=== PATIENT | male | born 1940 | race Caucasian/White ===

== ENCOUNTER → 2018-04-11 12:47 | Outpatient (CLI) | payer MEDICARE, OTHER, SELFPAY ==
--- NOTE | 2018-04-11 12:59 | PCM.CR.HP2 ---
CR - History & Physical - General Arrival date:: 04/11/18 Arrival time:: 12:59 Date of Referral:: 04/11/18 Date of CR Evaluation:: 04/11/18 Referring Physician: Dr. Barraza Primary Diagnosis: Z95.5 - History of Present Cardiac Event Onset Date: Enter Onset Date of cardiac illnesses in Comment field below Current stable Angina Pectoris:: Yes Acute Myocardial Infarction within 12 months:: Yes Coronary Artery Bypass Graft:: No Heart valve replacement or repair:: No PTCA or coronary stenting:: Yes - 02/26/18 x 3 Heart or Heart-Lung Transplant:: No Heart Failure EF <35%:: No - 62% Type of Symptoms:: Heavy feeling in chest. Interventions with present event:: Nuclear stress test, PCI Were there any complications?: Some stomach issues post op. - Medications Home Medications: Ambulatory Orders Medication Instructions Recorded Aspirin [Aspirin EC] 81 mg PO DAILY 04/11/18 Atorvastatin Calcium [Lipitor] 40 mg PO QHS 04/11/18 B Complex with Vitamin C [Vitamin 1 each PO DAILY 04/11/18 B-Complex with Vit C] Benzonatate [Tessalon Perle] 100 mg PO TID PRN PRN 04/11/18 Cholecalciferol (Vitamin D3) 1,000 unit PO DAILY 04/11/18 [Vitamin D3] Clopidogrel Bisulfate [Plavix] 75 mg PO DAILY 04/11/18 Fenofibrate [Tricor] 145 mg PO DAILY 04/11/18 Levothyroxine [Synthroid] 75 mcg PO DAILY 04/11/18 Metoprolol Tartrate [Lopressor 25 mg PO BID 04/11/18 (Beta Horacio)] Nitroglycerin [Nitrostat] 0.4 mg SL PRN PRN MDD 3 total 04/11/18 doses. Pantoprazole Sodium [Protonix] 40 mg PO DAILY 04/11/18 Tamsulosin HCl [Flomax] 0.4 mg PO DAILY 04/11/18 - Allergies Allergies/Adverse Reactions: Allergies lovenox Allergy (Uncoded 04/11/18 14:27) Rash - Sleep Disorder Evaluation Hx of Sleep Apnea: Yes Do you snore loudly (louder than talking or can be heard through closed doors)?: Yes Do you often feel tired/ fatigued/ sleepy during daytime?: Yes Has anyone observed you stop breathing during sleep?: Yes History of Hypertension (for STOP score): No - Is already on bipap at night. STOP Results: Positive Advanced Directives - Advanced Directives Power of Manager Product Design: Yes Living Will: Yes Advance Directives Information Provided: No Advance Directives on File: Yes - Dr. Meli Amaya has copy DNR Order?:: No - MOLST See MOLST form: No Past Medical History - Past Medical Illness Medical History: Past Medical History (Last Updated 04/11/18 @ 13:21 by Oswald Osman RN) Chronic kidney disease (CKD) N18.9 Hyperlipidemia E78.5 Hypothyroidism E03.9 - Past Surgical History Surgical History: appendectomy, cataract, cholecystectomy, herniorrhaphy, total knee arthroplasty Social History - Smoking History Smoking Status: Never smoker Hx Tobacco Use: No Hx Smoking Exposure: No - Alcohol Use Alcohol Usage: No - Substance Abuse Hx Substance Use: No - Occupation Occupation (List type of work in comments):: Retired - Hobbies, Recreation, Social Activities Hobbies: Exercise, Other - fishing, gardening, [employer] Recreational Activities: I am able to engage in all my recreational activities Social Environment - Status Marital Status: - Current Living Arrangements Living Environment:: Spouse - Children How many children do you have?: 2 Do any of your children live nearby?: Yes - Safety Do you feel safe in your surroundings?: Yes - Assistance Do you need any assistance at home?: no Review of Systems - Review of Systems Hints: Right click = Denies (Slash). Left click = Reports ([place]) Review of Present Symptoms: Reports: Dizziness/Lightheadedness - One episode since the stent., Fatigue - some, Appetite - Special Diet - cardiac. Denies: Shortness of Breath at Rest, Shortness of Breath with Exertion, PVD, Operative Discomfort, Angina, Wound Healing, Heart Arrhythmia/Irregularities, Appetite - Normal, Sleep - Normal, Sexual Changes - Pain Is Patient Pain Free?: No Pain Location: upper extremity - right shoulder arthritis, lower extremity - knees with arthritis Pain Level: 8/10 Previous experience dealing with pain?: deals with it, doesn't take pain meds. Risk Factor Assessment - Chief Complaint Chief Complaint: Exercise while being monitored. - Pulse Pulse Rate: 49 Pulse Rhythm: Regular - Hypertension Blood Pressure Sitting - Right Arm: 114/56 Blood Pressure Sitting - Left Arm: 118/56 - Blood Cholesterol/Lipids Total Cholesterol (mg/dL) Goal = less than 200 mg/dL: 208 HDL Cholesterol (mg/dL) Goal = less than 40 mg/dL: 41 LDL Cholesterol (mg/dL) Goal = less than 70 mg/dL: 136 Triglycerides (mg/dL) Goal = less than 150 mg/dL: 157 - Diabetes Nutrition Referral for Diabetes: No - Obesity Height: 1.75 m Weight:: 94.347 kg Weight in Pounds: 208.0 lbs Weight Source: Standing Scale Body Mass Index (BMI): 30.7 Desired Body Weight: 162 Realistic Weight Goal (Loss of 1-2 lbs/week): 174 Nutritional Referral for Obesity: Yes - Physical Inactivity Physical Inactivity: Reg Exercise 30 min/day - works out at [employer] 3x/week and walks alot of days outdoors. - Risk Stratification Risk Guidelines: Lowest Risk: Risk Factor for Smoking, Risk Factor for Diabetes, Risk Factor for Hypertension, Risk Factor for Sedentary Lifestyle, Risk Factor for Depression, Highest Risk: Risk Factor for Dyslipidemia, Risk Factor for Obesity - For Smoking Smoking Risk Guidelines: Smoking Low Risk: None or quit greater than 6 months ago. Smoking Moderate Risk: Smoker or quit 6 months or less ago. Smoking High Risk: Smoker - For Dyslipidemia Dyslipidemia Risk Guidelines: Low Risk: Moderate Risk: High Risk: 15-25% fat 25.1-29% fat >/= 30% fat. <7% sat fat 7-9% sat fat >9% sat fat. <150 mg chol 150-299 mg chol >/= 300 mg chol. LDL <100 LDL 100-129 LDL >/= 130. Chol/HDL ratio <5.0 Chol/HDL ratio 5.0-6.0 Chol/HDL ratio >6.0. Triglycerides <100 Triglycerides 100-149 Triglycerides >/= 150 - For Diabetes Mellitus Diabetes Risk Guidelines: Diabetes Low Risk: HgA1c <6.5% and/or FBG <120. Diabetes Moderate Risk: HgA1c 6.6-7.9% and/or FBG 120-180. Diabetes High Risk: HgA1c >/= 8% and/or FBG >180 - For Obesity/Overweight Obesity/Overweight Risk Guidelines: Obesity Low Risk: BMI <25.0. Obesity Moderate Risk: BMI 25-29.9. Obesity High Risk: BMI >/= 30.0 - For Hypertension Hypertension Risk Guidelines: Hypertension Low Risk: Systolic <120 and Diastolic <80. Hypertension Moderate Risk: Systolic 120-139 and Diastolic 80-89. Hypertension High Risk: Systolic >/= 140 and Diastolic >/= 90 - For Sedentary Lifestyle Sedentary Lifestyle Risk Guidelines: Sedentary Lifestyle Low Risk: >/= 1,500 kcal/week. Sedentary Lifestyle Moderate Risk: 700-1,499 kcal/week. Sedentary Lifestyle High Risk: < 700 kcal/week - For Depression Depression Risk Guidelines: Depression Low Risk: Not clinically depressed. Depression Moderate Risk: Mildly depressed. Depression High Risk: Clinically depressed Motivation - Motivation to Participate On a scale of 1 to 10, how prepared are you to commit to attending program?: 10
--- NOTE | 2018-04-11 13:15 | CR.HP_ITS ---
CR - History & Physical - General Arrival date:: 04/11/18 Arrival time:: 12:59 Date of Referral:: 04/11/18 Date of CR Evaluation:: 04/11/18 Referring Physician: Dr. Barraza Primary Diagnosis: Z95.5 - History of Present Cardiac Event Onset Date: Enter Onset Date of cardiac illnesses in Comment field below Current stable Angina Pectoris:: Yes Acute Myocardial Infarction within 12 months:: Yes Coronary Artery Bypass Graft:: No Heart valve replacement or repair:: No PTCA or coronary stenting:: Yes - 02/26/18 x 3 Heart or Heart-Lung Transplant:: No Heart Failure EF <35%:: No - 62% Type of Symptoms:: Heavy feeling in chest. Interventions with present event:: Nuclear stress test, PCI Were there any complications?: Some stomach issues post op. - Medications Home Medications: Ambulatory Orders Medication Instructions Recorded Aspirin [Aspirin EC] 81 mg PO DAILY 04/11/18 Atorvastatin Calcium [Lipitor] 40 mg PO QHS 04/11/18 B Complex with Vitamin C [Vitamin 1 each PO DAILY 04/11/18 B-Complex with Vit C] Benzonatate [Tessalon Perle] 100 mg PO TID PRN PRN 04/11/18 Cholecalciferol (Vitamin D3) 1,000 unit PO DAILY 04/11/18 [Vitamin D3] Clopidogrel Bisulfate [Plavix] 75 mg PO DAILY 04/11/18 Fenofibrate [Tricor] 145 mg PO DAILY 04/11/18 Levothyroxine [Synthroid] 75 mcg PO DAILY 04/11/18 Metoprolol Tartrate [Lopressor 25 mg PO BID 04/11/18 (Beta Horacio)] Nitroglycerin [Nitrostat] 0.4 mg SL PRN PRN MDD 3 total 04/11/18 doses. Pantoprazole Sodium [Protonix] 40 mg PO DAILY 04/11/18 Tamsulosin HCl [Flomax] 0.4 mg PO DAILY 04/11/18 - Allergies Allergies/Adverse Reactions: Allergies lovenox Allergy (Uncoded 04/11/18 14:27) Rash - Sleep Disorder Evaluation Hx of Sleep Apnea: Yes Do you snore loudly (louder than talking or can be heard through closed doors)? : Yes Do you often feel tired/ fatigued/ sleepy during daytime?: Yes Has anyone observed you stop breathing during sleep?: Yes History of Hypertension (for STOP score): No - Is already on bipap at night. STOP Results: Positive Advanced Directives - Advanced Directives Power of Deck Engine Operator: Yes Living Will: Yes Advance Directives Information Provided: No Advance Directives on File: Yes - Dr. Meli Amaya has copy DNR Order?:: No - MOLST See MOLST form: No Past Medical History - Past Medical Illness Medical History: Past Medical History (Last Updated 04/11/18 @ 13:21 by Oswald Osman RN) Chronic kidney disease (CKD) N18.9 Hyperlipidemia E78.5 Hypothyroidism E03.9 - Past Surgical History Surgical History: appendectomy, cataract, cholecystectomy, herniorrhaphy, total knee arthroplasty Social History - Smoking History Smoking Status: Never smoker Hx Tobacco Use: No Hx Smoking Exposure: No - Alcohol Use Alcohol Usage: No - Substance Abuse Hx Substance Use: No - Occupation Occupation (List type of work in comments):: Retired - Hobbies, Recreation, Social Activities Hobbies: Exercise, Other - fishing, gardening, [employer] Recreational Activities: I am able to engage in all my recreational activities Social Environment - Status Marital Status: - Current Living Arrangements Living Environment:: Spouse - Children How many children do you have?: 2 Do any of your children live nearby?: Yes - Safety Do you feel safe in your surroundings?: Yes - Assistance Do you need any assistance at home?: no Review of Systems - Review of Systems Hints: Right click = Denies (Slash). Left click = Reports ([place]) Review of Present Symptoms: Reports: Dizziness/Lightheadedness - One episode since the stent., Fatigue - some, Appetite - Special Diet - cardiac. Denies: Shortness of Breath at Rest, Shortness of Breath with Exertion, PVD, Operative Discomfort, Angina, Wound Healing, Heart Arrhythmia/Irregularities, Appetite - Normal, Sleep - Normal, Sexual Changes - Pain Is Patient Pain Free?: No Pain Location: upper extremity - right shoulder arthritis, lower extremity - knees with arthritis Pain Level: 8/10 Previous experience dealing with pain?: deals with it, doesn't take pain meds. Risk Factor Assessment - Chief Complaint Chief Complaint: Exercise while being monitored. - Pulse Pulse Rate: 49 Pulse Rhythm: Regular - Hypertension Blood Pressure Sitting - Right Arm: 114/56 Blood Pressure Sitting - Left Arm: 118/56 - Blood Cholesterol/Lipids Total Cholesterol (mg/dL) Goal = less than 200 mg/dL: 208 HDL Cholesterol (mg/dL) Goal = less than 40 mg/dL: 41 LDL Cholesterol (mg/dL) Goal = less than 70 mg/dL: 136 Triglycerides (mg/dL) Goal = less than 150 mg/dL: 157 - Diabetes Nutrition Referral for Diabetes: No - Obesity Height: 1.75 m Weight:: 94.347 kg Weight in Pounds: 208.0 lbs Weight Source: Standing Scale Body Mass Index (BMI): 30.7 Desired Body Weight: 162 Realistic Weight Goal (Loss of 1-2 lbs/week): 174 Nutritional Referral for Obesity: Yes - Physical Inactivity Physical Inactivity: Reg Exercise 30 min/day - works out at [employer] 3x/week and walks alot of days outdoors. - Risk Stratification Risk Guidelines: Lowest Risk: Risk Factor for Smoking, Risk Factor for Diabetes , Risk Factor for Hypertension, Risk Factor for Sedentary Lifestyle, Risk Factor for Depression, Highest Risk: Risk Factor for Dyslipidemia, Risk Factor for Obesity - For Smoking Smoking Risk Guidelines: Smoking Low Risk: None or quit greater than 6 months ago. Smoking Moderate Risk: Smoker or quit 6 months or less ago. Smoking High Risk: Smoker - For Dyslipidemia Dyslipidemia Risk Guidelines: Low Risk: Moderate Risk: High Risk: 15-25% fat 25.1-29% fat >/= 30% fat. <7% sat fat 7-9% sat fat >9% sat fat. <150 mg chol 150-299 mg chol >/= 300 mg chol. LDL <100 LDL 100-129 LDL >/= 130. Chol/HDL ratio <5.0 Chol/HDL ratio 5.0-6.0 Chol/HDL ratio >6.0. Triglycerides <100 Triglycerides 100-149 Triglycerides >/= 150 - For Diabetes Mellitus Diabetes Risk Guidelines: Diabetes Low Risk: HgA1c <6.5% and/or FBG <120. Diabetes Moderate Risk: HgA1c 6.6-7.9% and/or FBG 120-180. Diabetes High Risk: HgA1c >/= 8% and/or FBG >180 - For Obesity/Overweight Obesity/Overweight Risk Guidelines: Obesity Low Risk: BMI <25.0. Obesity Moderate Risk: BMI 25-29.9. Obesity High Risk: BMI >/= 30.0 - For Hypertension Hypertension Risk Guidelines: Hypertension Low Risk: Systolic <120 and Diastolic <80. Hypertension Moderate Risk: Systolic 120-139 and Diastolic 80-89. Hypertension High Risk: Systolic >/= 140 and Diastolic >/= 90 - For Sedentary Lifestyle Sedentary Lifestyle Risk Guidelines: Sedentary Lifestyle Low Risk: >/= 1 ,500 kcal/week. Sedentary Lifestyle Moderate Risk: 700-1,499 kcal/week. Sedentary Lifestyle High Risk: < 700 kcal/week - For Depression Depression Risk Guidelines: Depression Low Risk: Not clinically depressed. Depression Moderate Risk: Mildly depressed. Depression High Risk: Clinically depressed Motivation - Motivation to Participate On a scale of 1 to 10, how prepared are you to commit to attending program?: 10
--- NOTE | 2018-04-11 13:19 | CR.ITP_ITS ---
General Information - General Information Admitting Diagnosis: PCI with stents - Education/Goals Barriers to Learning: Hearing Impairment - Wears bilateral hearing aids. Individual Counseling: Initial Assessment: Abnormal Cholesterol Levels, Overweight/Obesity, B. Waist Circumference >35/Females >40/Males, C. High Triglycerides >150 Cardiac Rehabilitation Goals: 1. Maintain the individual as the primary focus of care. 2. To improve the patient's quality of life. 3. Identification of cardiac risk factors and provide cardiac risk factor management. 4. Enhance the psychosocial status of the patient. 5. Reconditioning enough to allow the patient to resume customary activities. 6. Control symptoms of cardiac disease Scale for measuring improvement of personal goals: Enter appropriate number in Comments. 2 = Unchanged. 3 = Slightly Better. 4 = Moderate Improvement. 5 = Met my Goal Personal Goals: Initial Assessment: Improve management of stress and emotions, Improve energy level, Get back to work, or to resume activities faster, Improve knowledge of cardiac disease, Improve muscle strength and endurance, Improve diet and eating habits (eat healthier), Control risk factors (learn risk factor modification), Other goal: Exercise - Initial Assessment - Visit Date of Eval: 04/11/18 - Stages of Change Stages of Change:: Action - Exercise Prescription Mode:: Treadmill, Biodyne, Rower, Airdyne, NuStep - Hypertension Do any of the following apply?: No - Intervention Home Exercise/Activity Goal:: Moderate Exercise 30 min/day x 5 days/wk - Education Goals:: Warm-up, RPE [id number] Scale, S/S, Safe Exercise, Self-Monitoring - Exercise Program Goals Exercise Program Goals: Aerobic Activity >30 min Nutrition - Initial Assessment - Program Goals Nutrition Program Goals: LDL <70. Total Cholesterol <200. HDL >45. Triglycerides <150. HgbA1C <7%. BMI <25 - Visit Date of Assessment:: 04/11/18 - Stages of Change Stages of Change:: Action - Lipids Total Cholesterol (mg/dL) Goal = less than 200 mg/dL: 208 HDL Cholesterol (mg/dL) Goal = less than 45 mg/dL: 41 LDL Cholesterol (mg/dL) Goal = less than 70 mg/dL: 136 Triglycerides (mg/dL) Goal = less than 150 mg/dL: 157 - Diabetes Diabetes:: No - Weight Management Height: 1.75 m Weight:: 94.347 kg Weight Goal (kg):: 79.379 kg Body Fat %:: 31 Goal % Body Fat:: 24 - Intervention Referral to dietitian:: Yes Referral to Diabetic Clinic:: No Will attend diet classes:: Yes - Education Gave educational materials for:: Relate diabetes to coronary artery disease, Healthy eating Tobacco - Initial Assessment - Program Goals Tobacco Program Goals: Complete smoking cessation. Attend education classes. Improve Knowledge Test score - Stage of Change Stages of Change:: Maintenance - Learning Barriers Learning Barriers: Hearing - bilateral hearing aids, Ready to Learn - Family Support Do you have family support?: Yes - Tobacco Use Tobacco Use: Non-smoker Do you use smokeless tobacco?: No - Intervention Smoking Cessation Referral:: No Individual Education/Counseling:: No Education Schedule Given:: Yes - Education Gave educational material for:: Coronary artery disease, Risk factors, Sexuality , Medical compliance, Cardiac A&P, Angina signs & symptoms Psychosocial - Initial Assess - Target Goals Target Goals: Assess presence or absence of depression. Using a valid screening tool, maximizes coping skills. Positive support system - Stages of Change Stages of Change:: Action - Psychosocial Test Tool Used:: HANDS Depression Questionnaire Self-reported stress:: no Total Mood Screening Score:: 8 Self-Efficacy Score:: 4 - Intervention PS - Interventions: Yes Attend Stress Management Classes, Yes Uses Stress Management Skills, No Referral to Mental Health, No Referral to [facility] Case Management, No Referral to Physician - Education Gave educational materials for:: Coping techniques, Signs & symptoms of depression, Stress management, Relaxation techniques - Patient/Program Goal Preventative Medication(s):: Aspirin, RALPH inhibitor, Clopidogrel, Beta nicholas, Statin/lipid - Assistive Devices Assistive Devices:: None Fall Risk Assessed:: Yes Patient Health Questionnaire Initial Assessment 1. Little interest or pleasure in doing things: More than half the days 2. Feeling down, depressed, or hopeless: Not at all 3. Trouble falling or staying asleep, or sleeping too much: Not at all 4. Feeling tired or having little energy: Several days 5. Poor appetite or overeating: More than half the days 6. Feeling bad about yourself -- or that you are a failure or have let yourself or your family down: Several days 7. Trouble concentrating on things, such as reading the newspaper or watching television: Not at all 8. Moving or speaking so slowly that other people could have noticed. Or the opposite - being so fidgety or restless that you have been moving around a lot more than usual: More than half the days 9. Thoughts that you would be better off , or of hurting yourself in some way: Not at all Total Score: 8 MARITO-Q SV Test - Statements CAD is a disease of the arteries in the heart: True Examples of risk factors for heart disease: True Angina is chest pain or discomfort: True The benefits of resistance training include: True Eating more meat and dairy products: I Don't Know Anti-platelet medications such as aspirin are important: False The only effective way to manage stress: False An exercise warm-up slowly increases heart rate: True Prepared, processed foods usually have high sodium: True Depression is common after a heart attack: True The statin medications lower cholesterol: True To control blood pressure, lower the amount of sodium: True If someone gets chest discomfort during walking: False Transfats are partially hydrogenated vegetable oils: False Sleep apnea that is not treated increases the risk: False To control cholesterol, one should become a vegetarian: I Don't Know Someone knows if he/she is exercising at the right level: False Diabetes cannot be prevented with exercise & health eating: False Stress is a large risk for heart attack: True A diet that can help lower blood pressure is rich in: True - Total Score Total Correct Responses: 14 Self-Efficacy Initial Assessment We would like to know how confident you are in doing certain activities. Please select your confidence level for:: Select your confidence level for the following using the scale 1-10 where 1 is not at all confident and 10 is totally confident. Your score is the average of all 6 responses. Fatigue: How confident are you that you can keep the fatigue caused by your disease from interfering with the things you want to do? Select Number: 3 Physical Discomfort or Pain: How confident are you that you can keep the physical discomfort or pain of your disease from interfering with the things you want to do? Select Number: 4 Emotional Distress: How confident are you that you can keep the emotional distress caused by your disease from interfering with the things you want to do? Select Number: 5 Other Symptoms or Health Problems: How confident are you that you can keep other symptoms or health problems from interfering with the things you want to do? Select Number: 4 Different Tasks and Activities: How confident are you that you can do the different tasks and activities needed to manage your health condition so as to reduce your need to see a doctor? Select Number: 6 Medication: How confident are you that you can do things other than just taking medication to reduce how much your illness affects your everyday life? Select Number: 6 Total Score:: 4 Nutrition Survey - Nutrition Survey Instructions Scoring Instructions: Scoring is as follows: Yes = 1 points. No = 0 point. Patient score that is >/=12 is considered to be at potential nutritional risk and could benefit from a referral to a registered dietitian. - Nutrition Survey Initial Have you lost >10 lbs over the past 2 months without trying?: No Are you following a special diet at home for diabetes, low fat, or low salt?: No Are you interested in meeting with a dietitian for help understanding your diet? : Yes Do you eat less than 3 meals a day?: No Do you eat fatty meats (wilson, sausage, ribs, etc), fried foods, desserts, large amounts of salad dressings, margarine, butter, or cheese most days?: Yes Do you have food allergies? [Enter types in comment field]: No Do you eat in restaurants more than 3 times a week?: No Do you season food with salt, seasoning salt, or garlic salt?: Yes Do you used canned, boxed, frozen meals, or soups, seasoning packets?: No Total Score:: 3
[2018-04-11 14:42] VITALS: BP 114/56; BP 118/56; PULSE 49; BMI 30.7
--- NOTE | 2018-04-21 15:43 | EKG12_ITS ---
Test Reason : PRE CARDIAC REHAB Blood Pressure : / mmHG Vent. Rate : 049 BPM Atrial Rate : 049 BPM P-R Int : 152 ms QRS Dur : 114 ms QT Int : 456 ms P-R-T Axes : 017 001 038 degrees QTc Int : 411 ms Marked sinus bradycardia Minimal voltage criteria for LVH, may be normal variant Abnormal ECG Confirmed by SARAHI BANUELOS, JEFFREY ([id number]), editor producer SILVIA ZULETA ([id number]) on 04/23/2018 5:30:33 PM Referred By: OUT DOCTOR Confirmed By:JEFFREY MCCLAIN MD
== END ==
DX: Z95.5 Presence of coronary angioplasty implant and graft (principal)
CPT/HCPCS: 93005

== ENCOUNTER 2018-05-09 09:15 | Outpatient (RCR) | payer MEDICARE, OTHER, SELFPAY ==
--- NOTE | 2018-05-02 14:42 | PCM.CR.ITP ---
General Information - General Information Admitting Diagnosis: PCI with coronary artery stenting - Education/Goals Barriers to Learning: Hearing Impairment Individual Counselin-Day Assessment: Abnormal Cholesterol Levels, B. Waist Circumference >35/Females >40/Males Cardiac Rehabilitation Goals: 1. Maintain the individual as the primary focus of care. 2. To improve the patient's quality of life. 3. Identification of cardiac risk factors and provide cardiac risk factor management. 4. Enhance the psychosocial status of the patient. 5. Reconditioning enough to allow the patient to resume customary activities. 6. Control symptoms of cardiac disease Scale for measuring improvement of personal goals: Enter appropriate number in Comments. 2 = Unchanged. 3 = Slightly Better. 4 = Moderate Improvement. 5 = Met my Goal Personal Goals: 30-day Re-assessment: Improve management of stress and emotions, Improve energy level, Get back to work, or to resume activities faster, Improve knowledge of cardiac disease, Improve muscle strength and endurance, Improve diet and eating habits (eat healthier), Control risk factors (learn risk factor modification) Exercise - 30-day Assessment - Visit Date of Eval: 05/02/18 Session #:: 4 - 100% compliance - Stages of Change Stages of Change:: Action - Exercise Prescription Mode:: Treadmill, Airdyne, NuStep Frequency (x/week): 3 Duration:: 30 METs - Progression: 0.5-1 MET as tolerated: 2.5 Target Heart Rate:: 106-114 - Hypertension Resting Blood Pressure:: 118/76 Peak Exercise Blood Pressure:: 142/72 Medication Changes:: No - Intervention Home Exercise/Activity Goal:: Sitting Time <3 hrs/day - Education Goals:: Warm-up, RPE RAJEEV Scale, S/S, Safe Exercise, Self-Monitoring - Exercise Program Goals Exercise Program Goals: Aerobic Activity >30 min, B/P <130/80 Nutrition - 30-Day Assessment - Program Goals Nutrition Program Goals: LDL <70. Total Cholesterol <200. HDL >45. Triglycerides <150. HgbA1C <7%. BMI <25 - Visit Date of Eval: 05/02/18 - Stages of Change Stages of Change:: Action - Lipids Has the patient seen the dietitian?: No - Diabetes Diabetes:: No - Intervention Referral to dietitian:: No Referral to Diabetic Clinic:: No Will attend diet classes:: Yes - Education Attended class for:: Signs & symptoms of hypoglycemia, Signs & symptoms of hyperglycemia, Relate diabetes to coronary artery disease, Healthy eating Tobacco - Initial Assessment - Program Goals Tobacco Program Goals: Complete smoking cessation. Attend education classes. Improve Knowledge Test score - Learning Barriers Learning Barriers: Hearing - bilateral hearing aids, Ready to Learn Tobacco - 30-Day Assessment - Program Goals Tobacco Program Goals: Complete smoking cessation. Attend education classes. Improve Knowledge Test score - Stage of Change Stages of Change:: Action - Learning Barriers Learning Barriers: Participates in education - Family Support Do you have family support?: Yes - Tobacco Use Tobacco Use: Non-smoker Do you use smokeless tobacco?: No - Education Attended class for:: Tobacco triggers, Coronary artery disease, Risk factors, Sexuality, Medical compliance, Cardiac A&P, Angina signs & symptoms Psychosocial - Initial Assess - Target Goals Target Goals: Assess presence or absence of depression. Using a valid screening tool, maximizes coping skills. Positive support system - Psychosocial Test Tool Used:: HANDS Depression Questionnaire - Assistive Devices Fall Risk Assessed:: Yes Psychosocial - 30-Day Assess - Target Goals Target Goals: Assess presence or absence of depression. Using a valid screening tool, maximizes coping skills. Positive support system - Stages of Change Stages of Change:: Action - Psychosocial Test Tool Used:: HANDS Depression Questionnaire - Intervention PS - Interventions: Yes Attend Stress Management Classes, Yes Uses Stress Management Skills, No Referral to Mental Health, No Referral to [facility] Case Management, No Referral to Physician - Education Attended classes for:: Coping techniques, Signs & symptoms of depression, Stress management, Relaxation techniques - Assistive Devices Assistive Devices:: None Fall Risk Assessed:: Yes Patient Health Questionnaire 30-Day Re-eval Assessment 1. Little interest or pleasure in doing things: More than half the days 2. Feeling down, depressed, or hopeless: Not at all 3. Trouble falling or staying asleep, or sleeping too much: Not at all 4. Feeling tired or having little energy: Several days 5. Poor appetite or overeating: More than half the days 6. Feeling bad about yourself -- or that you are a failure or have let yourself or your family down: Several days 7. Trouble concentrating on things, such as reading the newspaper or watching television: Not at all 8. Moving or speaking so slowly that other people could have noticed. Or the opposite - being so fidgety or restless that you have been moving around a lot more than usual: Several days 9. Thoughts that you would be better off , or of hurting yourself in some way: Not at all Total Score: 7 Self-Efficacy 60-Day Re-eval Assessment We would like to know how confident you are in doing certain activities. Please select your confidence level for:: Select your confidence level for the following using the scale 1-10 where 1 is not at all confident and 10 is totally confident. Your score is the average of all 6 responses. Fatigue: How confident are you that you can keep the fatigue caused by your disease from interfering with the things you want to do? Select Number: 5 Physical Discomfort or Pain: How confident are you that you can keep the physical discomfort or pain of your disease from interfering with the things you want to do? Select Number: 5 Emotional Distress: How confident are you that you can keep the emotional distress caused by your disease from interfering with the things you want to do? Select Number: 5 Other Symptoms or Health Problems: How confident are you that you can keep other symptoms or health problems from interfering with the things you want to do? Select Number: 6 Different Tasks and Activities: How confident are you that you can do the different tasks and activities needed to manage your health condition so as to reduce your need to see a doctor? Select Number: 6 Medication: How confident are you that you can do things other than just taking medication to reduce how much your illness affects your everyday life? Select Number: 6 Total Score:: 5 We would like to know how confident you are in doing certain activities. Please select your confidence level for:: Select your confidence level for the following using the scale 1-10 where 1 is not at all confident and 10 is totally confident. Your score is the average of all 6 responses. Fatigue: How confident are you that you can keep the fatigue caused by your disease from interfering with the things you want to do? Physical Discomfort or Pain: How confident are you that you can keep the physical discomfort or pain of your disease from interfering with the things you want to do? Emotional Distress: How confident are you that you can keep the emotional distress caused by your disease from interfering with the things you want to do? Other Symptoms or Health Problems: How confident are you that you can keep other symptoms or health problems from interfering with the things you want to do? Different Tasks and Activities: How confident are you that you can do the different tasks and activities needed to manage your health condition so as to reduce your need to see a doctor? Medication: How confident are you that you can do things other than just taking medication to reduce how much your illness affects your everyday life?
[2018-05-02 14:48] VITALS: BP 118/76; BP 142/72
== END 2018-05-10 23:59 ==
LOC: CR 09:15
DX: I25.10 Atherosclerotic heart disease of native coronary artery without angina pectoris (principal)
CPT/HCPCS: 93798

== ENCOUNTER 2018-05-21 13:56 | Outpatient (RCR) | payer MEDICARE, OTHER, SELFPAY | END 2018-05-21 23:59 | LOC: NS 13:56 | DX: E78.5 Hyperlipidemia, unspecified (principal); E03.9 Hypothyroidism, unspecified; N18.9 Chronic kidney disease, unspecified; E66.9 Obesity, unspecified; Z68.30 Body mass index [BMI] 30.0-30.9, adult; Z71.3 Dietary counseling and surveillance | CPT/HCPCS: 93798; 97802 ==

== ENCOUNTER 2018-06-09 09:15 | Outpatient (RCR) | payer MEDICARE, OTHER, SELFPAY ==
[2018-05-11 01:06] VITALS: BP 118/76; BP 142/72
--- NOTE | 2018-06-04 09:12 | CR.ITP_ITS ---
Exercise - 60-Day Assessment - Visit Date of Eval: 06/04/18 Session #:: 16 - Stages of Change Stages of Change:: Action - Exercise Prescription Mode:: Treadmill, Airdyne, NuStep Frequency (x/week): 3 Duration:: 30 METs: 5 Target Heart Rate:: 106-114 Max HR 96 - Hypertension Resting Blood Pressure:: 188/74 Peak Exercise Blood Pressure:: 188/74 Medication Changes:: No - Intervention Home Exercise/Activity Goal:: Moderate Exercise 30 min/day x 5 days/wk - Education Goals:: Warm-up, RPE RAJEEV Scale, S/S, Safe Exercise, Self-Monitoring - Exercise Program Goals Exercise Program Goals: Aerobic Activity >30 min Nutrition - 60-Day Assessment - Program Goals Nutrition Program Goals: LDL <70. Total Cholesterol <200. HDL >45. Triglycerides <150. HgbA1C <7%. BMI <25 - Visit Date of Eval: 06/04/18 - Stages of Change Stages of Change:: Action - Lipids Has the patient seen the dietitian?: No - Diabetes Diabetes:: No - Weight Management Weight:: 206 lb - Intervention Referral to dietitian:: No Referral to Diabetic Clinic:: No Will attend diet classes:: Yes - Education Attended class for:: Healthy eating Tobacco - Initial Assessment - Program Goals Tobacco Program Goals: Complete smoking cessation. Attend education classes. Improve Knowledge Test score - Learning Barriers Learning Barriers: Hearing - bilateral hearing aids, Ready to Learn Tobacco - 60-Day Assessment - Program Goals Tobacco Program Goals: Complete smoking cessation. Attend education classes. Improve Knowledge Test score - Stage of Change Stages of Change:: Action - Learning Barriers Learning Barriers: Participates in education - Family Support Do you have family support?: Yes - Tobacco Use Tobacco Use: Non-smoker Do you use smokeless tobacco?: No - Intervention Education Schedule Given:: Yes - Education Attended class for:: Coronary artery disease, Risk factors, Sexuality, Medical compliance, Cardiac A&P, Angina signs & symptoms Psychosocial - 60-Day Assess - Target Goals Target Goals: Assess presence or absence of depression. Using a valid screening tool, maximizes coping skills. Positive support system - Stages of Change Stages of Change:: Action - Psychosocial Test Tool Used:: HANDS Depression Questionnaire - Intervention PS - Interventions: Yes Attend Stress Management Classes, No Referral to Mental Health, No Referral to [facility] Case Management, No Referral to Physician, No Uses Stress Management Skills - Education Attended classes for:: Coping techniques, Signs & symptoms of depression, Stress management, Relaxation techniques - Patient/Program Goal Preventative Medication(s):: Aspirin, Clopidogrel, Beta nicholas, Statin/lipid - Assistive Devices Assistive Devices:: None Fall Risk Assessed:: Yes Patient Health Questionnaire 60-Day Re-eval Assessment 1. Little interest or pleasure in doing things: Several days 2. Feeling down, depressed, or hopeless: Not at all 3. Trouble falling or staying asleep, or sleeping too much: Not at all 4. Feeling tired or having little energy: Not at all 5. Poor appetite or overeating: Not at all 6. Feeling bad about yourself -- or that you are a failure or have let yourself or your family down: Several days 7. Trouble concentrating on things, such as reading the newspaper or watching television: Not at all 8. Moving or speaking so slowly that other people could have noticed. Or the opposite - being so fidgety or restless that you have been moving around a lot more than usual: Several days 9. Thoughts that you would be better off , or of hurting yourself in some way: Not at all How difficult have these problems made it for you to do your work, take care of things at home, or get along with other people?: Not difficult at all Total Score: 3 Self-Efficacy 60-Day Re-eval Assessment We would like to know how confident you are in doing certain activities. Please select your confidence level for:: Select your confidence level for the following using the scale 1-10 where 1 is not at all confident and 10 is totally confident. Your score is the average of all 6 responses. Fatigue: How confident are you that you can keep the fatigue caused by your disease from interfering with the things you want to do? Select Number: 6 Physical Discomfort or Pain: How confident are you that you can keep the physical discomfort or pain of your disease from interfering with the things you want to do? Select Number: 6 Emotional Distress: How confident are you that you can keep the emotional distress caused by your disease from interfering with the things you want to do? Select Number: 6 Other Symptoms or Health Problems: How confident are you that you can keep other symptoms or health problems from interfering with the things you want to do? Select Number: 7 Different Tasks and Activities: How confident are you that you can do the different tasks and activities needed to manage your health condition so as to reduce your need to see a doctor? Select Number: 8 Medication: How confident are you that you can do things other than just taking medication to reduce how much your illness affects your everyday life? Select Number: 8 Total Score:: 6
[2018-06-04 09:14] VITALS: BP 188/74
== END 2018-06-10 23:59 ==
LOC: CR 09:15
DX: I25.10 Atherosclerotic heart disease of native coronary artery without angina pectoris (principal)
CPT/HCPCS: 93798

== ENCOUNTER 2018-07-11 09:15 | Outpatient (RCR) | payer MEDICARE, OTHER, SELFPAY ==
[2018-06-11 01:02] VITALS: BP 188/74
[2018-07-04 13:58] VITALS: BP 158/76; BP 180/82
--- NOTE | 2018-07-04 13:58 | CR.ITP_ITS ---
General Information - General Information Admitting Diagnosis: PCI w/coronary artery stenting - Education/Goals Cardiac Rehabilitation Goals: 1. Maintain the individual as the primary focus of care. 2. To improve the patient's quality of life. 3. Identification of cardiac risk factors and provide cardiac risk factor management. 4. Enhance the psychosocial status of the patient. 5. Reconditioning enough to allow the patient to resume customary activities. 6. Control symptoms of cardiac disease Scale for measuring improvement of personal goals: Enter appropriate number in Comments. 2 = Unchanged. 3 = Slightly Better. 4 = Moderate Improvement. 5 = Met my Goal Exercise - 90-Day Assessment - Visit Date of Eval: 07/04/18 Session #:: 29 - Stages of Change Stages of Change:: Action - Exercise Prescription Mode:: Treadmill, Airdyne, NuStep Frequency (x/week): 3 Duration:: 30 METs: 5 Target Heart Rate:: 106-114 Max HR 89 - Hypertension Resting Blood Pressure:: 158/76 Peak Exercise Blood Pressure:: 180/82 Medication Changes:: Yes - started metoprolol 12.5 mg BID - Intervention Home Exercise/Activity Goal:: Sitting Time <3 hrs/day - Education Goals:: Warm-up, RPE RAJEEV Scale, S/S, Safe Exercise, Self-Monitoring - Exercise Program Goals Exercise Program Goals: Aerobic Activity >30 min, B/P <130/80 Nutrition - 90-Day Assessment - Program Goals Nutrition Program Goals: LDL <70. Total Cholesterol <200. HDL >45. Triglycerides <150. HgbA1C <7%. BMI <25 - Visit Date of Eval: 07/04/18 - Stages of Change Stages of Change:: Action - Lipids Has the patient seen the dietitian?: No - Diabetes Diabetes:: No - Weight Management Weight:: 92.76 kg - Intervention Referral to dietitian:: No Referral to Diabetic Clinic:: No Will attend diet classes:: Yes - Education Attended class for:: Signs & symptoms of hypoglycemia, Signs & symptoms of hyperglycemia, Relate diabetes to coronary artery disease, Healthy eating Tobacco - Initial Assessment - Program Goals Tobacco Program Goals: Complete smoking cessation. Attend education classes. Improve Knowledge Test score - Learning Barriers Learning Barriers: Hearing - bilateral hearing aids, Ready to Learn Tobacco - 90-Day Assessment - Program Goals Tobacco Program Goals: Complete smoking cessation. Attend education classes. Improve Knowledge Test score - Stage of Change Stages of Change:: Action - Learning Barriers Learning Barriers: Participates in education - Family Support Do you have family support?: Yes - Tobacco Use Tobacco Use: Non-smoker Do you use smokeless tobacco?: No - Intervention Smoking Cessation Referral:: No Individual Education/Counseling:: No Education Schedule Given:: Yes - Education Attended class for:: Tobacco triggers, Coronary artery disease, Risk factors, Sexuality, Medical compliance, Cardiac A&P, Angina signs & symptoms Psychosocial - Initial Assess - Target Goals Target Goals: Assess presence or absence of depression. Using a valid screening tool, maximizes coping skills. Positive support system - Psychosocial Test Tool Used:: HANDS Depression Questionnaire - Assistive Devices Fall Risk Assessed:: Yes Psychosocial - 90-Day Assess - Target Goals Target Goals: Assess presence or absence of depression. Using a valid screening tool, maximizes coping skills. Positive support system - Stages of Change Stages of Change:: Action - Psychosocial Test Tool Used:: HANDS Depression Questionnaire - Intervention PS - Interventions: Yes Attend Stress Management Classes, Yes Uses Stress Management Skills, No Referral to Mental Health, No Referral to [facility] Case Management, No Referral to Physician - Education Attended classes for:: Coping techniques, Signs & symptoms of depression, Stress management, Relaxation techniques - Assistive Devices Assistive Devices:: None Fall Risk Assessed:: Yes Patient Health Questionnaire 90-Day Re-eval Assessment 1. Little interest or pleasure in doing things: Several days 2. Feeling down, depressed, or hopeless: Not at all 3. Trouble falling or staying asleep, or sleeping too much: Not at all 4. Feeling tired or having little energy: Not at all 5. Poor appetite or overeating: Not at all 6. Feeling bad about yourself -- or that you are a failure or have let yourself or your family down: Several days 7. Trouble concentrating on things, such as reading the newspaper or watching television: Not at all 8. Moving or speaking so slowly that other people could have noticed. Or the opposite - being so fidgety or restless that you have been moving around a lot more than usual: Not at all 9. Thoughts that you would be better off , or of hurting yourself in some way: Not at all How difficult have these problems made it for you to do your work, take care of things at home, or get along with other people?: Not difficult at all Total Score: 2 Self-Efficacy 90-Day Re-eval Assessment We would like to know how confident you are in doing certain activities. Please select your confidence level for:: Select your confidence level for the following using the scale 1-10 where 1 is not at all confident and 10 is totally confident. Your score is the average of all 6 responses. Fatigue: How confident are you that you can keep the fatigue caused by your disease from interfering with the things you want to do? Select Number: 7 Physical Discomfort or Pain: How confident are you that you can keep the physical discomfort or pain of your disease from interfering with the things you want to do? Select Number: 7 Emotional Distress: How confident are you that you can keep the emotional distress caused by your disease from interfering with the things you want to do? Select Number: 7 Other Symptoms or Health Problems: How confident are you that you can keep other symptoms or health problems from interfering with the things you want to do? Select Number: 8 Different Tasks and Activities: How confident are you that you can do the different tasks and activities needed to manage your health condition so as to reduce your need to see a doctor? Select Number: 8 Medication: How confident are you that you can do things other than just taking medication to reduce how much your illness affects your everyday life? Select Number: 8 Total Score:: 7
== END 2018-07-11 23:59 ==
LOC: CR 09:15
DX: I25.10 Atherosclerotic heart disease of native coronary artery without angina pectoris (principal)
CPT/HCPCS: 93798

== ENCOUNTER 2018-07-23 09:15 | Outpatient (RCR) | payer MEDICARE, OTHER, SELFPAY ==
[2018-07-12 01:08] VITALS: BP 158/76; BP 180/82
== END 2018-08-10 23:59 ==
LOC: CR 09:15
DX: I25.10 Atherosclerotic heart disease of native coronary artery without angina pectoris (principal); Z95.5 Presence of coronary angioplasty implant and graft
CPT/HCPCS: 93798

== ENCOUNTER 2018-11-12 17:14 | Inpatient (IN) | payer MEDICARE, OTHER, SELFPAY ==
[2018-11-12 17:17] VITALS: PULSE 85; PULSE 89; RESP 17; TEMP 38.4; O2SAT 93; O2SAT 96; BMI 29.4
[2018-11-12 17:28] VITALS: BP 167/67
--- NOTE | 2018-11-12 17:59 | EKG12_ITS ---
Test Reason : FEVER Blood Pressure : / mmHG Vent. Rate : 075 BPM Atrial Rate : 075 BPM P-R Int : 134 ms QRS Dur : 104 ms QT Int : 396 ms P-R-T Axes : 015 -18 071 degrees QTc Int : 442 ms Normal sinus rhythm Voltage criteria for left ventricular hypertrophy Abnormal ECG Confirmed by OC BANUELOS, FLAVAI ([id number]), market editor SILVIA ZULETA ([id number]) on 11/14/2018 2:29:42 PM Referred By: SYD Confirmed By:FLAVIA RENAE MD
--- NOTE | 2018-11-12 17:59 | CT_ITS ---
STUDY: CT BRAIN WITHOUT CONTRAST REASON FOR EXAM: Male, 77 years old. Bilateral leg weakness RADIATION DOSAGE (If Supplied By Facility): CTDIvol = ( 60.81 ) mGy, DLP = ( 1089.89 ) mGycm TECHNIQUE: Transaxial CT imaging of the brain was performed without administration of intravenous contrast material. Individualized dose optimization techniques were used for this CT. COMPARISON: None. FINDINGS: Normal soft tissue structures. Normal calvarium. There is mild cerebral atrophy with widening of the extra-axial spaces and ventricular dilatation. There are areas of decreased attenuation within the white matter tracts of the supratentorial brain, consistent with microvascular disease changes. Normal basal ganglia and thalami. Normal brainstem. Normal cerebellum. There is no intracranial hemorrhage. There are no findings of an acute ischemic infarction. Normal visualized paranasal sinuses. CT/Brain/Head without Contrast IMPRESSION: Chronic involutional changes of the brain. Electronically Signed: Sandeep Lopez MD at 19:34 EST , Service support ,
--- NOTE | 2018-11-12 18:01 | ED.VISSUMM ---
- ER Visit Summary Date of Service: 11/12/18 Chief Complaint: Bilateral leg weakness History of Present Illness: The patient is a 77 M presenting with bilateral leg weakness. EMS was called because patient was unable to get up. was unable to get him to stand or walk. He complained of bilateral lower extremity weakness. Per the he was dragging his left leg behind him. Per EMS, he was able to stand. checked his blood sugar which was 110. She denies any speech changes or facial droop. He has a fever on arrival. He was unaware of his fever. He complains of a cough. He denies chest pain or shortness of breath. Denies abdominal pain. He did go to the [facility] this morning and was able to do his exercises. Denies other complaints. Physical Examination: Vitals are stable. Temperature 101.2 Alert no acute distress. HEENT exam is unremarkable. Neck is supple. Lungs are clear and equal bilaterally. Heart is regular rate and rhythm. Abdomen is soft nontender nondistended. Extremities are unremarkable. Skin is warm and dry. No focal neurologic deficit. NIH 0 Remainder of exam is unremarkable. Emergency Department Course and Treatment: Patient was given Tylenol. EKG is sinus rate of 75 with no acute ischemic changes. Chest x-ray shows mild left basilar infiltrate. CT head shows chronic changes. CBC, chemistries unremarkable. Troponin is negative. Urinalysis shows 10-25 white blood cells, 4+ bacteria. Influenza is negative. Urine and blood cultures were sent. He was given Rocephin and Zithromax IV. Will discuss with the hospitalist for admission. Disposition: Admission Impression: Community acquired pneumonia, UTI, bilateral lower extremity weakness This note was generated with [employer] dictation software. It may contain incorrect words, spelling, and punctuation that were not noted in review of the chart prior to signing ED Disposition - Plan for ED Patient: Chief Complaint: Lower Extremity Injury Referrals: Alena Doctor,Out of [Primary Care Provider] -
--- NOTE | 2018-11-12 18:04 | ED.DCSUM_ITS ---
- ER Visit Summary Date of Service: 11/12/18 Chief Complaint: Bilateral leg weakness History of Present Illness: The patient is a 77 M presenting with bilateral leg weakness. EMS was called because patient was unable to get up. was unable to get him to stand or walk. He complained of bilateral lower extremity weakness. Per the he was dragging his left leg behind him. Per EMS, he was able to stand. checked his blood sugar which was 110. She denies any speech changes or facial droop. He has a fever on arrival. He was unaware of his fever. He complains of a cough. He denies chest pain or shortness of breath. Denies abdominal pain. He did go to the [facility] this morning and was able to do his exercises. Denies other complaints. Physical Examination: Vitals are stable. Temperature 101.2 Alert no acute distress. HEENT exam is unremarkable. Neck is supple. Lungs are clear and equal bilaterally. Heart is regular rate and rhythm. Abdomen is soft nontender nondistended. Extremities are unremarkable. Skin is warm and dry. No focal neurologic deficit. NIH 0 Remainder of exam is unremarkable. Emergency Department Course and Treatment: Patient was given Tylenol. EKG is sinus rate of 75 with no acute ischemic changes. Chest x-ray shows mild left basilar infiltrate. CT head shows chronic changes. CBC, chemistries unremarkable. Troponin is negative. Urinalysis shows 10-25 white blood cells, 4+ bacteria. Influenza is negative. Urine and blood cultures were sent. He was given Rocephin and Zithromax IV. Will discuss with the hospitalist for admission. Disposition: Admission Impression: Community acquired pneumonia, UTI, bilateral lower extremity weakness This note was generated with Breezy dictation software. It may contain incorrect words, spelling, and punctuation that were not noted in review of the chart prior to signing ED Disposition - Plan for ED Patient: Chief Complaint: Lower Extremity Injury Referrals: Alena Doctor,Out of [Primary Care Provider] -
--- NOTE | 2018-11-12 18:06 | RAD_ITS ---
STUDY: X-RAY CHEST REASON FOR EXAM: Male, 77 years old. Cough, weakness TECHNIQUE: Single frontal view COMPARISON: None. FINDINGS: The lungs are not fully expanded. There is an opacity at the left upper lobe medially. Mild left basilar infiltrate cannot be excluded. Normal size heart. Normal mediastinum and lashon. Normal visualized pulmonary arteries. Normal visualized aortic arch and descending thoracic aorta. Normal visualized thoracic spine. Degenerative changes of the shoulders. RAD/Chest 1 View (Portable) IMPRESSION: Mild left basilar infiltrate. Left upper lobe opacity medially. Correlate with CT if needed. Electronically Signed: Rubens Varela DO at 19:03 EST Tel [phone], Service support ,
[2018-11-12] MEDS: Acetaminophen 500 MG Tablet 1000 MG PO (18:20)
[2018-11-12 18:23] VITALS: BP 140/64; PULSE 74; RESP 24; O2SAT 92; O2SAT 95
[2018-11-12 18:34] LABS: Absolute Lymphocyte Count 0.81 X10^3/ul (0.83-4.51); Absolute Neutrophil Count 7.1 X10^3/uL (2.0-7.7); Basophil# 0.03 X10^3/uL; Basophil% 0.3 % (0-1); Eosinophil# 0.01 X10^3/uL; Eosinophils% 0.1 % (0-5); Hematocrit 45.8 % (40-54); Hemoglobin 14.6 g/dl (13.0-16.5); Lymphocyte # 0.81 X10^3/ul (4.0); Lymphocyte % 8.9 % (19-41); Mean Corp Hgb Conc 31.9 g/gl (32-36); Mean Corpuscular Hgb 29.7 pg (27.0-32.0); Mean Corpuscular Volume 93.1 fL (80-94); Mean Platelet Vol. 10.3 fl (6.2-12.0); Monocyte# 1.12 X10^3/uL; Monocyte% 12.3 % (0-10); Neutrophil # 7.08 X10^3/uL (2.7-7.7); Neutrophil % 78.1 % (47-70); Platelet Count 222 K/mm3 (150-450); RBC Distribution Width CV 14.6 % (11.6-14.6); RBC Distribution Width SD 49.9 fl (35.1-43.9); Red Blood Count 4.92 M/mm3 (4.6-6.2); White Blood Count 9.1 K/mm3 (4.4-11.0)
[2018-11-12 18:46] LABS: POSITIVE COUNT NO; POSITIVE DIFFERENTIAL NO; POSITIVE MORPHOLOGY NO
[2018-11-12 18:57] LABS: Anion Gap 9 (5-15); BUN 14 mg/dL (7-18); BUN/Creat Ratio 12.8 RATIO (10-20); Calcium,Total 9.3 mg/dL (8.5-10.1); Chloride 103 mmol/L (98-107); Creatinine, Serum 1.09 mg/dL (0.70-1.30); EST Glomerular Filtration Rate 69 mL/min (>60); Est Glom Filt Rate - Afr Amer 84 mL/min (>60); Estimated Creatinine Clearance 57.67 ml/min; Glucose 104 mg/dL (74-106); Potassium 3.5 mmol/L (3.5-5.1); Sodium Level 139 mmol/L (136-145)
[2018-11-12 19:25] LABS: Mucous, Urine 0 SEEN /hpf (<or=2+); Red Blood Cells-Urine 0 SEEN /hpf (0-5); Squamous Epithelial Cells - UA 0 SEEN /hpf (0-5)
[2018-11-12 19:27] LABS: Color, Urine Amber (Yellow); Glucose, Dipstick Normal (Normal); Ketone-Dipstick Negative (Negative); Leukocyte Esterase-Dipstick 100 /ul (Negative); Nitrite-Dipstick Negative (Negative); Occult Blood-Urine 50 /ul (Negative); Protein-Dipstick Negative (Negative); Urine Bilirubin Dipstick Negative (Negative); Urine Clarity Sl. Cloudy (Clear); Urine Urobilinogen 12 mg/dl (Normal)
[2018-11-12 19:27] LABS: Lactic Acid 1.5 mmol/L (0.4-2.0)
[2018-11-12 19:41] LABS: Bacteria 4+ /hpf (None Seen)
[2018-11-12 19:42] LABS: White Blood Cells 10-25 SEEN /hpf (0-5)
[2018-11-12] MEDS: Ceftriaxone 1 GM/50 ML BAG IV (20:34)
[2018-11-12 20:37] VITALS: BP 144/63; PULSE 76; RESP 16; TEMP 37.6; O2SAT 94
--- NOTE | 2018-11-12 22:04 | HP.PCM_ITS ---
Problem List (1) Acute cystitis Status: Acute (2) Community acquired pneumonia Status: Acute (3) Stroke-like symptoms Status: Acute History of Present Illness Date of Admission: 11/12/18 Chief Complaint: difficult to walk The patient is a 77 year old M with a significant history of CAD status post 3 stents in 2018; CKD; hypothyroidism; hyperlipidemia who presented with 1 day history of difficulty walking. Patient went to the to work out. Later same day after working out at the , patient was not able to move his legs. More importantly he he was dragging his left leg. His gave him a walker which he used previously after on orthopedic procedure. Because patient was not able to to get to the bathroom because of difficulty in ambulation he was incont inent of urine. Denies any urinary symptoms otherwise. He denies any fever or chills. Because of his difficulty walking his was concerned that patient might of had a stroke. His noted that he has been having a clear productive cough whiles at emergency department. Patient stated that his cough has been going on for a while. He has shortness of breath with coughing. He has a poor appetite. At emergency department his urinalysis was abnormal. His chest x-ray showed mid left basilar infiltrate; and left upper lobe opacity medially. CT of his head showed involutional changes of the brain without any acute pathology. Past Medical History Medical History: Medical History (Last Reviewed 11/12/18 @ 22:25 by Arash Frank MD) Chronic kidney disease (CKD) N18.9 Hyperlipidemia E78.5 Hypothyroidism E03.9 Allergies lovenox Allergy (Uncoded 11/12/18 17:15) Rash Home Medications: Ambulatory Orders Medication Instructions Recorded Aspirin [Aspirin EC] 81 mg PO DAILY 04/11/18 B-Complex with Vitamin C [Vitamin 1 each PO DAILY 04/11/18 B-Complex with Vit C] Cholecalciferol (Vitamin D3) 1,000 unit PO DAILY 04/11/18 [Vitamin D3] Clopidogrel Bisulfate [Plavix] 75 mg PO DAILY 04/11/18 Fenofibrate [Tricor] 145 mg PO DAILY 04/11/18 Levothyroxine [Synthroid] 75 mcg PO DAILY 04/11/18 Nitroglycerin [Nitrostat] 0.4 mg SL PRN PRN MDD 3 total 04/11/18 doses. Pantoprazole Sodium [Protonix] 40 mg PO DAILY 04/11/18 Tamsulosin HCl [Flomax] 0.4 mg PO DAILY 04/11/18 Rosuvastatin Calcium 10 mg PO DAILY 11/12/18 Surgical History: appendectomy, cataract, cholecystectomy, herniorrhaphy, total knee arthroplasty Lives: Spouse/ Significant Other Smoking Status: Never smoker Alcohol: Occasional Review of Systems Constitutional: Reports: Weakness. Denies: Chills, Fever, Weight Change HEENT: Denies: Head Aches, Sinus Congestion, Sinus Drainage Cardiovascular: Denies: Chest Pain, Palpitations Respiratory: Reports: Shortness of Breath - With coughing. Denies: Cough, Sputum production Gastrointestinal: Denies: Abdominal Pain, Nausea, Vomiting Genitourinary: Denies: Dysuria Musculoskeletal: Denies: Joint Pain, Joint Tenderness Skin: Denies: Rash, Wounds Neurological: Denies: Numbness, Tingling, Focal weakness - Left leg weakness Psychiatric: Denies: Anxiety, Depression, Homicidal Ideations, Suicidal Ideations Hematologic/ Lymphatic: Denies: Easy Bruising, Easy Bleeding VTE Information - Inpt Only VTE Present on Admission: No VTE Mechan Device Prophylaxis: None VTE Pharm Prophylaxis ordered?: Yes Patient Problems: Active and Suspected Problems (Last Updated 04/11/18 @ 13:21 by Oswald Osman RN) Acute cystitis (Acute) Community acquired pneumonia (Acute) Stroke-like symptoms (Acute) - Physical Exam General: Alert, Oriented x3, Cooperative HEENT: Atraumatic, PERRLA, EOMI, Normocephalic Neck: Supple, No JVD, Negative Carotid Bruits Lungs: Clear to auscultation, Normal air movement Cardiovascular: Regular rate, No murmurs Abdomen: Bowel Sounds Present, Soft, Non Tender Extremities: No edema, Capillary Refill Less than 3 Seconds Skin: No rashes, No breakdown Musculoskeletal: No Tenderness to Palpation of Joints or Extremities Neurological: Neuro grossly intact, Motor Exam 5/5 strength throughout Psych/Mental Status: Normal Affect, Appropriate Vital Signs Temp Pulse Resp BP Pulse Ox 99.6 F H 76 16 144/63 H 94 11/12/18 20:37 11/12/18 20:37 11/12/18 20:37 11/12/18 20:37 11/12/18 20:37 Oxygen Flow Rate (L/min) 2 Oxygen Delivery Method Nasal Cannula Weight: 92.986 kg Body Mass Index (BMI) 29.4 Microbiology Past 72 Hours 11/12/18 18:25 Influenza Types A,B Direct FA (BLAZE) - Final Mucosa - Nose Laboratory Tests Past 24 Hrs 11/12/18 11/12/18 11/12/18 18:15 18:15 18:15 WBC 9.1 RBC 4.92 Hgb 14.6 Hct 45.8 MCV 93.1 MCH 29.7 MCHC 31.9 L RDW 14.6 RDW Differential 49.9 H Plt Count 222 MPV 10.3 Immature Gran % (Auto) 0.300 Neut % (Auto) 78.1 H Lymph % (Auto) 8.9 L [place] % (Auto) 12.3 H Eos % (Auto) 0.1 Baso % (Auto) 0.3 Absolute Neuts (auto) 7.1 Absolute Lymphs (auto) 0.81 L Total Counted Not Reportable Sodium 139 Potassium 3.5 Chloride 103 Carbon Dioxide 27.0 Anion Gap 9 BUN 14 Creatinine 1.09 Estim Creat Clear Calc 57.67 Est GFR (MDRD) Af Amer 84 Est GFR (MDRD) Non-Af 69 BUN/Creatinine Ratio 12.8 Glucose 104 Lactic Acid 1.5 Calcium 9.3 Troponin I < 0.015 Urine Color Urine Clarity Urine pH Ur Specific [place] Urine Protein Urine Glucose (UA) Urine Ketones Urine Occult Blood Urine Nitrite Urine Bilirubin Urine Urobilinogen Ur Leukocyte Esterase Urine RBC Urine WBC Ur Squamous Epith Cells Urine Bacteria Urine Mucus 11/12/18 19:22 WBC RBC Hgb Hct MCV MCH MCHC RDW RDW Differential Plt Count MPV Immature Gran % (Auto) Neut % (Auto) Lymph % (Auto) [place] % (Auto) Eos % (Auto) Baso % (Auto) Absolute Neuts (auto) Absolute Lymphs (auto) Total Counted Sodium Potassium Chloride Carbon Dioxide Anion Gap BUN Creatinine Estim Creat Clear Calc Est GFR (MDRD) Af Amer Est GFR (MDRD) Non-Af BUN/Creatinine Ratio Glucose Lactic Acid Calcium Troponin I Urine Color Sari Urine Clarity Sl. Cloudy Urine pH 7.0 Ur Specific [place] 1.010 Urine Protein Negative Urine Glucose (UA) Normal Urine Ketones Negative Urine Occult Blood 50 H Urine Nitrite Negative Urine Bilirubin Negative Urine Urobilinogen 12 H Ur Leukocyte Esterase 100 H Urine RBC 0 SEEN Urine WBC 10-25 SEEN Ur Squamous Epith Cells 0 SEEN Urine Bacteria 4+ Urine Mucus 0 SEEN Assessment/Plan All Active Problems (Last Updated 04/11/18 @ 13:21 by Oswald Osman RN) Acute cystitis (Acute) Community acquired pneumonia (Acute) Stroke-like symptoms (Acute) The patient is a 77 year old M with a significant history of CAD status post 3 stents in 2018; CKD; hypothyroidism; hyperlipidemia who presented with 1 day history of difficulty walking [facility]; shortness of breath with coughing and found to have abnormal urinalysis and radiographic evidence of infiltrate in his lungs consistent with acute cystitis with probable pneumonia.. Acute cystitis His urinalysis was abnormal at the emergency department. Patient received ceftriaxone at the emergency department. Ceftriaxone continued Trend CBC. Follow urine culture Community-acquired pneumonia Independent review of chest x-ray showed opacities in left upper lung tobin and left middle lung tobin. Blood culture ?2 is pending Respiratory Gram stain and culture pending Antibiotics: Received ceftriaxone and azithromycin emergency department. Ce ftriaxone and azithromycin continued DuoNeb scheduled. Albuterol as needed Legionella antigen screen and Strep antigen ordered Strokelike symptoms Her is very concerned that patient might have had a TIA. At emergency department however patient could move all extremities equally. Will admit patient to PCU; do NIH and wake patient up for stroke. MRI/MRA of head and neck ordered. We will continue patient on his home aspirin, Plavix and Crestor which he is taking for CAD status post stents. Labetalol as needed for systolic blood pressure more than 220 or diastolic blood pressure more than 120. Discontinue if MRI is negative or it is more than 24 hours since his strokelike symptoms started. CAD status post stent Continue aspirin, Plavix and Crestor as above. Fenofibrate continued Hypothyroidism Synthroid continued GERD Protonix continued. DVT prophylaxis Subcutaneous heparin. Code Visit Inpatient E&M: 90287 Init Hosp L3
--- NOTE | 2018-11-12 22:46 | NURSING ---
Pt arrived to floor at 2210. When I went to prepare the paperwork for the admission I noticed pt was to be admitted to PCU with cardiac tele. I immediately contacted the flame cutting supervisor to question it. When she called back, I was advised Dr. Frank did want pt to go to PCU to rule out possible TIA, and that she would call me with a room. I was then notified that pt was to go to PCU 104 and he was taken down to that room accompanied by his .
[2018-11-12 23:00] VITALS: BP 116/61; PULSE 63; PULSE 66; RESP 18; TEMP 36.8; O2SAT 94
[2018-11-12 23:02] VITALS: BMI 29.0
[2018-11-12 23:06] VITALS: BMI 29.1
[2018-11-12 23:44] VITALS: O2SAT 96
[2018-11-13] VITALS (17 sets, daily range): BP systolic 113–141; BP diastolic 36–63; PULSE 58–83; RESP 16–22; TEMP 36.8–38.4; O2SAT 92–97; BMI 29.0
[2018-11-13] MEDS: Ipratropium/Albuterol Sulfate 3 ML AMPUL.NEB INHALATION ×4 (01:44→18:55)
[2018-11-13] MEDS: Levothyroxine 75 MCG Tablet PO (05:50)
[2018-11-13] MEDS: Acetaminophen 325 MG Tablet 650 MG PO ×2 (05:50→21:24)
[2018-11-13 05:51] LABS: Hematocrit 42.4 % (40-54); Hemoglobin 13.6 g/dl (13.0-16.5); Mean Corp Hgb Conc 32.1 g/gl (32-36); Mean Corpuscular Hgb 29.8 pg (27.0-32.0); Mean Platelet Vol. 10.7 fl (6.2-12.0); Platelet Count 202 K/mm3 (150-450); RBC Distribution Width CV 14.8 % (11.6-14.6); RBC Distribution Width SD 49.1 fl (35.1-43.9); Red Blood Count 4.56 M/mm3 (4.6-6.2); White Blood Count 9.2 K/mm3 (4.4-11.0)
[2018-11-13 05:56] LABS: Scan Indicated on CBC? Y/N NO
[2018-11-13 06:09] LABS: Anion Gap 11 (5-15); BUN 17 mg/dL (7-18); BUN/Creat Ratio 16.5 RATIO (10-20); Calcium,Total 8.6 mg/dL (8.5-10.1); Chloride 105 mmol/L (98-107); Cholesterol 157 mg/dL (200); Creatinine, Serum 1.03 mg/dL (0.70-1.30); EST Glomerular Filtration Rate 74 mL/min (>60); Est Glom Filt Rate - Afr Amer 90 mL/min (>60); Estimated Creatinine Clearance 61.03 ml/min; Glucose 117 mg/dL (74-106); High Density Lipoprotein 39 mg/dL; Potassium 3.4 mmol/L (3.5-5.1); Sodium Level 140 mmol/L (136-145); Triglycerides 115 mg/dL; Very Low Density Lipoprotein 23 mg/dL (5-40)
--- NOTE | 2018-11-13 08:02 | NURSING ---
Pt taken down for MRI.
--- NOTE | 2018-11-13 08:03 | MRI_ITS ---
STUDY: MRA OF THE HEAD WITHOUT CONTRAST REASON FOR EXAM: Male, 77 years old. Bilateral leg weakness and TIA. TECHNIQUE: 3-D [id number] (TOF) imaging was performed with MIPs. The study was performed unenhanced. Most of the images are limited by patient motion. COMPARISON: Prior comparison studies are not available for review at this time. FINDINGS: Normal bilateral petrous carotid arteries. There is elongation and tortuosity of the right cavernous carotid artery, without a demonstrated hemodynamically significant stenosis. There is elongation and tortuosity of the left cavernous carotid artery, without a demonstrated hemodynamically significant stenosis. There is hypoplastic development of the right A1 segment of the anterior cerebral arteries with an atretic but intact artery. Normal left A1 segments of the anterior cerebral artery. Normal intact anterior communicating artery (ACOM). Normal bilateral A2 segments of the anterior cerebral arteries. There is irregularity of the right M1 and M2 branches suggesting atherosclerotic plaque formation, without an occlusion. There appears to be hemodynamically significant stenosis of two of the right-sided M2 branches. There is irregularity of the left M1 and M2 branches with minimal luminal narrowing, suggesting atherosclerotic plaque formation, without an occlusion. There is non-visualization of the right posterior communicating artery (PCOM). Normal left posterior communicating artery (PCOM). Normal bilateral vertebral arteries. Normal basilar artery with a normal basilar bifurcation. The visualized bilateral superior cerebellar (SCA) arteries are normal. Normal bilateral P1, P2 and visualized P3 segments of the posterior cerebral arteries. There is no demonstrated aneurysm of the [place]. There is no major vessel occlusion or hemodynamically significant stenosis. There is no demonstrated abnormality of the visualized brain. MRI/MRA Head ONLY without Contrast IMPRESSION: 1. MRA evidence for hemodynamically significant stenosis of right-sided M2 branch origins. 2. No MRA evidence for aneurysm. Electronically Signed: Talia Estrella MD at 10:53 EST , Service support ,
--- NOTE | 2018-11-13 08:03 | MRI_ITS ---
STUDY: MRA NECK WITH AND WITHOUT CONTRAST REASON FOR EXAM: Male, 77 years old. Bilateral leg weakness. TECHNIQUE: 3-D [id number] (TOF) imaging was performed in an 1.5 T MRI scanner. 10 ml of Gadavist was administered for the contrast enhanced images. Multiple images are limited by patient motion. COMPARISON: None. FINDINGS: RIGHT CAROTID ARTERIES: There is atherosclerotic tortuous elongation of the right common carotid artery. There is moderate atherosclerotic plaque formation with moderate narrowing of the carotid bulb. There is extensive atherosclerotic plaque formation of the origin of the right internal carotid artery with an estimated stenosis of greater than 70%. There is atherosclerotic tortuous elongation of the cervical portion of the right internal carotid artery. Normal origin of the right external carotid artery (ECA). LEFT CAROTID ARTERIES: Normal left common carotid artery (CCA). There is mild atherosclerotic plaque formation with minimal narrowing of the left carotid bulb. Normal origin of the left internal carotid (ICA) artery without a hemodynamically significant stenosis. Normal visualized cervical portion of the left internal carotid artery. Normal origin of the left external carotid artery (ECA). VERTEBRAL ARTERIES: Normal antegrade flow within the bilateral vertebral artery without a hemodynamically significant stenosis. MRI/MRA Neck WITH and W/O Contrast IMPRESSION: 1. Hemodynamically significant stenosis of the origin the RIGHT internal carotid artery with estimated amount of stenosis greater than 70%. 2. Technically limited study due to patient motion. NOTE: Determination of stenosis is based on NASCET criteria. Electronically Signed: Talia Estrella MD at 10:18 EST , Service support ,
--- NOTE | 2018-11-13 08:03 | MRI_ITS ---
STUDY: MRI BRAIN WITHOUT CONTRAST REASON FOR EXAM: Male, 77 years old. Bilateral leg weakness. TECHNIQUE: Standardized multiplanar fat and water weighted pulse sequences were obtained. COMPARISON: CT of the head dated November 12, 2018 FINDINGS: There is mild cerebral atrophy with widening of the extra-axial spaces and moderate ventricular dilatation. Normal white matter tracts of the supratentorial brain. There are multiple foci of apparent restricted diffusion within the basal ganglia and external capsules that could represent sequela of tiny lacunar infarcts. The appearance is somewhat atypical and some of this could be artifactual. Normal T2* images of the brain without demonstrated susceptibility artifact. There is no demonstrated hemosiderin stain. Normal bilateral basal ganglia. Normal thalami. There is no extra-axial fluid accumulation. Normal flow voids within the major intracranial circulation suggesting patency by spin echo criteria. Normal sella turcica, pituitary gland, infundibular stalk, optic chiasm and hypothalamus. Normal tectal plate and pineal gland. Normal midbrain, tomy and medulla. Normal cerebellum. Normal basal cisterns. Normal bilateral temporal bones. Normal bilateral internal auditory canals. There are bilateral ocular lens implants with otherwise normal intraorbital contents. There is mucoperiosteal inflammatory disease of the ethmoid paranasal sinuses consistent with mild chronic sinusitis. Normal calvarium and skull base. Normal visualized soft tissue structures. Normal visualized upper cervical spine. MRI/Brain without Contrast IMPRESSION: 1. Involutional changes of the brain, as described above. 2. 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 3. Questionable artifacts on the diffusion-weighted imaging. Electronically Signed: Talia Estrella MD at 11:31 EST , Service support ,
[2018-11-13] MEDS: Tamsulosin HCl 0.4 MG Capsule PO (10:18)
[2018-11-13] MEDS: guaiFENesin 1,200 MG Tablet 1200 MG PO ×2 (10:18→21:23)
[2018-11-13] MEDS: Vitamin B Comp W-C Capsule 1 CAP PO (10:18)
[2018-11-13] MEDS: Aspirin E.C. 81 MG Tablet PO (10:19)
[2018-11-13] MEDS: Pantoprazole Sodium 40 MG Tablet PO (10:19)
[2018-11-13] MEDS: Clopidogrel Bisulfate 75 MG Tablet PO (10:19)
[2018-11-13] MEDS: Ceftriaxone 1 GM/50 ML BAG IV ×2 (10:20→21:23)
[2018-11-13] MEDS: Heparin Injection (Vial) 5,000 UNIT/ML VIAL 5000 UNIT SC ×2 (10:22→21:23)
[2018-11-13] MEDS: Fenofibrate 145 MG Tablet PO (10:22)
--- NOTE | 2018-11-13 11:31 | CASEMGMT ---
RN CM assessment: Face to Face with patient for initial transition planning/care coordination assessment. RN CM introduced self and role at [facility], pt voices understanding and consents to assessment at this time. Pt is sitting up in chair in no distress at this time. Pt is A/Ox4 at this time and answers questions appropriately but is hard of hearing. This RN CM was required to wear mask for droplet precautions and pt struggled to understand this RN CM through mask as he could not see my lips when speaking. Care providers, pharmacy, and demographics verified/updated at this time. PCP: Jose Luis Specialists: Pt states is not aware of any specialists. 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 Pt is aware that these AD are not on file at [facility] at this time. LNOK: Candy Mcmillan, Living Arrangements: Pt states lives with in 1 story home and states no concerns at home at this time. Pt states is normally independent with ADL's at home. Transportation: Pt states drives self and states no transportation concerns at this time. DME/HHC: Pt states has the following DME: canes, walkers, wheelchairs, raised toilet seat, and CPAP. Pt states no need for any further DME at this time. CM to follow for home oxygen. Pt states no hx of HHC or SNF in the past. Pt states no concerns with going home at time of discharge. Pt states is retired. Pt states does not smoke but does drink wine occasionally. Pt states no further concerns/needs at this time. CM to follow PT/OT and for any further discharge planning/needs. Advised pt to ask for CM if any further questions/concerns/needs arise, voices understanding. Plan[place]
--- NOTE | 2018-11-13 13:43 | PN_ITS ---
<Marina Lan - Last Filed: 11/13/18 13:43> Patient Problems: Active and Suspected Problems (Last Reviewed 11/12/18 @ 22:25 by Arash Frank MD) Acute cystitis (Acute) Community acquired pneumonia (Acute) Stroke-like symptoms (Acute) Subjective: Patient seen and examined. Complains of productive cough. Denies fever, chills. Lower extremity weakness improved. - Physical Exam General: Alert, Oriented x3, Cooperative HEENT: Atraumatic, PERRLA, EOMI, Normocephalic Neck: Supple, No JVD, Negative Carotid Bruits Lungs: Clear to auscultation, Diminished Cardiovascular: Regular rate, Regular Rhythm, Normal S1, Normal S2, No murmurs Abdomen: Bowel Sounds Present, Soft, Non Tender, Non-Distended Extremities: No clubbing, No cyanosis, No edema, Capillary Refill Less than 3 Seconds Skin: No rashes, No breakdown Musculoskeletal: No Tenderness to Palpation of Joints or Extremities Neurological: Cranial nerves II-XII grossly intact, Neuro grossly intact Psych/Mental Status: Normal Affect, Appropriate Vital Signs Temp Pulse Resp BP Pulse Ox 98.2 F 64 16 122/41 H 94 11/13/18 10:15 11/13/18 11:11 11/13/18 10:15 11/13/18 10:15 11/13/18 10:56 Oxygen Flow Rate (L/min) 2 Oxygen Delivery Method Nasal Cannula Weight: 202 lb 13.204 oz Body Mass Index (BMI) 29.0 Intake and Output for Last 24 Hours 11/11/18 11/12/18 11/13/18 23:59 23:59 23:59 Intake Total 630 / 630 Balance 630 / 630 Microbiology Past 72 Hours 11/13/18 05:40 Respiratory Panel (PCR) - Final Mucosa - Nose Parainfluenza 2 11/12/18 19:22 Urine Culture - Preliminary Urine, Random Gram negative luis [email or web address] 11/13/18 00:50 Gram Stain - Final Sputum, Expectorated/Coughed 11/12/18 19:22 Streptococcus pneumoniae Antigen (M - Final Interface Orders 11/12/18 19:22 Legionella Antigen - Final Interface Orders 11/12/18 18:25 Influenza Types A,B Direct FA (BLAZE) - Final Mucosa - Nose Laboratory Tests Past 24 Hrs 11/12/18 11/12/1811/12/19 18:15 18:15 18:15 WBC 9.1 RBC 4.92 Hgb 14.6 Hct 45.8 MCV 93.1 MCH 29.7 MCHC 31.9 L RDW 14.6 RDW Differential 49.9 H Plt Count 222 MPV 10.3 Immature Gran % (Auto) 0.300 Neut % (Auto) 78.1 H Lymph % (Auto) 8.9 L [place] % (Auto) 12.3 H Eos % (Auto) 0.1 Baso % (Auto) 0.3 Absolute Neuts (auto) 7.1 Absolute Lymphs (auto) 0.81 L Total Counted Not Reportable Sodium 139 Potassium 3.5 Chloride 103 Carbon Dioxide 27.0 Anion Gap 9 BUN 14 Creatinine 1.09 Estim Creat Clear Calc 57.67 Est GFR (MDRD) Af Amer 84 Est GFR (MDRD) Non-Af 69 BUN/Creatinine Ratio 12.8 Glucose 104 Lactic Acid 1.5 Calcium 9.3 Troponin I < 0.015 Triglycerides Cholesterol LDL Cholesterol VLDL Cholesterol HDL Cholesterol Urine Color Urine Clarity Urine pH Ur Specific [place] Urine Protein Urine Glucose (UA) Urine Ketones Urine Occult Blood Urine Nitrite Urine Bilirubin Urine Urobilinogen Ur Leukocyte Esterase Urine RBC Urine WBC Ur Squamous Epith Cells Urine Bacteria Urine Mucus 11/12/18 11/12/18 11/13/18 19:22 22:56 04:55 WBC 9.2 RBC 4.56 L Hgb 13.6 Hct 42.4 MCV 93.0 MCH 29.8 MCHC 32.1 RDW 14.8 H RDW Differential 49.1 H Plt Count 202 MPV 10.7 Immature Gran % (Auto) Neut % (Auto) Lymph % (Auto) [place] % (Auto) Eos % (Auto) Baso % (Auto) Absolute Neuts (auto) Absolute Lymphs (auto) Total Counted Sodium Potassium Chloride Carbon Dioxide Anion Gap BUN Creatinine Estim Creat Clear Calc Est GFR (MDRD) Af Amer Est GFR (MDRD) Non-Af BUN/Creatinine Ratio Glucose Lactic Acid Calcium Troponin I 0.019 Triglycerides Cholesterol LDL Cholesterol VLDL Cholesterol HDL Cholesterol Urine Color Sari Urine Clarity Sl. Cloudy Urine pH 7.0 Ur Specific [place] 1.010 Urine Protein Negative Urine Glucose (UA) Normal Urine Ketones Negative Urine Occult Blood 50 H Urine Nitrite Negative Urine Bilirubin Negative Urine Urobilinogen 12 H Ur Leukocyte Esterase 100 H Urine RBC 0 SEEN Urine WBC 10-25 SEEN Ur Squamous Epith Cells 0 SEEN Urine Bacteria 4+ Urine Mucus 0 SEEN 11/13/18 04:55 WBC RBC Hgb Hct MCV MCH MCHC RDW RDW Differential Plt Count MPV Immature Gran % (Auto) Neut % (Auto) Lymph % (Auto) [place] % (Auto) Eos % (Auto) Baso % (Auto) Absolute Neuts (auto) Absolute Lymphs (auto) Total Counted Sodium 140 Potassium 3.4 L Chloride 105 Carbon Dioxide 24.0 Anion Gap 11 BUN 17 Creatinine 1.03 Estim Creat Clear Calc 61.03 Est GFR (MDRD) Af Amer 90 Est GFR (MDRD) Non-Af 74 BUN/Creatinine Ratio 16.5 Glucose 117 H Lactic Acid Calcium 8.6 Troponin I Triglycerides 115 Cholesterol 157 LDL Cholesterol 95 VLDL Cholesterol 23 HDL Cholesterol 39 L Urine Color Urine Clarity Urine pH Ur Specific [place] Urine Protein Urine Glucose (UA) Urine Ketones Urine Occult Blood Urine Nitrite Urine Bilirubin Urine Urobilinogen Ur Leukocyte Esterase Urine RBC Urine WBC Ur Squamous Epith Cells Urine Bacteria Urine Mucus Medical Necessity - Tobacco Use Smoking Status: Never smoker Assessment/Plan All Active Problems (Last Reviewed 11/12/18 @ 22:25 by Arash Frank MD) Acute cystitis (Acute) Community acquired pneumonia (Acute) Stroke-like symptoms (Acute) 1. Acute hypoxic respiratory insufficiency secondary to community-acquired pneumonia and parainfluenza 2-suspect post viral pneumonia. Chest x-ray on admission with mid left basilar infiltrate. Left upper lobe opacity medially. T-max 101.1. Blood cultures pending. Urine negative for strep and Legionella. Sputum culture pending. Continue IV azithromycin and IV Rocephin. Albuterol and DuoNeb aerosol. Mucinex 1200 mg p.o. twice daily. Continue supplement oxygen to maintain O2 at or above 90%. Wean as tolerated. Walking pulse ox prior to discharge. 2. Acute gram-negative luis eduardo UTI-final urine culture pending. Continue IV Rocephin. 3. 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 MRA of head with evidence of hemodynamically significant stenosis of right-sided M2 branch origins. Neck MRA showed hemodynamically significant stenosis of the origin of the right internal carotid artery with estimated amount of stenosis greater than 70%. Consult neurology for further recommendations regarding MRI findings. 4. CAD status post PCI-continue aspirin, Plavix, statin, fenofibrate. 5. Hypothyroidism-continue Synthroid. 6. GERD-continue PPI. 7. BPH-continue Flomax regimen. DVT prophylaxis-heparin subcu This patient was seen by HANH Sutton under the supervision of Dr. Lou. <Diana Lou Ely - Last Filed: 11/13/18 13:57> - Physical Exam Vital Signs Temp Pulse Resp BP Pulse Ox 98.2 F 64 16 122/41 H 94 11/13/18 10:15 11/13/18 11:11 11/13/18 10:15 11/13/18 10:15 11/13/18 10:56 Oxygen Flow Rate (L/min) 2 Oxygen Delivery Method Nasal Cannula Weight: 202 lb 13.204 oz Body Mass Index (BMI) 29.0 Intake and Output for Last 24 Hours 11/11/18 11/12/18 11/13/18 23:59 23:59 23:59 Intake Total 630 / 630 Balance 630 / 630 Microbiology Past 72 Hours 11/13/18 05:40 Respiratory Panel (PCR) - Final Mucosa - Nose Parainfluenza 2 11/12/18 19:22 Urine Culture - Preliminary Urine, Random Gram negative luis [email or web address] 11/13/18 00:50 Gram Stain - Final Sputum, Expectorated/Coughed 11/12/18 19:22 Streptococcus pneumoniae Antigen (M - Final Interface Orders 11/12/18 19:22 Legionella Antigen - Final Interface Orders 11/12/18 18:25 Influenza Types A,B Direct FA (BLAZE) - Final Mucosa - Nose Laboratory Tests Past 24 Hrs 11/12/18 11/12/18 11/12/18 18:15 18:15 18:15 WBC 9.1 RBC 4.92 Hgb 14.6 Hct 45.8 MCV 93.1 MCH 29.7 MCHC 31.9 L RDW 14.6 RDW Differential 49.9 H Plt Count 222 MPV 10.3 Immature Gran % (Auto) 0.300 Neut % (Auto) 78.1 H Lymph % (Auto) 8.9 L [place] % (Auto) 12.3 H Eos % (Auto) 0.1 Baso % (Auto) 0.3 Absolute Neuts (auto) 7.1 Absolute Lymphs (auto) 0.81 L Total Counted Not Reportable Sodium 139 Potassium 3.5 Chloride 103 Carbon Dioxide 27.0 Anion Gap 9 BUN 14 Creatinine 1.09 Estim Creat Clear Calc 57.67 Est GFR (MDRD) Af Amer 84 Est GFR (MDRD) Non-Af 69 BUN/Creatinine Ratio 12.8 Glucose 104 Lactic Acid 1.5 Calcium 9.3 Troponin I < 0.015 Triglycerides Cholesterol LDL Cholesterol VLDL Cholesterol HDL Cholesterol Urine Color Urine Clarity Urine pH Ur Specific [place] Urine Protein Urine Glucose (UA) Urine Ketones Urine Occult Blood Urine Nitrite Urine Bilirubin Urine Urobilinogen Ur Leukocyte Esterase Urine RBC Urine WBC Ur Squamous Epith Cells Urine Bacteria Urine Mucus 11/12/18 11/12/18 11/13/18 19:22 22:56 04:55 WBC 9.2 RBC 4.56 L Hgb 13.6 Hct 42.4 MCV 93.0 MCH 29.8 MCHC 32.1 RDW 14.8 H RDW Differential 49.1 H Plt Count 202 MPV 10.7 Immature Gran % (Auto) Neut % (Auto) Lymph % (Auto) [place] % (Auto) Eos % (Auto) Baso % (Auto) Absolute Neuts (auto) Absolute Lymphs (auto) Total Counted Sodium Potassium Chloride Carbon Dioxide Anion Gap BUN Creatinine Estim Creat Clear Calc Est GFR (MDRD) Af Amer Est GFR (MDRD) Non-Af BUN/Creatinine Ratio Glucose Lactic Acid Calcium Troponin I 0.019 Triglycerides Cholesterol LDL Cholesterol VLDL Cholesterol HDL Cholesterol Urine Color Sari Urine Clarity Sl. Cloudy Urine pH 7.0 Ur Specific [place] 1.010 Urine Protein Negative Urine Glucose (UA) Normal Urine Ketones Negative Urine Occult Blood 50 H Urine Nitrite Negative Urine Bilirubin Negative Urine Urobilinogen 12 H Ur Leukocyte Esterase 100 H Urine RBC 0 SEEN Urine WBC 10-25 SEEN Ur Squamous Epith Cells 0 SEEN Urine Bacteria 4+ Urine Mucus 0 SEEN 11/13/18 04:55 WBC RBC Hgb Hct MCV MCH MCHC RDW RDW Differential Plt Count MPV Immature Gran % (Auto) Neut % (Auto) Lymph % (Auto) [place] % (Auto) Eos % (Auto) Baso % (Auto) Absolute Neuts (auto) Absolute Lymphs (auto) Total Counted Sodium 140 Potassium 3.4 L Chloride 105 Carbon Dioxide 24.0 Anion Gap 11 BUN 17 Creatinine 1.03 Estim Creat Clear Calc 61.03 Est GFR (MDRD) Af Amer 90 Est GFR (MDRD) Non-Af 74 BUN/Creatinine Ratio 16.5 Glucose 117 H Lactic Acid Calcium 8.6 Troponin I Triglycerides 115 Cholesterol 157 LDL Cholesterol 95 VLDL Cholesterol 23 HDL Cholesterol 39 L Urine Color Urine Clarity Urine pH Ur Specific [place] Urine Protein Urine Glucose (UA) Urine Ketones Urine Occult Blood Urine Nitrite Urine Bilirubin Urine Urobilinogen Ur Leukocyte Esterase Urine RBC Urine WBC Ur Squamous Epith Cells Urine Bacteria Urine Mucus Assessment/Plan Patient seen by Marina Lan NP-Jose under my supervision Patient admitted with a complaint of difficulty walking and weakness in his lower extremities especially his left lower extremity. He had gone to the [facility] to work out subsequently started having the symptoms. He had no assisted fever chills or urinary symptoms. Due to concern for stroke he was brought to the ED. There he also mentioned that he had been having cough productive of clear sputum with associated shortness of breath. Chest x-ray showed mid left basilar infiltrate and left upper lobe opacity and CT of the head was negative. He was admitted to be managed for community-acquired pneumonia. UA also showed evidence of UTI, so he is being managed for UTI. Patient seen and examined this morning. He had just come back from MRI to rule out stroke on account of left lower extremity weakness. Weakness had fully resolved he had no complaints. He said he felt well. 12 point review of systems otherwise negative. Labs and vitals reviewed. o/e: Vital Signs Height 5 ft 10 in Weight: 202 lb 13.204 oz Weight in Pounds 202.8 lbs Pulse Ox 94 Temperature 98.2 F Pulse Rate 64 Respiratory Rate 16 Blood Pressure 122/41 Blood Pressure Position Sitting General: Alert, Oriented x3, Cooperative HEENT: Atraumatic, PERRLA, EOMI, Normocephalic Neck: Supple, No JVD, Negative Carotid Bruits Lungs: Clear to auscultation, Diminished Cardiovascular: Regular rate, Regular Rhythm, Normal S1, Normal S2, No murmurs Abdomen: Bowel Sounds Present, Soft, Non Tender, Non-Distended Extremities: No clubbing, No cyanosis, No edema, Capillary Refill Less than 3 Seconds Skin: No rashes, No breakdown Musculoskeletal: No Tenderness to Palpation of Joints or Extremities Neurological: Cranial nerves II-XII grossly intact, Neuro grossly intact Psych/Mental Status: Normal Affect, Appropriate Respiratory panel isolated parainfluenza virus and UA cultured gram negative rods. He is continue IV ceftriaxone and azithromycin. He as well as continue azithromycin for UTI. Breathing treatments. Maintain saturation at above 92% with supplemental oxygen. 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 MRA of head showed hemodynamically significant stenosis of the right M2 branch origins and neck MRA showed signi ficant stenosis of the right internal carotid origin at more than 70%. Neurology consulted. Continue current management. Potassium was also low at 3.4 and was replaced. Rest of management, assessment and plan as per Marina Lan DIRECT SELLING COUNSELOR-Jose. Code Visit Inpatient E&M: 69281 Subs Hosp L3
--- NOTE | 2018-11-13 16:13 | PCM.CONS.GEN ---
Problem List (1) Weakness Status: Acute Reason for Consult Date of Consultation: 11/13/18 Reason for Consultation: Leg weakness History of Present Illness: The patient is a 77 year old CM with PMH HLD, CAD s/p stents and hypothyroidism admitted with LE weakness. [facility] and later had difficulty using both LE, had difficulty walking, he was dragging his left leg and right leg was also weak, had to start using walker, had loss of appetite, cough, denies any UE symptoms, on admission was found to have UTI and community acquired PNA with para influenza. At present following treatment with antibiotics, patients LE weakness has improved and he was able to ambulate in the room. Denies any MIN, visual disturbances, speech disturbances, dizziness, focal motor weakness or sensory loss. CT head done on admission reported nothing acute, but MRI brain reported by Dr. Talia Estrella as showing ? NPH, MRA head/neck reported to show Right M2 stenosis and Right ICA > 70% stenosis. He is on ASA/Plavix and Crestor since cardiac stents were placed in April 2018. At baseline he denies any falls, does not use cane or walker to ambulate. [] Past Medical History Medical History: Medical History (Last Reviewed 11/12/18 @ 22:25 by Arash Frank MD) Chronic kidney disease (CKD) N18.9 Hyperlipidemia E78.5 Hypothyroidism E03.9 Allergies lovenox Allergy (Uncoded 11/12/18 17:15) Rash Home Medications: Ambulatory Orders Medication Instructions Recorded Aspirin [Aspirin EC] 81 mg PO DAILY 04/11/18 B-Complex with Vitamin C [Vitamin 1 each PO DAILY 04/11/18 B-Complex with Vit C] Cholecalciferol (Vitamin D3) 1,000 unit PO DAILY 04/11/18 [Vitamin D3] Clopidogrel Bisulfate [Plavix] 75 mg PO DAILY 04/11/18 Fenofibrate [Tricor] 145 mg PO DAILY 04/11/18 Levothyroxine [Synthroid] 75 mcg PO DAILY 04/11/18 Nitroglycerin [Nitrostat] 0.4 mg SL PRN PRN MDD 3 total 04/11/18 doses. Pantoprazole Sodium [Protonix] 40 mg PO DAILY 04/11/18 Tamsulosin HCl [Flomax] 0.4 mg PO DAILY 04/11/18 Rosuvastatin Calcium 10 mg PO DAILY 11/12/18 Surgical History: appendectomy, cataract, cholecystectomy, herniorrhaphy, total knee arthroplasty Lives: Spouse/ Significant Other Smoking Status: Never smoker Alcohol: Occasional Drugs: None Review of Systems Constitutional: Reports: - - Complete ROS negative except as documented in HPI Patient Problems: Active and Suspected Problems (Last Reviewed 11/12/18 @ 22:25 by Arash Frank MD) Acute cystitis (Acute) Community acquired pneumonia (Acute) Stroke-like symptoms (Acute) Weakness (Acute) - Physical Exam General: Alert HEENT: Normocephalic Neck: Supple Lungs: Normal air movement Cardiovascular: Normal S1, Normal S2 Abdomen: Bowel Sounds Present Extremities: No cyanosis Neurological: - - consious, alert, CN 2-12 grossly intact, power 5/5 both UE and LE, plantars B/L flexor, no sensory loss, Reflexes + B/L B/S/T/K/A, gait deferred. Psych/Mental Status: Normal Affect Vital Signs Temp Pulse Resp BP Pulse Ox 99.5 F H 75 20 H 141/63 H 94 11/13/18 14:15 11/13/18 14:41 11/13/18 14:15 11/13/18 14:15 11/13/18 14:15 Oxygen Flow Rate (L/min) 2 Oxygen Delivery Method Nasal Cannula Weight: 92 kg Body Mass Index (BMI) 29.0 Intake and Output for Last 24 Hours 11/11/18 11/12/18 11/13/18 23:59 23:59 23:59 Intake Total 630 / 630 Balance 630 / 630 Microbiology Past 72 Hours 11/13/18 05:40 Respiratory Panel (PCR) - Final Mucosa - Nose Parainfluenza 2 11/12/18 19:22 Urine Culture - Preliminary Urine, Random Gram negative luis [email or web address] 11/13/18 00:50 Gram Stain - Final Sputum, Expectorated/Coughed 11/12/18 19:22 Streptococcus pneumoniae Antigen (M - Final Interface Orders 11/12/18 19:22 Legionella Antigen - Final Interface Orders 11/12/18 18:25 Influenza Types A,B Direct FA (BLAZE) - Final Mucosa - Nose Laboratory Tests Past 24 Hrs 11/12/18 11/12/18 11/12/18 18:15 18:15 18:15 WBC 9.1 RBC 4.92 Hgb 14.6 Hct 45.8 MCV 93.1 MCH 29.7 MCHC 31.9 L RDW 14.6 RDW Differential 49.9 H Plt Count 222 MPV 10.3 Immature Gran % (Auto) 0.300 Neut % (Auto) 78.1 H Lymph % (Auto) 8.9 L [place] % (Auto) 12.3 H Eos % (Auto) 0.1 Baso % (Auto) 0.3 Absolute Neuts (auto) 7.1 Absolute Lymphs (auto) 0.81 L Total Counted Not Reportable Sodium 139 Potassium 3.5 Chloride 103 Carbon Dioxide 27.0 Anion Gap 9 BUN 14 Creatinine 1.09 Estim Creat Clear Calc 57.67 Est GFR (MDRD) Af Amer 84 Est GFR (MDRD) Non-Af 69 BUN/Creatinine Ratio 12.8 Glucose 104 Lactic Acid 1.5 Calcium 9.3 Troponin I < 0.015 Triglycerides Cholesterol LDL Cholesterol VLDL Cholesterol HDL Cholesterol Urine Color Urine Clarity Urine pH Ur Specific [place] Urine Protein Urine Glucose (UA) Urine Ketones Urine Occult Blood Urine Nitrite Urine Bilirubin Urine Urobilinogen Ur Leukocyte Esterase Urine RBC Urine WBC Ur Squamous Epith Cells Urine Bacteria Urine Mucus 11/12/18 11/12/18 11/13/18 19:22 22:56 04:55 WBC 9.2 RBC 4.56 L Hgb 13.6 Hct 42.4 MCV 93.0 MCH 29.8 MCHC 32.1 RDW 14.8 H RDW Differential 49.1 H Plt Count 202 MPV 10.7 Immature Gran % (Auto) Neut % (Auto) Lymph % (Auto) [place] % (Auto) Eos % (Auto) Baso % (Auto) Absolute Neuts (auto) Absolute Lymphs (auto) Total Counted Sodium Potassium Chloride Carbon Dioxide Anion Gap BUN Creatinine Estim Creat Clear Calc Est GFR (MDRD) Af Amer Est GFR (MDRD) Non-Af BUN/Creatinine Ratio Glucose Lactic Acid Calcium Troponin I 0.019 Triglycerides Cholesterol LDL Cholesterol VLDL Cholesterol HDL Cholesterol Urine Color Sari Urine Clarity Sl. Cloudy Urine pH 7.0 Ur Specific [place] 1.010 Urine Protein Negative Urine Glucose (UA) Normal Urine Ketones Negative Urine Occult Blood 50 H Urine Nitrite Negative Urine Bilirubin Negative Urine Urobilinogen 12 H Ur Leukocyte Esterase 100 H Urine RBC 0 SEEN Urine WBC 10-25 SEEN Ur Squamous Epith Cells 0 SEEN Urine Bacteria 4+ Urine Mucus 0 SEEN 11/13/18 04:55 WBC RBC Hgb Hct MCV MCH MCHC RDW RDW Differential Plt Count MPV Immature Gran % (Auto) Neut % (Auto) Lymph % (Auto) [place] % (Auto) Eos % (Auto) Baso % (Auto) Absolute Neuts (auto) Absolute Lymphs (auto) Total Counted Sodium 140 Potassium 3.4 L Chloride 105 Carbon Dioxide 24.0 Anion Gap 11 BUN 17 Creatinine 1.03 Estim Creat Clear Calc 61.03 Est GFR (MDRD) Af Amer 90 Est GFR (MDRD) Non-Af 74 BUN/Creatinine Ratio 16.5 Glucose 117 H Lactic Acid Calcium 8.6 Troponin I Triglycerides 115 Cholesterol 157 LDL Cholesterol 95 VLDL Cholesterol 23 HDL Cholesterol 39 L Urine Color Urine Clarity Urine pH Ur Specific [place] Urine Protein Urine Glucose (UA) Urine Ketones Urine Occult Blood Urine Nitrite Urine Bilirubin Urine Urobilinogen Ur Leukocyte Esterase Urine RBC Urine WBC Ur Squamous Epith Cells Urine Bacteria Urine Mucus Assessment/Plan All Active Problems (Last Reviewed 11/12/18 @ 22:25 by Arash Frank MD) Acute cystitis (Acute) Community acquired pneumonia (Acute) Stroke-like symptoms (Acute) Weakness (Acute) The patient is a 77 year old CM with PMH HLD, CAD s/p stents and hypothyroidism admitted with LE weakness. [facility] and later had difficulty using both LE, had difficulty walking, he was dragging his left leg and right leg was also weak, had to start using walker, had loss of appetite, cough, denies any UE symptoms, on admission was found to have UTI and community acquired PNA with para influenza. At present following treatment with antibiotics, patients LE weakness has improved and he was able to ambulate in the room. Denies any MIN, visual disturbances, speech disturbances, dizziness, focal motor weakness or sensory loss. CT head done on admission reported nothing acute, but MRI brain reported by Dr. Talia Estrella as showing ? NPH, MRA head/neck reported to show Right M2 stenosis and Right ICA > 70% stenosis. He is on ASA/Plavix and Crestor since cardiac stents were placed in April 2018. At baseline he denies any falls, does not use cane or walker to ambulate. Impression LE [id number] due to infectious etiology ? NPH Right ICA stenosis Plan -MRI Brain reviewed -MRA head/neck reviewed -Neurosurgery consult for possible NPH -Vascular surgery consult for Carotid stenosis. Needs monitoring with carotid ultrasound, will defer to vascular surgery. -On ASA/Plavix and Crestor -Fall precautions -PT/OT -GI/DVT prophylaxis -Further medical management per hospitalist team -Please call with questions if any -Follow up with Neurology as outpatient in 6 weeks -Thank you for allowing us to participate in patient's care and management Code Visit Inpatient E&M: [id number] Init Hosp L3
--- NOTE | 2018-11-13 16:23 | NURSING ---
Dr. Stacy here to see pt and his . Pt to F/U with vascular surgeon and neurosurgeon for consults due to results of MRI and MRA.
--- NOTE | 2018-11-13 16:45 | NURSING ---
Pt up to BR and chair. in room. Denies pain or discomfort. Call light within reach.
[2018-11-13] MEDS: Atorvastatin Calcium 20 MG Tablet PO (21:23)
[2018-11-14] VITALS (9 sets, daily range): BP systolic 116–122; BP diastolic 44–55; PULSE 62–87; RESP 16–20; TEMP 36.7–37; O2SAT 91–95
[2018-11-14] MEDS: Ipratropium/Albuterol Sulfate 3 ML AMPUL.NEB INHALATION ×3 (00:14→13:03)
[2018-11-14] MEDS: Levothyroxine 75 MCG Tablet PO (05:28)
[2018-11-14] MEDS: Acetaminophen 325 MG Tablet 650 MG PO (05:29)
[2018-11-14 06:19] LABS: Anion Gap 11 (5-15); BUN 20 mg/dL (7-18); Calcium,Total 8.6 mg/dL (8.5-10.1); Chloride 106 mmol/L (98-107); EST Glomerular Filtration Rate 77 mL/min (>60); Est Glom Filt Rate - Afr Amer 93 mL/min (>60); Estimated Creatinine Clearance 61.85 ml/min; Glucose 127 mg/dL (74-106); Potassium 3.6 mmol/L (3.5-5.1); Sodium Level 142 mmol/L (136-145)
[2018-11-14] MEDS: Fenofibrate 145 MG Tablet PO (09:58)
[2018-11-14] MEDS: Tamsulosin HCl 0.4 MG Capsule PO (09:58)
[2018-11-14] MEDS: Aspirin E.C. 81 MG Tablet PO (09:58)
[2018-11-14] MEDS: Pantoprazole Sodium 40 MG Tablet PO (09:58)
[2018-11-14] MEDS: Clopidogrel Bisulfate 75 MG Tablet PO (09:58)
[2018-11-14] MEDS: Vitamin B Comp W-C Capsule 1 CAP PO (09:58)
[2018-11-14] MEDS: guaiFENesin 1,200 MG Tablet 1200 MG PO (10:00)
[2018-11-14] MEDS: Heparin Injection (Vial) 5,000 UNIT/ML VIAL 5000 UNIT SC (10:00)
[2018-11-14] MEDS: Ceftriaxone 1 GM/50 ML BAG IV (10:04)
--- NOTE | 2018-11-14 11:20 | NURSING ---
Pt up in walker to ambulate with walker and assist, tolerated well. 02 sats 91% on room air while ambulating. Pt back to room sitting in chair and sats 94% on room air. Denies c/o pain or SOB.
--- NOTE | 2018-11-14 11:29 | PCM.DC ---
- Discharge Diagnoses Current Active Problems: Current Active and Chronic Problems (Last Reviewed 11/12/18 @ 22:25 by Arash Frank MD) Acute cystitis (Acute) Community acquired pneumonia (Acute) Stroke-like symptoms (Acute) Weakness (Acute) You will use the following diet at home:: Cardiac Discharge Activity: Return to Normal Activity Call your doctor if you observe: Fever of 101 or Higher, Shortness of breath, Dizziness, Fainting spells, Chest pain Allergies/Adverse Reactions: Allergies lovenox Allergy (Uncoded 11/12/18 17:15) Rash Medications to take at Discharge Aspirin [Aspirin EC] 81 mg PO DAILY 04/11/18 B-Complex with Vitamin C [Vitamin B-Complex with Vit C] 1 each PO DAILY 04/11/18 Cholecalciferol (Vitamin D3) [Vitamin D3] 1,000 unit PO DAILY 04/11/18 Clopidogrel Bisulfate [Plavix] 75 mg PO DAILY 04/11/18 Fenofibrate [Tricor] 145 mg PO DAILY 04/11/18 Levothyroxine [Synthroid] 75 mcg PO DAILY 04/11/18 Nitroglycerin [Nitrostat] 0.4 mg SL PRN PRN MDD 3 total doses. 04/11/18 Pantoprazole Sodium [Protonix] 40 mg PO DAILY 04/11/18 Tamsulosin HCl [Flomax] 0.4 mg PO DAILY 04/11/18 Rosuvastatin Calcium 10 mg PO DAILY 11/12/18 Albuterol Inhaler [Ventolin Hfa] 1 - 2 puff INHALATION Q4H PRN PRN #1 inhaler 11/14/18 Amox/Clavulanate Tablet [Augmentin Tablet] 875 mg PO Q12H #20 tablet 11/14/18 Benzonatate [Tessalon Perle] 100 mg PO TID PRN PRN #15 capsule 11/14/18 The following prescriptions were given: Albuterol Inhaler [Ventolin Hfa] 1 - 2 puff INHALATION Q4H PRN PRN #1 inhaler PRN Reason: Shortness Of Breath Amox/Clavulanate Tablet [Augmentin Tablet] 875 mg PO Q12H #20 tablet Benzonatate [Tessalon Perle] 100 mg PO TID PRN PRN #15 capsule PRN Reason: Cough Primary Care Physician: [facility] Doctor,Out of [Primary Care Provider] - Please follow up with your Primary Care Physician in: 1 Week, Primary Care Physician Test Results: Test results from this visit will be discussed in further detail at your follow-up appointment, if applicable. Please Follow Up With: Dr. Mmaadou Slater - [phone] When: Neurosurgeon, 2 Weeks Please Follow Up With: Neurology When: 6 Weeks Please Follow Up With: Thomas Wolf MD - [phone] When: Vascular Surgeon, 2 Weeks for carotid stenosis evaluation Proposed Discharge Date: 11/14/18
--- NOTE | 2018-11-14 11:33 | DCINST_ITS ---
- Discharge Diagnoses Current Active Problems: Current Active and Chronic Problems (Last Reviewed 11/12/18 @ 22:25 by Aarsh Frank MD) Acute cystitis (Acute) Community acquired pneumonia (Acute) Stroke-like symptoms (Acute) Weakness (Acute) You will use the following diet at home:: Cardiac Discharge Activity: Return to Normal Activity Call your doctor if you observe: Fever of 101 or Higher, Shortness of breath, Dizziness, Fainting spells, Chest pain Allergies/Adverse Reactions: Allergies lovenox Allergy (Uncoded 11/12/18 17:15) Rash Medications to take at Discharge Aspirin [Aspirin EC] 81 mg PO DAILY 04/11/18 B-Complex with Vitamin C [Vitamin B-Complex with Vit C] 1 each PO DAILY 04/11/18 Cholecalciferol (Vitamin D3) [Vitamin D3] 1,000 unit PO DAILY 04/11/18 Clopidogrel Bisulfate [Plavix] 75 mg PO DAILY 04/11/18 Fenofibrate [Tricor] 145 mg PO DAILY 04/11/18 Levothyroxine [Synthroid] 75 mcg PO DAILY 04/11/18 Nitroglycerin [Nitrostat] 0.4 mg SL PRN PRN MDD 3 total doses. 04/11/18 Pantoprazole Sodium [Protonix] 40 mg PO DAILY 04/11/18 Tamsulosin HCl [Flomax] 0.4 mg PO DAILY 04/11/18 Rosuvastatin Calcium 10 mg PO DAILY 11/12/18 Albuterol Inhaler [Ventolin Hfa] 1 - 2 puff INHALATION Q4H PRN PRN #1 inhaler 11/14/18 Amox/Clavulanate Tablet [Augmentin Tablet] 875 mg PO Q12H #20 tablet 11/14/18 Benzonatate [Tessalon Perle] 100 mg PO TID PRN PRN #15 capsule 11/14/18 The following prescriptions were given: Albuterol Inhaler [Ventolin Hfa] 1 - 2 puff INHALATION Q4H PRN PRN #1 inhaler PRN Reason: Shortness Of Breath Amox/Clavulanate Tablet [Augmentin Tablet] 875 mg PO Q12H #20 tablet Benzonatate [Tessalon Perle] 100 mg PO TID PRN PRN #15 capsule PRN Reason: Cough Primary Care Physician: [facility] Doctor,Out of [Primary Care Provider] - Please follow up with your Primary Care Physician in: 1 Week, Primary Care Physician Test Results: Test results from this visit will be discussed in further detail at your follow- up appointment, if applicable. Please Follow Up With: Dr. Mamadou Slater - [phone] When: Neurosurgeon, 2 Weeks Please Follow Up With: Neurology When: 6 Weeks Please Follow Up With: Thomas Wolf MD - [phone] When: Vascular Surgeon, 2 Weeks for carotid stenosis evaluation Proposed Discharge Date: 11/14/18
--- NOTE | 2018-11-14 11:35 | PCM.DC.SUM ---
<Marina Lan - Last Filed: 11/14/18 12:17> Discharge Date and Diagnosis Date of Admission: 11/12/18 Date of Discharge: 11/14/18 - Primary Discharge Diagnosis Active and Suspected Problems (Last Reviewed 11/12/18 @ 22:25 by Arash Frank MD) 1. Acute hypoxic respiratory insufficiency secondary to community-acquired pneumonia and parainfluenza 2 2. Acute Citrobacter amalonaticus UTI 3. Lower extremity weakness, concerning for strokelike symptoms-CVA ruled out 4. 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 CAD status post history of PCI 7. Hypothyroidism 8. GERD 9. BPH Hospital Course and Treatment Imaging Results: Diagnostic Data Brain CT 11/12/18 17:59 IMPRESSION: Chronic involutional changes of the brain. Electronically Signed: Sandeep Lopez MD at 19:34 EST , Service support , Chest X-Ray 11/12/18 18:06 IMPRESSION: Mild left basilar infiltrate. Left upper lobe opacity medially. Correlate with CT if needed. Electronically Signed: Rubens Varela DO at 19:03 EST Tel [phone], Service support , Brain MRI 11/13/18 08:03 IMPRESSION: 1. Involutional changes of the brain, as described above. 2. 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 3. Questionable artifacts on the diffusion-weighted imaging. Electronically Signed: Talia Estrella MD at 11:31 EST , Service support , Head MRA 11/13/18 08:03 IMPRESSION: 1. MRA evidence for hemodynamically significant stenosis of right-sided M2 branch origins. 2. No MRA evidence for aneurysm. Electronically Signed: Talia Estrella MD at 10:53 EST , Service support , Neck MRA 11/13/18 08:03 IMPRESSION: 1. Hemodynamically significant stenosis of the origin the RIGHT internal carotid artery with estimated amount of stenosis greater than 70%. 2. Technically limited study due to patient motion. NOTE: Determination of stenosis is based on NASCET criteria. Electronically Signed: Talia Estrella MD at 10:18 EST , Service support , Dr. Stacy- Neurology Operations: None Procedures: None Summary of Care Provided: The patient is a 78 year old M admitted 11/12/18 due to lower extremity weakness. 1. Acute hypoxic respiratory insufficiency secondary to community-acquired pneumonia and parainfluenza 2-suspect post viral pneumonia. Chest x-ray on admission with mid left basilar infiltrate. Left upper lobe opacity medially. Blood cultures pending. Urine negative for strep and Legionella. Sputum culture shows normal respiratory marci. Patient received IV azithromycin and IV Rocephin. Discharged on Augmentin 875 mg p.o. twice daily for 7 days. Patient weaned off of supplemental oxygen. Walking pulse ox prior to discharge with oxygen stable at 91%. Patient will be discharged on albuterol inhaler for as needed shortness of breath. Tessalon Perles as needed for cough. Follow-up with primary care physician in 1 week. 2. Acute Citrobacter amalonaticus UTI-susceptible to Augmentin. Augmentin 875 mg p.o. twice daily for 7 days as noted above. 3. Lower extremity weakness, concerning for strokelike symptoms-CVA ruled out. MRI of brain shows moderate ventriculomegaly suggest possible sequela of normal pressure hydrocephalus. MRA of head with evidence of hemodynamically significant stenosis of right-sided M2 branch origins. Neck MRA showed hemodynamically significant stenosis of the origin of the right internal carotid artery with estimated amount of stenosis greater than 70%. Neurology consulted during admission. Recommends outpatient referral to neurosurgery for possible NPH and vascular referral for carotid artery stenosis. Follow-up with neurosurgery and vascular surgery in 2 weeks. 4. CAD status post PCI-continue aspirin, Plavix, statin, fenofibrate. 5. Hypothyroidism-continue Synthroid. 6. GERD-continue PPI. 7. BPH-continue Flomax regimen. General: Alert, Oriented x3, Cooperative HEENT: Atraumatic, PERRLA, EOMI, Normocephalic Neck: Supple, No JVD, Negative Carotid Bruits Lungs: Clear to auscultation, Diminished Cardiovascular: Regular rate, Regular Rhythm, Normal S1, Normal S2, No murmurs Abdomen: Bowel Sounds Present, Soft, Non Tender, Non-Distended Extremities: No clubbing, No cyanosis, No edema, Capillary Refill Less than 3 Seconds Skin: No rashes, No breakdown Musculoskeletal: No Tenderness to Palpation of Joints or Extremities Neurological: Cranial nerves II-XII grossly intact, Neuro grossly intact Psych/Mental Status: Normal Affect, Appropriate Patient seen and examined prior to discharge. Physical assessment as noted above. Patient is stable for discharge with follow up recommendations as noted above. This patient was seen by HANH Sutton under the supervision of Dr. Lou. - Physical Exam Vital Signs Temp Pulse Resp BP Pulse Ox 98.6 F 62 20 H 122/55 H 91 11/14/18 08:21 11/14/18 10:48 11/14/18 08:21 11/14/18 08:21 11/14/18 11:19 Oxygen Flow Rate (L/min) 2 Oxygen Delivery Method Nasal Cannula Weight: 202 lb 13.204 oz Body Mass Index (BMI) 29.0 Intake and Output for Last 24 Hours 11/12/18 11/13/18 11/14/18 23:59 23:59 23:59 Intake Total 900 / 900 770 / 770 Output Total 200 / 200 Balance 900 / 900 570 / 570 Microbiology Past 72 Hours 11/13/18 00:50 Gram Stain - Final Sputum, Expectorated/Coughed Respiratory Culture - Preliminary Appears to be normal respiratory marci. Further studies to follow. 11/12/18 19:22 Urine Culture - Final Urine, Random Citrobacter amalonaticus 11/13/18 05:40 Respiratory Panel (PCR) - Final Mucosa - Nose Parainfluenza 2 11/12/18 19:22 Streptococcus pneumoniae Antigen (M - Final Interface Orders 11/12/18 19:22 Legionella Antigen - Final Interface Orders 11/12/18 18:25 Influenza Types A,B Direct FA (BLAZE) - Final Mucosa - Nose Laboratory Tests Past 24 Hrs 11/14/18 05:20 Sodium 142 Potassium 3.6 Chloride 106 Carbon Dioxide 25.0 Anion Gap 11 BUN 20 H Creatinine 1.00 Estim Creat Clear Calc 61.85 Est GFR (MDRD) Af Amer 93 Est GFR (MDRD) Non-Af 77 BUN/Creatinine Ratio 20.0 Glucose 127 H Calcium 8.6 Discharge Diet: Low fat/ Low Cholesterol Discharge Activity: Return to Normal Activity Call your doctor if you observe: Fever of 101 or Higher, Shortness of breath, Dizziness, Fainting spells, Chest pain Home Medications: Medications to take at Discharge Aspirin [Aspirin EC] 81 mg PO DAILY 04/11/18 B-Complex with Vitamin C [Vitamin B-Complex with Vit C] 1 each PO DAILY 04/11/18 Cholecalciferol (Vitamin D3) [Vitamin D3] 1,000 unit PO DAILY 04/11/18 Clopidogrel Bisulfate [Plavix] 75 mg PO DAILY 04/11/18 Fenofibrate [Tricor] 145 mg PO DAILY 04/11/18 Levothyroxine [Synthroid] 75 mcg PO DAILY 04/11/18 Nitroglycerin [Nitrostat] 0.4 mg SL PRN PRN MDD 3 total doses. 04/11/18 Pantoprazole Sodium [Protonix] 40 mg PO DAILY 04/11/18 Tamsulosin HCl [Flomax] 0.4 mg PO DAILY 04/11/18 Rosuvastatin Calcium 10 mg PO DAILY 11/12/18 Albuterol Inhaler [Ventolin Hfa] 1 - 2 puff INHALATION Q4H PRN PRN #1 inhaler 11/14/18 Amox/Clavulanate Tablet [Augmentin Tablet] 875 mg PO Q12H #20 tablet 11/14/18 Benzonatate [Tessalon Perle] 100 mg PO TID PRN PRN #15 capsule 11/14/18 Following Prescrptions Were Given to Patient: Albuterol Inhaler [Ventolin Hfa] 1 - 2 puff INHALATION Q4H PRN PRN #1 inhaler PRN Reason: Shortness Of Breath Amox/Clavulanate Tablet [Augmentin Tablet] 875 mg PO Q12H #20 tablet Benzonatate [Tessalon Perle] 100 mg PO TID PRN PRN #15 capsule PRN Reason: Cough Primary Care Physician: [facility] Doctor,Out of [Primary Care Provider] - Please follow up with your Primary Care Physician in: 1 Week, Primary Care Physician Please Follow Up With: Dr. Mamadou Slater - [phone] When: Neurosurgeon, 2 Weeks Please Follow Up With: Neurology When: 6 Weeks Please Follow Up With: Thomas Wolf MD - [phone] When: Vascular Surgeon, 2 Weeks for carotid stenosis evaluation Disposition: Home Minutes spent on discharge:: 35 Patient Condition:: Stable Medical Necessity - Tobacco Use Smoking Status: Never smoker Meaningful Use Info Meaningful Use Diagnoses (Choose all that apply): None applicable <Diana Lou - Last Filed: 11/14/18 16:04> Hospital Course and Treatment Summary of Care Provided: Patient seen by Marina SCHAFER under my supervision Patient admitted with a complaint of difficulty walking and weakness in his lower extremities especially his left lower extremity. He had gone to the [facility] to work out subsequently started having the symptoms. He had no assisted fever chills or urinary symptoms. Due to concern for stroke he was brought to the ED. There he also mentioned that he had been having cough productive of clear sputum with associated shortness of breath. Chest x-ray showed mid left basilar infiltrate and left upper lobe opacity and CT of the head was negative. He was admitted to be managed for community-acquired pneumonia. UA also showed evidence of UTI, so he was managed for UTI. His respiratory panel isolated parainfluenza virus and UA cultured gram-negative rods. He was started on IV ceftriaxone and azithromycin and breathing treatments. MRI showed moderate ventriculomegaly which was suggestive of possible sequelae of NPH. Neurology was therefore consulted who recommended that he follow-up with a neurosurgeon on outpatient basis. MRA showed hemodynamically significant stenosis of the M2 branch origins on the right and neck MRA showed significant stenosis of the right internal carotid origin at more than 70%. Patient remained stable and his symptoms resolved. He was therefore discharged home on 11/14/2018 to follow-up with primary care doctor, neurologist and neurosurgeon. Patient seen and examined prior to discharge. He had no complaints and felt well. He denied any fever, any chills, any palpitations, shortness of breath, any chest pain, any abdominal pain, any diarrhea vomiting. 12 point review of systems otherwise negative. Labs and vitals reviewed. Home medications reviewed and reconciled. on Examination Vitals: Vital Signs Height 5 ft 10 in Weight: 202 lb 13.204 oz Weight in Pounds 202.8 lbs Pulse Ox 91 Temperature 98.6 F Pulse Rate 75 Respiratory Rate 16 Blood Pressure 122/55 Blood Pressure Position Sitting General: Alert, Oriented x3, Cooperative HEENT: Atraumatic, PERRLA, EOMI, Normocephalic Neck: Supple, No JVD, Negative Carotid Bruits Lungs: Clear to auscultation, Diminished Cardiovascular: Regular rate, Regular Rhythm, Normal S1, Normal S2, No murmurs Abdomen: Bowel Sounds Present, Soft, Non Tender, Non-Distended Extremities: No clubbing, No cyanosis, No edema, Capillary Refill Less than 3 Seconds Skin: No rashes, No breakdown Musculoskeletal: No Tenderness to Palpation of Joints or Extremities Neurological: Cranial nerves II-XII grossly intact, Neuro grossly intact Psych/Mental Status: Normal Affect, Appropriate Patient is walking pulse ox prior to discharge was 91% therefore he did not qualify for oxygen. Was discharged with a prescription for p.o. Augmentin. He is also to follow-up with vascular surgery on account of internal carotid artery stenosis as picked up on MRI and MRA of the head and neck. Agree with Marina SCHAFER's above note and plan which I have reviewed. [] - Physical Exam Vital Signs Temp Pulse Resp BP Pulse Ox 98.6 F 75 16 122/55 H 91 11/14/18 08:21 11/14/18 13:03 11/14/18 13:03 11/14/18 08:21 11/14/18 11:19 Oxygen Flow Rate (L/min) 2 Oxygen Delivery Method Nasal Cannula Weight: 202 lb 13.204 oz Body Mass Index (BMI) 29.0 Intake and Output for Last 24 Hours 11/12/18 11/13/18 11/14/18 23:59 23:59 23:59 Intake Total 900 / 900 1060 / 1060 Output Total 200 / 200 Balance 900 / 900 860 / 860 Microbiology Past 72 Hours 11/13/18 00:50 Gram Stain - Final Sputum, Expectorated/Coughed Respiratory Culture - Preliminary Appears to be normal respiratory marci. Further studies to follow. 11/12/18 19:22 Urine Culture - Final Urine, Random Citrobacter amalonaticus 11/13/18 05:40 Respiratory Panel (PCR) - Final Mucosa - Nose Parainfluenza 2 11/12/18 19:22 Streptococcus pneumoniae Antigen (M - Final Interface Orders 11/12/18 19:22 Legionella Antigen - Final Interface Orders 11/12/18 18:25 Influenza Types A,B Direct FA (BLAZE) - Final Mucosa - Nose Laboratory Tests Past 24 Hrs 11/14/18 05:20 Sodium 142 Potassium 3.6 Chloride 106 Carbon Dioxide 25.0 Anion Gap 11 BUN 20 H Creatinine 1.00 Estim Creat Clear Calc 61.85 Est GFR (MDRD) Af Amer 93 Est GFR (MDRD) Non-Af 77 BUN/Creatinine Ratio 20.0 Glucose 127 H Calcium 8.6 Code Visit Inpatient E&M: 02202 Disch Hosp
--- NOTE | 2018-11-14 13:03 | NURSING ---
pt up to bathroom, tolerated well, pt dressing for discharge. at bedside.
--- NOTE | 2018-11-14 13:24 | NURSING ---
Discharge instructions reviewed with pt and , verbalizes understanding. Copy of instructions given to pt.
--- NOTE | 2018-11-14 13:27 | CASEMGMT ---
Therapy is recommending [facility] for pt at discharge. This SIRI RAZO to room to inform pt/ of same and per pt, he is not homebound and would like to do OP therapy at [facility]. [facility] and original to pt at this time. Pt voices no further questions/concerns/needs at this time. [place] SIRI RAZO
== END 2018-11-14 13:29 | disposition home or self-care (01) | DRG 689 ==
LOC: ED 19:04 → MS3 22:06 → PCU 22:24
PROVIDERS: Nurse Practitioner Family; Admitting Provider Hospitalist; Emergency Provider Emergency Medicine; Visit Provider Student in an Organized Health Care Education/Training Program
DX: N30.00 Acute cystitis without hematuria (principal); J10.00 Influenza due to other identified influenza virus with unspecified type of pneumonia; G91.2 (Idiopathic) normal pressure hydrocephalus; E03.9 Hypothyroidism, unspecified; E78.5 Hyperlipidemia, unspecified; B96.89 Other specified bacterial agents as the cause of diseases classified elsewhere; R53.1 Weakness; I65.21 Occlusion and stenosis of right carotid artery; I25.10 Atherosclerotic heart disease of native coronary artery without angina pectoris; K21.9 Gastro-esophageal reflux disease without esophagitis; N40.0 Benign prostatic hyperplasia without lower urinary tract symptoms; R06.89 Other abnormalities of breathing; R09.02 Hypoxemia; Z79.82 Long term (current) use of aspirin; Z79.02 Long term (current) use of antithrombotics/antiplatelets; Z95.5 Presence of coronary angioplasty implant and graft
CPT/HCPCS: 36415; 70450; 70544; 70549; 70551; 71045; 80048; 80061; 81001; 83605; 84484; 85025; 85027; 87040; 87070; 87077; 87086; 87088; 87186; 87205; 87449; 87633; 87804; 93005; 94640; 94667; 94668; 97162; 97165; 97535; 97802; 99285; A9585; J7040; J7050; P9612; A4216

== ENCOUNTER → 2018-11-25 09:50 | Outpatient (CLI) | payer MEDICARE, OTHER, SELFPAY ==
[2018-11-17 14:45] VITALS: BMI 29.4
--- NOTE | 2018-11-25 09:52 | CDU_ITS ---
Reason For Study: Carotid Stenosis - Right Rt. Velocities/BP Lt. Velocities/BP Prox CCA 145/22.6 cm/sec. Prox CCA 134/23.6 cm/sec. Mid CCA 102/17.7 cm/sec. Mid CCA 119/25.1 cm/sec. Dist CCA 102/18.7 cm/sec. Dist CCA 115/24.4 cm/sec. Prox ICA 111/20.6 cm/sec. Prox ICA 91.1/18.9 cm/sec. Mid ICA 98.2/20.4 cm/sec. Mid ICA 99.8/21.2 cm/sec. Dist ICA 105/24.4 cm/sec. Dist ICA 115/34.8 cm/sec. Rt. ICA/CCA = 1.09. Lt. ICA/CCA = 0.97. Prox ECA 143/14.7 cm/sec. Prox ECA 103/11 cm/sec. Rt. Vert. 69.1/16.5 cm/sec. Lt. Vert. 57.4/12.6 cm/sec. Right Extracranial There is homogeneous, smooth atherosclerotic plaque noted in the right common carotid artery. There is heterogeneous, irregular atherosclerotic plaque noted in the right internal carotid artery. There is intimal thickening but no significant atherosclerotic plaque noted in the right external carotid artery. Antegrade flow is noted in the right vertebral artery. Left Extracranial There is heterogeneous, smooth atherosclerotic plaque noted in the left common carotid artery. There is intimal thickening but no significant atherosclerotic plaque noted in the left internal carotid artery. There is intimal thickening but no significant atherosclerotic plaque noted in the left external carotid artery. Antegrade flow is noted in the left vertebral artery. There is heterogeneous, irregular atherosclerotic plaque noted in the left bulb. Procedure Carotid Duplex [id number]. Exam performed in department. 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 Mild calcific plague at the proximal left internal carotid with <50% stenosis. Mild disease right external carotid Normal flow left external carotid Patent and antegrade vertebrals bilaterally Ordering Physician: Thomas Wolf Performed By: Gaurav Orellana RVT and Student
== END ==
PROVIDERS: Referring Provider Surgery; Visit Provider Surgery
DX: I65.21 Occlusion and stenosis of right carotid artery (principal)
CPT/HCPCS: 93880

== ENCOUNTER 2018-12-05 12:30 | Outpatient (RCR) | payer MEDICARE, OTHER, SELFPAY ==
[2018-11-17 14:45] VITALS: BMI 29.4
--- NOTE | 2018-11-26 14:01 | HP.PTEVAL ---
Patient's Visit Information DHIRAJ MURPHY is a 78 year old M referred to Physical Therapy by HANH Sutton with a diagnosis of Debility. Date of Evaluation: 11/26/18 Physical Therapist: Tommy Awad, PT, ATC - Visit Plan Plan: Discharge - Subjective Findings: Pt reports he woke up one day in the hospital. Pt reports he has no idea what caused it, and he cant remember even going there.. Pt reports his has told him that he yelled her name one night, and as she ran into his room, he was standing still and could not move. Pt's called the EMS and they brought him to the hospital. Pt reports they thought he had a stroke, but they never came back and told him he had one. Pt reports he was in the hospital for 2 days. Pt reports all this happened 3 days ago and he just recently was released. Pt reports he feels strong, but his balance is off as it has been for several years. Pt reports he has B knee pain which is chronic. No tingling or numbness in LE's. No sleep difficutly secondary to pain. - Pain B knee pain Pain Intensity (Out of 10): 6 Pain Intensity Range: 7 - Objective Neuro: B LE sensation is WNL to light touch. B achilles reflex= 2/3. MMT: B LE's are 5/5 throughout. Balance: FGA= 23/30. Gait: Pt is able to ambulate greater than 700' without difficulty - Balance Scores Functional Gait Assessment Score: 23 % Disability: 23.3400 - Rehabilitation Potential Physical Therapy Diagnosis: Pt had weakness and decreased balance secondary to debilitation - Anticipated Interventions Patient/Client Instruction: Educate patient on: Condition For the Purpose of:: To improve self management Thank you for the opportunity to evaluate your patient. For Medicare and Medicare HMO plans, please review the plan of care and approve it. It will need to be FAXED BACK to us at [phone] for Medicare purposes. For Medicare only, by signing this I certify the plan of care. Please let me know if there are questions or concerns regarding this plan of care. Physician Signature: Date:
--- NOTE | 2018-11-26 15:11 | HP.OTEVAL_ITS ---
Patient's Visit Information DHIRAJ MURPHY is a 78 year old M, referred to Occupational Therapy by Marina Lan NP-Jose, with a diagnosis of Possible NPH, debility, CAD. Date of Evaluation: 11/26/18 Occupational Therapist: Mar Bui, NANCYR/L, CHT - Subjective Subjective: Pt states one day she woke up in the hospital but could not remember how he got to the hospital- pt states this happened about 4 days ago- Pt states he is ind. with step in shower, stands for shower and dresses ind. pt states he has been home from the hospital and has noticed that he is leaving items and forget where he puts them. pt states he does help his clean and helps with fixing things arond the house. - [facility] not [facility] a daily basis, about 3 x a week. 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 pt states he is ind with daily tasks. - Strength Shoulder: right 4-/5 left 4-/5 Elbow: right 4-/5 left 4-/5 Curing Finisher: right 40 left 40 Lateral Pinch: right 12 left 12 Tripod Pinch: right 8 left 10 - Sensation Sensation Comments: denies - Quick DASH-Disab of Arm,Shoulder& Hand Quick DASH Score: 38.6350 - Goals Goal:: pt will demo a increase in BUE MMT by 1MM grade to incrase pts ind.with home mtg tasks by d/c Goal:: pt will demo the ability to follow written PRE ind. to return to his PLOF and participation in health and wellness groups by d/c. - Rehabilitation General Assessment: Pt with recent D/C from hospital and demo with a decline in his functional strength. Pt would benefit from skilled OT services 2x week for 4 weeks to return pts strength and return pt to PLOF. Rehabilitation Potential: Good - Anticipated Interventions Anticipated Interventions: Strengthening, ADL Training, Education re assistive Equipment - Visit Plan Frequency: 2x /Week Duration: 4 Weeks General Plan: Pt to return with to assist therapist in what ex. eq. pt is already using. therapist will guide pt with PRE to ensure completion and safety. TEXT: Thank you for the opportunity to evaluate your patient. For Medicare and Medicare HMO plans, please review the plan of care and approve it. It will need to be FAXED BACK to us at [phone] for Medicare purposes. Please let me know if there are questions or concerns regarding this plan of care. Physician Signature: Date:
--- NOTE | 2019-01-05 14:41 | HP.OT.NRP ---
HP - Discharge Summary - Patient Information DHIRAJ MURPHY was seen in my office for initial evaluation on 11/26/18. The following Plan of Care was established for this patient: Initial Frequency: 2x /Week Initial Duration: 4 Weeks Plan: cont with bicep/tricep free wts as this is what he has avalible at the [facility] - Anticipated Interventions Anticipated Interventions: Strengthening, ADL Training, Education re assistive Equipment This patient was last seen in our office 12/05/18. Pertinent comments regarding their Occupational therapy will appear below: pt was seen for 4 OT sessions- therapist ed. pt on HEP and use of gym eq. [facility]. PT demo ex. well and his last visit was asking for d/c. pt d/c with HEP. At this point I will be discontinuing this patient from occupational therapy. I would be happy to see this patient again in the future if found appropriate by the physician. Thank you! Mar Bui, OTR/L, CHT
--- OUTSIDE RECORDS SUMMARY | 2019-01-31 08:55 | XMS RPT_ITS ---
:1940 Author Organization OHIP Support Name Relationship Address Phone MCMILLAN, CANDY Unavailable [address] + [place] [address] R Unavailable Unavailable Unavailable MCMILLAN, CANDY Unavailable [address] + [place] [address] R Unavailable Unavailable Unavailable MCMILLAN, CANDY Unavailable [address] + [place] [address] R Unavailable Unavailable Unavailable MCMILLAN, CANDY Unavailable [address] + [place] [address] R Unavailable Unavailable Unavailable MCMILLAN, CANDY Unavailable [address] + [place] [address] R Unavailable Unavailable Unavailable K[place]IL[place], CANDY Unavailable [address] + [place] [address] R Unavailable Unavailable Unavailable MCMILLAN, CANDY Unavailable [address] + [place] [address] R Unavailable Unavailable Unavailable MCMILLAN, CANDY Unavailable [address] + [place] [address] R Unavailable Unavailable Unavailable Mcmillan, Candy Unavailable Unavailable + Ashley Mckeon Unavailable Unavailable + [place], CANDY Unavailable [address] + [place] [address] R Unavailable Unavailable Unavailable Mcmillan, Candy Unavailable Unavailable + Ashley Mckeon Unavailable Unavailable + [place], CANDY Unavailable [address] + [place] [address] R Unavailable Unavailable Unavailable MCMILLAN, CANDY Unavailable [address] + [place] [address] R Unavailable Unavailable Unavailable MCMILLAN, CANDY Unavailable [address] + [place] [address] R Unavailable Unavailable Unavailable Mcmillan, Candy Unavailable Unavailable + Linda Ashley Unavailable Unavailable + MCMILLAN, CANDY Unavailable [address] + [place] [address] R Unavailable Unavailable Unavailable MCMILLAN, CANDY Unavailable [address] + [place] [address] R Unavailable Unavailable Unavailable MCMILLAN, CANDY Unavailable [address] + [place] [address] R Unavailable Unavailable Unavailable MCMILLAN, CANDY Unavailable [address] + [place] [address] R Unavailable Unavailable Unavailable MCMILLAN, CANDY Unavailable [address] + [place] [address] R Unavailable Unavailable Unavailable Mcmillan, Candy Unavailable Unavailable + Linda, Ashley Unavailable Unavailable + Mcmillan, Candy Unavailable Unavailable + Linda, Ashley Unavailable Unavailable + Mcmillan, Candy Unavailable Unavailable + Linda, Ashley Unavailable Unavailable + Care Team Providers Name Role Phone RAMOS HART Primary Care Unavailable Arash Frank Admitting Unavailable Diana Lou Attending Unavailable Wes Stacy Consulting Unavailable DOCTOR, OUT OF TOWN Attending Unavailable DOCTOR, OUT OF TOWN Referring Unavailable RAMOS HART Primary Care Unavailable RAMOS HART Primary Care Unavailable RAMOS HART Consulting Unavailable RAMOS HART Attending Unavailable RAMOS HART Referring Unavailable Chang, Sulphur Attending Unavailable Chang, John Referring Unavailable RAMOS HART Primary Care Unavailable RAMOS HART Consulting Unavailable RAMOS HART Attending Unavailable RAMOS HART Referring Unavailable DOCTOR, OUT OF TOWN Attending Unavailable RAMOS HART Primary Care Unavailable RAMOS HART Primary Care Unavailable RAMOS HART Consulting Unavailable RAMOS HART Attending Unavailable RAMOS HART Referring Unavailable DOCTOR, OUT OF TOWN Attending Unavailable RAMOS HART Primary Care Unavailable RAMOS HART Attending Unavailable RAMOS HART Referring Unavailable RAMOS HART Primary Care Unavailable RAMOS HART Consulting Unavailable RAMOS HART Attending Unavailable RAMOS HART Referring Unavailable RAMOS HART Primary Care Unavailable RAMOS HART Consulting Unavailable Agyepong, Arash Admitting Unavailable Agyepong, Arash Attending Unavailable RAMOS HART Primary Care Unavailable Agyepong, Arash Consulting Unavailable Agyepong, Arash Admitting Unavailable RAMOS HART Primary Care Unavailable Koram, Diana Ely Consulting Unavailable Koram, Diana Ely Attending Unavailable Agyepong, Arash Admitting Unavailable RAMOS HART Primary Care Unavailable Wes Stayc S. Consulting Unavailable Koram, Diana Ely Attending Unavailable Koram, Diana Ely Consulting Unavailable Lamarbul, Thomas Attending Unavailable DOCTOR, OUT OF TOWN Referring Unavailable Cebul, Thomas Attending Unavailable Cebul, Thomas Referring Unavailable RAMOS HART Primary Care Unavailable Marina Lan CONFIGURATION TECHNICIAN-C Attending Unavailable Marina Lan NP-C Referring Unavailable RAMOS HART Primary Care Unavailable Cebul Thomas Attending Unavailable Cebul, Thomas Referring Unavailable RAMOS HART Primary Care Unavailable Cebul, Thomas Consulting Unavailable Yaritza Chowdary Attending Unavailable PROVIDER, UNKNOWN Referring Unavailable Jose Luis, Carrie Primary Care Unavailable PROVIDER, UNKNOWN Referring Unavailable Jose Luis, Carrie Primary Care Unavailable Corby Wylie Attending Unavailable PROVIDER, UNKNOWN Referring Unavailable Jose Luis, Carrie Primary Care Unavailable Chelsey Alicea Attending Unavailable Osmin Magaña Attending Unavailable PROVIDER, UNKNOWN Referring Unavailable Jose Luis, Carrie Primary Care Unavailable Khurram Barraza Attending Unavailable PROVIDER, UNKNOWN Referring Unavailable Jose Luis, Carrie Primary Care Unavailable Deni Escobedo Attending Unavailable PROVIDER, UNKNOWN Referring Unavailable Jose Luis, Carrie Primary Care Unavailable PROBLEMS PROBLEMS DATE TYPE CONDITION / CODE ATTENDING STATUS SOURCE Unknown I65.21 - Occlusion and Cebul, Thomas Active [facility] 9 stenosis of right Community carotid artery / Hospital I65.21(ICD-10) Repository Admitting Cough / R05(ICD-10) [place], [facility] 8 Diagnosis [facility] Repository Admitting Pain in right shoulder [place], [facility] 8 Diagnosis / M25.511(ICD-10) [facility] Repository Admitting Pain in thoracic spine [place], [facility] 8 Diagnosis / M54.6(ICD-10) [facility] Repository Admitting Unspecified Nickmie, [facility] 8 Diagnosis osteoarthritis, [facility] unspecified site / Repository M19.90(ICD-10) Admitting Hyp hrt & chr kdny dis [place], [facility] 8 Diagnosis w/o hrt fail, w stg [facility] 1-4/unsp chr kdny / Repository I13.10(ICD-10) Admitting Chronic kidney Inessa, [facility] 8 Diagnosis disease, unspecified / [facility] N18.9(ICD-10) Repository Admitting Athscl heart disease [place], [facility] 8 Diagnosis of king salmon coronary [facility] artery w/o ang pctrs / Repository I25.10(ICD-10) Admitting Hyperlipidemia, [place], [facility] 8 Diagnosis unspecified / [facility] E78.5(ICD-10) Repository Admitting Disorder of thyroid, [place], [facility] 8 Diagnosis unspecified / [facility] E07.9(ICD-10) Repository Admitting Presence of coronary Joanndeshavonne, Active [facility] 8 Diagnosis angioplasty implant [facility] and graft / Repository Z95.5(ICD-10) Admitting Acquired absence of Joannmie, [facility] 8 Diagnosis other specified parts [facility] of digestive tract / Repository Z90.49(ICD-10) Admitting assisted (current) Nickmie, Active [facility] 8 Diagnosis use of [facility] antithrombotics/antipl Repository atelets / Z79.02(ICD-10) Admitting long term care pharmacist (current) AdrianKamie, [facility] 8 Diagnosis use of aspirin / [facility] Z79.82(ICD-10) Repository Admitting [facility] [place], [facility] 8 Diagnosis drug/meds/biol subst [facility] status / Z88.8(ICD-10) Repository Admitting Pleurodynia / McKamie, Active [facility] 8 Diagnosis R07.81(ICD-10) [facility] Repository Admitting Bradycardia, [place], Yaritza Active [facility] 8 Diagnosis unspecified / System R00.1(ICD-10) Repository Unknown Z95.5 - Presence of RAMOS HART Active [facility] 8 coronary angioplasty Community implant and graft / Hospital Z95.5(ICD-10) Repository Unknown I25.10 - RAMOS HART Active [facility] 8 Atherosclerotic heart Community disease of [facility] coronary artery Repository without angina pectoris / I25.10(ICD-10) Admitting Weakness / Chelsey Alicea Active [facility] 8 Diagnosis R53.1(ICD-10) System Repository Admitting Presence of other Chelsey Alicea [facility] [employer] 8 Diagnosis orthopedic joint System implants / Repository Z96.698(ICD-10) Unknown E78.5 - DOCTOR, OUT OF Active [facility] Hyperlipidemia, TOWN Community unspecified / Hospital E78.5(ICD-10) Repository Unknown R94.31 - Abnormal Chang, Sulphur Active [facility] 8 electrocardiogram Community [ECG] [EKG] / Hospital R94.31(ICD-10) Repository Admitting Syncope and collapse / Silver, Osmin Active [facility] 8 Diagnosis R55(ICD-10) System Repository Admitting Pure hyperglyceridemia Silver, Osmin Active [facility] 8 Diagnosis / E78.1(ICD-10) System Repository Admitting Hypothyroidism, Silver, Osmin Active [facility] 8 Diagnosis unspecified / System E03.9(ICD-10) Repository Admitting Presence of Silver, Osmin Active [facility] 8 Diagnosis unspecified orthopedic System joint implant / Repository Z96.60(ICD-10) Admitting Abnormal result of Christi, Active [facility] 8 Diagnosis other cardiovascular [facility] function study / Repository R94.39(ICD-10) Admitting Shortness of breath / Deni Escobedo Active [facility] 8 Diagnosis R06.02(ICD-10) System Repository PROCEDURES PROCEDURES No Procedure Records FoundRESULTS RESULTS OT GENERAL EVALUATION Observed: 12/03/2018 Status: F Source: [place] 3:32 PM [facility] REPOSITORY [facility] Occupational Therapy [facility] [address] [place] [address] / REHABILITATION SERVICES INITIAL EVALUATION MR#: [id number] Acct: [id number] Name: JAYCE MCMILLAN Rep #: [id number] : 1940 78 From: Mar MYERS CHT Referring Dr.: HANH Lan Status: REG RCR Insurance: MEDICARE PART A B Eval Date: [facility] Patient's Visit Information JAYCE MCMILLAN is a 78 year old M, referred to Occupational Therapy by HANH Sutton, with a diagnosis of Possible NPH, debility, CAD. Date of Evaluation: 11/26/18 Occupational Therapist: PAMELLA Morris/Tyler, CHT - Subjective Subjective: Pt states one day she woke up in the hospital but could not remember how he got to the hospital- pt states this happened about 4 days ago- Pt states he is ind. with step in shower, stands for shower and dresses ind. pt states he has been home from the hospital and has noticed that he is leaving items and forget where he puts them. pt states he does help his clean and helps with fixing things arond the house. - pt states he does go to the and exercises but not on a daily basis, about 3 x a week. 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 pt states he is ind with daily tasks. - Strength Shoulder: right 4-/5 left 4-/5 Elbow: right 4-/5 left 4-/5 Manager Bench: right 40 left 40 Lateral Pinch: right 12 left 12 Tripod Pinch: right 8 left 10 - Sensation Sensation Comments: denies - Quick DASH-Disab of Arm,Shoulder AND Hand Quick DASH Score: 38.6350 - Goals Goal:: pt will demo a increase in BUE MMT by 1MM grade to incrase pts ind.with home mtg tasks by d/c Goal:: pt will demo the ability to follow written PRE ind. to return to his PLOF and participation in health and wellness groups by d/c. - Rehabilitation General Assessment: Pt with recent D/C from hospital and demo with a decline in his functional strength. Pt would benefit from skilled OT services 2x week for 4 weeks to return pts strength and return pt to PLOF. Rehabilitation Potential: Good - Anticipated Interventions Anticipated Interventions: Strengthening, ADL Training, Education re assistive Equipment - Visit Plan Frequency: 2x /Week Duration: 4 Weeks General Plan: Pt to return with to assist therapist in what ex. eq. pt is already using. therapist will guide pt with PRE to ensure completion and safety. TEXT: Thank you for the opportunity to evaluate your patient. For Medicare and Medicare HMO plans, please review the plan of care and approve it. It will need to be FAXED BACK to us at [phone] for Medicare purposes. Please let me know if there are questions or concerns regarding this plan of care. Physician Signature: Date: <Electronically signed by Mar CAN/HUSAM Scott> 12/03/18 1532 CC: HANH Lan; OUT OF TOWN DOCTOR MK Signed For Medicare only, by signing this I certify the plan of care. Physicians Signature Date INITAL EVALUATION (1) Observed: 11/26/2018 Status: F Source: ANKIT - PT 2:01 PM [facility] REPOSITORY [facility] Physical Therapy [address] [place] [address] / REHABILITATION SERVICES INITIAL EVALUATION MR#: [id number] Acct: [id number] Name: JAYCE MCMILLAN Rep #: [id number] : 1940 78 From: Tommy Awad PT, ATC Referring Dr.: HANH Lan Status: REG RCR Insurance: MEDICARE PART A B AULTCARE Patient's Visit Information JAYCE MCMILLAN is a 78 year old M referred to Physical Therapy by HANH Sutton with a diagnosis of Debility. Date of Evaluation: 11/26/18 Physical Therapist: Tommy Awad, PT, ATC - Visit Plan Plan: Discharge - Subjective Findings: Pt reports he woke up one day in the hospital. Pt reports he has no idea what caused it, and he cant remember even going there.. Pt reports his has told him that he yelled her name one night, and as she ran into his room, he was standing still and could not move. Pt's called the EMS and they brought him to the hospital. Pt reports they thought he had a stroke, but they never came back and told him he had one. Pt reports he was in the hospital for 2 days. Pt reports all this happened 3 days ago and he just recently was released. Pt reports he feels strong, but his balance is off as it has been for several years. Pt reports he has B knee pain which is chronic. No tingling or numbness in LE's. No sleep difficutly secondary to pain. - Pain B knee pain Pain Intensity (Out of 10): 6 Pain Intensity Range: 7 - Objective Neuro: B LE sensation is WNL to light touch. B achilles reflex= 2/3. MMT: B LE's are 5/5 throughout. Balance: FGA= 23/30. Gait: Pt is able to ambulate greater than 700' without difficulty - Balance Scores Functional Gait Assessment Score: 23 % Disability: 23.3400 - Rehabilitation Potential Physical Therapy Diagnosis: Pt had weakness and decreased balance secondary to debilitation - Anticipated Interventions Patient/Client Instruction: Educate patient on: Condition For the Purpose of:: To improve self management Thank you for the opportunity to evaluate your patient. For Medicare and Medicare HMO plans, please review the plan of care and approve it. It will need to be FAXED BACK to us at [phone] for Medicare purposes. For Medicare only, by signing this I certify the plan of care. Please let me know if there are questions or concerns regarding this plan of care. Physician Signature: Date: <Electronically signed by Tommy Awad PT, ATC> 11/26/18 1401 CC: HANH Lan; OUT OF TOWN DOCTOR [facility] Signed CAROTID DUPLEX Observed: 11/25/2018 Status: F Source: GENESEO ULTRASOUND 1:20 PM [facility] REPOSITORY [facility] Cardiovascular Services [address] [place] [address] Carotid Duplex Ultrasound 11/25/18 0954 MR#: [id number] Acct: [id number] Name: JAYCE MCMILLAN Rep #: [id number] : 1940 78 From: Thomas Wolf MD Attending Dr: Thomas Wolf MD Status: REG CLI Ordering Dr: Thomas Wolf MD Date: 11/25/18 Location: [facility] Sex: M C Admitted: Reason For Study: Carotid Stenosis - Right Rt. Velocities/BP Lt. Velocities/BP Prox CCA 145/22.6 cm/sec. Prox CCA 134/23.6 cm/sec. Mid CCA 102/17.7 cm/sec. Mid CCA 119/25.1 cm/sec. Dist CCA 102/18.7 cm/sec. Dist CCA 115/24.4 cm/sec. Prox ICA 111/20.6 cm/sec. Prox ICA 91.1/18.9 cm/sec. Mid ICA 98.2/20.4 cm/sec. Mid ICA 99.8/21.2 cm/sec. Dist ICA 105/24.4 cm/sec. Dist ICA 115/34.8 cm/sec. Rt. ICA/CCA = 1.09. Lt. ICA/CCA = 0.97. Prox ECA 143/14.7 cm/sec. Prox ECA 103/11 cm/sec. Rt. Vert. 69.1/16.5 cm/sec. Lt. Vert. 57.4/12.6 cm/sec. Right Extracranial There is homogeneous, smooth atherosclerotic plaque noted in the right common carotid artery. There is heterogeneous, irregular atherosclerotic plaque noted in the right internal carotid artery. There is intimal thickening but no significant atherosclerotic plaque noted in the right external carotid artery. Antegrade flow is noted in the right vertebral artery. Left Extracranial There is heterogeneous, smooth atherosclerotic plaque noted in the left common carotid artery. There is intimal thickening but no significant atherosclerotic plaque noted in the left internal carotid artery. There is intimal thickening but no significant atherosclerotic plaque noted in the left external carotid artery. Antegrade flow is noted in the left vertebral artery. There is heterogeneous, irregular atherosclerotic plaque noted in the left bulb. Procedure Carotid Duplex 89540. Exam performed in department. 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 Mild calcific plague at the proximal left internal carotid with <50% stenosis. Mild disease right external carotid Normal flow left external carotid Patent and antegrade vertebrals bilaterally Ordering Physician: Thomas Wolf Performed By: Gaurav Orellana RVT and Student 11/25/18 1320 Date Thomas Wolf MD CC: OUT OF TOWN DOCTOR; Thomas Wolf MD Date Dictated: 11/25/18 0954 Date Transcribed: 11/25/18 1320 Assistant Research Scientist: Signed CONSULTATION Observed: 11/17/2018 Status: F Source: [place] 8:57 PM [facility] REPOSITORY [facility] Medical Records Department [address] [place] [address] Consultation 11/13/18 1613 MR#: [id number] Acct: [id number] Name: JAYCE MCMILLAN Rep #: [id number] : 1940 77 From: Wes Stacy MD PCP: OUT OF TOWN DOCTOR Status: DIS IN Y Location: [facility] [id number] Problem List (1) Weakness Status: Acute Reason for Consult Date of Consultation: 11/13/18 Reason for Consultation: Leg weakness History of Present Illness: The patient is a 77 year old CM with PMH HLD, CAD s/p stents and hypothyroidism admitted with LE weakness. Per patient went to yesterday (11/12/18) and later had difficulty using both LE, had difficulty walking, he was dragging his left leg and right leg was also weak, had to start using walker, had loss of appetite, cough, denies any UE symptoms, on admission was found to have UTI and community acquired PNA with para influenza. At present following treatment with antibiotics, patients LE weakness has improved and he was able to ambulate in the room. Denies any MIN, visual disturbances, speech disturbances, dizziness, focal motor weakness or sensory loss. CT head done on admission reported nothing acute, but MRI brain reported by Dr. Talia Zuleta as showing ? NPH, MRA head/neck reported to show Right M2 stenosis and Right ICA > 70% stenosis. He is on ASA/Plavix and Crestor since cardiac stents were placed in April 2018. At baseline he denies any falls, does not use cane or walker to ambulate. [] Past Medical History Medical History: Medical History (Last Reviewed 11/12/18 @ 22:25 by Arash Frank MD) Chronic kidney disease (CKD) N18.9 Hyperlipidemia E78.5 Hypothyroidism E03.9 Allergies lovenox Allergy (Uncoded 11/12/18 17:15) Rash Home Medications: Ambulatory Orders Medication Instructions Recorded Surgical History: appendectomy, cataract, cholecystectomy, herniorrhaphy, total knee arthroplasty Lives: Spouse/ Significant Other Smoking Status: Never smoker Alcohol: Occasional Drugs: None Review of Systems Constitutional: Reports: - - Complete ROS negative except as documented in HPI Patient Problems: Active and Suspected Problems (Last Reviewed 11/12/18 @ 22:25 by Arash Frank MD) Acute cystitis (Acute) Community acquired pneumonia (Acute) Stroke-like symptoms (Acute) Weakness (Acute) - Physical Exam General: Alert HEENT: Normocephalic Neck: Supple Lungs: Normal air movement Cardiovascular: Normal S1, Normal S2 Abdomen: Bowel Sounds Present Extremities: No cyanosis Neurological: - - consious, alert, CN 2-12 grossly intact, power 5/5 both UE and LE, plantars B/L flexor, no sensory loss, Reflexes + B/L B/S/T/K/A, gait deferred. Psych/Mental Status: Normal Affect Vital Signs Temp Pulse Resp BP Pulse Ox 99.5 F H 75 20 H 141/63 H 94 11/13/18 14:15 11/13/18 14:41 11/13/18 14:15 11/13/18 14:15 11/13/18 14:15 Oxygen Flow Rate (L/min) 2 Oxygen Delivery Method Nasal Cannula Weight: 92 kg Body Mass Index (BMI) 29.0 Intake and Output for Last 24 Hours Intake Total 630 / 630 Balance 630 / 630 Microbiology Past 72 Hours 11/13/18 05:40 Respiratory Panel (PCR) - Final Mucosa - Nose Parainfluenza 2 Laboratory Tests Past 24 Hrs WBC 9.1 RBC 4.92 WBC 9.2 RBC 4.56 L Assessment/Plan All Active Problems (Last Reviewed 11/12/18 @ 22:25 by Arash Frank MD) Acute cystitis (Acute) Community acquired pneumonia (Acute) Stroke-like symptoms (Acute) Weakness (Acute) The patient is a 77 year old CM with PMH HLD, CAD s/p stents and hypothyroidism admitted with LE weakness. Per patient went to [facility] (11/12/18) and later had difficulty using both LE, had difficulty walking, he was dragging his left leg and right leg was also weak, had to start using walker, had loss of appetite, cough, denies any UE symptoms, on admission was found to have UTI and community acquired PNA with para influenza. At present following treatment with antibiotics, patients LE weakness has improved and he was able to ambulate in the room. Denies any MIN, visual disturbances, speech disturbances, dizziness, focal motor weakness or sensory loss. CT head done on admission reported nothing acute, but MRI brain reported by Dr. Talia Zuleta as showing ? NPH, MRA head/neck reported to show Right M2 stenosis and Right ICA > 70% stenosis. He is on ASA/Plavix and Crestor since cardiac stents were placed in April 2018. At baseline he denies any falls, does not use cane or walker to ambulate. Impression LE [id number] due to infectious etiology ? NPH Right ICA stenosis Plan -MRI Brain reviewed -MRA head/neck reviewed -Neurosurgery consult for possible NPH -Vascular surgery consult for Carotid stenosis. Needs monitoring with carotid ultrasound, will defer to vascular surgery. -On ASA/Plavix and Crestor -Fall precautions -PT/OT -GI/DVT prophylaxis -Further medical management per hospitalist team -Please call with questions if any -Follow up with Neurology as outpatient in 6 weeks -Thank you for allowing us to participate in patient's care and management Code Visit Inpatient E AND M: [id number] Init Hosp L3 11/17/182056 <Electronically signed by Wes Stacy MD> Date Wes Stacy MD Cosigner Signature (if applicable): Date CC: Fabio Stacy MD; OUT OF TOWN DOCTOR Signed SURGERY VISIT REPORT Observed: 11/17/2018 Status: F Source: [place] 3:49 PM [facility] REPOSITORY [facility] [address] [place], [place] [address] [place], [place] [address] OFFICE VISIT Date of Service: 11/17/18 MR#: [id number] Acct: [id number] Name: JAYCE MCMILLAN Rep #: [id number] : 1940 Provider: Thomas Wolf MD Age/Sex: 78/M Location: [facility] Status: Signed Intake Vital Signs11/17/18 Height 5 ft 10 in 11/17/18 Weight: 205 lb 11/17/18 Body Mass Index (BMI) 29.4 Intake Visit Reasons: Carotid Artery Stenosis Communications Clerk Required: No Is patient in pain?: No Allergies lovenox Allergy (Uncoded 11/12/18 17:15) Rash Medications Aspirin [Aspirin EC] 81 mg PO DAILY 04/11/18 [History Confirmed 11/17/18] B-Complex with Vitamin C [Vitamin B-Complex with Vit C] 1 ea PO DAILY 04/11/18 [History Confirmed 11/17/18] Cholecalciferol (Vitamin D3) [Vitamin D3] 1,000 unit PO DAILY 04/11/18 [History Confirmed 11/17/18] Clopidogrel Bisulfate [Plavix] 75 mg PO DAILY 04/11/18 [History Confirmed 11/17/18] Fenofibrate [Tricor] 145 mg PO DAILY 04/11/18 [History Confirmed 11/17/18] Levothyroxine [Synthroid] 75 mcg PO DAILY 04/11/18 [History Confirmed 11/17/18] Nitroglycerin [Nitrostat] 0.4 mg SL PRN PRN MDD 3 total doses. 04/11/18 [History Confirmed 11/17/18] Pantoprazole Sodium [Protonix] 40 mg PO DAILY 04/11/18 [History Confirmed 11/17/18] Tamsulosin HCl [Flomax] 0.4 mg PO DAILY 04/11/18 [History Confirmed 11/17/18] Rosuvastatin Calcium 10 mg PO DAILY 11/12/18 [History Confirmed 11/17/18] Albuterol Inhaler [Ventolin Hfa] 1 - 2 puff INHALATION Q4H PRN PRN #1 inhaler 11/14/18 [Rx Confirmed 11/17/18] Amox/Clavulanate Tablet [Augmentin Tablet] 875 mg PO Q12H #20 tab 11/14/18 [Rx Confirmed 11/17/18] Benzonatate [Tessalon Perle] 100 mg PO TID PRN PRN #15 cap 11/14/18 [Rx Confirmed 11/17/18] PFSH Medical History Carotid stenosis, right (Acute) Acute cystitis (Acute) Community acquired pneumonia (Acute) Stroke-like symptoms (Acute) Weakness (Acute) Chronic kidney disease (CKD) (Acute) Hyperlipidemia (Acute) Hypothyroidism (Acute) Surgical History History of coronary artery stent placement (Acute) History of hernia repair (Acute) History of laparoscopic cholecystectomy (Acute) Family History Mother High cholesterol CVA (cerebral vascular accident) Social History Smoking Status: Never smoker alcohol intake: current alcohol intake frequency: a few times a month substance use type: does not use HPI HPI HPI: JAYCE MCMILLAN, is a 78 M who presents to the office today for surgical consultation regarding 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 The patient is referred byDr Frank and a written compromise surgical consult recommendations will be returned to him. The patient was admitted to the [facility] on November 12, 2018. He was discharged on 2018. He presented with an acute history of difficulty walking bilateral leg weakness. He was found to have acute cystitis and community-acquired pneumonia and strokelike status. neurology evaluated the patient and concurred that CT demonstrated nothing acute but that MRA of the neck suggested greater than 70% stenosis of the right carotid. On presentation the patient already was on aspirin and Plavix and Crestor because of coronary stents placed April 2018. At that point he had 3 stents placed. It is my understanding that the patient's leg weakness ended up not seemingly felt to be secondary to his carotid disease. The patient notes at least a 2-year history of shortness of breath dyspnea on exertion. It is for that reason that April 2018 that he underwent nuclear stress testing and then cardiac catheterization and stent placement. He apparently has not had improvement in his dyspnea. He does have a cast iron dipper at [facility]. Both the patient is states that he has not seen a machine adjuster leader case trim. I again according to both patient and his there does not appear to have been any significant improvement in his shortness of breath subsequent to his coronary stenting. The patient is scheduled to receive a contact from [facility] to establish outpatient physical therapy. It is of note though that the patient already is walking on his own without a walking assist device [facility] Imaging Services [address] [place] [address] MRA Neck WITH and W/O Contrast MR#: [id number]:[id number] Name: JAYCE MCMILLAN [facility] #:[id number] : [id number] From: Talia Zuleta MD PCP:OUT OF TOWN DOCTOR Status:ADM IN Study:MRA Neck WITH and W/O Contrast Date of Exam:11/13/18 Exam#[id number] Ordering Dr: Arash Frank MD STUDY: MRA NECK WITH AND WITHOUT CONTRAST REASON FOR EXAM: Male, 77 years old. Bilateral leg weakness. TECHNIQUE: 3-D zune-vp-svzais (TOF) imaging was performed in an 1.5 T MRI scanner. 10 ml of Gadavist was administered for the contrast enhanced images. Multiple images are limited by patient motion. COMPARISON: None. FINDINGS: RIGHT CAROTID ARTERIES: There is atherosclerotic tortuous elongation of the right common carotid artery. There is moderate atherosclerotic plaque formation with moderate narrowing of the carotid bulb. There is extensive atherosclerotic plaque formation of the origin of the right internal carotid artery with an estimated stenosis of greater than 70%. There is atherosclerotic tortuous elongation of the cervical portion of the right internal carotid artery. Normal origin of the right external carotid artery (ECA). LEFT CAROTID ARTERIES: Normal left common carotid artery (CCA). There is mild atherosclerotic plaque formation with minimal narrowing of the left carotid bulb. Normal origin of the left internal carotid (ICA) artery without a hemodynamically significant stenosis. Normal visualized cervical portion of the left internal carotid artery. Normal origin of the left external carotid artery (ECA). VERTEBRAL ARTERIES: Normal antegrade flow within the bilateral vertebral artery without a hemodynamically significant stenosis. MRI/MRA Neck WITH and W/O Contrast IMPRESSION: 1. Hemodynamically significant stenosis of the origin the RIGHT internal carotid artery with estimated amount of stenosis greater than 70%. 2. Technically limited study due to patient motion. NOTE: Determination of stenosis is based on NASCET criteria. Electronically Signed: Talia Zuleta MD at 10:18 EST , Service support , CC: Arash Frank MD; OUT OF TOWN DOCTOR Assistant Research Scientist: Signed [facility] Imaging Services [address] [place] [address] MRA Head ONLY without Contrast MR#: [id number] Name: JAYCE MCMILLAN [facility] #:[id number] : 1940M [id number] From: Talia Zuleta MD PCP:OUT OF TOWN DOCTOR Status:ADM IN Study:MRA Head ONLY without Contrast Date of Exam:11/13/18 Exam#[id number] Ordering Dr: Arash Frank MD STUDY: MRA OF THE HEAD WITHOUT CONTRAST REASON FOR EXAM: Male, 77 years old. Bilateral leg weakness and TIA. TECHNIQUE: 3-D ztbm-uv-tbvymd (TOF) imaging was performed with MIPs. The study was performed unenhanced. Most of the images are limited by patient motion. COMPARISON: Prior comparison studies are not available for review at this time. FINDINGS: Normal bilateral petrous carotid arteries. There is elongation and tortuosity of the right cavernous carotid artery, without a demonstrated hemodynamically significant stenosis. There is elongation and tortuosity of the left cavernous carotid artery, without a demonstrated hemodynamically significant stenosis. There is hypoplastic development of the right A1 segment of the anterior cerebral arteries with an atretic but intact artery. Normal left A1 segments of the anterior cerebral artery. Normal intact anterior communicating artery (ACOM). Normal bilateral A2 segments of the anterior cerebral arteries. There is irregularity of the right M1 and M2 branches suggesting atherosclerotic plaque formation, without an occlusion. There appears to be hemodynamically significant stenosis of two of the right- sided M2 branches. There is irregularity of the left M1 and M2 branches with minimal luminal narrowing, suggesting atherosclerotic plaque formation, without an occlusion. There is non-visualization of the right posterior communicating artery (PCOM). Normal left posterior communicating artery (PCOM). Normal bilateral vertebral arteries. Normal basilar artery with a normal basilar bifurcation. The visualized bilateral superior cerebellar (SCA) arteries are normal. Normal bilateral P1, P2 and visualized P3 segments of the posterior cerebral arteries. There is no demonstrated aneurysm of the [place]. There is no major vessel occlusion or hemodynamically significant stenosis. There is no demonstrated abnormality of the visualized brain. MRI/MRA Head ONLY without Contrast IMPRESSION: 1. MRA evidence for hemodynamically significant stenosis of right-sided M2 branch origins. 2. No MRA evidence for aneurysm. Electronically Signed: Talia Zuleta MD at 10:53 EST , Service support , ROS General General: Yes fatigue; no weight change, appetite, colon cancer, breast cancer or weakness HEENT HEENT: Yes difficulty swallowing; no eye injury, eye surgery, swollen glands or hoarseness Endo Endocrine: Yes thyroid disease; no diabetes mellitus, thyroid cancer, Hair loss, heat intolerance or cold intolerance Skin Skin: No rash or changing moles Breast Breast: No left breast lump, right breast lump, nipple discharge, breast pain, abnormal mammogram, abnormal US or breast enlargement Musc Musculoskeletal: Yes arthritis; no back problems, rheumatoid arthritis, gout or joint pain Cardio Cardiovascular: Yes heart stent; no murmur, pacemaker, heart disease, atrial fibrillation, high blood pressure, heart attack, palpitations, shortness of breat with exertion or chest pain Psych Psychiatric: No depression, anxiety or hearing voices Resp Respiratory: Yes shortness of breath, Yes sleep apnea, Yes cough, No COPD, No asthma, No emphysema, No wheezing Gastro Gastrointestinal: No abdominal pain, No nausea or vomiting, No diarrhea, Yes constipation, No blood in stool, Yes acid reflux, No hemorrhoids, No ulcers, Yes gallbladder problem, No black,tarry stools Aries Hematologic: Yes blood thinners, No blood disorders, No bleeding, No anemia, No blood clots Neuro Neurologic: No system reviewed and no additional complaints, except as docu, No as per HPI, No abnormal walking, No abnormal hearing, No abnormal movements, No abnormal speech, No behavioral changes, No burning sensations, No confusion, No seizure-like activity, No unsteadiness, No dizziness, No localized weakness, No frequent falls, No headache(s), No lack of coordination, No loss of vision, No memory loss, No numbness, No other visual disturbances, No radiating pain, No restless legs, No sensory deficit, No fainting, No tingling, No tremor(s), No weakness, No other Exam Const General: cooperative, frail appearing Nutritional Appearance: overweight Orientation: alert, awake [facility] Head: normal to inspection Chest Chest palpation AND inspection: normal inspection of the chest Breast Palpation: No nipple discharge Resp Effort AND Inspection: normal respiratory effort Auscultation: clear to auscultation bilaterally Cardio Rate: regular rate Rhythm: regular rhythm Heart Sounds: no murmurs Other: Carotids are 3+ bilateral. I do not detect a carotid bruit. Brachials and radials and femorals and popliteals are 3+ bilateral GI Palpation: soft, no hepatosplenomegaly Auscultation: normal bowel sounds, no bruits Extrem General: no calf tenderness bilaterally Assessment AND Plan Problems 1. Carotid stenosis, right I65.21 Plan 78-year-old gentleman who may have right carotid stenosis. He presented to the hospital with lower extremity weakness and was detected as having both a UTI and community-acquired pneumonia. He had increased shortness of breath on top of a 2-year history of chronic dyspnea. This certainly would have made achieving a highly accurate MRI study challenging. I recommend to the patient is that we obtain carotid duplex imaging. It is of note that any type of movement on the MR study may alter its accuracy. The patient has known coronary disease. As noted he is on Plavix aspirin and a statin medication. Despite this he complains of chronic shortness of breath. It is not clear to me based upon history whether this is cardiac or pulmonary in etiology. It is of note that the patient has not yet seen a machine adjuster leader case trim according to him. The patient does have scheduled both her primary care outpatient follow-up and physical therapy rehabilitation. I believe that both of these are very pertinent prior to considering any type of surgical intervention We will obtain an outpatient carotid duplex imaging exam and contact the patient. If it correlates with clinically significant disease then I will have the patient return to the office to discuss potential intervention once he has been seen by primary care and rehab. I very much appreciate the kind opportunity of assisting with her surgical care cc:Dr Monika Wolf M.D., F.A.C.S. Orders Orders: Coding Level of Care Code Detailed, Low Diagnoses Carotid stenosis, right I65.21 11/17/18 1549 <Electronically signed by Thomas Wolf MD> Date Thomas Wolf MD Cosigner Signature: Date (if applicable) CC: OUT OF TOWN DOCTOR DISCHARGE SUMMARY Observed: 2018 Status: F Source: [place] 4:05 PM [facility] [place] REPOSITORY [facility] Medical Records Department [address] [place] [address] Discharge Summary 11/14/18 1135 MR#: [id number] Acct: [id number] Name: JAYCE MCMILLAN Rep #: [id number] : 1940 78 From: Marina Lan CONFIGURATION TECHNICIAN-C PCP: OUT OF TOWN DOCTOR Status: DIS IN Y Location: [facility] [id number] <Marina Lan - Last Filed: 11/14/18 12:17> Discharge Date and Diagnosis Date of Admission: 11/12/18 Date of Discharge: 11/14/18 - Primary Discharge Diagnosis Active and Suspected Problems (Last Reviewed 11/12/18 @ 22:25 by Arash Frank MD) 1. Acute hypoxic respiratory insufficiency secondary to community- acquired pneumonia and parainfluenza 2 2. Acute Citrobacter amalonaticus UTI 3. Lower extremity weakness, concerning for strokelike symptoms- CVA ruled out 4. 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 CAD status post history of PCI 7. Hypothyroidism 8. GERD 9. BPH Hospital Course and Treatment Imaging Results: Diagnostic Data Brain CT 11/12/18 17:59 IMPRESSION: Chronic involutional changes of the brain. Electronically Signed: Sandeep Lopez MD at 19:34 EST , Service support , Chest X-Ray 11/12/18 18:06 IMPRESSION: Mild left basilar infiltrate. Left upper lobe opacity medially. Correlate with CT if needed. Electronically Signed: Rubens Varela DO at 19:03 EST Tel [phone], Service support , Brain MRI 11/13/18 08:03 IMPRESSION: 1. Involutional changes of the brain, as described above. 2. 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 3. Questionable artifacts on the diffusion-weighted imaging. Electronically Signed: Talia Zuleta MD at 11:31 EST , Service support , Head MRA 11/13/18 08:03 IMPRESSION: 1. MRA evidence for hemodynamically significant stenosis of right-sided M2 branch origins. 2. No MRA evidence for aneurysm. Electronically Signed: Talia Zuleta MD at 10:53 EST , Service support , Neck MRA 11/13/18 08:03 IMPRESSION: 1. Hemodynamically significant stenosis of the origin the RIGHT internal carotid artery with estimated amount of stenosis greater than 70%. 2. Technically limited study due to patient motion. NOTE: Determination of stenosis is based on NASCET criteria. Electronically Signed: Talia Zuleta MD at 10:18 EST , Service support , Dr. Stacy- Neurology Operations: None Procedures: None Summary of Care Provided: The patient is a 78 year old M admitted 11/12/18 due to lower extremity weakness. 1. Acute hypoxic respiratory insufficiency secondary to community- acquired pneumonia and parainfluenza 2-suspect post viral pneumonia. Chest x-ray on admission with mid left basilar infiltrate. Left upper lobe opacity medially. Blood cultures pending. Urine negative for strep and Legionella. Sputum culture shows normal respiratory marci. Patient received IV azithromycin and IV Rocephin. Discharged on Augmentin 875 mg p.o. twice daily for 7 days. Patient weaned off of supplemental oxygen. Walking pulse ox prior to discharge with oxygen stable at 91%. Patient will be discharged on albuterol inhaler for as needed shortness of breath. Tessalon Perles as needed for cough. Follow-up with primary care physician in 1 week. 2. Acute Citrobacter amalonaticus UTI-susceptible to Augmentin. Augmentin 875 mg p.o. twice daily for 7 days as noted above. 3. Lower extremity weakness, concerning for strokelike symptoms- CVA ruled out. MRI of brain shows moderate ventriculomegaly suggest possible sequela of normal pressure hydrocephalus. MRA of head with evidence of hemodynamically significant stenosis of right-sided M2 branch origins. Neck MRA showed hemodynamically significant stenosis of the origin of the right internal carotid artery with estimated amount of stenosis greater than 70%. Neurology consulted during admission. Recommends outpatient referral to neurosurgery for possible NPH and vascular referral for carotid artery stenosis. Follow-up with neurosurgery and vascular surgery in 2 weeks. 4. CAD status post PCI-continue aspirin, Plavix, statin, fenofibrate. 5. Hypothyroidism-continue Synthroid. 6. GERD-continue PPI. 7. BPH-continue Flomax regimen. General: Alert, Oriented x3, Cooperative HEENT: Atraumatic, PERRLA, EOMI, Normocephalic Neck: Supple, No JVD, Negative Carotid Bruits Lungs: Clear to auscultation, Diminished Cardiovascular: Regular rate, Regular Rhythm, Normal S1, Normal S2, No murmurs Abdomen: Bowel Sounds Present, Soft, Non Tender, Non-Distended Extremities: No clubbing, No cyanosis, No edema, Capillary Refill Less than 3 Seconds Skin: No rashes, No breakdown Musculoskeletal: No Tenderness to Palpation of Joints or Extremities Neurological: Cranial nerves II-XII grossly intact, Neuro grossly intact Psych/Mental Status: Normal Affect, Appropriate Patient seen and examined prior to discharge. Physical assessment as noted above. Patient is stable for discharge with follow up recommendations as noted above. This patient was seen by HANH Sutton under the supervision of Dr. Lou. - Physical Exam Vital Signs Temp Pulse Resp BP Pulse Ox 98.6 F 62 20 H 122/55 H 91 11/14/18 08:21 11/14/18 10:48 11/14/18 08:21 11/14/18 08:21 11/14/18 11:19 Oxygen Flow Rate (L/min) 2 Oxygen Delivery Method Nasal Cannula Weight: 202 lb 13.204 oz Body Mass Index (BMI) 29.0 Intake and Output for Last 24 Hours Intake Total 900 / 900 770 / 770 Output Total 200 / 200 Balance 900 / 900 570 / 570 Microbiology Past 72 Hours 11/13/18 00:50 Gram Stain - Final Sputum, Expectorated/Coughed Respiratory Culture - Preliminary Laboratory Tests Past 24 Hrs Sodium 142 Potassium 3.6 Chloride 106 Carbon Dioxide 25.0 Discharge Diet: Low fat/ Low Cholesterol Discharge Activity: Return to Normal Activity Call your doctor if you observe: Fever of 101 or Higher, Shortness of breath, Dizziness, Fainting spells, Chest pain Home Medications: Medications to take at Discharge Aspirin [Aspirin EC] 81 mg PO DAILY 04/11/18 B-Complex with Vitamin C [Vitamin B-Complex with Vit C] 1 each PO DAILY 04/11/18 Cholecalciferol (Vitamin D3) [Vitamin D3] 1,000 unit PO DAILY 04/11/18 Clopidogrel Bisulfate [Plavix] 75 mg PO DAILY 04/11/18 Fenofibrate [Tricor] 145 mg PO DAILY 04/11/18 Levothyroxine [Synthroid] 75 mcg PO DAILY 04/11/18 Nitroglycerin [Nitrostat] 0.4 mg SL PRN PRN MDD 3 total doses. 04/11/18 Pantoprazole Sodium [Protonix] 40 mg PO DAILY 04/11/18 Tamsulosin HCl [Flomax] 0.4 mg PO DAILY 04/11/18 Rosuvastatin Calcium 10 mg PO DAILY 11/12/18 Albuterol Inhaler [Ventolin Hfa] 1 - 2 puff INHALATION Q4H PRN PRN #1 inhaler 11/14/18 Amox/Clavulanate Tablet [Augmentin Tablet] 875 mg PO Q12H #20 tablet 11/14/18 Benzonatate [Tessalon Perle] 100 mg PO TID PRN PRN #15 capsule 11/14/18 Following Prescrptions Were Given to Patient: Albuterol Inhaler [Ventolin Hfa] 1 - 2 puff INHALATION Q4H PRN PRN #1 inhaler PRN Reason: Shortness Of Breath Amox/Clavulanate Tablet [Augmentin Tablet] 875 mg PO Q12H #20 tablet Benzonatate [Tessalon Perle] 100 mg PO TID PRN PRN #15 capsule PRN Reason: Cough Primary Care Physician: [facility] Doctor,Out of [Primary Care Provider] - Please follow up with your Primary Care Physician in: 1 Week, Primary Care Physician Please Follow Up With: Dr. Mamadou Slater - [phone] When: Neurosurgeon, 2 Weeks Please Follow Up With: Neurology When: 6 Weeks Please Follow Up With: Thomas Wolf MD - [phone] When: Vascular Surgeon, 2 Weeks for carotid stenosis evaluation Disposition: Home Minutes spent on discharge:: 35 Patient Condition:: Stable Medical Necessity - Tobacco Use Smoking Status: Never smoker Meaningful Use Info Meaningful Use Diagnoses (Choose all that apply): None applicable <Diana Lou - Last Filed: 11/14/18 16:04> Hospital Course and Treatment Summary of Care Provided: Patient seen by Marina SCHAFER under my supervision Patient admitted with a complaint of difficulty walking and weakness in his lower extremities especially his left lower extremity. He had gone to the [facility] to work out subsequently started having the symptoms. He had no assisted fever chills or urinary symptoms. Due to concern for stroke he was brought to the ED. There he also mentioned that he had been having cough productive of clear sputum with associated shortness of breath. Chest x-ray showed mid left basilar infiltrate and left upper lobe opacity and CT of the head was negative. He was admitted to be managed for community-acquired pneumonia. UA also showed evidence of UTI, so he was managed for UTI. His respiratory panel isolated parainfluenza virus and UA cultured gram-negative rods. He was started on IV ceftriaxone and azithromycin and breathing treatments. MRI showed moderate ventriculomegaly which was suggestive of possible sequelae of NPH. Neurology was therefore consulted who recommended that he follow-up with a neurosurgeon on outpatient basis. MRA showed hemodynamically significant stenosis of the M2 branch origins on the right and neck MRA showed significant stenosis of the right internal carotid origin at more than 70%. Patient remained stable and his symptoms resolved. He was therefore discharged home on 2018 to follow-up with primary care doctor, neurologist and neurosurgeon. Patient seen and examined prior to discharge. He had no complaints and felt well. He denied any fever, any chills, any palpitations, shortness of breath, any chest pain, any abdominal pain, any diarrhea vomiting. 12 point review of systems otherwise negative. Labs and vitals reviewed. Home medications reviewed and reconciled. on Examination Vitals: Vital Signs Height 5 ft 10 in Weight: 202 lb 13.204 oz Weight in Pounds 202.8 lbs Pulse Ox 91 General: Alert, Oriented x3, Cooperative HEENT: Atraumatic, PERRLA, EOMI, Normocephalic Neck: Supple, No JVD, Negative Carotid Bruits Lungs: Clear to auscultation, Diminished Cardiovascular: Regular rate, Regular Rhythm, Normal S1, Normal S2, No murmurs Abdomen: Bowel Sounds Present, Soft, Non Tender, Non-Distended Extremities: No clubbing, No cyanosis, No edema, Capillary Refill Less than 3 Seconds Skin: No rashes, No breakdown Musculoskeletal: No Tenderness to Palpation of Joints or Extremities Neurological: Cranial nerves II-XII grossly intact, Neuro grossly intact Psych/Mental Status: Normal Affect, Appropriate Patient is walking pulse ox prior to discharge was 91% therefore he did not qualify for oxygen. Was discharged with a prescription for p.o. Augmentin. He is also to follow-up with vascular surgery on account of internal carotid artery stenosis as picked up on MRI and MRA of the head and neck. Agree with Marina SCHAFER's above note and plan which I have reviewed. [] - Physical Exam Vital Signs Temp Pulse Resp BP Pulse Ox 98.6 F 75 16 122/55 H 91 11/14/18 08:21 11/14/18 13:03 11/14/18 13:03 11/14/18 08:21 11/14/18 11:19 Oxygen Flow Rate (L/min) 2 Oxygen Delivery Method Nasal Cannula Weight: 202 lb 13.204 oz Body Mass Index (BMI) 29.0 Intake and Output for Last 24 Hours Intake Total 900 / 900 1060 / 1060 Output Total 200 / 200 Balance 900 / 900 860 / 860 Microbiology Past 72 Hours 11/13/18 00:50 Gram Stain - Final Sputum, Expectorated/Coughed Respiratory Culture - Preliminary Laboratory Tests Past 24 Hrs Sodium 142 Potassium 3.6 Chloride 106 Carbon Dioxide 25.0 Code Visit Inpatient E AND M: [id number] Disch Hosp 11/14/18 1218 <Electronically signed by Marina Riky CONFIGURATION TECHNICIAN-C> Date Marina Lan CONFIGURATION TECHNICIAN-C 11/14/18 1605<Electronically signed by Diana Lou MD> Cosigner Signature (if applicable): Date Diana Lou MD CC: CONFIGURATION TECHNICIAN-C Marina aLn; Diana Lou MD; OUT OF TOWN DOCTOR Signed 12 LEAD ELECTROCARDIOGRAM Observed: 2018 Status: F Source: [place] 2:30 PM [facility] REPOSITORY [facility] Cardiovascular Services [address] [place] [id number] 12 Lead EKG 11/12/18 1825 MR#: [id number] Acct: [id number] Name: JAYCE MCMILLAN Rep #: [id number] : 1940 77 From: Juan Carlos Roblero MD Attending Dr: Diana Lou MD Status: DIS IN Ordering Dr: Virgie Bass MD Date: 11/12/18 Location: [facility] Sex: M C Admitted: 11/12/18 Test Reason : FEVER Blood Pressure : / mmHG Vent. Rate : 075 BPM Atrial Rate : 075 BPM P-R Int : 134 ms QRS Dur : 104 ms QT Int : 396 ms P-R-T Axes : 015 -18 071 degrees QTc Int : 442 ms Normal sinus rhythm Voltage criteria for left ventricular hypertrophy Abnormal ECG Confirmed by OC BANUELOS, JUAN CARLOS ([id number]), movie editor SILVIA ZULETA ([id number]) on 2018 2:29:42 PM Referred By: SYD Confirmed By:JUAN CARLOS ROBLERO MD 11/14/18 1429 Date Juan Carlos Roblero MD CC: Virgie Bass MD; Diana Lou MD; OUT OF TOWN DOCTOR Signed DISCHARGE INSTRUCTION Observed: 2018 Status: F Source: ANKIT 11:35 AM [facility] REPOSITORY [facility] Medical Records Department [address] [place] [address] Instructions for Home/Discharge Instructions 11/14/18 1129 MR#: [id number] Acct: [id number] Name: JAYCE MCMILLAN Rep #: [id number] : 1940 78 From: Marina Lan CONFIGURATION TECHNICIAN-C PCP: OUT OF TOWN DOCTOR Status: ADM IN - Discharge Diagnoses Current Active Problems: Current Active and Chronic Problems (Last Reviewed 11/12/18 @ 22:25 by Arash Frank MD) Acute cystitis (Acute) Community acquired pneumonia (Acute) Stroke-like symptoms (Acute) Weakness (Acute) You will use the following diet at home:: Cardiac Discharge Activity: Return to Normal Activity Call your doctor if you observe: Fever of 101 or Higher, Shortness of breath, Dizziness, Fainting spells, Chest pain Allergies/Adverse Reactions: Allergies lovenox Allergy (Uncoded 11/12/18 17:15) Rash Medications to take at Discharge Aspirin [Aspirin EC] 81 mg PO DAILY 04/11/18 B-Complex with Vitamin C [Vitamin B-Complex with Vit C] 1 each PO DAILY 04/11/18 Cholecalciferol (Vitamin D3) [Vitamin D3] 1,000 unit PO DAILY 04/11/18 Clopidogrel Bisulfate [Plavix] 75 mg PO DAILY 04/11/18 Fenofibrate [Tricor] 145 mg PO DAILY 04/11/18 Levothyroxine [Synthroid] 75 mcg PO DAILY 04/11/18 Nitroglycerin [Nitrostat] 0.4 mg SL PRN PRN MDD 3 total doses. 04/11/18 Pantoprazole Sodium [Protonix] 40 mg PO DAILY 04/11/18 Tamsulosin HCl [Flomax] 0.4 mg PO DAILY 04/11/18 Rosuvastatin Calcium 10 mg PO DAILY 11/12/18 Albuterol Inhaler [Ventolin Hfa] 1 - 2 puff INHALATION Q4H PRN PRN #1 inhaler 11/14/18 Amox/Clavulanate Tablet [Augmentin Tablet] 875 mg PO Q12H #20 tablet 11/14/18 Benzonatate [Tessalon Perle] 100 mg PO TID PRN PRN #15 capsule 11/14/18 The following prescriptions were given: Albuterol Inhaler [Ventolin Hfa] 1 - 2 puff INHALATION Q4H PRN PRN #1 inhaler PRN Reason: Shortness Of Breath Amox/Clavulanate Tablet [Augmentin Tablet] 875 mg PO Q12H #20 tablet Benzonatate [Tessalon Perle] 100 mg PO TID PRN PRN #15 capsule PRN Reason: Cough Primary Care Physician: [facility] Doctor,Out of [Primary Care Provider] - Please follow up with your Primary Care Physician in: 1 Week, Primary Care Physician Test Results: Test results from this visit will be discussed in further detail at your follow-up appointment, if applicable. Please Follow Up With: Dr. Mamadou Slater - [phone] When: Neurosurgeon, 2 Weeks Please Follow Up With: Neurology When: 6 Weeks Please Follow Up With: Thomas Wolf MD - [phone] When: Vascular Surgeon, 2 Weeks for carotid stenosis evaluation Proposed Discharge Date: 11/14/18 11/14/18 1135 <Electronically signed by Marina SCHAFER> Date Marina SCHAFER CC: Fabio Stacy MD; OUT OF [facility] DOCTOR Signed BASIC METABOLIC Collected: 2018 Status: F Source: ANKIT PROFILE (BMP) 5:20 AM [facility] REPOSITORY TYPE CODE TESTS RESULT OUT OF RANGE REFERENCE UNITS LAB L501.0100 74-106 mg/dL High GLU 127 Result Comment: Fasting Glucose result greater than or equal to 126 mg/dL suggests DIABETES MELLITUS per A.D.A. criteria. Please note revised GLUCOSE reference range effective 2017. LAB L501.1000 7-18 mg/dL High BUN 20 LAB L501.1100 0.70-1.30 mg/dL Normal CREAT,SERUM 1.00 Result Comment: The validity of the calculated GFR AND GFRAA in patients over 70 years has not been determined. Clinical correlation is essential. LAB L501.1110 >60 mL/min Normal EST GFR 77 Result Comment: Non- GFR Calc LAB L501.1115 >60 mL/min Normal EST GFR - AA 93 Result Comment: GFR Calc LAB L501.1255 ml/min Normal Estimated CRCL 61.85 LAB L501.1300 10-20 RATIO Normal BUN/CRE 20.0 LAB L501.2200 8.5-10 mg/dL Normal .1 CA 8.6 LAB L501.5300 136-14 mmol/L Normal 5 NA 142 LAB L501.5600 3.5-5. mmol/L Normal 1 K 3.6 LAB L501.5900 98-107 mmol/L Normal CL 106 LAB L501.6100 21.0-3 mmol/L Normal 2.0 CO2 25.0 LAB L501.6200 5-15 Normal GAP 11 Performed By: #### L500.2500 #### [facility] [address] [facility] [place], [place], [address] Observed: 11/13/2018 Status: F Source: GENESEO RESPIRATORY PANEL 5:40 AM [facility] MOLECULAR REPOSITORY Order Date: 11/13/18 Has pt arrived? Y RP PANEL Normal Reference Range = Not Detected RESULTS CALLED TO PIOTR 11/13/18 1244 Linaa Arcos. REPORT READ BACK BY LILI. Copy of report sent to Infection Control Printer MS#[id number] 11/13/18 4424 JOVANA. ADENOVIRUS Not Detected HUMAN METAPHNEUMO Not Detected INFLUENZA A Not Detected INFLUENZA A (SUBTYPE H1) Not Detected INFLUENZA A (SUBTYPE H3) Not Detected INFLUENZA B Not Detected PARAINFLUENZA 1 Not Detected PARAINFLUENZA 2 Positive for PARAINFLUENZA 2 by NAAT technology PARAINFLUENZA 3 Not Detected PARAINFLUENZA 4 Not Detected RHINOVIRUS Not Detected RSV A Not Detected RSV B Not Detected NAAT METHOD Testing was performed using nucleic acid amplification ORGANISM 1: PARAINFLUENZA 2 Performed By: #### M100.638 #### [facility] [address] [facility] [place], [address] CBC-COMPLETE BLOOD CNT Collected: 11/13/2018 Status: F Source: ANKIT NO DIFF 4:55 AM [facility] REPOSITORY TYPE CODE TESTS RESULT OUT OF RANGE REFERENCE UNITS LAB L100.1000 4.4-11.0 K/mm3 Normal WBC 9.2 LAB L100.1200 4.6-6.2 M/mm3 Low RBC 4.56 LAB L100.1300 13.0-16.5 g/dl Normal HGB 13.6 LAB L100.1400 40-54 % Normal HCT 42.4 LAB L100.1500 80-94 fL Normal MCV 93.0 LAB L100.1600 27.0-32.0 pg Normal MCH 29.8 LAB L100.1700 32-36 g/gl Normal MCHC 32.1 LAB L100.1810 11.6-14.6 % High RDW CV 14.8 LAB L100.1820 35.1-43.9 fl High RDW SD 49.1 LAB L100.1900 150-450 K/mm3 Normal PLT 202 LAB L100.2000 6.2-12.0 fl Normal MPV 10.7 Performed By: #### L100.0500 #### [facility] [address] [place], [address] BASIC METABOLIC Collected: 11/13/2018 Status: F Source: ANKIT PROFILE (BMP) 4:55 AM [facility] REPOSITORY TYPE CODE TESTS RESULT OUT OF RANGE REFERENCE UNITS LAB L501.0100 74-106 mg/dL High GLU 117 Result Comment: Fasting Glucose result from 100 to 125 mg/dL suggests IMPAIRED HOMEOSTASIS per A.D.A. criteria. Please note revised GLUCOSE reference range effective 2017. LAB L501.1000 7-18 mg/dL Normal BUN 17 LAB L501.1100 0.70-1.30 mg/dL Normal CREAT,SERUM 1.03 Result Comment: The validity of the calculated GFR AND GFRAA in patients over 70 years has not been determined. Clinical correlation is essential. LAB L501.1110 >60 mL/min Normal EST GFR 74 Result Comment: Non- GFR Calc LAB L501.1115 >60 mL/min Normal EST GFR - AA 90 Result Comment: GFR Calc LAB L501.1255 ml/min Normal Estimated CRCL 61.03 LAB L501.1300 10-20 RATIO Normal BUN/CRE 16.5 LAB L501.2200 8.5-10 mg/dL Normal .1 CA 8.6 LAB L501.5300 136-14 mmol/L Normal 5 NA 140 LAB L501.5600 3.5-5. mmol/L Low 1 K 3.4 LAB L501.5900 98-107 mmol/L Normal CL 105 LAB L501.6100 21.0-3 mmol/L Normal 2.0 CO2 24.0 LAB L501.6200 5-15 Normal GAP 11 Performed By: #### L500.2500, L500.4100 #### [facility] [address] [facility] [facility] [place], [address] LIPID PROFILE Collected: 11/13/2018 Status: F Source: GENESEO 4:55 AM [facility] REPOSITORY TYPE CODE TESTS RESULT OUT OF RANGE REFERENCE UNITS LAB L501.4900 200 mg/dL Normal CHOL 157 Result Comment: <200 mg/dL Desirable 200-240 mg/dL Borderline >240 mg/dL High Risk LAB L501.5000 mg/dL Normal TRIG 115 Result Comment: The drugs N-Acetylcysteine and Metamizole may falsely depress this assay. Serum Triglycerides Reference Interval Normal <150 mg/dL Borderline high 150 - 199 mg/dL High 200 - 499 mg/dL Very High > or = 500 mg/dL LAB L501.6400 mg/dL Low HDL 39 Result Comment: The drugs N-Acetylcysteine and Metamizole may falsely depress this assay. Reference Range HDL <40 mg/dL Low HDL Cholesterol HDL >or= 60 mg/dL High HDL Cholesterol LAB L501.6500 0-130 mg/dL Normal LDL 95 LAB L501.6600 5-40 mg/dL Normal VLDL 23 Performed By: #### L500.2500, L500.4100 #### [facility] [address] [facility] [facility] [place], [place], [address] Observed: 11/13/2018 Status: F Source: ANKIT CULTURE, SPUTUM 12:50 AM [facility] REPOSITORY Gram Stain Acceptable Specimen? Yes (<25 Epithelial cells per/lpf) Gram Stain Rare Epithelial cells Rare White Blood Cells Rare Gram positive cocci Resp. Culture Mixed normal respiratory marci. No Haemophilus, Streptococcus pneumoniae, beta-hemolytic Streptococcus or Staphylococcus aureus isolated. Performed By: #### M100.0800 #### [facility] [address] [place], [address] EMERGENCY DEPARTMENT Observed: 11/13/2018 Status: F Source: GENESEO SUMMARY 12:39 AM [facility] REPOSITORY [facility] Medical Records Department [address] [place] [address] Emergency Department Summary 11/12/18 1801 MR#: [id number] Acct: [id number] Name: JAYCE MCMILLAN Rep #: [id number] : 1940 77 From: Virgie Bass MD PCP: OUT OF TOWN DOCTOR Status: ADM IN - ER Visit Summary Date of Service: 11/12/18 Chief Complaint: Bilateral leg weakness History of Present Illness: The patient is a 77 M presenting with bilateral leg weakness. EMS was called because patient was unable to get up. was unable to get him to stand or walk. He complained of bilateral lower extremity weakness. Per the he was dragging his left leg behind him. Per EMS, he was able to stand. checked his blood sugar which was 110. She denies any speech changes or facial droop. He has a fever on arrival. He was unaware of his fever. He complains of a cough. He denies chest pain or shortness of breath. Denies abdominal pain. He did go to the [facility] this morning and was able to do his exercises. Denies other complaints. Physical Examination: Vitals are stable. Temperature 101.2 Alert no acute distress. HEENT exam is unremarkable. Neck is supple. Lungs are clear and equal bilaterally. Heart is regular rate and rhythm. Abdomen is soft nontender nondistended. Extremities are unremarkable. Skin is warm and dry. No focal neurologic deficit. NIH 0 Remainder of exam is unremarkable. Emergency Department Course and Treatment: Patient was given Tylenol. EKG is sinus rate of 75 with no acute ischemic changes. Chest x-ray shows mild left basilar infiltrate. CT head shows chronic changes. CBC, chemistries unremarkable. Troponin is negative. Urinalysis shows 10-25 white blood cells, 4+ bacteria. Influenza is negative. Urine and blood cultures were sent. He was given Rocephin and Zithromax IV. Will discuss with the hospitalist for admission. Disposition: Admission Impression: Community acquired pneumonia, UTI, bilateral lower extremity weakness This note was generated with [employer] dictation software. It may contain incorrect words, spelling, and punctuation that were not noted in review of the chart prior to signing ED Disposition - Plan for ED Patient: Chief Complaint: Lower Extremity Injury Referrals: [facility] Doctor,Out of [Primary Care Provider] - What to do if you have Problems For any increased pain, shortness of breath, bleeding, nausea or vomiting, chest pain, or any unexpected problems, contact your Primary Care Provider. Call [facility] ([phone]) or report to the closest Emergency Room. Call 911 if necessary. 11/13/18 0039 <Electronically signed by Virgie Bass MD> Date Virgie Bass MD Cosigner Signature (If Indicated): Date CC: OUT OF TOWN DOCTOR TROPONIN-I Collected: 11/12/2018 Status: F Source: ANKIT 10:56 PM [facility] REPOSITORY TYPE CODE TESTS RESULT OUT OF RANGE REFERENCE UNITS LAB L501.4010 <0.045 ng/mL Normal 0.019 TROPONIN-I Result Comment: TROPONIN-I EXPECTED VALUES <0.045 Negative 0.045 - 0.590 Consistent with Cardiac Damage > OR = 0.600 Critical Value Not every elevated troponin is indicative of LA. These values should be used with clinical judgement in examining the patient's clinical picture for diagnosis. To establish a diagnosis of LA versus myocardial injury, there must be a demonstrated rise and/or fall in the troponin values, in addition to ischemic symptoms, EKG changes, new regional wall motion abnormality, and/or angiographical evidence. PLEASE NOTE: REFERENCE RANGES EDITED 18 Performed By: #### L501.4010 #### [facility] [place], [address] MRA NECK WITH AND W/O Observed: 11/12/2018 Status: F Source: ANKIT CONTRAST 10:46 PM [facility] REPOSITORY [facility] Imaging Services [address] [place] [address] MRA Neck WITH and W/O Contrast MR#: [id number] Acct: [id number] Name: JAYCE MCMILLAN Rep #: [id number] : 1940 M 77 From: Talia Zuleta MD PCP: OUT OF TOWN DOCTOR Status: ADM IN Study: MRA Neck WITH and W/O Contrast Date of Exam: 11/13/18 Exam# [id number] Ordering Dr: Arash Frank MD STUDY: MRA NECK WITH AND WITHOUT CONTRAST REASON FOR EXAM: Male, 77 years old. Bilateral leg weakness. TECHNIQUE: 3-D lndd-pw-zyfebp (TOF) imaging was performed in an 1.5 T MRI scanner. 10 ml of Gadavist was administered for the contrast enhanced images. Multiple images are limited by patient motion. COMPARISON: None. FINDINGS: RIGHT CAROTID ARTERIES: There is atherosclerotic tortuous elongation of the right common carotid artery. There is moderate atherosclerotic plaque formation with moderate narrowing of the carotid bulb. There is extensive atherosclerotic plaque formation of the origin of the right internal carotid artery with an estimated stenosis of greater than 70%. There is atherosclerotic tortuous elongation of the cervical portion of the right internal carotid artery. Normal origin of the right external carotid artery (ECA). LEFT CAROTID ARTERIES: Normal left common carotid artery (CCA). There is mild atherosclerotic plaque formation with minimal narrowing of the left carotid bulb. Normal origin of the left internal carotid (ICA) artery without a hemodynamically significant stenosis. Normal visualized cervical portion of the left internal carotid artery. Normal origin of the left external carotid artery (ECA). VERTEBRAL ARTERIES: Normal antegrade flow within the bilateral vertebral artery without a hemodynamically significant stenosis. MRI/MRA Neck WITH and W/O Contrast IMPRESSION: 1. Hemodynamically significant stenosis of the origin the RIGHT internal carotid artery with estimated amount of stenosis greater than 70%. 2. Technically limited study due to patient motion. NOTE: Determination of stenosis is based on NASCET criteria. Electronically Signed: Talia Zuleta MD at 10:18 EST , Service support , CC: Arash Frank MD; OUT OF TOWN DOCTOR Assistant Research Scientist: Signed MRA HEAD ONLY WITHOUT Observed: 11/12/2018 Status: F Source: GENESEO CONTRAST 10:46 PM [facility] REPOSITORY [facility] Imaging Services [address] [place] [address] MRA Head ONLY without Contrast MR#: [id number] Acct: [id number] Name: JAYCE MCMILLAN Rep #: [id number] : 1940 77 From: Talia Zuleta MD PCP: OUT OF TOWN DOCTOR Status: ADM IN Study: MRA Head ONLY without Contrast Date of Exam: 11/13/18 Exam# [id number] Ordering Dr: Arash Frank MD STUDY: MRA OF THE HEAD WITHOUT CONTRAST REASON FOR EXAM: Male, 77 years old. Bilateral leg weakness and TIA. TECHNIQUE: 3-D qbac-mm-edavhx (TOF) imaging was performed with MIPs. The study was performed unenhanced. Most of the images are limited by patient motion. COMPARISON: Prior comparison studies are not available for review at this time. FINDINGS: Normal bilateral petrous carotid arteries. There is elongation and tortuosity of the right cavernous carotid artery, without a demonstrated hemodynamically significant stenosis. There is elongation and tortuosity of the left cavernous carotid artery, without a demonstrated hemodynamically significant stenosis. There is hypoplastic development of the right A1 segment of the anterior cerebral arteries with an atretic but intact artery. Normal left A1 segments of the anterior cerebral artery. Normal intact anterior communicating artery (ACOM). Normal bilateral A2 segments of the anterior cerebral arteries. There is irregularity of the right M1 and M2 branches suggesting atherosclerotic plaque formation, without an occlusion. There appears to be hemodynamically significant stenosis of two of the right- sided M2 branches. There is irregularity of the left M1 and M2 branches with minimal luminal narrowing, suggesting atherosclerotic plaque formation, without an occlusion. There is non-visualization of the right posterior communicating artery (PCOM). Normal left posterior communicating artery (PCOM). Normal bilateral vertebral arteries. Normal basilar artery with a normal basilar bifurcation. The visualized bilateral superior cerebellar (SCA) arteries are normal. Normal bilateral P1, P2 and visualized P3 segments of the posterior cerebral arteries. There is no demonstrated aneurysm of the [place]. There is no major vessel occlusion or hemodynamically significant stenosis. There is no demonstrated abnormality of the visualized brain. MRI/MRA Head ONLY without Contrast IMPRESSION: 1. MRA evidence for hemodynamically significant stenosis of right-sided M2 branch origins. 2. No MRA evidence for aneurysm. Electronically Signed: Talia Zuleta MD at 10:53 EST , Service support , CC: Arash Frank MD; OUT OF TOWN DOCTOR Assistant Research Scientist: Signed BRAIN WITHOUT Observed: 11/12/2018 Status: F Source: GENESEO CONTRAST 10:46 PM [facility] REPOSITORY [facility] Imaging Services [address] [place] [address] Brain without Contrast MR#: [id number] Acct: [id number] Name: JAYCE MCMILLAN Rep #: [id number] : 1940 77 From: Talia Zuleta MD PCP: OUT OF TOWN DOCTOR Status: ADM IN Study: Brain without Contrast Date of Exam: 11/13/18 Exam# [id number] Ordering Dr: Arash Frank MD STUDY: MRI BRAIN WITHOUT CONTRAST REASON FOR EXAM: Male, 77 years old. Bilateral leg weakness. TECHNIQUE: Standardized multiplanar fat and water weighted pulse sequences were obtained. COMPARISON: CT of the head dated November 12, 2018 FINDINGS: There is mild cerebral atrophy with widening of the extra- axial spaces and moderate ventricular dilatation. Normal white matter tracts of the supratentorial brain. There are multiple foci of apparent restricted diffusion within the basal ganglia and external capsules that could represent sequela of tiny lacunar infarcts. The appearance is somewhat atypical and some of this could be artifactual. Normal T2* images of the brain without demonstrated susceptibility artifact. There is no demonstrated hemosiderin stain. Normal bilateral basal ganglia. Normal thalami. There is no extra-axial fluid accumulation. Normal flow voids within the major intracranial circulation suggesting patency by spin echo criteria. Normal sella turcica, pituitary gland, infundibular stalk, optic chiasm and hypothalamus. Normal tectal plate and pineal gland. Normal midbrain, tomy and medulla. Normal cerebellum. Normal basal cisterns. Normal bilateral temporal bones. Normal bilateral internal auditory canals. There are bilateral ocular lens implants with otherwise normal intraorbital contents. There is mucoperiosteal inflammatory disease of the ethmoid paranasal sinuses consistent with mild chronic sinusitis. Normal calvarium and skull base. Normal visualized soft tissue structures. Normal visualized upper cervical spine. MRI/Brain without Contrast IMPRESSION: 1. Involutional changes of the brain, as described above. 2. 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 3. Questionable artifacts on the diffusion-weighted imaging. Electronically Signed: Talia Zuleta MD at 11:31 EST , Service support , CC: Arash Frank MD; OUT OF TOWN DOCTOR Assistant Research Scientist: Signed HISTORY AND PHYSICAL Observed: 11/12/2018 Status: F Source: GENESEO EXAM 10:25 PM [facility] REPOSITORY [facility] Medical Records Department [address] [place] [address] History and Physical 11/12/182203 MR#: [id number] Acct: [id number] Name: JAYCE MCMILLAN Rep #: [id number] : 1940 77 From: Arash Frank MD PCP: OUT OF TOWN DOCTOR Status: ADM IN Y Location: [place] [id number] Problem List (1) Acute cystitis Status: Acute (2) Community acquired pneumonia Status: Acute (3) Stroke-like symptoms Status: Acute History of Present Illness Date of Admission: 11/12/18 Chief Complaint: difficult to walk The patient is a 77 year old M with a significant history of CAD status post 3 stents in 2018; CKD; hypothyroidism; hyperlipidemia who presented with 1 day history of difficulty walking. Patient went to the [employer] to work out. Later same day after working out at the , patient was not able to move his legs. More importantly he he was dragging his left leg. His gave him a walker which he used previously after on orthopedic procedure. Because patient was not able to to get to the bathroom because of difficulty in ambulation he was incontinent of urine. Denies any urinary symptoms otherwise. He denies any fever or chills. Because of his difficulty walking his was concerned that patient might of had a stroke. His noted that he has been having a clear productive cough whiles at emergency department. Patient stated that his cough has been going on for a while. He has shortness of breath with coughing. He has a poor appetite. At emergency department his urinalysis was abnormal. His chest x-ray showed mid left basilar infiltrate; and left upper lobe opacity medially. CT of his head showed involutional changes of the brain without any acute pathology. Past Medical History Medical History: Medical History (Last Reviewed 11/12/18 @ 22:25 by Arash Frank MD) Chronic kidney disease (CKD) N18.9 Hyperlipidemia E78.5 Hypothyroidism E03.9 Allergies lovenox Allergy (Uncoded 11/12/18 17:15) Rash Home Medications: Ambulatory Orders Medication Instructions Recorded Surgical History: appendectomy, cataract, cholecystectomy, herniorrhaphy, total knee arthroplasty Lives: Spouse/ Significant Other Smoking Status: Never smoker Alcohol: Occasional Review of Systems Constitutional: Reports: Weakness. Denies: Chills, Fever, Weight Change HEENT: Denies: Head Aches, Sinus Congestion, Sinus Drainage Cardiovascular: Denies: Chest Pain, Palpitations Respiratory: Reports: Shortness of Breath - With coughing. Denies: Cough, Sputum production Gastrointestinal: Denies: Abdominal Pain, Nausea, Vomiting Genitourinary: Denies: Dysuria Musculoskeletal: Denies: Joint Pain, Joint Tenderness Skin: Denies: Rash, Wounds Neurological: Denies: Numbness, Tingling, Focal weakness - Left leg weakness Psychiatric: Denies: Anxiety, Depression, Homicidal Ideations, Suicidal Ideations Hematologic/ Lymphatic: Denies: Easy Bruising, Easy Bleeding VTE Information - Inpt Only VTE Present on Admission: No VTE Mechan Device Prophylaxis: None VTE Pharm Prophylaxis ordered?: Yes Patient Problems: Active and Suspected Problems (Last Updated 04/11/18 @ 13:21 by Oswald Osman, RN) Acute cystitis (Acute) Community acquired pneumonia (Acute) Stroke-like symptoms (Acute) - Physical Exam General: Alert, Oriented x3, Cooperative HEENT: Atraumatic, PERRLA, EOMI, Normocephalic Neck: Supple, No JVD, Negative Carotid Bruits Lungs: Clear to auscultation, Normal air movement Cardiovascular: Regular rate, No murmurs Abdomen: Bowel Sounds Present, Soft, Non Tender Extremities: No edema, Capillary Refill Less than 3 Seconds Skin: No rashes, No breakdown Musculoskeletal: No Tenderness to Palpation of Joints or Extremities Neurological: Neuro grossly intact, Motor Exam 5/5 strength throughout Psych/Mental Status: Normal Affect, Appropriate Vital Signs Temp Pulse Resp BP Pulse Ox 99.6 F H 76 16 144/63 H 94 11/12/18 20:37 11/12/18 20:37 11/12/18 20:37 11/12/18 20:37 11/12/18 20:37 Oxygen Flow Rate (L/min) 2 Oxygen Delivery Method Nasal Cannula Weight: 92.986 kg Body Mass Index (BMI) 29.4 Microbiology Past 72 Hours 11/12/18 18:25 Influenza Types A,B Direct FA (BLAZE) - Final Mucosa - Nose Laboratory Tests Past 24 Hrs WBC 9.1 RBC 4.92 Hgb 14.6 Hct 45.8 MCV 93.1 MCH 29.7 MCHC 31.9 L RDW 14.6 WBC RBC Hgb Hct MCV MCH MCHC RDW RDW Differential Plt Count MPV Immature Gran % (Auto) Neut % (Auto) Lymph % (Auto) Assessment/Plan All Active Problems (Last Updated 04/11/18 @ 13:21 by Oswald Osman RN) Acute cystitis (Acute) Community acquired pneumonia (Acute) Stroke-like symptoms (Acute) The patient is a 77 year old M with a significant history of CAD status post 3 stents in 2018; CKD; hypothyroidism; hyperlipidemia who presented with 1 day history of difficulty walking after working out at the [employer]; shortness of breath with coughing and found to have abnormal urinalysis and radiographic evidence of infiltrate in his lungs consistent with acute cystitis with probable pneumonia.. Acute cystitis His urinalysis was abnormal at the emergency department. Patient received ceftriaxone at the emergency department. Ceftriaxone continued Trend CBC. Follow urine culture Community-acquired pneumonia Independent review of chest x-ray showed opacities in left upper lung mcmillan and left middle lung mcmillan. Blood culture 2 is pending Respiratory Gram stain and culture pending Antibiotics: Received ceftriaxone and azithromycin emergency department. Ceftriaxone and azithromycin continued DuoNeb scheduled. Albuterol as needed Legionella antigen screen and Strep antigen ordered Strokelike symptoms Her is very concerned that patient might have had a TIA. At emergency department however patient could move all extremities equally. Will admit patient to PCU; do NIH and wake patient up for stroke. MRI/MRA of head and neck ordered. We will continue patient on his home aspirin, Plavix and Crestor which he is taking for CAD status post stents. Labetalol as needed for systolic blood pressure more than 220 or diastolic blood pressure more than 120. Discontinue if MRI is negative or it is more than 24 hours since his strokelike symptoms started. CAD status post stent Continue aspirin, Plavix and Crestor as above. Fenofibrate continued Hypothyroidism Synthroid continued GERD Protonix continued. DVT prophylaxis Subcutaneous heparin. Code Visit Inpatient E AND M: 72049 Init Hosp L3 11/12/185 <Electronically signed by Arash Frank MD> Date Arash Frank MD Cosigner Signature: Date (if applicable) CC: Arash Frank MD; OUT OF TOWN DOCTOR Signed URINALYSIS, COMPLETE Collected: 11/12/2018 Status: F Source: ANKIT 7:22 PM [facility] REPOSITORY Order Comment: Order Date: 11/12/18 COLOR OF URINE MAY AFFECT DIPSTICK RESULTS. How was Urine Obtained? CLEAN CATCH TYPE CODE TESTS RESULT OUT OF RANGE REFERENCE UNITS LAB L400.3000 Yellow COLOR Normal Sari LAB L400.3050 Clear Normal CLARITY Sl. Cloudy LAB L400.3200 Normal mg/dl Normal GLUCOSE, UR Normal LAB L400.3300 Negative mg/dL Normal BILIRUBIN URINE Negative LAB L400.3400 Negative mg/dl Normal KETONE UR Negative LAB L400.3465 1.002-1.030 Normal SP.GR. DIPSTX 1.010 LAB L400.3550 5.0 - 8.0 pH UR Normal 7.0 LAB L400.3600 Negative mg/dl PROT Normal DIPSTX Negative LAB L400.3700 Normal mg/dl High 12 UROBILI LAB L400.3750 Negative Normal NITRITE UR Negative LAB L400.3780 Negative /ul High 50 OCCULT BLOOD-UR LAB L400.3800 Negative /ul High LEUK ESTERASE 100 LAB L400.4050 0-5 /hpf WBC Normal 10-25 SEEN LAB L400.4100 0-5 /hpf 0 Normal RBC-UA SEEN LAB L400.4150 0-5 /hpf SQUAM 0 Normal EPI SEEN LAB L400.4300 None Seen /hpf 4+ Normal BACTERIA LAB L400.4350 <or=2+ /hpf 0 Normal MUCUS, URINE SEEN Performed By: #### L400.0001 #### [facility] [address] [facility]. [place], [place], [id number] Observed: 11/12/2018 Status: F Source: GENESEO LEGIONELLA ANTIGEN 7:22 PM [facility] URINE REPOSITORY Legionella, UR Legionella Antigen result interpretation: Negative Presumptive negative for Legionella pneumophila serogroup 1 antigen in urine, suggesting no recent or current infection. Legionella Ag, Urine Negative (See interpretation below) Performed By: #### M300.4500 #### [facility] [address] [place] [address], [address] STREP Observed: 11/12/2018 Status: F Source: ANKIT PNEUMONIAE ANTIG(UR,CSF) 7:22 PM [facility] REPOSITORY S pneumo Ag URINE INTERPRETATION Negative Urine Presumptive negative for pneumococcal pneumonia, suggesting no current or recent pneumococcal infection. Infection due to S pneumoniae cannot be ruled out since the antigen present in the sample may be below the detection limit of the test. Strep pneumo Test Negative URINE (See interpretation below) Performed By: #### M300.4600 #### [facility] [address] [place] [address]. [place], [place], [address] Observed: 11/12/2018 Status: F Source: GENESEO CULTURE, URINE 7:22 PM [facility] REPOSITORY Order Date: 11/12/18 Urine Culture ORGANISM 1: Citrobacter amalonaticus [place] Count >100,000 Citrobacter amalonaticus: REACTION Amoxacillin/Clavulanic Acid $ 4 S Cefazolin $ >=64 R Cefepime $ <=1 S Ceftriaxone $ <=1 S Ciprofloxacin $ <=0.25 S Ertapenim $$$ <=0.5 S Gentamicin $ <=1 S Imipenem *NF <=0.25 S Levofloxacin $ <=0.12 S Nitrofurantoin $ 64 I Tobramycin $ <=1 S Trimethoprim/Sulfametho $ <=20 S (NF) indicates non-formulary drug at [facility]. Approval by Infectious Disease Specialist required before non-formulary drugs may be ordered and/or dispensed. Performed By: #### M100.0650 #### [facility] [address] [place] [address]. [place], [place], [id number] Observed: 11/12/2018 Status: F Source: GENESEO CULTURE, BLOOD (WB) 6:30 PM [facility] REPOSITORY BC No growth in 5 days. Performed By: #### M200.1000 #### [facility] [address] [place] [address]. [place], [place], [address] Observed: 11/12/2018 Status: F Source: GENESEO INFLUENZA A+B (RAPID 6:25 PM [facility] DOLORES) REPOSITORY FLU A/B Rapid Negative test results should be confirmed with FLU PANEL MOLECULAR if indicated. Influenza Ag, Direct Presumptive NEGATIVE for Influenza A/B Antigen (See Note) Performed By: #### M101.0101 #### [facility] [address] [place] [address]. [place], [place], [address] CBC W/DIFF, AUTOMATED Collected: 11/12/2018 Status: F Source: ANKIT 6:15 PM [facility] REPOSITORY TYPE CODE TESTS RESULT OUT OF RANGE REFERENCE UNITS LAB L100.1000 4.4-11.0 K/mm3 Normal WBC 9.1 LAB L100.1200 4.6-6.2 M/mm3 Normal RBC 4.92 LAB L100.1300 13.0-16.5 g/dl Normal HGB 14.6 LAB L100.1400 40-54 % Normal HCT 45.8 LAB L100.1500 80-94 fL Normal MCV 93.1 LAB L100.1600 27.0-32.0 pg Normal MCH 29.7 LAB L100.1700 32-36 g/gl Low MCHC 31.9 LAB L100.1810 11.6-14.6 % Normal RDW CV 14.6 LAB L100.1820 35.1-43.9 fl High RDW SD 49.9 LAB L100.1900 150-450 K/mm3 Normal PLT 222 LAB L100.2000 6.2-12.0 fl Normal MPV 10.3 LAB L100.2100 47-70 % High NEUT% 78.1 LAB L100.2200 19-41 % Low LY% 8.9 LAB L100.2300 0-10 % High MONO% 12.3 LAB L100.2400 0-5 % Normal EO% 0.1 LAB L100.2500 0-1 % Normal BASO% 0.3 LAB L100.2550 0.0-0.9 % Normal IM GRAN % 0.300 Result Comment: IG% - Immature Granulocytes (promyelocytes, myelocytes and metamyelocytes) > 1% indicates that a LEFT SHIFT is Present. LAB L100.2620 2.0-7.7 X10 3/uL Normal Absolute Neut 7.1 LAB L100.2720 0.83-4.51 X10 3/ul Low Absolute Lymph 0.81 Performed By: #### L100.0100 #### [facility] [address] [place], [place], [id number] BASIC METABOLIC Collected: 11/12/2018 Status: F Source: ANKIT PROFILE (BMP) 6:15 PM [facility] REPOSITORY TYPE CODE TESTS RESULT OUT OF RANGE REFERENCE UNITS LAB L501.0100 74-106 mg/dL Normal GLU 104 Result Comment: Fasting Glucose result from 100 to 125 mg/dL suggests IMPAIRED HOMEOSTASIS per A.D.A. criteria. Please note revised GLUCOSE reference range effective 2017. LAB L501.1000 7-18 mg/dL Normal BUN 14 LAB L501.1100 0.70-1.30 mg/dL Normal CREAT,SERUM 1.09 Result Comment: The validity of the calculated GFR AND GFRAA in patients over 70 years has not been determined. Clinical correlation is essential. LAB L501.1110 >60 mL/min Normal EST GFR 69 Result Comment: Non- GFR Calc LAB L501.1115 >60 mL/min Normal EST GFR - AA 84 Result Comment: GFR Calc LAB L501.1255 ml/min Normal Estimated CRCL 57.67 LAB L501.1300 10-20 RATIO Normal BUN/CRE 12.8 LAB L501.2200 8.5-10 mg/dL Normal .1 CA 9.3 LAB L501.5300 136-14 mmol/L Normal 5 NA 139 LAB L501.5600 3.5-5. mmol/L Normal 1 K 3.5 LAB L501.5900 98-107 mmol/L Normal CL 103 LAB L501.6100 21.0-3 mmol/L Normal 2.0 CO2 27.0 LAB L501.6200 5-15 Normal GAP 9 Performed By: #### L500.2500, L501.4010 #### [facility] [address] [place], [address] TROPONIN-I Collected: 11/12/2018 Status: F Source: GENESEO 6:15 PM [facility] REPOSITORY TYPE CODE TESTS RESULT OUT OF RANGE REFERENCE UNITS LAB L501.4010 <0.045 ng/mL Normal < 0.015 TROPONIN-I Result Comment: TROPONIN-I EXPECTED VALUES <0.045 Negative 0.045 - 0.590 Consistent with Cardiac Damage > OR = 0.600 Critical Value Not every elevated troponin is indicative of LA. These values should be used with clinical judgement in examining the patient's clinical picture for diagnosis. To establish a diagnosis of LA versus myocardial injury, there must be a demonstrated rise and/or fall in the troponin values, in addition to ischemic symptoms, EKG changes, new regional wall motion abnormality, and/or angiographical evidence. PLEASE NOTE: REFERENCE RANGES EDITED 18 Performed By: #### L500.2500, L501.4010 #### [facility] [address] [place], [address] LACTIC ACID Collected: 11/12/2018 Status: F Source: ANKIT 6:15 PM [facility] REPOSITORY Order Comment: Yes/No query for Sepsis Lactate Rule Y TYPE CODE TESTS RESULT OUT OF RANGE REFERENCE UNITS LAB L503.6005 0.4-2.0 mmol/L Normal LACTIC ACID 1.5 Performed By: #### L503.6005 #### [facility] [address] [place], [address] Observed: 11/12/2018 Status: F Source: ANKIT CULTURE, BLOOD (WB) 6:15 PM [facility] REPOSITORY BC No growth in 5 days. Performed By: #### M200.1000 #### [facility] [address] [place], [address] CHEST 1 VIEW Observed: 11/12/2018 Status: F Source: ANKIT (PORTABLE) 6:01 PM [facility] REPOSITORY [facility] Imaging Services [address] [address] Chest 1 View (Portable) MR#: [id number] Acct: [id number] Name: JAYCE MCMILLAN Rep #: [id number] : 1940 77 From: Rubens Varela DO PCP: OUT OF TOWN DOCTOR Status: PRE ER Study: Chest 1 View (Portable) Date of Exam: 11/12/18 Exam# [id number] Ordering Dr: Virgie Bass MD STUDY: X-RAY CHEST REASON FOR EXAM: Male, 77 years old. Cough, weakness TECHNIQUE: Single frontal view COMPARISON: None. FINDINGS: The lungs are not fully expanded. There is an opacity at the left upper lobe medially. Mild left basilar infiltrate cannot be excluded. Normal size heart. Normal mediastinum and lashon. Normal visualized pulmonary arteries. Normal visualized aortic arch and descending thoracic aorta. Normal visualized thoracic spine. Degenerative changes of the shoulders. RAD/Chest 1 View (Portable) IMPRESSION: Mild left basilar infiltrate. Left upper lobe opacity medially. Correlate with CT if needed. Electronically Signed: Rubens Varela DO at 19:03 EST Tel [phone], Service support , CC: Virgie Bass MD; OUT OF TOWN DOCTOR Assistant Research Scientist: Signed BRAIN/HEAD WITHOUT Observed: 11/12/2018 Status: F Source: GENESEO CONTRAST 6:01 PM [facility] REPOSITORY [facility] Imaging Services [address] [place] [address] [place] [address] Brain/Head without Contrast MR#: [id number] Acct: [id number] Name: JAYCE MCMILLAN Rep #: [id number] : 1940 M From: Sandeep Lopez MD PCP: OUT OF TOWN DOCTOR Status: REG ER Study: Brain/Head without Contrast Date of Exam: 11/12/18 Exam# [id number] Ordering Dr: Virgie Bass MD STUDY: CT BRAIN WITHOUT CONTRAST REASON FOR EXAM: Male, 77 years old. Bilateral leg weakness RADIATION DOSAGE (If Supplied By Facility): CTDIvol = ( 60.81 ) mGy, DLP = ( 1089.89 ) mGycm TECHNIQUE: Transaxial CT imaging of the brain was performed without administration of intravenous contrast material. Individualized dose optimization techniques were used for this CT. COMPARISON: None. FINDINGS: Normal soft tissue structures. Normal calvarium. There is mild cerebral atrophy with widening of the extra- axial spaces and ventricular dilatation. There are areas of decreased attenuation within the white matter tracts of the supratentorial brain, consistent with microvascular disease changes. Normal basal ganglia and thalami. Normal brainstem. Normal cerebellum. There is no intracranial hemorrhage. There are no findings of an acute ischemic infarction. Normal visualized paranasal sinuses. CT/Brain/Head without Contrast IMPRESSION: Chronic involutional changes of the brain. Electronically Signed: Sandeep Lopez MD at 19:34 EST , Service support , CC: Virgie Bass MD; OUT OF TOWN DOCTOR Assistant Research Scientist: Signed CT ABDOMEN/PELVIS W/ Observed: 09/06/2018 Status: F Source: MENA PRESTIGE CONTRAST 1:49 PM SYSTEM REPOSITORY Patient Name: JAYCE MCMILLAN CT Exam Date/Time 09/06/2018 13:19:[address] Abdomen/Pelvis w/ IV Contrast (IV Onl Ordering Physician HANH QUICK, YUSUF Jones Accession Number [id number] CPT4 Codes 40882 (CT Abdomen/Pelvis w/ IV Contrast (IV Onl), Q9967 (CT ISOVUE 370MG/[id number]) Reason For Exam scapular pain, r/o AAA Report CT ABDOMEN AND PELVIS WITH CONTRAST CLINICAL INDICATION: Scapular and back pain Axial CT images of the abdomen and pelvis were acquired after the administration of intravenous contrast. 75 ml of Isovue 370 contrast was given intravenously. Oral contrast was not given for this examination. COMPARISON: CT dated 10/03/2015 FINDINGS: The gallbladder has been removed. Small nonobstructive bilateral renal calculi are noted, measuring up to approximately 3 mm in diameter. Hypodensities within the right kidney likely represent cysts. Largest lesion arises from the medial cortex measuring 4.3 cm in greatest diameter. The liver, spleen, pancreas, and adrenal glands appear within normal limits. The abdominal aorta is normal in caliber. There is no retroperitoneal, pelvic, or inguinal lymphadenopathy. The urinary bladder appears grossly normal. The prostate does not appear enlarged. Diverticulosis of the distal colon is noted. The large and small bowel otherwise appears within normal limits without evidence of wall thickening or dilatation. The appendix appears normal. There is no free fluid within the abdomen or pelvis. There is no free air under the diaphragm. A broad based ventral abdominal hernia near the umbilicus is unchanged when compared to the prior examination from 2015. Atelectasis or scarring is noted within the lung bases, similar to the prior examination from 2015. No lytic or blastic lesions are seen on the bone windows. IMPRESSION: Nonobstructive bilateral renal calculi. No ureteral stones are seen. Broad-based ventral abdominal hernia defect is similar to the prior examination in 2015. Bilateral basilar atelectasis or scarring. Right renal hypodensities likely represent cysts. Report Dictated on Final Dictating Physician: MD HARO JONATHAN R Signed Date and Time: 09/06/2018 1:54 pm Signed by: MD HARO JONATHAN R Transcribed Date and Time: 09/06/2018 1:55 CTA CHEST W/ + W/O Observed: 09/06/2018 Status: F Source: MENA PRESTIGE CONTRAST 1:46 PM SYSTEM REPOSITORY Patient Name: JAYCE MCMILLAN CT Exam Date/Time 09/06/2018 13:22:46 EDT Exam CTA Chest w/ + w/o Contrast Ordering Physician HANH QUICK, YUSUF Jones Accession Number [id number] CPT4 Codes 14577 () Reason For Exam right scapular pain Report CTA CHEST WITH CONTRAST CLINICAL INDICATION: Right scapular and back pain Serial axial CT images were obtained from the lung apices through the upper abdomen after a bolus tracked intravenous contrast injection over the pulmonary arteries. 75 cc of Isovue 370 contrast was given intravenously. Three-dimensional and surface-shaded reconstructions were performed by myself on a separate workstation at the time of dictation. COMPARISON: None. FINDINGS: No filling defects are seen within the pulmonary vasculature to suggest the presence of pulmonary embolism. No focal consolidation is seen within the lungs. Atelectasis is noted within the lung bases. There is no pleural effusion or pneumothorax. No pulmonary nodules are identified. There is no axillary, mediastinal, or hilar lymphadenopathy. The heart size is within normal limits. There is no pericardial effusion. The thoracic aorta is normal in caliber. Coronary artery calcification is present. The visualized portion of the upper abdomen is unremarkable. No lytic or blastic lesions are seen on the bone windows. IMPRESSION: No evidence of pulmonary embolism. Bilateral basilar atelectasis. Report Dictated on Final Dictating Physician: MD HARO JONATHAN R Signed Date and Time: 09/06/2018 1:49 pm Signed by: MD HARO JONATHAN R Transcribed Date and Time: 09/06/2018 1:50 CR CHEST PORTABLE Observed: 09/06/2018 Status: F Source: MENA PRESTIGE 10:46 AM SYSTEM REPOSITORY Patient Name: JAYCE MCMILLAN Diagnostic Radiology Exam Date/Time 09/06/2018 10:38:28 EDT Exam CR Chest Portable Ordering Physician HANH QUICK WILLIAM C. Accession Number [id number] CPT4 Codes 02175 () Reason For Exam cough and tight rib paain Report CHEST: CLINICAL INDICATION: Cough, rib pain TECHNIQUE: AP portable chest COMPARISON: 08/18/2008 FINDINGS: The heart demonstrates normal size. Calcification of the thoracic aorta is noted. The lungs are clear. There is no sizable pleural effusion. Degenerative change of the thoracic spine and glenohumeral joints noted. IMPRESSION: No acute process. Report Dictated on Final Dictating Physician: MD MCLEOD NICHOLAS Signed Date and Time: 09/06/2018 10:47 am Signed by: MD MCLEOD NICHOLAS Transcribed Date and Time: 09/06/2018 10:48 HEMOGRAM Collected: 09/06/2018 Status: F Source: MENA PRESTIGE 10:30 AM SYSTEM REPOSITORY TYPE CODE TESTS RESULT OUT OF RANGE REFERENCE UNITS LAB IWBC 3.6-10.7 10*3/uL WBC Normal 5.9 LAB RBC 4.40-5.90 10*6/uL RBC Normal 4.81 LAB HGB 13.0-18.0 g/dL Normal Hemoglobin 14.1 LAB HCT 40.0-52.0 % Normal Hematocrit 42.3 LAB MCV 80.0-98.0 fL MCV Normal 88.0 LAB MCH 26.0-34.0 pg MCH Normal 29.4 LAB MCHC 32.0-36.0 % MCHC Normal 33.4 LAB RDW 11.5-14.5 % High RDW 14.7 LAB PLT 140-440 10*3/uL Platelet Normal 241 LAB MPV 7.4-10.4 fL MPV Normal 9.4 Performed By: #### SHANTELLE CMP3, TROPN #### [facility] [address] [place] [address] COMP METABOLIC PANEL Collected: 09/06/2018 Status: F Source: MENA PRESTIGE 10:30 AM SYSTEM REPOSITORY TYPE CODE TESTS RESULT OUT OF RANGE REFERENCE UNITS LAB NA3 137-145 mmol/L Sodium Normal 142 LAB K3 3.5-5.1 mmol/L Normal Potassium 3.9 LAB CL3 98-107 mmol/L Chloride Normal 103 LAB CO23 22-30 mmol/L High Carbon Dioxide 31 LAB ANIN3 NA Anion Gap 8 LAB GLUC3 70-100 mg/dL Glucose Normal 88 LAB BUN3 7-20 mg/dL Urea Normal Nitrogen 15 LAB CRET3 0.52-1.25 mg/dL Normal Creatinine 0.81 LAB GF3BR >60 mL/min eGFR > 60.0 LAB GF3WR >60 mL/min eGFR OTHER > 60.0 Result Comment: Source- MDRD equation with creatinine calibration to IDMS(NKDEP) eGFR not recommended for drug dose adjustment LAB CA3 8.4-10.4 mg/dL Calcium Normal 9.9 LAB ALB3 3.5-5.0 g/dL Albumin, Serum Normal 4.5 LAB TP3 6.3-8.2 g/dL Total Protein Normal 7.4 LAB BILT3 0.2-1.3 mg/dL High Bilirubin,Total 1.5 LAB ALKP3 38-126 U/L Alkaline Normal Phosphatase 123 LAB ALT3 13-69 U/L High ALT (SGPT) 73 LAB AST3 15-46 U/L High AST (SGOT) 51 Performed By: #### HEMALEXANDRE, CMP3, TROPN #### [facility] [address] [place] [address] TROPONIN I Collected: 09/06/2018 Status: F Source: MENA PRESTIGE 10:30 AM SYSTEM REPOSITORY TYPE CODE TESTS RESULT OUT OF RANGE REFERENCE UNITS LAB TROP4 0.000-0.034 ng/mL Normal Troponin I < 0.012 Result Comment: 0.046 - 0.400 = Indeterminate > 0.400 = Consider Myocardial Injury Performed By: #### HEMALEXANDRE, CMP3, TROPN #### [facility] [address] [place] [address] ED PROVIDER NOTE Observed: 09/06/2018 Status: F Source: MENA PRESTIGE 9:34 AM SYSTEM REPOSITORY Emergency Department Encounter [facility] ED Patient: Jayce Mcmillan : 1940 Date of Evaluation: 09/06/2018 ED Supervising Physician: Corby Wylie MD I independently examined and evaluated Jayce Mcmillan. In brief, Jayce Mcmillan is a 77 y.o. male that presents complaining of right sided shoulder pain. The patient reports over the past few days he has had a strange pain behind his right shoulder blades. Pain is worse with deep inhalation. No significant shortness of breath. No abdominal pain nausea or vomiting. Focused exam: Clear lung sounds bilaterally. No tenderness palpation of the thoracic midline or paraspinal back. Soft and nontender abdomen. 2+ radial pulses bilaterally Brief ED course/MDM: 77-year-old male with right posterior thoracic back pain. Differential includes intra-abdominal process causing referred pain, pulmonary embolus, pulmonary nodular mass, aortic pathology including dissection. Patient will be worked up with a computed tomography scan of the chest abdomen and pelvis. All diagnostic, treatment, and disposition decisions were made by myself in conjunction with the JOSE/Resident. For all further details of the patient's emergency department visit, please see their documentation. (Please note that portions of this note may have been completed with a voice recognition program. Efforts were made to edit the dictations but occasionally words are mis-transcribed.) Corby Wylie MD [employer] Corby Wylie MD 09/06/18 1206 ED PROVIDER NOTE Observed: 09/06/2018 Status: F Source: MENA PRESTIGE 9:34 AM SYSTEM REPOSITORY [facility] ED eMERGENCY dEPARTMENT eNCOUnter Pt Name: Jayce Mcmillan Birthdate 1940 Date of evaluation: 09/06/2018 Provider: Yusuf Quick APRN - NAEL CHIEF COMPLAINT Chief Complaint Patient presents with ? Rib Pain She was seen and evaluated independently by my attending physician Dr. Desai HISTORY OF PRESENT ILLNESS (Location/Symptom, Timing/Onset,Context/Setting, Quality, Duration, Modifying Factors, Severity) Note limiting factors. MALKA Mcmillan is a 77 y.o. male who presents to the emergency department For complaints of cough and right-sided shoulder pain. Patient states he has had right-sided short pain with his cough for last 3 days, he saw his primary care physician and sent him in for evaluation. Vital signs stable. He states the cough is nonproductive he denies any specific chest pain abdominal pain, nausea or vomiting. No treatment prior to arrival. Patient's gallbladder has been removed Nursing Notes were reviewed. REVIEW OF SYSTEMS (2+ forlevel 4; 10+ for level 5) Review of Systems Constitutional: Negative for chills, diaphoresis, fatigue and fever. HENT: Negative for sore throat and trouble swallowing. Respiratory: Negative for cough, shortness of breath and wheezing. Cardiovascular: Negative for chest pain and palpitations. Gastrointestinal: Negative for abdominal pain, diarrhea, nausea and vomiting. Genitourinary: Negative for dysuria and hematuria. Musculoskeletal: Positive for back pain (right shoulder pain with cough). Negative for neck pain. Skin: Negative for color change and rash. Neurological: Negative for dizziness and headaches. PAST MEDICAL HISTORY Past Medical History: Diagnosis Date ? Arthritis ? Chronic kidney disease ? Coronary artery disease involving king salmon coronary artery of king salmon heart without angina pectoris 02/26/2018 ? History of echocardiogram 01/19/2017 EF 62%, no RWMA's, mild concentric LVH, stage I diastolic dysfunction, trivial AR ? History of nuclear stress test 02/17/2018 Positive for ischemia in mid to distal anterior wall & distal lateral wall ? History of percutaneous coronary intervention 02/26/2018 JAZLYN - distal RCA, JAZLYN - prox LAD ? Hyperlipidemia ? Hypertension ? Presence of stent in coronary artery ? Thyroid disease SURGICALHISTORY Past Surgical History: Procedure Laterality Date ? APPENDECTOMY ? CARDIAC CATHETERIZATION Left 02/26/2018 pci of distal right coronary, pci of proximal LAD ? CHOLECYSTECTOMY ? COLONOSCOPY ? ENDOSCOPY, COLON, DIAGNOSTIC ? EYE SURGERY ? HERNIA REPAIR ? JOINT REPLACEMENT CURRENT MEDICATIONS Discharge Medication List as of 09/06/2018 2:26 PM CONTINUE these medications which have NOT CHANGED Details rosuvastatin (CRESTOR) 5 MG tablet Take 1 tablet by mouth every other day, Disp-45 tablet, R-3Note to pharmacist: Please place prescription on file.Normal amoxicillin (AMOXIL) 500 MG capsule TAKE 4 CAPSULES BY MOUTH 1 HR BEFORE PROCEDURE, R-3Historical Med clopidogrel (PLAVIX) 75 MG tablet Take 1 tablet by mouth daily, Disp-90 tablet, R-3Normal nitroGLYCERIN (NITROSTAT) 0.4 MG SL tablet up to max of 3 total doses. If no relief after 1 dose, call 911., Disp-25 tablet, R-3Normal vitamin D (CHOLECALCIFEROL) 1000 UNIT TABS tablet Take 1,000 Units by mouth dailyHistorical Med aspirin 81 MG tablet Take 81 mg by mouth dailyHistorical Med b complex vitamins capsule Take 1 capsule by mouth dailyHistorical Med pantoprazole (PROTONIX) 40 MG tablet Take 40 mg by mouth dailyHistorical Med levothyroxine (SYNTHROID) 75 MCG tablet Take 75 mcg by mouth DailyHistorical Med tamsulosin (FLOMAX) 0.4 MG capsule Take 0.4 mg by mouth every other day Historical Med ALLERGIES Enoxaparin sodium FAMILY HISTORY Family History Problem Relation Age of Onset ? Dementia Mother SOCIAL HISTORY Social History Social History ? Marital status: Spouse name: N/A ? Number of children: N/A ? Years of education: N/A Occupational History ? retired Social History Main Topics ? Smoking status: Never Smoker ? Smokeless tobacco: Never Used ? Alcohol use No ? Drug use: No Comment: caffeine, none ? Sexual activity: Not Asked Other Topics Concern ? None Social History Narrative ? None SCREENINGS @FLOW([id number])@ PHYSICAL EXAM (5+ for level 4, 8+ for level 5) ED Triage Vitals BP Temp Temp Source Pulse Resp SpO2 Height Weight 09/06/18 0946 09/06/18 0946 09/06/18 0946 09/06/18 0946 09/06/18 0946 09/06/18 0946 -- 09/06/18 0942 (!) 154/72 97.8 ?F (36.6 ?C) Tympanic 60 18 97 % 202 lb (91.6 kg) Physical Exam Constitutional: He is oriented to person, place, and time. Vital signs are normal. He appears well-developed and well-nourished. He is cooperative. Non-toxic appearance. He does not appear ill. No distress. HENT: Head: Normocephalic and atraumatic. Right Ear: Hearing and external ear normal. Left Ear: Hearing and external ear normal. Nose: Nose normal. Mouth/Throat: Oropharynx is clear and moist and mucous membranes are normal. Eyes: Conjunctivae and EOM are normal. Neck: Normal range of motion. Cardiovascular: Normal rate, regular rhythm, S1 normal, S2 normal and intact distal pulses. Exam reveals no gallop and no friction rub. No murmur heard. Pulses: Radial pulses are 2+ on the right side, and 2+ on the left side. Dorsalis pedis pulses are 2+ on the right side, and 2+ on the left side. Pulmonary/Chest: Effort normal and breath sounds normal. No respiratory distress. He has no decreased breath sounds. Abdominal: Soft. Normal appearance and bowel sounds are normal. There is no tenderness. There is no CVA tenderness. Musculoskeletal: Arms: Patient has pains noted area in diagram when he coughs and takes a deep breath skin assessment is benign is no rashes lesions or signs of trauma. Neurological: He is alert and oriented to person, place, and time. GCS eye subscore is 4. GCS verbal subscore is 5. GCS motor subscore is 6. Skin: Skin is warm, dry and intact. He is not diaphoretic. Psychiatric: He has a normal mood and affect. His speech is normal and behavior is normal. Thought content normal. Cognition and memory are normal. Nursing note and vitals reviewed. DIAGNOSTIC RESULTS EKG (Per Emergency Physician): RADIOLOGY (Per EmergencyPhysician): Interpretation per the Radiologist below, if available at the time of this note: Cta Chest W Wo (pe Study) Result Date: 09/06/2018 Patient Name: JAYCE MCMILLAN ---CT--- Exam Date/Time 09/06/2018 13:22:46 EDT Exam CTA Chest w/ + w/o Contrast Ordering Physician HANH QUICK, YUSUF Jones Accession Number [id number] CPT4 Codes 05967 () Reason For Exam right scapular pain Report CTA CHEST WITH CONTRAST CLINICAL INDICATION: Right scapular and back pain Serial axial CT images were obtained from the lung apices through the upper abdomen after a bolus tracked intravenous contrast injection over the pulmonary arteries. 75 cc of Isovue 370 contrast was given intravenously. Three-dimensional and surface-shaded reconstructions were performed by myself on a separate workstation at the time of dictation. COMPARISON: None. FINDINGS: No filling defects are seen within the pulmonary vasculature to suggest the presence of pulmonary embolism. No focal consolidation is seen within the lungs. Atelectasis is noted within the lung bases. There is no pleural effusion or pneumothorax. No pulmonary nodules are identified. There is no axillary, mediastinal, or hilar lymphadenopathy. The heart size is within normal limits. There is no pericardial effusion. The thoracic aorta is normal in caliber. Coronary artery calcification is present. The visualized portion of the upper abdomen is unremarkable. No lytic or blastic lesions are seen on the bone windows. IMPRESSION: No evidence of pulmonary embolism. Bilateral basilar atelectasis. Report Dictated on --- Final --- Dictating Physician: MD HARO JONATHAN R Signed Date and Time: 09/06/2018 1:49 pm Signed by: MD HARO JONATHAN R Transcribed Date and Time: 09/06/2018 1:50 Xr Chest Portable Result Date: 09/06/2018 Patient Name: JAYCE MCMILLAN ---Diagnostic Radiology--- Exam Date/Time 09/06/2018 10:38:28 EDT Exam CR Chest Portable Ordering Physician JESS QUICK, YUSUF Jones Accession Number [id number] CPT4 Codes 70281 () Reason For Exam cough and tight rib paain Report CHEST: CLINICAL INDICATION: Cough, rib pain TECHNIQUE: AP portable chest COMPARISON: 08/18/2008 FINDINGS: The heart demonstrates normal size. Calcification of the thoracic aorta is noted. The lungs are clear. There is no sizable pleural effusion. Degenerative change of the thoracic spine and glenohumeral joints noted. IMPRESSION: No acute process. Report Dictated on --- Final --- Dictating Physician: MD MCLEOD NICHOLAS Signed Date and Time: 09/06/2018 10:47 am Signed by: MD MCLEOD NICHOLAS Transcribed Date and Time: 09/06/2018 10:48 Ct Abdomen Pelvis W Contrast Result Date: 09/06/2018 Patient Name: JAYCE MCMILLAN ---CT--- Exam Date/Time 09/06/2018 13:19:[address] Abdomen/Pelvis w/ IV Contrast (IV Onl Ordering Physician HANH QUICK, YUSUF Jones Accession Number [id number] CPT4 Codes 61283 (CT Abdomen/Pelvis w/ IV Contrast (IV Onl), Q9967 (CT ISOVUE 370MG/ML&[id number]&ML&1) Reason For Exam scapular pain, r/o AAA Report CT ABDOMEN AND PELVIS WITH CONTRAST CLINICAL INDICATION: Scapular and back pain Axial CT images of the abdomen and pelvis were acquired after the administration of intravenous contrast. 75 ml of Isovue 370 contrast was given intravenously. Oral contrast was not given for this examination. COMPARISON: CT dated 10/03/2015 FINDINGS: The gallbladder has been removed. Small nonobstructive bilateral renal calculi are noted, measuring up to approximately 3 mm in diameter. Hypodensities within the right kidney likely represent cysts. Largest lesion arises from the medial cortex measuring 4.3 cm in greatest diameter. The liver, spleen, pancreas, and adrenal glands appear within normal limits. The abdominal aorta is normal in caliber. There is no retroperitoneal, pelvic, or inguinal lymphadenopathy. The urinary bladder appears grossly normal. The prostate does not appear enlarged. Diverticulosis of the distal colon is noted. The large and small bowel otherwise appears within normal limits without evidence of wall thickening or dilatation. The appendix appears normal. There is no free fluid within the abdomen or pelvis. There is no free air under the diaphragm. A broad based ventral abdominal hernia near the umbilicus is unchanged when compared to the prior examination from 2014. Atelectasis or scarring is noted within the lung bases, similar to the prior examination from 2014. No lytic or blastic lesions are seen on the bone windows. IMPRESSION: Nonobstructive bilateral renal calculi. No ureteral stones are seen. Broad-based ventral abdominal hernia defect is similar to the prior examination in 2014. Bilateral basilar atelectasis or scarring. Right renal hypodensities likely represent cysts. Report Dictated on --- Final --- Dictating Physician: MD HARO JONATHAN R Signed Date and Time: 09/06/2018 1:54 pm Signed by: MD HARO JONATHAN R Transcribed Date and Time: 09/06/2018 1:55 LABS: Labs Reviewed COMPREHENSIVE METABOLIC PANEL - Abnormal; Notable for the following: Result Value CO2 31 (*) Total Bilirubin 1.5 (*) ALT 73 (*) AST 51 (*) All other components within normal limits Narrative: Test Performed by [facility], [address] [place], [place] [address] CBC - Abnormal; Notable for the following: RDW 14.7 (*) All other components within normal limits Narrative: Test Performed by [facility], [address] [place], [place] [address] TROPONIN Narrative: Test Performed by [facility], [address] [place], [place] [address] All other labs were within normal range or not returned as of this dictation. EMERGENCY DEPARTMENT COURSE and DIFFERENTIALDIAGNOSIS/MDM: Vitals: Vitals: 09/06/18 0942 09/06/18 0946 09/06/18 1103 09/06/18 1455 BP: (!) 154/72 (!) 158/78 (!) 143/67 Pulse: 60 58 56 Resp: Temp: 97.8 ?F (36.6 ?C) 98 ?F (36.7 ?C) TempSrc: Tympanic SpO2: 97% 95% Weight: 91.6 kg (202 lb) Medications sodium chloride flush 0.9 % injection 3 mL (3 mLs Intravenous Given 09/06/18 1031) 0.9 % sodium chloride bolus (0 mLs Intravenous Stopped 09/06/18 1457) iopamidol (ISOVUE-370) 76 % injection 75 mL (75 mLs Intravenous Given 09/06/18 1301) MDM. Patient presents with stable vital signs for complaints of RIGHT shoulder pain worse when he coughs over last 3 days. Lungs are clear auscultation patient's in no acute distress, did order baseline laboratory studies cardiac evaluation and chest x-ray. Patient's laboratory studies have resulted back his LEFT lites are within normal limits CBC is unremarkable chest x-ray shows no acute pulmonary process. The patient's vital signs are stable, troponin is less than 0.010. At this time I would like to move forward to rule out concerns for aortic aneurysm or pulmonary emboli. We will do CT scans of the patient's chest as well as abdomen and pelvis I did cleanse the patient he has no questions and agrees with the plan of care. Patient's laboratory studies are unremarkable, EKGs without change, CT scan of the abdomen and pelvis does not show any concern for abdominal aortic aneurysm CT scan to rule out a pulmonary emboli shows no filling deficits. At this time agreed that we have ruled out the life-threatening conditions the patient is resting assured that his RIGHT shoulder pain is not related to any acute coronary syndrome, pulmonary emboli, collapsed lung, pneumonia, or abdominal aortic aneurysm. Patient's gallbladder is no longer present. At this time we advised anti-inflammatories for pain the patient will be discharged and follow with her primary care physician. The patient agrees with this plan and his is at the bedside side she also agrees and patient was discharged. CONSULTS: None PROCEDURES: Unless otherwise noted below, none Procedures FINAL IMPRESSION 1. Cough 2. Acute pain of right shoulder 3. Pain of right scapula DISPOSITION/PLAN DISPOSITION Decision To Discharge 09/06/2018 02:23:34 PM PATIENT REFERRED TO: Carrie Amaya MD [facility] [address] [facility] [address] [facility] [id number] In 3 days DISCHARGE MEDICATIONS: Discharge Medication List as of 09/06/2018 2:26 PM START taking these medications Details naproxen (NAPROSYN) 375 MG tablet Take 1 tablet by mouth 2 times daily for 14 days, Disp-28 tablet, R-0Print (Please note: Portions of this note were completed with a voice recognition program. Efforts were made to edit thedictations but occasionally words and phrases are mis-transcribed.) Form [id number] KEILA Wu CNP (electronically signed) Emergency Medicine Provider KEILA Wu CNP 09/06/18 1521 PROGRESS Observed: 08/23/2018 Status: COMPLETED Source: [facility] 12:10 PM [facility] REPOSITORY HNO ID: [id number] Author: Nickie Glass) Older Service: (none) Author Type: Nurse Practitioner Type: Progress Notes Filed: 08/23/2018 12:31 PM Note Text: CC: Patient presents with: Cough: congestion, sore throat x 1 week HPI: Jayce Mcmillan is a 77 year old male who presents to the office with complaint of respiratory symptoms for two weeks. Initially had runny nose, stuffy nose, sore throat and cough. All symptoms have resolved except for dry cough and intermittent runny nose. Denies fever, wheezing, dyspnea, fatigue, decreased appetite, vomiting and diarrhea. Treatments tried include cough drops with temporary relief of symptoms. Sick contacts: yes. History of asthma, frequent episodes of bronchitis, chronic bronchitis, bronchinectasis or COPD: No Smoker: No Seasonal/environmental allergies: No The ROS is otherwise negative. The patient's pmh, medications, allergies, and past visits are reviewed. PHYSICAL EXAM: BP 136/80 Pulse (!) 56 Temp 36.6 ?C (97.8 ?F) (Tympanic) Resp 16 Wt 90.3 kg (199 lb) SpO2 97% BMI 28.55 kg/m? General appearance: healthy, alert, cooperative, pleasant, in no acute distress Head: Normocephalic Eyes: conjunctiva pink and moist, no icterus, sclera white, non-injected Ears: Right ear: External ear/canal- Normal, TM - clear with good landmarks. Left ear: External ear/canal- Normal, TM - clear with good landmarks Nose: clear, no sinus tenderness. Oropharynx:No erythema, exudates or tonsillar hypertrophy. Neck:supple and no adenopathy Heart: Negative. RRR without obvious murmur, gallop, or rubs. No ectopy. Lungs: clear to auscultation, without rales or wheeze, good air exchange ASSESSMENT/PLAN: 1. Cough - ICD9: 786.2, ICD10: R05 Secondary to recent viral URI - Discussed viral etiology and rationale for treatment. - Symptomatic treatment with prn analgesia, OTC cough medicine such as Coricidin - Push fluids - Follow up in one week if symptoms persist or sooner if worsening of symptoms Prescription instructions reviewed with patient as applicable. Potential red flag symptoms discussed with the patient. Reviewed appropriate action plan to take if red flag symptoms occur. Patient agreeable to treatment plan. Nickie Flores APRN.NAEL JORGENSENOV Observed: 08/23/2018 Status: COMPLETED Source: [facility] 12:00 [facility] REPOSITORY Office Visit ([facility]) JAYCE MCMILLAN ([id number]) 1940 M Date Time Provider Department 08/23/18 12:00 PM OLDER, NICKIE (NAEL) [facility] During your visit today, we recorded the following information about you: Temperature Pulse Respiration Blood pressure 97.8 degrees 56/minute 16/minute 136/80 Weight 90.3 kg Nickie Flores APRN.CNP 08/23/2018 12:31 PM Signed CC: Patient presents with: Cough: congestion, sore throat x 1 week HPI: Jayce Mcmillan is a 77 year old male who presents to the office with complaint of respiratory symptoms for two weeks. Initially had runny nose, stuffy nose, sore throat and cough. All symptoms have resolved except for dry cough and intermittent runny nose. Denies fever, wheezing, dyspnea, fatigue, decreased appetite, vomiting and diarrhea. Treatments tried include cough drops with temporary relief of symptoms. Sick contacts: yes. History of asthma, frequent episodes of bronchitis, chronic bronchitis, bronchinectasis or COPD: No Smoker: No Seasonal/environmental allergies: No The ROS is otherwise negative. The patient's pmh, medications, allergies, and past visits are reviewed. PHYSICAL EXAM: BP 136/80 Pulse (!) 56 Temp 36.6 ?C (97.8 ?F) (Tympanic) Resp 16 Wt 90.3 kg (199 lb) SpO2 97% BMI 28.55 kg/m? General appearance: healthy, alert, cooperative, pleasant, in no acute distress Head: Normocephalic Eyes: conjunctiva pink and moist, no icterus, sclera white, non-injected Ears: Right ear: External ear/canal- Normal, TM - clear with good landmarks. Left ear: External ear/canal- Normal, TM - clear with good landmarks Nose: clear, no sinus tenderness. Oropharynx:No erythema, exudates or tonsillar hypertrophy. Neck:supple and no adenopathy Heart: Negative. RRR without obvious murmur, gallop, or rubs. No ectopy. Lungs: clear to auscultation, without rales or wheeze, good air exchange ASSESSMENT/PLAN: 1. Cough - ICD9: 786.2, ICD10: R05 Secondary to recent viral URI - Discussed viral etiology and rationale for treatment. - Symptomatic treatment with prn analgesia, OTC cough medicine such as Coricidin - Push fluids - Follow up in one week if symptoms persist or sooner if worsening of symptoms Prescription instructions reviewed with patient as applicable. Potential red flag symptoms discussed with the patient. Reviewed appropriate action plan to take if red flag symptoms occur. Patient agreeable to treatment plan. GRACE Mcanlly APRN.CNP 08/23/2018 12:17 PM Signed Here is some cold and flu information to help ease your symptoms: 1.) Get more rest than you usually do - this will speed your recovery. If you push hard with your usual busy schedule, you will be sicker longer. 2.) Drink a lot of water - enough to make you urinate every 2-3 hours (your urine should be a light yellow color). This helps thin the phlegm and sooth the airways. Gatorade (G2) is less in sugar and replaces your electrolytes if not eating well. 3.) Run a cool mist humidifier in your bedroom on high with the door closed. This is a natural way to decongest, and it helps lessen scratchy throats, nasal stuffiness and coughs. 4.) Coricidin HBP over the counter for cough/drainage Referring Provider: SELF [200] Allergies As of Date: 08/23/2018 Noted Allergy Reaction LOVENOX (ENOXAPARIN SODIUM) 02/07/2012 14 - Other: See Comments Comments: Rash and swelling Date Reviewed: 08/23/2018 Reviewed by: Kim Call Ma - Fully Assessed Reason for Visit: Cough [28] Cmt: congestion, sore throat x 1 week Primary Visit Diagnosis:Cough [R05] Prescriptions as of 08/23/2018 Sig: ROSUVASTATIN 10 MG TABLET Take 10 mg by mouth. PANTOPRAZOLE ORAL Take by mouth once daily. TAMSULOSIN ORAL Take by mouth once daily. * IRON (DRIED) ORAL Take by mouth once daily. * SYNTHROID 75 MCG TABLET Take one(1) tablet daily. * B COMPLEX-VITAMIN B12 TABLET * NIASPAN 1,000 MG TABLET,EXTEN* * TRICOR 48 MG TABLET Take one(1) tablet daily. 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 If you push hard with your usual busy schedule, you will be sicker longer. 2.) Drink a lot of water - enough to make you urinate every 2-3 hours (your urine should be a light yellow color). This helps thin the phlegm and sooth the airways. Gatorade (G2) is less in sugar and replaces your electrolytes if not eating well. 3.) Run a cool mist humidifier in your bedroom on high with the door closed. This is a natural way to decongest, and it helps lessen scratchy throats, nasal stuffiness and coughs. 4.) Coricidin HBP over the counter for cough/drainage Encounter Status:Closed by NICKIE FLORES CNP on 08/23/18 GLUCOSE,BEDSIDE Collected: 06/20/2018 Status: F Source: [facility] 5:38 PM SYSTEM REPOSITORY TYPE CODE TESTS RESULT OUT OF RANGE REFERENCE UNITS LAB BGLU 70-100 mg/dL High 109 Glucose,Beds ashley Result Comment: Test performed by glucose meter. Results may be 10%-15% lower than serum/plasma values. (CLIA ID [id number]) Performed By: #### BGLU #### [facility] [address] [place] [address] HEMOGRAM W/ AUTODIFF Collected: 06/20/2018 Status: F Source: [facility] 5:30 PM SYSTEM REPOSITORY TYPE CODE TESTS RESULT OUT OF REFERENCE UNITS RANGE LAB IWBC 3.6-10.7 10*3/uL WBC Normal 5.2 LAB RBC 4.40-5.90 10*6/uL Low RBC 4.11 LAB HGB 13.0-18.0 g/dL Low Hemoglobin 12.6 LAB HCT 40.0-52.0 % Low Hematocrit 37.5 LAB MCV 80.0-98.0 fL MCV Normal 91.2 LAB MCH 26.0-34.0 pg MCH Normal 30.7 LAB MCHC 32.0-36.0 % MCHC Normal 33.7 LAB RDW 11.5-14.5 % RDW Normal 13.8 LAB PLT 140-440 10*3/uL Platelet Normal 217 LAB MPV 7.4-10.4 fL MPV Normal 9.6 LAB GRAN% 40.0-80.0 % Granulocytes Normal 66.2 LAB LYMP% 20.0-40.0 % Lymphocytes Normal 21.9 LAB MONO% 2.0-10.0 % Monocytes Normal 9.6 LAB EOS% 1.0-6.0 % Eosinophils Normal 1.2 LAB BAS% 0.0-2.0 % Basophils Normal 1.1 LAB ANC 1.8-7.0 10*3/uL Abs Normal Neutrophile Cnt 3.4 LAB ALC 1.0-4.3 10*3/uL Abs Lymph Cnt Normal 1.1 LAB AMC 0.0-0.8 10*3/uL Abs Monocyte Normal Cnt 0.5 LAB AEC 0.0-0.5 10*3/uL Abs Eosin Cnt Normal 0.1 LAB ABC 0.0-0.2 10*3/uL Abs Baso Cnt Normal 0.1 Performed By: #### HEMDF, BMP3, TROPN #### [facility] [address] [place] [address] BASIC METABOLIC PANEL Collected: 06/20/2018 Status: F Source: [facility] 5:30 PM SYSTEM REPOSITORY TYPE CODE TESTS RESULT OUT OF RANGE REFERENCE UNITS LAB NA3 137-145 mmol/L Sodium Normal 140 LAB K3 3.5-5.1 mmol/L Low Potassium 3.4 LAB CL3 98-107 mmol/L Chloride Normal 103 LAB CO23 22-30 mmol/L Carbon Normal Dioxide 28 LAB ANIN3 NA Anion Gap 8 LAB GLUC3 70-100 mg/dL Glucose Normal 96 LAB BUN3 7-20 mg/dL Urea Normal Nitrogen 15 LAB CRET3 0.52-1.25 mg/dL Normal Creatinine 0.80 LAB GF3BR >60 mL/min eGFR > 60.0 LAB GF3WR >60 mL/min eGFR OTHER > 60.0 Result Comment: Source- MDRD equation with creatinine calibration to IDMS(NKDEP) eGFR not recommended for drug dose adjustment LAB CA3 8.4-10.4 mg/dL Normal Calcium 9.9 Performed By: #### HEMDF, BMP3, TROPN #### [facility] [address] [place] [address] TROPONIN I Collected: 06/20/2018 Status: F Source: [facility] 5:30 PM SYSTEM REPOSITORY TYPE CODE TESTS RESULT OUT OF RANGE REFERENCE UNITS LAB TROP4 0.000-0.034 ng/mL Normal Troponin I < 0.012 Result Comment: 0.046 - 0.400 = Indeterminate > 0.400 = Consider Myocardial Injury Performed By: #### HEMDF, BMP3, TROPN #### [facility] [address] [place] [address] 12 LEAD ELECTROCARDIOGRAM Observed: 04/28/2018 Status: F Source: [facility] 8:43 AM [facility] [place] REPOSITORY [facility] Cardiovascular Services [address] [place] [address] 12 Lead EKG 04/21/18 1522 MR#: [id number] Acct: [id number] Name: JAYCE MCMILLAN Rep #: [id number] : 1940 77 From: John Downing MD Attending Dr: KAROLYN [facility] Status: REG CLI Ordering Dr: [facility] , Out o. Date: 04/21/18 Location: CR Sex: M C Admitted: Test Reason : PRE CARDIAC REHAB Blood Pressure : / mmHG Vent. Rate : 049 BPM Atrial Rate : 049 BPM P-R Int : 152 ms QRS Dur : 114 ms QT Int : 456 ms P-R-T Axes : 017 001 038 degrees QTc Int : 411 ms Marked sinus bradycardia Minimal voltage criteria for LVH, may be normal variant Abnormal ECG Confirmed by JOHN DOWNING MD ([id number]), movie editor SILVIA ZULETA ([id number]) on 04/23/2018 5:30:33 PM Referred By: OUT DOCTOR Confirmed By:JOHN DOWNING MD 04/23/18 2870 Date John Downing MD CC: OUT [facility] Signed CR - HISTORY AND Observed: 04/23/2018 Status: F Source: [facility]O PHYSICAL 8:22 AM [facility] REPOSITORY [facility] Cardiac Rehab [address] [place] [address] CR - History AND Physical MR#: [id number] Acct: [id number] Name: JAYCE MCMILLAN Rep #: [id number] : 1940 77 From: Oswald Osman RN PCP: OUT OF TOWN DOCTOR DOS: 04/11/18 CR - History AND Physical - General Arrival date:: 04/11/18 Arrival time:: 12:59 Date of Referral:: 04/11/18 Date of CR Evaluation:: 04/11/18 Referring Physician: Dr. Barraza Primary Diagnosis: Z95.5 - History of Present Cardiac Event Onset Date: Enter Onset Date of cardiac illnesses in Comment field below Current stable Angina Pectoris:: Yes Acute Myocardial Infarction within 12 months:: Yes Coronary Artery Bypass Graft:: No Heart valve replacement or repair:: No PTCA or coronary stenting:: Yes - 02/26/18 x 3 Heart or Heart-Lung Transplant:: No Heart Failure EF <35%:: No - 62% Type of Symptoms:: Heavy feeling in chest. Interventions with present event:: Nuclear stress test, PCI Were there any complications?: Some stomach issues post op. - Medications Home Medications: Ambulatory Orders Medication Instructions Recorded Aspirin [Aspirin EC] 81 mg PO DAILY 04/11/18 Atorvastatin Calcium [Lipitor] 40 mg PO QHS 04/11/18 B Complex with Vitamin C [Vitamin 1 each PO DAILY 04/11/18 - Allergies Allergies/Adverse Reactions: Allergies lovenox Allergy (Uncoded 04/11/18 14:27) Rash - Sleep Disorder Evaluation Hx of Sleep Apnea: Yes Do you snore loudly (louder than talking or can be heard through closed doors)?: Yes Do you often feel tired/ fatigued/ sleepy during daytime?: Yes Has anyone observed you stop breathing during sleep?: Yes History of Hypertension (for STOP score): No - Is already on bipap at night. STOP Results: Positive Advanced Directives - Advanced Directives Power of Director Of Broadcast: Yes Living Will: Yes Advance Directives Information Provided: No Advance Directives on File: Yes - Dr. Meli Amaya has copy DNR Order?:: No - MOLST See MOLST form: No Past Medical History - Past Medical Illness Medical History: Past Medical History (Last Updated 04/11/18 @ 13:21 by Oswald Osman RN) Chronic kidney disease (CKD) N18.9 Hyperlipidemia E78.5 Hypothyroidism E03.9 - Past Surgical History Surgical History: appendectomy, cataract, cholecystectomy, herniorrhaphy, total knee arthroplasty Social History - Smoking History Smoking Status: Never smoker Hx Tobacco Use: No Hx Smoking Exposure: No - Alcohol Use Alcohol Usage: No - Substance Abuse Hx Substance Use: No - Occupation Occupation (List type of work in comments):: Retired - Hobbies, Recreation, Social Activities Hobbies: Exercise, Other - fishing, gardening, [employer] Recreational Activities: I am able to engage in all my recreational activities Social Environment - Status Marital Status: - Current Living Arrangements Living Environment:: Spouse - Children How many children do you have?: 2 Do any of your children live nearby?: Yes - Safety Do you feel safe in your surroundings?: Yes - Assistance Do you need any assistance at home?: no Review of Systems - Review of Systems Hints: Right click = Denies (Slash). Left click = Reports ([place]) Review of Present Symptoms: Reports: Dizziness/Lightheadedness - One episode since the stent., Fatigue - some, Appetite - Special Diet - cardiac. Denies: Shortness of Breath at Rest, Shortness of Breath with Exertion, PVD, Operative Discomfort, Angina, Wound Healing, Heart Arrhythmia/Irregularities, Appetite - Normal, Sleep - Normal, Sexual Changes - Pain Is Patient Pain Free?: No Pain Location: upper extremity - right shoulder arthritis, lower extremity - knees with arthritis Pain Level: 8/10 Previous experience dealing with pain?: deals with it, doesn't take pain meds. Risk Factor Assessment - Chief Complaint Chief Complaint: Exercise while being monitored. - Pulse Pulse Rate: 49 Pulse Rhythm: Regular - Hypertension Blood Pressure Sitting - Right Arm: 114/56 Blood Pressure Sitting - Left Arm: 118/56 - Blood Cholesterol/Lipids Total Cholesterol (mg/dL) Goal = less than 200 mg/dL: 208 HDL Cholesterol (mg/dL) Goal = less than 40 mg/dL: 41 LDL Cholesterol (mg/dL) Goal = less than 70 mg/dL: 136 Triglycerides (mg/dL) Goal = less than 150 mg/dL: 157 - Diabetes Nutrition Referral for Diabetes: No - Obesity Height: 1.75 m Weight:: 94.347 kg Weight in Pounds: 208.0 lbs Weight Source: Standing Scale Body Mass Index (BMI): 30.7 Desired Body Weight: 162 Realistic Weight Goal (Loss of 1-2 lbs/week): 174 Nutritional Referral for Obesity: Yes - Physical Inactivity Physical Inactivity: Reg Exercise 30 min/day - works out at [employer] 3x/week and walks alot of days outdoors. - Risk Stratification Risk Guidelines: Lowest Risk: Risk Factor for Smoking, Risk Factor for Diabetes, Risk Factor for Hypertension, Risk Factor for Sedentary Lifestyle, Risk Factor for Depression, Highest Risk: Risk Factor for Dyslipidemia, Risk Factor for Obesity - For Smoking Smoking Risk Guidelines: Smoking Low Risk: None or quit greater than 6 months ago. Smoking Moderate Risk: Smoker or quit 6 months or less ago. Smoking High Risk: Smoker - For Dyslipidemia Dyslipidemia Risk Guidelines: Low Risk: Moderate Risk: High Risk: 15-25% fat 25.1-29% fat >/= 30% fat. <7% sat fat 7-9% sat fat >9% sat fat. <150 mg chol 150-299 mg chol >/= 300 mg chol. LDL <100 LDL 100-129 LDL >/= 130. Chol/HDL ratio <5.0 Chol/HDL ratio 5.0-6.0 Chol/HDL ratio >6.0. Triglycerides <100 Triglycerides 100-149 Triglycerides >/= 150 - For Diabetes Mellitus Diabetes Risk Guidelines: Diabetes Low Risk: HgA1c <6.5% and/or FBG <120. Diabetes Moderate Risk: HgA1c 6.6-7.9% and/or FBG 120- 180. Diabetes High Risk: HgA1c >/= 8% and/or FBG >180 - For Obesity/Overweight Obesity/Overweight Risk Guidelines: Obesity Low Risk: BMI <25.0. Obesity Moderate Risk: BMI 25-29.9. Obesity High Risk: BMI >/= 30.0 - For Hypertension Hypertension Risk Guidelines: Hypertension Low Risk: Systolic <120 and Diastolic <80. Hypertension Moderate Risk: Systolic 120-139 and Diastolic 80-89. Hypertension High Risk: Systolic >/= 140 and Diastolic >/= 90 - For Sedentary Lifestyle Sedentary Lifestyle Risk Guidelines: Sedentary Lifestyle Low Risk: >/= 1,500 kcal/week. Sedentary Lifestyle Moderate Risk: 700-1,499 kcal/week. Sedentary Lifestyle High Risk: < 700 kcal/week - For Depression Depression Risk Guidelines: Depression Low Risk: Not clinically depressed. Depression Moderate Risk: Mildly depressed. Depression High Risk: Clinically depressed Motivation - Motivation to Participate On a scale of 1 to 10, how prepared are you to commit to attending program?: 10 04/11/18 1443 <Electronically signed by Oswald Osman RN> Date Oswald Osman RN Outcome assessment reviewed. Exercise plan approved as documented. Treatment plan and goals support patient needs/abilities. Continue with current plan. I certify the patient demonstrates improvement and remains willing and capable of participation. the patient continues to benefit from cardiac rehab services/training. The patient may continue at current intensity, endurance and modality and progress per protocol. 04/23/18 08 <Electronically signed by John Downing MD> Cosigner Signature: Date John Downing MD CC: Signed DIAGNOSTIC CATHERIZATION Observed: 02/26/2018 Status: F Source: [facility] 10:30 AM SYSTEM REPOSITORY Patient Name: JAYCE MCMILLAN [facility] Protozoologist Exam Date/Time 02/26/2018 09:41:43 EDT Exam Diagnostic Catherization Ordering Physician NAEL BUTCHER SHANNON B Accession Number [id number] Report [facility] --- CARDIAC CATHETERIZATION Patient: Jayce Mcmillan Procedure Date: 02/26/2018 : 1940 Age: 77 Gender: M Patient Type: Outpatient Procedure physician: Osmin Magaña MD Fellow: Pierre Em Referring Physician: Carrie Amaya Shannon --- INDICATIONS: Angina refractory to medical management. Positive nuclear medicine stress test. --- Procedures performed: - Right coronary angiography. - Left coronary angiography. - Left heart catheterization. - Percutaneous intervention on the 85% de cassia stenosis in the distal right coronary. Balloon angioplasty. Stent placement. - Percutaneous intervention on the 90% de cassia stenosis in the proximal LAD. Stent placement. Stent placement. --- SUMMARY: 1. LVEDP 18 mmHg. 2. No LV gram performed to minimize contrast given. LVEF by nuclear test 54%. 3. Right dominant coronary circulation. 4. LAD: Proximal vessel lesion: There is a 90%de cassia stenosis. The lesion was stented (see 2nd lesion intervention). Following intervention, the lesion has a residual stenosis of 0%, an excellent angiographic appearance, and JACKY grade 3 flow (brisk flow). 5. 1st diagonal: Proximal vessel lesion: There is an 85%de cassia stenosis. Small caliber vessel. 6. Right coronary: Distal vessel lesion: There is an 85%de cassia stenosis. The lesion was stented (see 1st lesion intervention). Following intervention, the lesion has a residual stenosis of 0%, an excellent angiographic appearance, and JACKY grade 3 flow (brisk flow). IMPRESSIONS: 1. 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 2. Successful drug eluting stent of the distal right coronary artery. 3. Additional Successful stenting of the proximal left anterior descending artery RECOMMENDATIONS: 1. Patient management should include aggressive risk factor modification. 2. Patient management should include a cardiac rehabilitation program. 3. Add optimal medical therapy of the patient's disease. 4. Add beta blockers. 5. Add statin therapy. 6. Add aspirin, 81mgPOdaily. 7. Add ticagrelor (Brilinta), 90mgPObid, for 12 mon. 8. Medical management of small caliber D1. --- HISTORY: Risk factors: Dyslipidemia. Allergies: OTHER allergy. --- PROCEDURE IN DETAIL: Study status: Cardiac cath: elective. Consent: The risks, benefits, and alternatives to the procedure and sedation were explained to the patient and informed consent was obtained. Fluoroscopy time: Fluorosco py time: 17.1 min. Fluoroscopy dose: Fluoroscopy dose: 193.6 cGy. Locatio n: Catheterization laboratory. PROCEDURE: 1. Initial setup. The patient was brought to the laboratory. A baseline ECG was recorded. Intravenous access was obtained. Surface ECG leads, blood pressure measurements, and pulse oximetric signals were monitored. 2. Skin preparation. The planned puncture sites were prepped and draped in the usual sterile manner. 3. Local anesthesia. 1% Lidocaine was administered. 4. Right radial artery access. A 6Fr/10cm Glidesheath Slender sheath was advanced into the vessel. 5. Selective right coronary angiography. A 6Fr x 100cm JR4 catheter was advanced into the right coronary vessel ostium under fluoroscopic guidance. Contrast was injected. Images were obtained in multiple projections. 6. Selective left coronary angiography. A 6Fr x 100cm DxTerity JL 3.5 catheter was advanced into the left coronary vessel ostium under fluoroscopic guidance. Contrast was injected. Images were obtained in multiple projections. 7. Left heart catheterization. A catheter was advanced across the aortic valve to the left ventricle under fluoroscopic guidance. 8. Activated clotting time measurement. ACT was 306 sec. 9. Right radial artery hemostasis. The sheath was removed. Mechanical compression was applied. 1st lesion intervention: Percutaneous intervention on the 85% de cassia stenosis in the distal right coronary. 1. Guider placement. A 6Fr x 100cm Launcher HSII guiding catheter was placed. 2. Wire placement. A .014/190cm Hi-Torque Floppy II wire was placed. 3. Wire placement. A .014/190cm Hi-Torque Floppy II wire was placed. 4. Balloon angioplasty. A 2.5 mm (D) x 12 mm (L), Trek RX balloon was employed. The balloon was placed across the lesion and given two inflations with a maximum inflation pressure of 16 sherri. 5. Stent placement. A 3.25 mm (D) x 15 mm (L), Xience Alpine RX (drug eluting) stent was advanced across the lesion and deployed with two inflations and a maximum pressure of 16 sherri. 2nd lesion intervention: Percutaneous intervention on the 90% de cassia stenosis in the proximal LAD. 1. Guider placement. A 6Fr x 100cm Launcher EBU3.75 guiding catheter was placed. 2. Wire placement. A .014/190cm Hi-Torque Floppy II wire was placed. 3. Stent placement. A 3.25 mm (D) x 15 mm (L), Xience Alpine RX (drug eluting) stent was advanced across the lesion and deployed with a single inflation and a maximum pressure of 16 sherri. 4. Stent placement. A 3.25 mm (D) x 12 mm (L), Xience Alpine RX (drug eluting) stent was advanced across the lesion and deployed with a single inflation and a maximum pressure of 16 sherri. STUDY COMPLETION: All catheters inserted during the procedure were removed. The patient tolerated the procedure well and was discharged from the lab. There were no complications. Administered medications: Fentanyl, 25mcg, FENTANYL. Verapamil (Isoptin, Calan, Covera), 2.5mg, VERAPAMIL. NITROGLYCERIN (IA), 20 0mcg, NITROGLYCERIN (IA). BRILINTA (180 load), 180mg, BRILINTA (180 load). He alec, for a total dose [place] 77804lxygw, HEPARIN. Contrast: 1. ISOVUE 300MG/CC 221 ml (total dose). --- CORONARY ARTERIES: The coronary circulation is right dominant. The left main bifurcates normally into the LAD and circumflex. The left anterior descending g pete rise to 2 diagonals. The left circumflex gives rise to 2 obtuse marginals. LAD: Proximal vessel lesion: There is a 90%de cassia stenosis. This lesion is calcified and consistent with atherosclerotic disease. There is JACKY grade 3 fl ow (brisk flow) across the lesion. The lesion was stented (see 2nd lesion inter vention). Following intervention, the lesion has a residual stenosis of 0%, an excellent angiographic appearance, and JACKY grade 3 flow (brisk flow). 1st diagonal: Very small. Proximal vessel lesion: There is an 85%de cassia stenosis. This lesion is calcified and consistent with atherosclerotic disease. 2nd diagonal: Normal. Left circumflex: Minor luminal irregularities. 1st obtuse marginal: Normal. 2nd obtuse marginal: Normal. Right coronary: Patent. Distal vessel lesion: There is an 85%de cassia stenosis. This lesion is consistent with atherosclerotic disease. There is JACKY grade 3 flow (brisk flow) across the lesion. The lesion was stented (see 1st l esion intervention). Following intervention, the lesion has a residual stenosis of 0%, an excellent angiographic appearance, and JACKY grade 3 flow (brisk flow ). LEFT VENTRICLE: A recent ejection fraction by radionuclide study is available. AORTIC VALVE: There is no stenosis. HEMODYNAMICS: + + + !Stage description !Condition1:Room Air -! + + + !LV pressure s/ed !140/18 ! + + + !Arterial pressure s/d (m)!140/58 (88) ! + + + Prepared and electronically signed by Osmin Magaña MD 02/26/2018 13:28 Final Dictated: 02/26/2018 1:28 pm Dictating Physician: MD MAGAÑA KEVIN H Signed Date and Time: 02/26/2018 1:28 pm Signed by: MD MAGAÑA KEVIN H HEMOGRAM Collected: 02/24/2018 Status: F Source: [facility] 3:34 PM SYSTEM REPOSITORY TYPE CODE TESTS RESULT OUT OF REFERENCE UNITS RANGE LAB IWBC 3.6-10.7 10*3/uL WBC 5.4 LAB RBC 4.40-5.90 10*6/uL RBC 4.59 LAB HGB 13.0-18.0 g/dL Hemoglobin 14.0 LAB HCT 40.0-52.0 % Hematocrit 41.8 LAB MCV 80.0-98.0 fL MCV 91.0 LAB MCH 26.0-34.0 pg MCH 30.5 LAB MCHC 32.0-36.0 % MCHC 33.5 LAB RDW 11.5-14.5 % RDW 14.5 LAB PLT 140-440 10*3/uL Platelet 224 LAB MPV 7.4-10.4 fL MPV 9.0 Performed By: #### HEMURSULA SCHROEDER3 #### The performing lab is in the report. BASIC METABOLIC PANEL Collected: 02/24/2018 Status: F Source: [facility] 3:34 PM SYSTEM REPOSITORY TYPE CODE TESTS RESULT OUT OF REFERENCE UNITS RANGE LAB NA3 137-145 mmol/L Sodium 143 LAB K3 3.5-5.1 mmol/L Potassium 3.8 LAB CL3 98-107 mmol/L Chloride 103 LAB CO23 22-30 mmol/L Carbon Dioxide 30 LAB ANIN3 Anion Gap 10 LAB GLUC3 70-100 mg/dL Glucose 79 LAB BUN3 7-20 mg/dL Urea Nitrogen 15 LAB CRET3 0.52-1.25 mg/dL Creatinine 0.97 LAB GF3BR >60 mL/min eGFR >60.0 LAB GF3WR >60 mL/min eGFR OTHER >60.0 Result Comment: Source- MDRD equation with creatinine calibration to IDMS(NKDEP) eGFR not recommended for drug dose adjustment LAB CA3 8.4-10.2 mg/dL Calcium 10.0 Performed By: #### URSULA PEPPER3 #### The performing lab is in the report. PF FULL PFT STUDY Observed: 02/18/2018 Status: F Source: [facility] W/ PRE AND POST 8:34 AM SYSTEM REPOSITORY Patient Name: JAYCE MCMILLAN Pulmonary Function Exam Date/Time 02/17/2018 15:44:26 EDT Exam PF Full PFT Study w/ Pre and Post Ordering Physician MD GREGG, [facility] Accession Number [id number] Report Forced expiratory spirograms are of limited qulity. Spirograms are good quality and plateau normally. The respiratory flow volume loop is normal. FEV1 is 3.09L, FVC 3.84L. FEV1/FVC is 81% Objective evidence of bronchodilator response is not noted. Impression: Normal spirometry with negative bronchodilator response However patient had some difficulty with testing. If suspicion for obstructive lung disease, repeat testing recommended Report Dictated on Final Dictating Physician: MD PALOMO SHANTI Signed Date and Time: 02/18/2018 8:36 am Signed by: MD PALOMO SHANTI Transcribed Date and Time: 02/18/2018 8:38 NM RAD SIGNATURE Observed: 02/17/2018 Status: F Source: [facility] 9:57 AM SYSTEM REPOSITORY Patient Name: JAYCE MCMILLAN Nuc Med Exam Date/Time 02/17/2018 09:57:29 EDT Exam NM Rad Signature Ordering Physician SIGNATURE, RAD NM Accession Number [id number] Reason For Exam Rad signature Report --- Indications: Shortness breath (R06.02). --- Summary: 1. There is a mild reversible perfusion defect of the rqd-nt-ixvjex anterior wall and distal lateral wall, suspicious for induced ischemia following pharmacologic stress. 2. Left ventricular ejection fraction and wall motion appears normal on gated SPECT images. Radiologist Confirmation: The SPECT perfusion imaging portion of the study was interpreted and reported by Jayashree Haro MD on 02/17/2018 12:16 PM. --- History: Short of breath Medications: Fenofibrate (Tricor). Niacin (Niaspan). Allergies: Enoxaparin allergy. Dyslipidemia. Patient is NPO per policy. No caffeine per policy. --- Study data: Bra or chest circumference is 46 in. The patient's lungs are clear to auscultation. Pre pain assessment is 0 out of 10. Post pain assessment is 0 out of 10. Patient status: Outpatient. Gated SPECT; rest/stress. One-day Sestamibi. Consent: The procedure was reviewed with the patient and the patient voices understanding. Study completion: The patient tolerated the procedure well and was discharged from the lab. There were no complications. Administered medications: Regadenoson. Discharge: Discharge instruction given. --- Procedure data: Initial setup. The patient was brought to the laboratory. A baseline ECG was recorded. Surface ECG leads and blood pressure measurements were monitored. IV access obtained # 24 ac LAC. 1 attempts for IV access. IV access per nain HORNER. IV patent, site benign. IV discontinued, site benign. Regadenoson stress test. Stress testing was performed, with regadenoson by intravenous bolus at one minute into the protocol, for a total dose of 0.4mgover 10.00 sec, followed by a 5 ml saline flush. Exercise for 4 minutes completed by treadmill at 1mph 0% grade. The infusion was terminated due to end of protocol. --- Baseline ECG: Normal sinus rhythm. Stress protocol: + +---+ +--------+ + !Stage !HR !BP (mmHg) !Symptoms!Comments ! + +---+ +--------+ + !Rest !59 !142/80 (101)!None !PO 98% RA.! + +---+ +--------+ + !Peak stress !107!158/78 (105)!None ! ! + +---+ +--------+ + !Recovery !85 !156/82 (107)!None ! ! + +---+ +--------+ + !Late recovery!76 !148/80 (103)!None ! ! + +---+ +--------+ + Stress results: Peak heart rate during stress was 107 bpm. (75% of maximal predicted heart rate). The maximal predicted heart rate was 142 bpm.The heart rate response to stress is normal. There is a normal resting blood pressure with an appropriate response to stress. The rate-pressure product for the peak heart rate and blood pressure was 16836 mm Hg/min. The patient experienced no chest pain during stress. Stress ECG: No stress induced ECG changes suggestive of ischemia. Isotope administration: + + + + !Stage !Rest !Stress ! + + + + !Agent !Tc[99m]-sestamibi!Tc[99m]-sestamibi! + + + + !Dose !8.6 mCi !32.6 mCi ! + + + + !Injection time!08:10 AM !10:30 AM ! + + + + !Route !IV !IV ! + + + + !Injected by !Dez ELDRIDGE !Dez ELDRIDGE ! + + + + Image properties: Imaging information: The study was gated. The image quality was good. Myocardial perfusion imaging: The TID ratio is 1.08. There is a small to moderate, mild, reversible defect involving the mid and apical anterior and apical lateral wall(s), consistent with ischemia. Gated SPECT: The left ventricular end-diastolic volume is 153 ml. The left ventricular end-systolic volume is 71 ml. The calculated left ventricular ejection fraction during stress is54 %. Left ventricular function appears visually normal. Final Signed Date and Time: 06/23/2018 7:44 am Signed by: JAYASHREE HARO Transcribed Date and Time: 06/13/2018 11:23 Transcribed By:DAKOTA NM MYOCARDIAL PERF Observed: 02/17/2018 Status: F Source: [facility] IMAGING MULTI SPECT 8:35 AM SYSTEM REPOSITORY Patient Name: JAYCE MCMILLAN Nuc Med Exam Date/Time 02/17/2018 11:19:04 EDT Exam NM Myocardial Perf Imaging Multi Spect Ordering Physician MD ESCOBEDO HITESH Accession Number [id number] CPT4 Codes 79186 () Reason For Exam sob Report Nuclear Stress Myocardial Perfusion Study Regadenoson Protocol Gated SPECT Patient: Jayce Mcmillan Height: (70 in) Weight: (216 lb) : 1940 Age: 77 Gender: M Study Date: 02/17/2018 Accession#: Patient Room #: *ORDERING PHYSICIAN: * Deni Escobedo *SUPERVISING PHYSICIAN: * Yvette, NehemiasRN: * Joie Dawn MD *RADIOLOGIST: * Jayashree Haro MD *NUCLEAR TECH: * Mary Weiss *READING PHYSICIAN: * rAash Jasso MD --- Indications: Shortness breath (R06.02). --- Summary: 1. There is a mild reversible perfusion defect of the ywq-em-xupnak anterior wall and distal lateral wall, suspicious for induced ischemia following pharmacologic stress. 2. Left ventricular ejection fraction and wall motion appears normal on gated SPECT images. Radiologist Confirmation: The SPECT perfusion imaging portion of the study was interpreted and reported by Jayashree Haro MD on 02/17/2018 12:16 PM. --- History: Short of breath Medications: Fenofibrate (Tricor). Niacin (Niaspan). Allergies: Enoxaparin allergy. Dyslipidemia. Patient is NPO per policy. No caffeine per policy. --- Study data: Bra or chest circumference is 46 in. The patient's lungs are clear to auscultation. Pre pain assessment is 0 out of 10. Post pain assessment is 0 out of 10. Patient status: Outpatient. Gated SPECT; rest/stress. One-day Sestamibi. Consent: The procedure was reviewed with the patient and the patient voices understanding. Study completion: The patient tolerated the procedure well and was discharged from the lab. There were no complications. Administered medications: Regadenoson. Discharge: Discharge instruction given. --- Procedure data: Initial setup. The patient was brought to the laboratory. A baseline ECG was recorded. Surface ECG leads and blood pressure measurements were monitored. IV access obtained # 24 ac LAC. 1 attempts for IV access. IV access per nain HORNER. IV patent, site benign. IV discontinued, site benign. Regadenoson stress test. Stress testing was performed, with regadenoson by intravenous bolus at one minute into the protocol, for a total dose of 0.4mgover 10.00 sec, followed by a 5 ml saline flush. Exercise for 4 minutes completed by treadmill at 1mph 0% grade. The infusion was terminated due to end of protocol. --- Baseline ECG: Normal sinus rhythm. Stress protocol: + +---+ +--------+ + !Stage !HR !BP (mmHg) !Symptoms!Comments ! + +---+ +--------+ + !Rest !59 !142/80 (101)!None !PO 98% RA.! + +---+ +--------+ + !Peak stress !107!158/78 (105)!None ! ! + +---+ +--------+ + !Recovery !85 !156/82 (107)!None ! ! + +---+ +--------+ + !Late recovery!76 !148/80 (103)!None ! ! + +---+ +--------+ + Stress results: Peak heart rate during stress was 107 bpm. (75% of maximal predicted heart rate). The maximal predicted heart rate was 142 bpm.The heart rate response to stress is normal. There is a normal resting blood pressure with an appropriate response to stress. The rate-pressure product for the peak heart rate and blood pressure was 25886 mm Hg/min. The patient experienced no chest pain during stress. Stress ECG: No stress induced ECG changes suggestive of ischemia. Isotope administration: + + + + !Stage !Rest !Stress ! + + + + !Agent !Tc[99m]-sestamibi!Tc[99m]-sestamibi! + + + + !Dose !8.6 mCi !32.6 mCi ! + + + + !Injection time!08:10 AM !10:30 AM ! + + + + !Route !IV !IV ! + + + + !Injected by !Dez WEISS BROKERAGE CLERK !Dez WEISS BROKERAGE CLERK ! + + + + Image properties: Imaging information: The study was gated. The image quality was good. Myocardial perfusion imaging: The TID ratio is 1.08. There is a small to moderate, mild, reversible defect involving the mid and apical anterior and apical lateral wall(s), consistent with ischemia. Gated SPECT: The left ventricular end-diastolic volume is 153 ml. The left ventricular end-systolic volume is 71 ml. The calculated left ventricular ejection fraction during stress is54 %. Left ventricular function appears visually normal. Electronically signed by Arash Jasso MD 02/17/2018 14:01 Final Dictated: 02/17/2018 2:02 pm Dictating Physician: ARASH JASSO Signed Date and Time: 02/17/2018 2:01 pm Signed by: ARASH JASSO PROGRESS Observed: 01/27/2018 Status: COMPLETED Source: [place] 11:47 AM [facility] REPOSITORY O ID: [id number] Author: Osmin Colorado Service: (none) Author Type: Physician Type: Progress Notes Filed: 01/27/2018 12:21 PM Note Text: Patient presents with: Facial Swelling: left side of face behind ear x yesterday HPI: Swelling: Duration: Since yesterday, not as bad today. Has occurred at least 1 or 2 other times in the past. Location: In front and below the left ear Character: Tender to touch, feels pressure at rest Treatment: none Pain relievers: None. Associated: Pertinent negatives: Denies fever, chills, sore throat, tooth pain, current illness He had mumps as a child. 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 TAMSULOSIN HCL (TAMSULOSIN ORAL) Take by mouth once daily. FERROUS SULFATE, DRIED (IRON, DRIED, ORAL) Take by mouth once daily. fenofibrate nanocrystallized(TRICOR 48 MG TAB) Take one(1) tablet daily. levothyroxine sodium(SYNTHROID 75 MCG TAB) Take one(1) tablet daily. vitamin b complex(B COMPLEX-VITAMIN B12 TAB) niacin(NIASPAN 1,000 MG TAB) ALLERGIES: ALLERGIES Allergen Reactions - Lovenox [Enoxaparin* Other: See Comments Rash and swelling VITALS: BP 118/64 Pulse 74 Temp 37.2 ?C (98.9 ?F) (Tympanic) Resp 16 Wt 97.5 kg (215 lb) BMI 30.85 kg/m2 PHYSICAL EXAM: GEN: pleasant, no acute distress, alert, accompanied by his . HEENT: PERRL, EOMI, MMM, TMs and canals clear. Tender swelling at and below the angle of the left mandible. NECK: supple, no lymphadenopathy, no thyromegaly HEART: regular rate, regular rhythm, no murmurs LUNGS: clear to auscultation, no wheezes or crackles, no increased WOB ASSESSMENT/PLAN: 1. Parotitis, acute - ICD9: 527.2, ICD10: K11.21 Infection vs duct stone. Expectant management since he has improving swelling. - CEPHALEXIN 500 MG CAPSULE printed to fill if symptoms persist. F/u with ENT if persists (Russell patient). Osmin Colorado MD CNOV Observed: 01/27/2018 Status: COMPLETED Source: [place] 11:30 AM [facility] REPOSITORY Office Visit (WSTR) JAYCE MCMILLAN ([id number]) 1940 M Date Time Provider Department 01/27/18 11:30 AM OSMIN COLORADO [facility] During your visit today, we recorded the following information about you: Temperature Pulse Respiration Blood pressure 98.9 degrees 74/minute 16/minute 118/64 Weight 97.5 kg Osmin Colorado MD 01/27/2018 12:21 PM Signed Patient presents with: Facial Swelling: left side of face behind ear x yesterday HPI: Swelling: Duration: Since yesterday, not as bad today. Has occurred at least 1 or 2 other times in the past. Location: In front and below the left ear Character: Tender to touch, feels pressure at rest Treatment: none Pain relievers: None. Associated: Pertinent negatives: Denies fever, chills, sore throat, tooth pain, current illness He had mumps as a child. 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 TAMSULOSIN HCL (TAMSULOSIN ORAL) Take by mouth once daily. FERROUS SULFATE, DRIED (IRON, DRIED, ORAL) Take by mouth once daily. fenofibrate nanocrystallized(TRICOR 48 MG TAB) Take one(1) tablet daily. levothyroxine sodium(SYNTHROID 75 MCG TAB) Take one(1) tablet daily. vitamin b complex(B COMPLEX-VITAMIN B12 TAB) niacin(NIASPAN 1,000 MG TAB) ALLERGIES: ALLERGIES Allergen Reactions - Lovenox [Enoxaparin* Other: See Comments Rash and swelling VITALS: BP 118/64 Pulse 74 Temp 37.2 ?C (98.9 ?F) (Tympanic) Resp 16 Wt 97.5 kg (215 lb) BMI 30.85 kg/m2 PHYSICAL EXAM: GEN: pleasant, no acute distress, alert, accompanied by his . HEENT: PERRL, EOMI, MMM, TMs and canals clear. Tender swelling at and below the angle of the left mandible. NECK: supple, no lymphadenopathy, no thyromegaly HEART: regular rate, regular rhythm, no murmurs LUNGS: clear to auscultation, no wheezes or crackles, no increased WOB ASSESSMENT/PLAN: 1. Parotitis, acute - ICD9: 527.2, ICD10: K11.21 Infection vs duct stone. Expectant management since he has improving swelling. - CEPHALEXIN 500 MG CAPSULE printed to fill if symptoms persist. F/u with ENT if persists ([facility] patient). Osmin Colorado MD Referring Provider: SELF [200] Allergies As of Date: 01/27/2018 Noted Allergy Reaction LOVENOX (ENOXAPARIN SODIUM) 02/07/2012 14 - Other: See Comments Comments: Rash and swelling Date Reviewed: 01/27/2018 Reviewed by: Kim Call Ma - Fully Assessed Reason for Visit: Facial Swelling [1292] Cmt: left side of face behind ear x yesterday Primary Visit Diagnosis:Parotitis, acute [K11.21] Order(s):cephALEXin (KEFLEX) 500 mg capsuleTake 1 capsule by mouth three times daily for 7 days.Disp: 21 capsuleRfl: 0 Prescriptions as of 01/27/2018 Sig: PANTOPRAZOLE ORAL Take by mouth once daily. TAMSULOSIN ORAL Take by mouth once daily. * IRON (DRIED) ORAL Take by mouth once daily. * TRICOR 48 MG TABLET Take one(1) tablet daily. * SYNTHROID 75 MCG TABLET Take one(1) tablet daily. * B COMPLEX-VITAMIN B12 TABLET * NIASPAN 1,000 MG TABLET,EXTEN* CEPHALEXIN 500 MG CAPSULE Take 1 capsule by mouth three* Problem List As Of Date 01/27/2018 Noted Resolved Primary Localized Osteoarthrosis, Lower Leg [M1*INVALID FOR* Knee pain [M25.569] INVALID FOR* S/P total knee replacement using cement [Z96.65*INVALID FOR* Enlarged prostate [N40.0] INVALID FOR* BPH (benign prostatic hyperplasia) [N40.0] INVALID FOR* Lower urinary tract symptoms (LUTS) [R39.9] INVALID FOR* Prescriptions ordered this encounter Disp Refills Start End CEPHALEXIN 500 MG CAPSULE 21 c* 0 01/27/2018 02/03/2018 Class: Print RX Route: ORAL Sig: Take 1 capsule by mouth three times daily for 7 days. Medications Discontinued During This Encounter amoxicillin 500 mg ORAL capsule 4 ca* 3 02/21/2012 01/27/2018 Route: ORAL Sig: Take 4 capsules by mouth. One hour prior to dental appointment. Disc: Reason for discontinue is not on file. Encounter Status:Closed by OSMIN COLORADO MD on 01/27/18 ALLERGIES ALLERGIES DATE TYPE / CODE NAME / CODE REACTION SEVERITY SOURCE 11/12/2018 Miscellaneous lovenox Rash Unknown [place] Allergy/[id number]([facility]) Hospital Repository 02/07/2012 DRUG ENOXAPARIN OTHER: SEE C [place] INGREDI/[id number]([facility]) [place] Repository ENCOUNTERS ENCOUNTERS ADMIT/DISCHARGE ACCOUNT NUMBER ADMITTING ENCOUNTER LOCATION SOURCE CLASS 12/05/2018 [id number] Ambulatory [facility] ding:OT Repository 11/25/2018 [id number] Ambulatory BMSBuilding: Ankit BMS.CF.[facility] Repository 11/25/2018 [id number] Ambulatory [facility] ding:CVS Repository 11/17/2018/11/17/19 [id number] Ambulatory BMSBuilding: Ankit 19 BMS.[facility] Repository 11/12/2018/11/14/19 [id number] Agy[place], Inpatient [place] Ankit Rubio Arash [facility] ding:PCURoom Repository : CLY377Xrj: 1 11/12/2018 [id number] Agyepong, Ambulatory BMSBuilding: [place] Arash BMS.[facility] Repository 11/12/2018 [id number] Agyepong, Ambulatory BMSBuilding: [place] Arash BMS.[facility] Repository 11/12/2018 [id number] Agyepong, Ambulatory BMSBuilding: Ankit Antoine BMS.[facility] Repository 09/06/2018 [id number] [facility] E[facility]oom[facility] 2A System 444Bed: Repository [id number] 08/23/2018/08/25/20 [id number] Ambulatory [address] Repository 08/21/2018 [id number] Ambulatory [facility] ding:CR Repository 08/04/2018 [id number] Ambulatory [facility] Repository 07/23/2018/08/10/20 [id number] Ambulatory [address] ding:CR Repository 07/11/2018/07/11/20 [id number] Ambulatory [address] ding:CR Repository 06/21/2018 [id number] Ambulatory [facility] ding:NS Repository 06/20/2018 [id number] [facility] EDRoom: 2A System 444Bed: Repository [id number] 06/09/2018/06/10/20 [id number] Ambulatory [address] ding:CR Repository 05/21/2018/06/10/20 [id number] Ambulatory [address] ding:NS Repository 05/09/2018/05/10/20 [id number] Ambulatory [address] ding:CR Repository 04/21/2018 [id number] [facility] 04/11/2018 [id number] Ambulatory [facility] ding:CR Repository 02/26/2018 [id number] [facility] CATHRoom: System [id number]: Repository [id number] 02/24/2018 [id number] Ambulatory [facility] Repository 02/17/2018 [id number] Ambulatory [facility] Repository 01/27/2018/01/29/20 [id number] Ambulatory [address] Repository PAYERS PAYERS ENCOUNTER GUARANTOR PAYER SUBSCRIBER SOURCE 12/05/2018 JAYCE R Primary JAYCE R [place] [id number] Insurance:MEDICARE FIELDSDOB: Community [place] PART A [facility] [id number] Number: Repository [address]Wkv: 330 [id number] [phone] () Date:2004-11-11 12/05/2018 Secondary JAYCE R [place] Insurance:AULTCAREPol FIELDSDOB: [facility] icy Number: [id number] Hospital [id number] Repository Date:4421-05-68[address], [place] [address]OT: 12/05/2018 Tertiary CANDY A [place] Insurance:CIGNAPolicy FIELDSDOB: [facility] Number: [id number] Hospital [id number] Repository Date:5842-40-10TS [address]ROT[place], [place] [address]SL: 12/05/2018 Tertiary NOT GIVENUNK An[place] Insurance:SELF PAY [facility] Number: Effective Repository Date:2018-11-19 11/25/2018 JAYCE R Primary JAYCE R [place] [id number] Insurance:MEDICARE FIELDSDOB: [facility] PART A [facility] [id number] Number: Repository [address]Eky: 330 [id number] [phone] () Date:2018-11-17 11/25/2018 Secondary JAYCE R [place] Insurance:AULTCAREPol FIELDSDOB: Community icy Number: [id number] Hospital [id number] Repository Date:8182-56-74WV [address] [place] [phone]: 11/25/2018 Tertiary CANDY A [place] Insurance:CIGNAPolicy FIELDSDOB: [facility] Number: [id number] Hospital [id number] Repository Date:1931-37-30[address]FNCBILNZJ, [place] [address]VG: 11/25/2018 Tertiary NOT GIVENUNK [place] Insurance:SELF PAY [facility] Number: Effective Repository Date:2018-11-25 11/25/2018 JAYCE R Primary JAYCE R [place] [id number] Insurance:MEDICARE FIELDSDOB: Community [place] PART A [facility] [id number] Number: Repository [address]Rah: 330 [id number] [phone] () Date:2018-11-17 11/25/2018 Secondary JAYCE R [place] Insurance:AULTCAREPol FIELDSDOB: Community icy Number: [id number] Hospital [id number] Repository Date:0035-08-94NR [address] [place] [address]SE: 11/25/2018 Tertiary CANDY A [place] Insurance:CIGNAPolicy FIELDSDOB: Community Number: [id number] Hospital [id number] Repository Date:7068-34-41QG [address]IKSJAQMNMQU, [place] [address]OT: 11/25/2018 Tertiary NOT GIVENUNK [place] Insurance:SELF PAY [facility] Number: Effective Repository Date:2018-11-17 11/17/2018 JAYCE R Primary JAYCE R [place] [id number] Insurance:MEDICARE FIELDSDOB: Community [place] PART A [facility] [id number] Number: Repository [address]Uak: 330 [id number] [phone] () e Date:2018 11/17/2018 Secondary JAYCE R [place] Insurance:AULTCAREPol FIELDSDOB: Community icy Number: [id number] Hospital [id number] Repository Date:2352-88-25QP [address] [place] [phone]: 11/17/2018 Tertiary CANDY A [place] Insurance:CIGNAPolicy FIELDSDOB: Community Number: [id number] Hospital [id number] Repository Date:4059-28-28MO [address]BCEUFXGDTMB, [place] [address]OV: 11/17/2018 Tertiary NOT GIVENUNK [place] Insurance:SELF PAY [facility] Number: Effective Repository Date:2018-11-17 11/12/2018 JAYCE R Primary JAYCE R Ankit [id number] Insurance:MEDICARE FIELDSDOB: Community [place] PART A olic [id number] Number: Repository [address]Tph: 330 [id number] [phone] () Date:2018-11-12 11/12/2018 Secondary JAYCE R [place] Insurance:AULTCAREPol FIELDSDOB: Community icy Number: [id number] Hospital [id number] Repository Date:9861-70-49VG [address] [place] [address]OI: 11/12/2018 Tertiary CANDY A [place] Insurance:CIGNAPolicy FIELDSDOB: Community Number: [id number] Hospital [id number] Repository Date:1652-88-21KC [address]MUNYWLHPGLV, [place] [address]KE: 11/12/2018 Tertiary NOT GIVENUNK [place] Insurance:SELF PAY [facility] Number: Effective Repository Date:2018-11-12 11/12/2018 JAYCE R Primary JAYCE R Ankit [id number] Insurance:MEDICARE FIELDSDOB: Community [place] PART A [facility] [id number] Number: Repository [address]Usp: 330 [id number] [phone] () Date:2018-11-12 11/12/2018 Secondary JAYCE R [place] Insurance:AULTCAREPol FIELDSDOB: Community icy Number: [id number] Hospital [id number] Repository Date:3595-75-47MN [address] [place] [phone]: 11/12/2018 Tertiary CANDY A [place] Insurance:CIGNAPolicy FIELDSDOB: Community Number: [id number] Hospital [id number] Repository Date:0490-22-84CT [address]TMRJYGOAZZH, [place] [address]HK: 11/12/2018 Tertiary NOT GIVENUNK [place] Insurance:SELF PAY [facility] Number: Effective Repository Date:2018-11-12 11/12/2018 JAYCE R Primary JAYCE R [place] [id number] Insurance:MEDICARE FIELDSDOB: Community [place] PART A olic [id number] Number: Repository [address]Bqo: 330 [id number] [phone] () Date:2018-11-12 11/12/2018 Secondary JAYCE R [place] Insurance:AULTCAREPol FIELDSDOB: Community icy Number: [id number] Hospital [id number] Repository Date:1493-38-91ZM [address] [place] [phone]: 11/12/2018 Tertiary CANDY A [place] Insurance:CIGNAPolicy FIELDSDOB: Community Number: [id number] Hospital [id number] Repository Date:2993-87-27HC [address]CCQZENOCNPD, [place] [address]VR: 11/12/2018 Tertiary NOT GIVENUNK [place] Insurance:SELF PAY [facility] Number: Effective Repository Date:2018-11-12 11/12/2018 JAYCE R Primary JAYCE R [place] [id number] Insurance:MEDICARE FIELDSDOB: Community [place] PART A [facility] [id number], [place] Number: Repository [address]Fvf: 330 [id number] [phone] () Date:2018-11-12 11/12/2018 Secondary JAYCE R [place] Insurance:AULTCAREPol FIELDSDOB: Community icy Number: [id number] Hospital [id number] Repository Date:1828-52-13ST [address] [place] [address]UN: 11/12/2018 Tertiary CANDY A [place] Insurance:CIGNAPolicy FIELDSDOB: Community Number: [id number] Hospital [id number] Repository Date:1387-27-53DG [address]WFMLHOXOQJH, [place] [address]FP: 11/12/2018 Tertiary NOT GIVENUNK [place] Insurance:SELF PAY [facility] Number: Effective Repository Date:2018-11-12 09/06/2018 Jayce R Primary Jayce R [facility] FieldsDOB: Insurance:MedicarePol FieldsDOB: System [id number] icy Number: Effective [id number] [facility] Date: [place], [place] [address]Cln: () 09/06/2018 Secondary Jayce R [facility] Insurance:MedicarePol FieldsDOB: System icy Number: Effective [id number] Repository Date: 09/06/2018 Tertiary Jayce R [facility] Insurance:AultCarePol FieldsDOB: System icy Number: Effective [id number] Repository Date: 09/06/2018 Tertiary Candy A [facility] Insurance:CignaPolicy FieldsDOB: System Number: Effective [id number] Repository Date: 08/21/2018 Jayce R Primary Jayce R [place] [id number] Insurance:MEDICARE FieldsDOB: Community [place] PART A [facility] [id number] Number: Repository [address]Gwu: [phone] [id number] [phone] () Date:2018-04-11 08/21/2018 Secondary Jayce R [place] Insurance:AULTCAREPol FieldsDOB: Community icy Number: [id number] Hospital [id number] Repository Date:4883-97-54RN [address], [place] [address]WI: 08/21/2018 Tertiary CANDY A [place] Insurance:CIGNAPolicy FIELDSDOB: Community Number: [id number] Hospital [id number] Repository Date:7731-74-08UN [address]QZFCKLWFNQLHACKENSACK, [place] [address]IK: 08/21/2018 Tertiary NOT GIVENUNK [place] Insurance:SELF PAY [facility] Number: Effective Repository Date:2018-08-11 08/04/2018 Jayce R Primary Jayce R [facility] FieldsDOB: Insurance:MedicarePol FieldsDOB: System [id number] icy Number: Effective [id number] Date: [place], [place] [address]Tto: () 08/04/2018 Secondary Jayce R [facility] Insurance:MedicarePol FieldsDOB: System icy Number: Effective [id number] Repository Date: 08/04/2018 Tertiary Jayce R [facility] Insurance:AultCarePol FieldsDOB: System icy Number: Effective [id number] Repository Date: 08/04/2018 Tertiary Candy A [facility] Insurance:CignaPolicy FieldsDOB: System Number: Effective [id number] Repository Date: 07/23/2018 Jayce R Primary Jayce R Ankit [id number] Insurance:MEDICARE FieldsDOB: [facility] [place] PART A [facility] [id number] Number: Repository [address]Ehs: [phone] [id number] [phone] (HP) Date:2018-04-11 07/23/2018 Secondary Jayce R [place] Insurance:AULTCAREPol FieldsDOB: Community icy Number: [id number] Hospital [id number] Repository Date:1310-37-72ZK [address] [place] [phone]: 07/23/2018 Tertiary CANDY A [place] Insurance:CIGNAPolicy FIELDSDOB: Community Number: [id number] Hospital [id number] Repository Date:9292-88-24UH [address]BMMZBTWCWYN, [place] [address]NQ: 07/23/2018 Tertiary NOT GIVENUNK [place] Insurance:SELF PAY [facility] Number: Effective Repository Date:2018-07-12 07/11/2018 Jayce R Primary Jayce R Ankit [id number] Insurance:MEDICARE FieldsDOB: Community [place] PART A [facility] [id number] Number[place] Repository [address]Wng: [phone] [id number] [phone] (HP) Date:2018-04-11 07/11/2018 Secondary Jayce R [place] Insurance:AULTCAREPol FieldsDOB: Community icy Number: [id number] Hospital [id number] Repository Date:5193-45-46EQ [address] [place] [address]QM: 07/11/2018 Tertiary CANDY A [place] Insurance:CIGNAPolicy FIELDSDOB: Community Number: [id number] Hospital [id number] Repository Date:1706-89-69VO [address]ZXOBEQPJXLF, [place] [address]LC: 07/11/2018 Tertiary NOT GIVENUNK [place] Insurance:SELF PAY [facility] Number: Effective Repository Date:2018-06-11 06/21/2018 Jayce R Primary Jayce R [place] [id number] Insurance:MEDICARE FieldsDOB: [facility] PART A [facility] [id number] Number: Repository [address]Tds: [phone] [id number] [phone] () Date:2018-05-21 06/21/2018 Secondary Jayce R [place] Insurance:AULTCAREPol FieldsDOB: Community icy Number: [id number] Hospital [id number] Repository Date:3217-92-17WM [address] [place] [address]VJ: 06/21/2018 Tertiary CANDY A [place] Insurance:CIGNAPolicy FIELDSDOB: Community Number: [id number] Hospital [id number] Repository Date:1868-32-75VN [address]NTNHLMEFLHJ, [place] [address]PQ: 06/21/2018 Tertiary NOT GIVENUNK [place] Insurance:SELF PAY [facility] Number: Effective Repository Date:2018-06-11 06/20/2018 Jayce R Primary Jayce R [facility] FieldsDOB: Insurance:MedicarePol FieldsDOB: System [id number] icy Number: Effective [id number] [facility] [place], [place] [address]Sqj: (HP) 06/20/2018 Secondary Jayce R [facility] Insurance:MedicarePol FieldsDOB: System icy Number: Effective [id number] Repository Date: 06/20/2018 Tertiary Jayce R [facility] Insurance:AultCarePol FieldsDOB: System icy Number: Effective [id number] Repository Date: 06/20/2018 Tertiary Candy A [facility] Insurance:CignaPolicy FieldsDOB: System Number: Effective [id number] Repository Date: 06/09/2018 Jayce R Primary Jayce R Ankit [id number] Insurance:MEDICARE FieldsDOB: Community [place] PART A [place] [id number] Number: Repository [address]Qfh: 330 [id number] [phone] (HP) Date:2018-04-11 06/09/2018 Secondary Jayce R [place] Insurance:AULTCAREPol FieldsDOB: Community icy Number: [id number] Hospital [id number] Repository Date:3026-67-94KD [facility] [address] [place] [phone]: 06/09/2018 Tertiary CANDY A [place] Insurance:CIGNAPolicy FIELDSDOB: Community Number: [id number] Hospital [id number] Repository Date:5624-53-16WT [address], [place] [address]WU: 06/09/2018 Tertiary NOT GIVENUNK [place] Insurance:SELF PAY [facility] Number: Effective Repository Date:2018-05-11 05/21/2018 Jayce R Primary Jayce R Ankit [id number] Insurance:MEDICARE FieldsDOB: Community [place] PART [id number] Number: Repository [id number]: [phone] [id number] [phone] (HP) Date:2018-05-21 05/21/2018 Secondary Jayce R Ankit Insurance:AULTCAREPol FieldsDOB: Community icy Number: [id number] [facility] [id number] Repository Date:8911-35-93JG [address] [place] [phone]: 05/21/2018 Tertiary CANDY A [place] Insurance:CIGNAPolicy FIELDSDOB: Community Number: [id number] Hospital [id number] Repository Date:6603-95-55XT [address], [place] [address]TZ: 05/21/2018 Tertiary NOT GIVENUNK [place]kit Insurance:SELF PAY [facility] Number: Effective Repository Date:2018-05-21 05/09/2018 Jayce R Primary Jayce R [place] [id number] Insurance:MEDICARE FieldsDOB: Community [place] PART A [id number] Number: Repository [id number]: 330 [id number] [phone] () Date:2018-04-11 05/09/2018 Secondary Jayce R [place] Insurance:AULTCAREPol FieldsDOB: Community icy Number: [id number] Hospital [id number] Repository Date:3057-24-30GC [address] [phone]: 05/09/2018 Tertiary CANDY A [place] Insurance:CIGNAPolicy FIELDSDOB: Community Number: [id number] Hospital [id number] Repository Date:5639-06-77FS [address], [place] [address]VD: 05/09/2018 Tertiary NOT GIVENUNK [place] Insurance:SELF PAY [facility] Number: Effective Repository Date:2018-04-11 04/21/2018 Jayce R Primary Jayce R Ankit [id number] Insurance:MEDICARE FieldsDOB: Community [place] PART A [place]lic [id number] Number: Repository [id number]: 330 [id number] [phone] () Date:2018-04-11 04/21/2018 Secondary Jayce R Ankit Insurance:AULTCAREPol FieldsDOB: Community icy Number: [id number] [facility] [id number] Repository Date:1020-21-26LZ [address] [place] [phone]: 04/21/2018 Tertiary CANDY A [place] Insurance:CIGNAPolicy FIELDSDOB: Community Number: [id number] [facility] [id number] Repository Date:5447-42-50AH [address]QG[place]QQ[place], [place] [address]YW: 04/21/2018 Tertiary NOT GIVENUNK [place] Insurance:SELF PAY [facility] Number: Effective Repository Date:2018-04-21 04/11/2018 Jayce R Primary Jayce R [place] [id number] Insurance:MEDICARE FieldsDOB: Community [place] PART A [facility] [id number] Number: Repository [id number]: [phone] [id number] [phone] () Date:2018-03-21 04/11/2018 Secondary Jayce R [place] Insurance:AULTCAREPol FieldsDOB: Community icy Number: [id number] Hospital [id number] Repository Date:8514-98-77JR [address] [place] [phone]: 04/11/2018 Tertiary CANDY A [place] Insurance:CIGNAPolicy FIELDSDOB: Community Number: [id number] Hospital [id number] Repository Date:4343-55-32KC [address]CBZ[place], [place] [address]XC: 04/11/2018 Tertiary NOT GIVENUNK [place] Insurance:SELF PAY [facility] Number: Effective Repository Date:2018-03-21 02/26/2018 Jayce R Primary Jayce R [facility] FieldsDOB: Insurance:MedicarePol FieldsDOB: System [id number] icy Number: Effective [id number] Repository [facility] Date: [place], [place] [address]Vir: () 02/26/2018 Secondary Jayce R [facility] Insurance:MedicarePol FieldsDOB: System icy Number: Effective [id number] Repository Date: 02/26/2018 Tertiary Jayce R [facility] Insurance:AultCarePol FieldsDOB: System icy Number: Effective [id number] Repository Date: 02/26/2018 Tertiary Candy A [facility] Insurance:CignaPolicy FieldsDOB: System Number: Effective [id number] Repository Date: 02/24/2018 Jayce R Primary Jayce R [facility] FieldsDOB: Insurance:MedicarePol FieldsDOB: System [id number] icy Number: Effective [id number] Repository [place] Date: [place], [place] [address]Cpe: (HP) 02/24/2018 Secondary Jayce R [facility] Insurance:MedicarePol FieldsDOB: System icy Number: Effective [id number] Repository Date: 02/24/2018 Tertiary Jayce R [facility] Insurance:AultCarePol FieldsDOB: System icy Number: Effective [id number] Repository Date: 02/24/2018 Tertiary Candy A [facility] Insurance:CignaPolicy FieldsDOB: System Number: Effective [id number] Repository Date: 02/17/2018 Jayce Primary Jayce [facility] FieldsDOB: Insurance:MedicarePol FieldsDOB: System [id number] icy Number: Effective [id number] Repository [place] Date: [place], [place] [address]Oxl: (BS) 02/17/2018 Secondary Jayce [facility] Insurance:MedicarePol FieldsDOB: System icy Number: Effective [id number] Repository Date: 02/17/2018 Tertiary Jayce [facility] Insurance:AultCarePol FieldsDOB: System icy Number: Effective [id number] Repository Date: 02/17/2018 Tertiary Candy A [facility] Insurance:CignaPolicy FieldsDOB: System Number: Effective [id number] Repository Date:
== END 2018-12-05 19:00 | disposition home or self-care (01) ==
LOC: OT 12:30
PROVIDERS: Referring Provider Nurse Practitioner Family; Visit Provider Nurse Practitioner Family
DX: I25.10 Atherosclerotic heart disease of native coronary artery without angina pectoris (principal); R53.81 Other malaise
CPT/HCPCS: 97110; 97161; 97166; 97530

== ENCOUNTER 2020-04-23 19:10 | Emergency (ER) | payer MEDICARE, OTHER, SELFPAY ==
[2018-11-17 14:45] VITALS: BMI 29.4
[2020-04-23 19:11] VITALS: BP 162/70; PULSE 57; RESP 18; TEMP 36.3; O2SAT 100
--- NOTE | 2020-04-23 19:32 | ED.VIS.GEN ---
History of Present Illness Chief Complaint: Laceration Informant: Patient, Family Onset: Today Current Severity: Mild Maximum Severity: Mild Narrative: Patient presents with a left dorsal hand laceration that occurred as he was reaching for something and he caught his skin against the edge of a nail, the nail did not puncture him, caused a skin tear he is on Plavix and aspirin daily for cardiac issues All of his health conditions are completely stable the states he she simply could not control the bleeding despite using liquid skin type [id number] therapy his tetanus is not up-to-date he denies any hand pain or loss of function Past Medical History - Allergies and Home Meds Allergies/Adverse Reactions: Allergies lovenox Allergy (Uncoded 04/23/20 19:13) Rash Primary Care Physician: Alena Hinojosa,Out of [Primary Care Provider] - Past Medical History: - - As all of the above CAD Surgical History: appendectomy, cataract, cholecystectomy, herniorrhaphy, total knee arthroplasty Smoking Status: Never smoker Review of Systems ROS: - As all of the above CAD on Plavix and aspirin General: Denies: Chills, Fever, Sweats Eyes: Denies: Visual changes - bilaterally, Diplopia ENT: Denies: Rhinorrhea, Sore throat Cardiovascular: Denies: Chest pain, Palpitations Respiratory: Denies: Dyspnea, Cough, Dyspnea on exertion Gastrointestinal: Denies: Abdominal pain, Nausea, Vomiting, Diarrhea, Melena, Hematochezia Genitourinary: Denies: Dysuria, Hematuria, Frequency Musculoskeletal: Denies: Back pain, Extremity Pain Skin: Reports: Wounds. Denies: Rash Neurological: Denies: Headache, Weakness, Numbness Physical Exam Vital Signs/Narrative: Vital Signs Temp Pulse Resp BP Pulse Ox 04/23/20 19:11 97.4 F L 57 L 18 162/70 H 100 General: Well nourished, Well developed, No Acute Distress Head: Normocephalic, Atraumatic Eyes: Perrl, EOMI ENT: Moist mucous membranes, No rhinorrhea Neck: Supple, Nontender Cardiovascular: Regular rate, Regular rhythm, No murmurs Respiratory: No distress, CTA bilaterally, Chest nontender Abdomen: Soft, Nontender, Nondistended, Normal bowel sounds Back: Nontender, Normal Inspection Extremities: Nontender, No edema Skin: Normal color, No rash, - - Is a very superficial 2 cm linear type laceration to the dorsal surface left hand it appears to have crusted skin veins he has onion peel type skin hand function is completely normal he has no pain wrist function is normal, the area was cleansed sterilely prepped and then closed with Steri-Strips with good results dressing applied had no further bleeding tetanus updated Neurological: Alert, Oriented x3, Cranial nerves II-XII grossly intact, Normal Strength, Normal Sensation Psychological: Normal affect, Normal Mood Diagnostic/Tx/Re-eval - Medical Decision Making Dressings applied tetanus updated observation no further bleeding he will be discharged home to follow wound care instructions return for change in symptoms patient does not wish to have an x-ray Home stable Final impression 2 cm left dorsal hand laceration repaired with Steri-Strips ED Disposition - Plan for ED Patient: Instructions: ED Laceration All Closures, ED Laceration Hand, ED Laceration Ext Sutr Stap Tape Referrals: [facility] Doctor,Out of [Primary Care Provider] -
[2020-04-23] MEDS: Diphth,Pertuss(Acell),Tet Vac 0.5 ML Vial IM (19:42)
== END 2020-04-23 19:59 | disposition home or self-care (01) ==
LOC: ED 19:55
PROVIDERS: Emergency Provider Emergency Medicine
DX: S61.412A Laceration without foreign body of left hand, initial encounter (principal); Z79.82 Long term (current) use of aspirin; Z79.02 Long term (current) use of antithrombotics/antiplatelets; I25.10 Atherosclerotic heart disease of native coronary artery without angina pectoris; Z23 Encounter for immunization; W45.0XXA Nail entering through skin, initial encounter; Y93.89 Activity, other specified; Y92.009 Unspecified place in unspecified non-institutional (private) residence as the place of occurrence of the external cause; Y99.8 Other external cause status
CPT/HCPCS: 90715; 99282

== ENCOUNTER 2021-09-06 10:30 | Outpatient (RCR) | payer MEDICARE, OTHER, SELFPAY ==
--- NOTE | 2021-08-14 16:55 | HP.PTEVAL ---
Patient's Visit Information DHIRAJ MURPHY is a 80 year old M referred to Physical Therapy by Dr. Bill Brown MD with a diagnosis of AGE RELATED PHYSICAL DEBILITY AND FALL IN THE HOME.. Date of Evaluation: 08/14/21 Physical Therapist: Yeni Rogers PT, Cert MDT - Visit Plan Frequency: 2-3x /Week Duration: 4-6 Weeks Plan: BALANCE TRAINING. WRITTEN HEP. CORE STRENGTHENING. SHELIA LE FUNCTIONAL ROM, STRETCHING AND STRENGTHENING AVOIDING BACK OR LE PAIN - ESPECIALLY KNEE PAIN. - Subjective THIS PATIENT PRESENTS TO PT TODAY WITH HIS AND HIS PROVIDED MOST OF THE SUBJECTIVE INFORMATION FOR HIM BECAUSE HE IS VERY HARD OF HEARING. PATIENTS ALSO REPORTS PATIENT IS HAVING AGE RELATED MEMORY PROBLEMS AND DIFFICULTY UNDERSTANDING DIRECTIONS AT TIMES BUT IT MIGHT ALSO BE DUE TO HEARING PROBLEMS. Work/Leisure: YES. Present symptoms: BALANCE PROBLEMS. Present since: STARTED HAVING PROBLEMS ABOUT 5 OR MORE YEARS AGO AFTER A KNEE REPLACEMENT THAT DIDN'T GO WELL AND THE OTHER KNEE IS BAD TOO. L TKR. Pain Scale: PAIN ALL OVER BODY. NEUROPATHY IN FEET. KNEE PAIN IS THE BIG PROBLEM. RATES PAIN 7/10 IN GENERAL TODAY. Commenced as a result of: ARTHRITIS. Previous history/Previous treatment: NO PHYSICAL THERAPY SINCE HIS L TKR. NO TREATMENT OF WEAKNESS OR BALANCE. Gait: WALKING 1-2 MILES WITH A WALKING STICK WITH ABOUT 3 DAYS A WEEK DEPENDING ON HOW MUCH PAIN HE IS HAVING. PATIENT AND HIS DENY ANY ACTUAL FALLS BUT STATES THAT WHEN HE WAS DOWN ON HIS KN[place] IN THE [place]ARD[place] HE WENT OVER AND ANOTHER TIME IN THE [place] HE SAT DOWN QUICKLY AND HIS WAS WITH HIM BOTH TIMES AND NO INJURIES ABOUT A WEEK AGO. Unexplained weight loss: NO. Imaging: NONE RECENT. PMH/Recent major surgery: HEART STENTS ABOUT 3 YEARS AGO FOLLOWED BY [facility]ARDI[facility] REHAB. L TKR. KIDNEY STONES. NEUROPATHY. VERY HARD OF HEARING. RECENTLY SAW [employer] AND DOESN'T HAVE TO GO BACK FOR A YEAR. 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 HAS NOT BEEN BACK. OTHER THAN WALKING HASN'T BEEN DOING MUCH EXERCISE. - Objective THIS PATIENT AMBULATES INDEP'LY INTO PT TODAY WITHOUT ANY ASSISTIVE DEVICES WITH HIS . SHE REPORTS HE IS VERY VERY HARD OF HEARING. SHE IS VERY HELPFUL THROUGHOUT THE SESSION WITH COMMUNICATING WITH PATIENT. HE FOLLOWS COMMANDS WELL SHE SHE TELLS HIM WHAT THIS THERAPIST SAYS. THEY ARE BOTH VERY PLEASANT AND COOPERATIVE TO WORK WITH. PATIENT WALKS WITH DECREASED CADANCE AND DECREASED SHELIA STRIDE LENGTH BUT NO LOSS OF BALANCE WALKING IN OR OUT. HE IS ABLE TO SLS ON EACH LE X ABOUT 3 SEC'S EACH WITHOUT UE ASSIST. TUG TIME IS 16.07 SECONDS. HE ESPECIALLY HAS C/O RIGHT KNEE PAIN. RIGHT KNEE ROM IN SUPINE = FULL EXTENSION TO 121 DEG FLEXION. HE HAS HAD HIS L KNEE REPLACED AND REPORTS THAT IT DOESN'T HURT BAD THE RIGHT ONE BUT UPON MEASURING HE IS ONLY ABLE TO FLEX IT TO 103 DEG FROM FULL EXTENSION. HIS SITTING POSTURE IS POOR. HIS CORE STENGTH IS POOR. HIS LE STRENGTH IS GOOD GRADED 5/5 WITH MMT'ING. HE HAS TIGHT SHELIA HIP FLEXORS, HS'S AND GASTROC SOLEUS COMPLEX'S. Sensory deficit: SHELIA LE LIGHT TOUCH SENSATION IS GROSSLY INTACT AND SYMMETRICAL. Dural Signs: NEGATIVE SHELIA LE'S. TREATMENT - PATIENTS REPORTS IT IS HELPFUL FOR PATIENT TO USE A WALKING STICK WHEN THEY GO FOR WALKS. THIS PT TRAINED PATIENT IN USE OF STRAIGHT CANE AND HIS CADANCE AND STRIDE LENGTH IMPROVED WITH USE OF THE CANE. HE WAS ABLE TO USE GOOD SEQUENCING AND REPORTED LIKING USING IT. PATIENTS REPORTS THEY HAVE SEVERAL CANES AT HOME. INSTRUCTED THEM IN HOW TO ADJUST CANE FOR PROPER FIT. - Balance/Special Test Scores Lower Extremity Functional Score: 37 - Goals Goal 1:: PATIENT WILL BE INDEP AND SAFE WITH GAIT ON LEVEL SURFACES AND UP AND DOWN STEPS WITH LEAST ASSISTIVE DEVICE Goal Time Frame: 4-6 Weeks Goal 2:: IMPROVE LEFS SCORE BY 3 POINTS. Goal Time Frame: 4-6 Weeks Goal 3:: INCREASE CORE STRENGTH TO EASE ADL'S Goal Time Frame: 4-6 Weeks Goal 4:: IMPROVE SHELIA LE FLEXABILITY TO EASE ADL'S Goal Time Frame: 4-6 Weeks Goal 5:: PATIENT WILL BE INDEP WITH A HEP AND/OR GYM EX PROGRAM FOR CONTINUED IMRPOVEMENT ONCE FORMAL PHYSICAL THERAPY CONCLUDES. Goal Time Frame: 4-6 Weeks - Anticipated Interventions Patient/Client Instruction: Educate patient on: Condition, Plan of Care, Risk Factors For the Purpose of:: To improve self management Therapeutic Exercise to Include: Strength training, Balance training, Flexibilty training, Gait and locomotor training, Neuromotor development, Dynamic Lumbar Stabilization For the Purpose of:: To decrease pain, To increase ROM, To improve muscle performance and motor function, To increase tolerance to activity/condition/position, To improve ability of physical actions for home/community/work/leisure, To improve gait and locomotor functions Functional Training to Include: Gait training For the Purpose of:: To improve balance, To improve safety with gait Thank you for the opportunity to evaluate your patient. For Medicare and Medicare HMO plans, please review the plan of care and approve it. It will need to be FAXED BACK to us at [phone] for Medicare purposes. For Medicare only, by signing this I certify the plan of care. Please let me know if there are questions or concerns regarding this plan of care. Physician Signature: Date:
--- NOTE | 2021-12-05 12:24 | HP.PTDCNRP_ITS ---
DHIRAJ MURPHY was seen in my office for initial evaluation on 08/14/21. The following Plan of Care was established for this patient: Initial Frequency: 2-3x /Week Initial Duration: 4-6 Weeks Patient/Client Instruction: Educate patient on: Condition, Plan of Care, Risk Factors For the Purpose of:: To improve self management Therapeutic Exercise to Include: Strength training, Balance training, Flexibilty training, Gait and locomotor training, Neuromotor development, Dynamic Lumbar Stabilization For the Purpose of:: To decrease pain, To increase ROM, To improve muscle performance and motor function, To increase tolerance to ac tivity/condition/position, To improve ability of physical actions for home/community/work/leisure, To improve gait and locomotor functions Functional Training to Include: Gait training For the Purpose of:: To improve balance, To improve safety with gait This patient was last seen in our office 09/06/21. Pertinent comments regarding their Physical therapy will appear below: This patient has not returned to Physical Therapy and is appropriate to return to MD for further follow-up as needed. At this point I will be discontinuing this patient from physical therapy. I would be happy to see this patient again in the future if found appropriate by the physician. Thank you! Yeni Rogers, PT, Cert MDT Balance/Gait/Functional tests - Balance/Special Test Scores Lower Extremity Functional Score: 37
== END 2021-09-06 19:00 | disposition home or self-care (01) ==
LOC: PT 10:30
PROVIDERS: Referring Provider Family Medicine; Visit Provider Family Medicine
DX: R54 Age-related physical debility (principal)
CPT/HCPCS: 97110; 97116; 97162

== ENCOUNTER 2023-05-24 11:53 | Emergency (ER) | payer MEDICARE, OTHER, SELFPAY ==
[2023-05-24 11:54] VITALS: BP 135/77; PULSE 78; RESP 16; TEMP 36.6; O2SAT 100
--- NOTE | 2023-05-24 12:10 | RAD_ITS ---
STUDY: X-RAY - LEFT SHOULDER REASON FOR EXAM: Male, 82 years old. Left shoulder pain following a fall. TECHNIQUE: 2 view(s) of the shoulder. COMPARISON: None. FINDINGS: There is severe degenerative arthrosis of the glenohumeral articulation. There is hypertrophic osteoarthrosis of the acromioclavicular joint with inferior osseous spur formation. Normal acromion. Cephalic migration of the humeral head suggestive of rotator cuff pathology. Normal humeral head and visualized proximal humerus. The soft tissue structures are unremarkable. Normal visualized pulmonary apex. 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 Electronically Signed: Kulwant Bennett MD at 13:23 EDT ,
--- NOTE | 2023-05-24 12:10 | RAD_ITS ---
STUDY: X-RAY - LEFT WRIST REASON FOR EXAM: Male, 82 years old. Left wrist pain following a fall. TECHNIQUE: view(s) of the wrist were obtained. COMPARISON: None. FINDINGS: Normal visualized distal radius and ulna. There is degenerative arthrosis of the radiocarpal articulation. Normal distal radioulnar articulation. Normal carpal bones. Normal carpal articulations. There is degenerative arthrosis of the carpometacarpal articulation of the thumb. Normal second through fifth carpometacarpal articulations. Normal visualized metacarpal bones. Soft tissue swelling. Vascular calcification. RAD/Wrist min 3 Views IMPRESSION: Degenerative changes. Soft tissue swelling. Electronically Signed: Kulwant Bennett MD at 13:22 EDT ,
--- NOTE | 2023-05-24 12:10 | CT_ITS ---
STUDY: CT BRAIN WITHOUT CONTRAST REASON FOR EXAM: Male, 82 years old. Head injury RADIATION DOSAGE (If Supplied By Facility): CTDIvol = ( 47.06 ) mGy, DLP = ( 907.97 ) mGycm TECHNIQUE: Transaxial CT imaging of the brain was performed without administration of intravenous contrast material. Individualized dose optimization techniques were used for this CT. COMPARISON: Comparison is made with prior study dated May 12, 2019. FINDINGS: Normal soft tissue structures. Normal calvarium. There is disproportionate enlargement of the lateral and third ventricles, as compared to the extra-axial spaces. The findings suggest normal pressure hydrocephalus (NPH). There are areas of decreased attenuation within the white matter tracts of the supratentorial brain, consistent with microvascular disease changes. Normal basal ganglia and thalami. Normal brainstem. Normal cerebellum. There is no intracranial hemorrhage. There are no findings of an acute ischemic infarction. Atherosclerotic plaque formation of the cavernous portions of the internal carotid arteries bilaterally. Normal visualized paranasal sinuses. 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 Electronically Signed: Kulwant Bennett MD at 13:39 EDT ,
--- NOTE | 2023-05-24 12:10 | CT_ITS ---
STUDY: CT CERVICAL SPINE WITHOUT CONTRAST REASON FOR EXAM: Male, 82 years old. Neck pain following injury. RADIATION DOSAGE (If Supplied By Facility): CTDIvol = ( 19.03 ) mGy, DLP = ( 392.80 ) mGycm TECHNIQUE: High resolution transaxial imaging was performed without contrast material. Sagittal and coronal images were reconstructed. Individualized dose optimization techniques were used for this CT. COMPARISON: None FINDINGS: Normal craniovertebral junction. There are degenerative changes of the anterior atlantoaxial articulation. Normal odontoid process. There is straightening of the normal cervical lordosis. Normal vertebral bodies and posterior osseous elements. C2-3: Normal endplates. Normal disc height and morphology. Normal central canal and intervertebral neuroforamina. C3-4: Moderate degree of disc space narrowing. Facet joint osteoarthritis and hypertrophy worse on the left side. Uncovertebral arthrosis. Mild bilateral neural foraminal stenosis. C4-5: Moderate degree of disc space narrowing. Facet joint osteoarthritis and hypertrophy. Uncovertebral arthrosis. No significant narrowing is seen. C5-6: Marked degree of disc space narrowing with spondylosis and the subchondral sclerosis. Facet joint osteoarthritis. Uncovertebral arthrosis. Bilateral neural foraminal stenosis worse on the right side. C6-7: Moderate degree of disc space narrowing. Spondylosis. Subchondral sclerosis. Bilateral hypertrophy of the facet joints and bilateral neural foraminal stenosis. C7-T1: Normal endplates. Normal disc height and morphology. Normal central canal and intervertebral neuroforamina. Atherosclerotic plaque formation of the cavernous portions of the internal carotid arteries bilaterally. CT/Spine Cervical without Contras IMPRESSION: Multilevel degenerative changes, as described above. Electronically Signed: Kulwant Bennett MD at 13:38 EDT ,
--- NOTE | 2023-05-24 12:10 | RAD_ITS ---
STUDY: X-RAY - LEFT HAND, ATTENTION FIFTH FINGER REASON FOR EXAM: Male, 82 years old. Left pinky laceration TECHNIQUE: 3 view(s) of the finger were obtained. COMPARISON: None. FINDINGS: Normal metacarpal head. Normal metacarpophalangeal joint. Normal proximal phalanx. Normal middle phalanx. Normal distal phalanx. There is mild degenerative arthrosis of the proximal interphalangeal joint. There is mild degenerative arthrosis of the distal interphalangeal joint. Soft tissue swelling overlying the proximal interphalangeal joint of the fifth digit. No fracture or dislocation is seen. RAD/Finger(s) Min 2 Views IMPRESSION: Soft tissue swelling overlying the proximal fifth interphalangeal joint. Degenerative changes. Electronically Signed: Kulwant Bennett MD at 13:18 EDT ,
--- NOTE | 2023-05-24 12:13 | EX.ED.GENINJ ---
HPI <NINA Weeks - Last Filed: 05/24/23 15:09> History of Present Illness Chief Complaint: Fall Narrative Narrative: Patient had a mechanical fall with closed head injury. No LOC or blood thinners. He arrives awake and alert with GCS 15. Vital signs stable. He has frontal scalp abrasions and soft tissue swelling and ecchymosis over the left elbow, left wrist, and a left pinky finger laceration. He is neurovascularly intact. The rest of his exam is negative for acute injuries. CT scans of the head/neck show no acute findings but did note normal pressure hydrocephalus. He will be referred to neurosurgery for outpatient evaluation of this. X-rays of the chest, left shoulder/elbow/wrist and hand are all negative. I placed sutures in his left pinky finger (see procedure note). Wound care discussed and he was given head injury return precautions and discharged in stable condition. Differential: Extremity contusions versus fracture, closed head injury, skull fracture, intracranial bleed [facility] <NINA Weeks - Last Filed: 05/24/23 15:09> [facility] Medical History (Updated 05/24/23 @ 14:39 by NINA Weeks) Acute cystitis Carotid stenosis, right Chronic kidney disease (CKD) Community acquired pneumonia Hyperlipidemia Hypothyroidism Stroke-like symptoms Weakness Home Medications B-complex with vitamin C 1 ea PO DAILY Supplement 04/11/18 [History Last Taken 11/11/18 09:00] aspirin 81 mg tablet,delayed release 81 mg PO DAILY Heart 04/11/18 [History Last Taken 11/11/18 09:00] cholecalciferol (vitamin D3) 25 mcg (1,000 unit) capsule 1,000 unit PO DAILY Supplement 04/11/18 [History Last Taken 11/11/18 09:00] clopidogrel 75 mg tablet 75 mg PO DAILY Blood Thinner 04/11/18 [History Last Taken 11/11/18 09:00] fenofibrate nanocrystallized 145 mg tablet 145 mg PO DAILY Cholesterol 04/11/18 [History Last Taken Unknown] levothyroxine 75 mcg tablet 75 mcg PO DAILY Thyroid 04/11/18 [History Last Taken 11/11/18 07:00] nitroglycerin 0.4 mg sublingual tablet 0.4 mg SL PRN PRN Cardiac/Chest Pain 04/11/18 [History Last Taken Unknown] pantoprazole 40 mg tablet,delayed release 40 mg PO DAILY GERD 04/11/18 [History Last Taken 11/11/18 09:00] tamsulosin 0.4 mg capsule 0.4 mg PO DAILY Prostate 04/11/18 [History Last Taken 11/11/18 22:00] rosuvastatin 10 mg tablet 10 mg PO DAILY Cholesterol 11/12/18 [History Last Taken 11/11/18 22:00] albuterol sulfate 90 mcg/actuation aerosol inhaler 1 - 2 puff inhalation Q4H PRN PRN Shortness Of Breath ##1 11/14/18 [Rx Last Taken Unknown] amoxicillin 875 mg-potassium clavulanate 125 mg tablet 875 mg (0.875 x 875-125 mg) PO Q12H #20 tabs 11/14/18 [Rx Last Taken Unknown] benzonatate 100 mg capsule 100 mg PO TID PRN PRN Cough #15 caps 11/14/18 [Rx Last Taken Unknown] Allergy/AdvReac Type Severity Reaction Status Date / Time enoxaparin Allergy Rash Verified 05/24/23 11:54 Family History (Updated 11/17/18 @ 14:44 by Liana Olmeod) Mother High cholesterol CVA (cerebral vascular accident) Surgical History (Updated 04/23/20 @ 19:[address] Jose Farris MD) History of coronary artery stent placement History of hernia repair History of laparoscopic cholecystectomy Social History (Updated 11/17/18 @ 15:[address] Thomas Wolf MD) Smoking Status: Never smoker alcohol intake: current alcohol intake frequency: a few times a month substance use type: does not use ROS <NINA Weeks - Last Filed: 05/24/23 15:09> ROS ED ROS Narrative Constitutional: Negative for fever, chills, malaise. Eyes: Negative for visual change. CVS: Negative for chest pain. Respiratory: Negative for shortness of breath. GI: Negative for abdominal pain, nausea, vomiting. Neuro: Negative for headache, motor/sensory dysfunction. Skin: Positive for wound. Musc: Positive for left upper extremity pain. EXAM <NINA Weeks - Last Filed: 05/24/23 15:09> Physical Exam Narrative Exam Narrative: CONST: Patient sitting in no acute distress. EYES: Normal inspection. PERRLA, EOMI ENT: Abrasions over the frontal scalp, no raccoon eyes or dawson sign, no hemotympanum, no nasal septal hematoma, no CSF otorrhea or rhinorrhea. NECK: Normal inspection. No midline spinal tenderness, no step off or crepitus. RESP: No respiratory distress, CTAB. Clavicles and chest wall nontender. CVS: Regular rate and rhythm, no murmur, no gallop. ABD: Soft and nontender, no guarding or rebound, nondistended. Back: Normal inspection, no midline spinal tenderness, no step off or crepitus. SKIN: 5 cm jagged laceration left pinky finger along the radial dorsal aspect. No ligamentous or tendon injury. Full range of motion of the hand and fingers. Brisk cap refill. EXTREMITIES: No significant tenderness over the left upper extremity however during exam he stated his left shoulder hurt and he has soft tissue swelling over the elbow and wrist as well as a laceration of the dorsal left pinky finger. Full ROM, 2+ radial pulses. Full ROM lower extremities, no tenderness, 2+ DP pulses NEURO: Oriented x4. PSYCH: Normal affect. Const Vital Signs: 05/24/23 11:54 Temperature 97.8 F Temperature Source Temporal Pulse Rate 78 Respiratory Rate 16 Blood Pressure 135/77 H Blood Pressure Mean 96 Pulse Ox 100 Oxygen Delivery Method Room Air <Dr. Issac Reagan DO - Last Filed: 05/24/23 16:16> Physical Exam Const Vital Signs: 05/24/23 11:54 Temperature 97.8 F Temperature Source Temporal Pulse Rate 78 Respiratory Rate 16 Blood Pressure 135/77 H Blood Pressure Mean 96 Pulse Ox 100 Oxygen Delivery Method Room Air PROC <NINA Weeks - Last Filed: 05/24/23 15:09> Procedures Lacerations Left pinky finger: Length: 1.97 in Depth: Sub Q Shape: Stellate Prep: Sterile Conditions and Shure-Clens Laceration repair: Debrideded, Irrigated, Local, Skin sutures and Wound explored Irrigated (ml): 200 Number of Sutures/[place]: 10 Comment: Jagged 5 cm laceration extending down the radial side of the left pinky finger. The proximal portion seem to have a small skin avulsion so is not able to be fully approximated. [facility] <NINA Weeks - Last Filed: 05/24/23 15:09> [facility] Radiography Diagnostic Testing: Clinical Impression(s) from Imaging Studies Brain CT 05/24/23 12:10 IMPRESSION: Findings suggestive of a normal pressure hydrocephalus. Electronically Signed: Kulwant Bennett MD at 13:39 EDT , Cervical Spine CT 05/24/23 12:10 IMPRESSION: Multilevel degenerative changes, as described above. Electronically Signed: Kulwant Bennett MD at 13:38 EDT , Finger X-Ray 05/24/23 12:10 IMPRESSION: Soft tissue swelling overlying the proximal fifth interphalangeal joint. Degenerative changes. Electronically Signed: Kulwant Bennett MD at 13:18 EDT , Shoulder X-Ray 05/24/23 12:10 IMPRESSION: Degenerative changes with evidence of rotator cuff pathology. Electronically Signed: Kulwant Bennett MD at 13:23 EDT , Wrist X-Ray 05/24/23 12:10 IMPRESSION: Degenerative changes. Soft tissue swelling. Electronically Signed: Kulwant Bennett MD at 13:22 EDT , Chest X-Ray 05/24/23 12:47 IMPRESSION: Cardiomegaly. The lungs are clear. Electronically Signed: Kulwant Bennett MD at 13:24 EDT , Elbow X-Ray 05/24/23 12:55 IMPRESSION: Soft tissue swelling. Electronically Signed: Kulwant Bennett MD at 13:19 EDT , ED attending interpretation of chest x-ray shows no evidence of displaced rib fracture or pneumothorax. ED attending interpretation of the left shoulder, elbow, wrist, left fifth digit show no acute fracture dislocation. <Dr. Issac Reagan, DO - Last Filed: 05/24/23 16:16> MDM Radiography Diagnostic Testing: Clinical Impression(s) from Imaging Studies Brain CT 05/24/23 12:10 IMPRESSION: Findings suggestive of a normal pressure hydrocephalus. Electronically Signed: Kulwant Bennett MD at 13:39 EDT , Cervical Spine CT 05/24/23 12:10 IMPRESSION: Multilevel degenerative changes, as described above. Electronically Signed: Kulwant Bennett MD at 13:38 EDT , Finger X-Ray 05/24/23 12:10 IMPRESSION: Soft tissue swelling overlying the proximal fifth interphalangeal joint. Degenerative changes. Electronically Signed: Kulwant Bennett MD at 13:18 EDT , Shoulder X-Ray 05/24/23 12:10 IMPRESSION: Degenerative changes with evidence of rotator cuff pathology. Electronically Signed: Kulwant Bennett MD at 13:23 EDT , Wrist X-Ray 05/24/23 12:10 IMPRESSION: Degenerative changes. Soft tissue swelling. Electronically Signed: Kulwant Bennett MD at 13:22 EDT , Chest X-Ray 05/24/23 12:47 IMPRESSION: Cardiomegaly. The lungs are clear. Electronically Signed: Kulwant Bennett MD at 13:24 EDT , Elbow X-Ray 05/24/23 12:55 IMPRESSION: Soft tissue swelling. Electronically Signed: Kulwant Bennett MD at 13:19 EDT , Treatment and Re-Evaluation Narrative: ED attending note: I evaluated the patient in conjunction with the JOSE. I agree with his/her statements and above findings. I have personally performed a face to face assessment of the patient and have reviewed the JOSE Note. I performed a substantive portion of the visit including all aspects of the following. I personally saw the patient performed chart review, physical exam, reviewed labs, imaging (if obtained), and formulated a treatment and management plan. Exam: Nursing triage notes reviewed, Vital signs reviewed Primary Survey Airway: Intact Breathing: Bilateral breath sounds Circulation: Palpable bilateral femorals, Palpable bilateral radial, Palpable bilateral DP and Palpable bilateral PT Disability / Spine precautions GCS Score: Eye Openin Verbal Response: 5 Motor Response: 6 Secondary Survey Constitutional: Please see MDM Head: Atraumatic, Midface stable, NO jaw malocclusion, No Cephalohematoma, and No Lacerations noted Eye: Pupils equal round and reactive to light, Extraocular muscles intact and No periorbital ecchymosis or stepoff, no evidence of entrapment ENT: Oropharynx clear, no lacerations, no hemotympanum, no raccoon eyes or dawson sign Cervical spine / Neck: No cervical spine bony tenderness, crepitance, or stepoff deformity Trachea midline Lungs: Clear to auscultation, No asymmetric rise and No crepitus, no flail chest Cardiac: Regular rate and rhythm and No murmurs Abdomen: Soft, Nontender and No rebound Pelvis: Pelvis stable to compression : No evidence of genital injury Back: No midline bony tenderness to thoracic/lumbar/sacral spines Neuro: At baseline, intact strength and sensation in bilateral upper and lower extremities. 2+ patellar reflexes bilaterally. Extremities: NO gross Deformities Psych: Normal affect Skin: Laceration noted to the left fifth digit, Nursing triage notes reviewed, Vital signs reviewed MDM/plan: Chief Complaint: Mechanical fall I considered the following differential diagnosis: Primary secondary survey is remarkable for intracranial abnormalities, cervical spine abnormalities, extremity abnormalities, chest abnormality associate with fall We will dispo based on results of imaging studies. Tertiary exam. Factors affecting care: Dementia History obtained from others: The patient's Shared decision making: I will have a discussion with the patient and or visitors regarding risk/benefits of further testing or admission. They will be made aware of of the risk/benefits inherent in this decision they will be given the opportunity to voice understanding. Consults: Discharge Plan Triage Chief Complaint: Fall ED Midlevel Provider: Valentina Owen ED Provider: Issac Reagan Dx/Rx/DC Orders Clinical Impression: Abrasion of scalp, Closed head injury, Chest wall contusion, Laceration of left little finger, Contusion of elbow, left, Contusion of left wrist Instructions: Bone Contusion, ED Laceration Extremity Prescriptions: No Action clopidogrel 75 MG tablet 75 mg PO DAILY aspirin 81 MG tablet,delayed release (DR/EC) 81 mg PO DAILY levothyroxine 75 MCG tablet 75 mcg PO DAILY tamsulosin 0.4 MG capsule 0.4 mg PO DAILY pantoprazole 40 MG tablet 40 mg PO DAILY nitroglycerin 0.4 MG tablet, sublingual 0.4 mg SL PRN MDD 3 total doses. PRN (Reason: Cardiac/Chest Pain) cholecalciferol (vitamin D3) 1,000 UNIT capsule 1,000 unit PO DAILY B-complex with vitamin C 1 EACH tablet 1 ea PO DAILY fenofibrate nanocrystallized 145 MG tablet 145 mg PO DAILY rosuvastatin 10 MG tablet 10 mg PO DAILY Patient Comments: TAKE 1 TABLET BY MOUTH EVERY DAY amoxicillin-pot clavulanate 875 MG tablet 875 mg PO Q12H Qty: 20 0RF albuterol sulfate 1 INHALER inhaler 1 - 2 puff Inhalation Q4H PRN PRN (Reason: Shortness Of Breath) Qty: 1 0RF benzonatate 100 MG capsule 100 mg PO TID PRN PRN (Reason: Cough) Qty: 15 0RF Primary Care Provider: Bill Brown Referrals: [facility]SC[facility] [Other] Hiram Flaherty MD [Non-Staff] - Activity Restrictions/Additional Instructions: Wear the splint and change the dressing once a day on the left finger laceration. Stitches should be removed in 7 days. If signs of infection like redness swelling or pus develop come back to the ER. Follow-up with the neurosurgeon for evaluation of normal pressure hydrocephalus. Jeferson Beltran MD Neurosurgeon [address] [place] [address] ? [phone] Disposition Disposition: Home, Self Care Discharge Date/Time: 05/24/23 15:22
--- NOTE | 2023-05-24 12:47 | RAD_ITS ---
STUDY: X-RAY CHEST REASON FOR EXAM: Male, 82 years old. Chest pain TECHNIQUE: AP and lateral views of the chest. COMPARISON: Comparison is made with prior study dated November 12, 2018. FINDINGS: The lungs are clear and expanded. There is no demonstrated pleural abnormality. There is moderate cardiac enlargement. Normal mediastinum and lashon. Normal visualized pulmonary arteries. There is atherosclerotic tortuosity of the aortic arch and descending thoracic aorta. There is demineralization of the osseous structures. Normal visualized ribs, clavicles, and shoulders. There is no demonstrated abnormality of the visualized soft tissue structures of the upper abdomen. RAD/Chest PA and Lateral IMPRESSION: Cardiomegaly. The lungs are clear. Electronically Signed: Kulwant Bennett MD at 13:24 EDT ,
--- NOTE | 2023-05-24 12:55 | RAD_ITS ---
STUDY: X-RAY - LEFT ELBOW REASON FOR EXAM: Male, 82 years old. Left elbow pain following a fall. TECHNIQUE: 3 view(s) of the elbow. COMPARISON: None. FINDINGS: Normal visualized humerus, radius and ulna. Normal radiocapitellar and ulnotrochlear articulations. Soft tissue swelling. RAD/Elbow min 3 Views IMPRESSION: Soft tissue swelling. Electronically Signed: Kulwant Bennett MD at 13:19 EDT ,
[2023-05-24] MEDS: Diphth,Pertuss(Acell),Tet Vac 0.5 ML Vial IM (13:49)
[2023-05-24] MEDS: Lidocaine 1% (20 ml mdv) 20 ML Vial INFILT (13:50)
[2023-05-24] MEDS: Acetaminophen 325 MG Tablet 650 MG PO (13:50)
== END 2023-05-24 15:22 | disposition home or self-care (01) ==
PROVIDERS: Emergency Provider Emergency Medicine; PCP Family Medicine; Visit Provider Emergency Medicine
DX: S61.217A Laceration without foreign body of left little finger without damage to nail, initial encounter (principal); F03.90 Unspecified dementia, unspecified severity, without behavioral disturbance, psychotic disturbance, mood disturbance, and anxiety; S50.02XA Contusion of left elbow, initial encounter; S20.20XA Contusion of thorax, unspecified, initial encounter; S00.01XA Abrasion of scalp, initial encounter; S60.212A Contusion of left wrist, initial encounter; W19.XXXA Unspecified fall, initial encounter; N18.9 Chronic kidney disease, unspecified; E78.5 Hyperlipidemia, unspecified; Z23 Encounter for immunization
CPT/HCPCS: 12002; 70450; 71046; 72125; 73030; 73080; 73110; 73140; 90471; 90715; 99284

== ENCOUNTER 2024-02-03 11:40 | Inpatient (IN) | payer MEDICARE, OTHER, SELFPAY ==
[2024-02-03] VITALS (8 sets, daily range): BP systolic 131–168; BP diastolic 59–96; PULSE 57–88; RESP 16–18; TEMP 36.6–38.2; O2SAT 94–100; BMI 28.6; BMI 26.4
--- NOTE | 2024-02-03 12:43 | ED.VIS.LOWEX ---
HPI History of Present Illness Chief Complaint: Lower Extremity Injury Narrative Narrative: 83-year-old male presents with his because of increased knee pain and swelling. They relate history that he had problems with chronic knee pain and about 3 weeks ago their pain management doctor, Dr. Barnhart, had done nerve blocks in his right knee. Over the last 24 to 48 hours, he has had increased knee pain and swelling to the point where he could barely walk. He denies any chest pain or shortness of breath, no fevers or chills, no other symptoms. It is difficult for him to bear weight. He usually walks with a walker. He does not take blood thinners except for baby aspirin. [facility] Medical History Acute cystitis Carotid stenosis, right Chronic kidney disease (CKD) Community acquired pneumonia Hyperlipidemia Hypothyroidism Stroke-like symptoms Weakness Home Medications B-complex with vitamin C 1 ea PO DAILY Supplement 04/11/18 [History Last Taken 11/11/18 09:00] aspirin 81 mg tablet,delayed release 81 mg PO DAILY Heart 04/11/18 [History Last Taken 11/11/18 09:00] cholecalciferol (vitamin D3) 25 mcg (1,000 unit) capsule 1,000 unit PO DAILY Supplement 04/11/18 [History Last Taken 11/11/18 09:00] clopidogrel 75 mg tablet 75 mg PO DAILY Blood Thinner 04/11/18 [History Last Taken 11/11/18 09:00] fenofibrate nanocrystallized 145 mg tablet 145 mg PO DAILY Cholesterol 04/11/18 [History Last Taken Unknown] levothyroxine 75 mcg tablet 75 mcg PO DAILY Thyroid 04/11/18 [History Last Taken 11/11/18 07:00] nitroglycerin 0.4 mg sublingual tablet 0.4 mg SL PRN PRN Cardiac/Chest Pain 04/11/18 [History Last Taken Unknown] pantoprazole 40 mg tablet,delayed release 40 mg PO DAILY GERD 04/11/18 [History Last Taken 11/11/18 09:00] tamsulosin 0.4 mg capsule 0.4 mg PO DAILY Prostate 04/11/18 [History Last Taken 11/11/18 22:00] rosuvastatin 10 mg tablet 10 mg PO DAILY Cholesterol 11/12/18 [History Last Taken 11/11/18 22:00] albuterol sulfate 90 mcg/actuation aerosol inhaler 1 - 2 puff inhalation Q4H PRN PRN Shortness Of Breath ##1 11/14/18 [Rx Last Taken Unknown] amoxicillin 875 mg-potassium clavulanate 125 mg tablet 875 mg (0.875 x 875-125 mg) PO Q12H #20 tabs 11/14/18 [Rx Last Taken Unknown] benzonatate 100 mg capsule 100 mg PO TID PRN PRN Cough #15 caps 11/14/18 [Rx Last Taken Unknown] Allergy/AdvReac Type Severity Reaction Status Date / Time enoxaparin Allergy Rash Verified 02/03/24 11:44 Family History Mother High cholesterol CVA (cerebral vascular accident) Surgical History History of coronary artery stent placement History of hernia repair History of laparoscopic cholecystectomy Social History Smoking Status: Never smoker alcohol intake: current alcohol intake frequency: a few times a month substance use type: does not use ROS ROS ED ROS Narrative Constitutional: No fever, no chills. HEENT: No sore throat. No neck pain. No loss of vision. No rhinorrhea. Cardiovascular: No chest pain. No palpitations. No pedal edema. Respiratory: No cough, no shortness of breath. Abdominal: No abdominal pain. No nausea. No vomiting. Genitourinary: No dysuria. No hematuria. Musculoskeletal: No myalgias. Positive right knee pain and swelling. Neurologic: No headaches. No dizziness. No lightheadedness. Skin: No rash. No change in color. Psychiatric: No depression. No anxiety. EXAM Physical Exam Narrative Exam Narrative: Afebrile. Vital signs noted. HEENT: Normocephalic. Atraumatic. PERRL, EOMI. Neck soft and supple. No point tenderness or step off. Cardiovascular: Regular rate and rhythm. No murmurs, rubs, or gallops appreciated. Respiratory: No tachypnea. Lungs clear to auscultation bilaterally. Gastrointestinal: Abdomen soft, nontender, with normoactive bowel sounds. No rebound or guarding. Neurological: Awake. Alert. Nonfocal, nonlateralizing. Skin: No rash. Normal color. No pallor. Musculoskeletal: No pedal edema. Positive moderate swelling right knee diffusely. Range of motion limited secondary to swelling and pain. No noted erythema. Neurovascular intact distally. EHL intact right foot. Palpable dorsalis pedis pulse. Const Vital Signs: 02/03/24 11:44 02/03/24 12:22 02/03/24 13:00 Temperature 97.9 F 98.7 F 98.3 F Temperature Source Oral Oral Oral Pulse Rate 57 L 88 87 Respiratory Rate 18 18 16 Blood Pressure 168/59 H 131/96 H 161/77 H Blood Pressure Mean 95 107 105 Pulse Ox 99 100 99 Oxygen Delivery Method Room Air Room Air Room Air 02/03/24 13:30 Temperature Temperature Source Pulse Rate 63 Respiratory Rate 16 Blood Pressure 159/76 H Blood Pressure Mean 103 Pulse Ox 99 Oxygen Delivery Method Room Air MDM MDM MDM Narrative Medical decision making narrative: The localized swelling, concern would be for hematoma versus knee effusion. I have low concern for septic knee as the patient is afebrile, and there is no erythema. He could also have a hematoma. I reviewed his laboratory work, he has normal white count 9.1, hemoglobin 13.9, hematocrit 43.6, platelet count 214. Electrolyte panel shows chloride of 109 with a BUN of 14 and creatinine 0.8, glucose appropriately elevated at 93. I reviewed his x-rays and see a moderate amount of degenerative changes, and he may have an effusion. In order to better characterize the swelling that is localized of his right knee, CT with IV contrast was obtained. I reviewed the radiology report and there is a moderately sized effusion but no evidence of an acute fracture. There are findings however of an acute small intra-articular loose body which could be more of an avulsion fracture. I did add a ESR and CRP after discussion with Dr. Mike Estrella. states that he is a patient of Dr. George. He last had a steroid injection on 12/09/2023, less than 3 months ago so I do not feel that he would benefit from another steroid injection. He was consented for arthrocentesis. Arthrocentesis centesis was performed and there was bloody fluid extracted from the synovial capsule which was sent for analysis. In discussion with his , they have no help at home and she is unable to assist him. He was unable to get up and urinate secondary to his right knee pain. She is unable to care for him at home. At this point in time, I will discuss patient with the hospitalist and have Dr. Chavez check the fluid analysis along with CRP and ESR. I discussed patient with Dr. Matt Guardado. Disposition is assigned observation in stable condition. History & Record Review Discussion w/independent historian: Patient and Family Lab Data Attestation: I reviewed the patient's lab results. Labs: Laboratory Results - last 24 hr 02/03/24 12:55 WBC 9.1 RBC 4.58 L Hgb 13.9 Hct 43.6 MCV 95.2 H MCH 30.3 MCHC 31.9 L RDW Std Deviation 47.3 H RDW Coeff of Beata 13.7 Plt Count 214 MPV 10.4 Immature Gran % (Auto) 0.600 Neut % (Auto) 75.3 H Lymph % (Auto) 15.5 L Perry % (Auto) 7.5 Eos % (Auto) 0.4 Baso % (Auto) 0.7 Absolute Neuts (auto) 6.8 Absolute Lymphs (auto) 1.41 Nucleated RBC % 0 Sodium 141 Potassium 3.6 Chloride 109 H Carbon Dioxide 26.0 Anion Gap 6 BUN 14 Creatinine 0.80 Estim Creat Clear Calc 75.43 Est GFR (MDRD) Af Amer 118 Est GFR (MDRD) Non-Af 98 BUN/Creatinine Ratio 17.5 Glucose 93 Calcium 10.1 C-React Prot Ext Range < 2.90 Radiography Diagnostic Testing: Clinical Impression(s) from Imaging Studies Lower Extremity CT 02/03/24 13:45 IMPRESSION: Moderate-sized joint effusion. 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 Findings suggestive of a small intra-articular loose body. Electronically Signed: Kulwant Bennett MD at 14:03 EDT , Knee X-Ray 02/03/24 13:50 IMPRESSION: Degenerative arthrosis. Joint effusion. Electronically Signed: Kulwant Bennett MD at 14:10 EDT , Discharge Plan Dx/Rx/DC Orders Clinical Impression: Effusion of right knee joint, Inability to ambulate due to right knee, Dementia, Hemarthrosis Disposition Disposition: Acute Care Hospital [facility]
--- NOTE | 2024-02-03 12:50 | ED.RN ---
dr ordered morphine. told pt and morphine was ordered for pain. states that he didnt do well on morphine before. it makes him loopy. discussed his pain control, she states he takes tramadol at home. she also reports that this is not working. after discussing pros and cons of pain control verses how he tolerates morphine and dose. said ok to trying the morphine.
[2024-02-03] MEDS: Morphine 4 MG/ML Syringe IV (12:54)
[2024-02-03 13:08] LABS: Absolute Lymphocyte Count 1.41 X10^3/uL (0.83-4.51); Absolute Neutrophil Count 6.8 X10^3/uL (2.0-7.7); Basophil# 0.06 X10^3/uL; Basophil% 0.7 % (0-1); Eosinophil# 0.04 X10^3/uL; Eosinophils% 0.4 % (0-5); Hematocrit 43.6 % (40-54); Hemoglobin 13.9 g/dL (13.0-16.5); Lymphocyte # 1.41 X10^3/ul (0.83-4.51); Lymphocyte % 15.5 % (19-41); Mean Corp Hgb Conc 31.9 g/dL (32-36); Mean Corpuscular Hgb 30.3 pg (27.0-32.0); Mean Corpuscular Volume 95.2 fL (80-94); Mean Platelet Vol. 10.4 fl (6.2-12.0); Monocyte# 0.68 X10^3/uL; Monocyte% 7.5 % (0-10); NRBC Flagged by Analyzer 0 % (0-5); Neutrophil # 6.84 X10^3/uL (2.7-7.7); Neutrophil % 75.3 % (47-70); Platelet Count 214 K/mm3 (150-450); RBC Distribution Width CV 13.7 % (11.6-14.6); RBC Distribution Width SD 47.3 fl (35.1-43.9); Red Blood Count 4.58 M/mm3 (4.6-6.2); White Blood Count 9.1 K/mm3 (4.4-11.0)
[2024-02-03 13:26] LABS: Anion Gap 6 (5-15); BUN 14 mg/dL (7-18); BUN/Creat Ratio 17.5 RATIO (10-20); Calcium,Total 10.1 mg/dL (8.5-10.1); Chloride 109 mmol/L (98-107); EST Glomerular Filtration Rate 98 mL/min (>60); Est Glom Filt Rate - Afr Amer 118 mL/min (>60); Estimated Creatinine Clearance 75.43 ml/min; Glucose 93 mg/dL (74-106); Potassium 3.6 mmol/L (3.5-5.1); Sodium Level 141 mmol/L (136-145)
--- NOTE | 2024-02-03 13:45 | CT_ITS ---
CT RIGHT LOWER EXTREMITY WITH 3-D IMAGING CLINICAL INDICATION: Swelling and warmth to touch following a recent knee nerve block. TECHNIQUE: Axial CT images of the RIGHT lower extremity was performed IV contrast material. Coronal and sagittal reformats were provided. RADIATION DOSAGE (If Supplied By Facility): CTDIvol = ( 15.35 ) mGy, DLP = ( 599.38 ) mGycm COMPARISON: Prior study dated: Knee radiograph done earlier in the day. FINDINGS: Bones: Degenerative changes. Subchondral cystic changes are seen. There is a 7.9 mm well-defined bony density in the knee joint suggestive of possible loose intra-articular density. Degenerative changes. Soft Tissues: There is evidence of chondrocalcinosis. Moderate-sized joint effusion. CT/Extremity Lower WITH Contrast IMPRESSION: Moderate-sized joint effusion. 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 Findings suggestive of a small intra-articular loose body. Electronically Signed: Kulwant Bennett MD at 14:03 EDT ,
--- NOTE | 2024-02-03 13:50 | RAD_ITS ---
STUDY: X-RAY - RIGHT KNEE REASON FOR EXAM: Male, 83 years old. Pain, swelling TECHNIQUE: 2 view(s) of the knee. COMPARISON: None. FINDINGS: Normal visualized distal femur. Normal visualized proximal tibia and fibula. Normal proximal tibiofibular articulation. Normal medial femorotibial compartment. Normal lateral femorotibial compartment. There is moderate degenerative arthrosis of the patellofemoral articulation. Chondrocalcinosis of the medial and lateral menisci. Moderate joint effusion. RAD/Knee 1 or 2 Views IMPRESSION: Degenerative arthrosis. Joint effusion. Electronically Signed: Kulwant Bennett MD at 14:10 EDT ,
[2024-02-03 15:35] LABS: CRP < 2.90 mg/L (0.0-3.0)
--- NOTE | 2024-02-03 15:56 | HP.PCM.HOS_ITS ---
HPI - General General Date of Service: 02/03/24 Chief Complaint: Right knee pain HPI Narrative DHIRAJ MURPHY, is a 83 M who presents with worsening right knee pain. Symptoms began yesterday with patient was unable to put any weight on it. He presented to the emergency room and underwent an arthrocentesis. Arthrocentesis was reportedly bloody. Patient is confused which the states is not his baseline likely due to the morphine that he had received. So that he is unable to provide any adequate history. History is obtained through emergency room physician as well as the patient's at bedside. She denies patient having any recent falls of any kind. Patient still is having pain in his right knee. [facility] Medical History Acute cystitis Carotid stenosis, right Chronic kidney disease (CKD) Community acquired pneumonia Hyperlipidemia Hypothyroidism Stroke-like symptoms Weakness Home Medications B-complex with vitamin C 1 ea PO DAILY Supplement 04/11/18 [History Last Taken 11/11/18 09:00] aspirin 81 mg tablet,delayed release 81 mg PO DAILY Heart 04/11/18 [History Last Taken 11/11/18 09:00] cholecalciferol (vitamin D3) 25 mcg (1,000 unit) capsule 1,000 unit PO DAILY Supplement 04/11/18 [History Last Taken 11/11/18 09:00] clopidogrel 75 mg tablet 75 mg PO DAILY Blood Thinner 04/11/18 [History Last Taken 11/11/18 09:00] fenofibrate nanocrystallized 145 mg tablet 145 mg PO DAILY Cholesterol 04/11/18 [History Last Taken Unknown] levothyroxine 75 mcg tablet 75 mcg PO DAILY Thyroid 04/11/18 [History Last Taken 11/11/18 07:00] nitroglycerin 0.4 mg sublingual tablet 0.4 mg SL PRN PRN Cardiac/Chest Pain 04/11/18 [History Last Taken Unknown] pantoprazole 40 mg tablet,delayed release 40 mg PO DAILY GERD 04/11/18 [History Last Taken 11/11/18 09:00] tamsulosin 0.4 mg capsule 0.4 mg PO DAILY Prostate 04/11/18 [History Last Taken 11/11/18 22:00] rosuvastatin 10 mg tablet 10 mg PO DAILY Cholesterol 11/12/18 [History Last Taken 11/11/18 22:00] albuterol sulfate 90 mcg/actuation aerosol inhaler 1 - 2 puff inhalation Q4H PRN PRN Shortness Of Breath ##1 11/14/18 [Rx Last Taken Unknown] amoxicillin 875 mg-potassium clavulanate 125 mg tablet 875 mg (0.875 x 875-125 mg) PO Q12H #20 tabs 11/14/18 [Rx Last Taken Unknown] benzonatate 100 mg capsule 100 mg PO TID PRN PRN Cough #15 caps 11/14/18 [Rx Last Taken Unknown] Allergy/AdvReac Type Severity Reaction Status Date / Time enoxaparin Allergy Rash Verified 02/03/24 11:44 morphine AdvReac Intermediate Other Verified 02/03/24 15:50 Family History Mother High cholesterol CVA (cerebral vascular accident) Surgical History History of coronary artery stent placement History of hernia repair History of laparoscopic cholecystectomy Social History Smoking Status: Never smoker alcohol intake: current alcohol intake frequency: a few times a month substance use type: does not use ROS ROS Narrative Limited due to confusion but primarily his symptoms are focused on right knee pain. All review of systems were negative except as mentioned above in the history of present illness and the other review of systems. Vital Signs Vital Signs Vital Signs: 02/03/24 11:44 02/03/24 12:22 02/03/24 13:00 Temperature 36.6 C 37.1 C 36.8 C Temperature Source Oral Oral Oral Pulse Rate 57 L 88 87 Respiratory Rate 18 18 16 Blood Pressure 168/59 H 131/96 H 161/77 H Blood Pressure Mean 95 107 105 Pulse Ox 99 100 99 Oxygen Delivery Method Room Air Room Air Room Air 02/03/24 13:30 Temperature Temperature Source Pulse Rate 63 Respiratory Rate 16 Blood Pressure 159/76 H Blood Pressure Mean 103 Pulse Ox 99 Oxygen Delivery Method Room Air Weight Weight: 87.9 kg Body Mass Index (BMI) 28.6 Physical Exam Const alert Constitutional Narrative: Uncomfortable. Confused but interactive. Follows commands HEENT normocephalic and head/scalp atraumatic Resp normal respiratory effort, no retractions, no use of accessory muscles and clear to auscultation bilaterally Cardio regular rate, regular rhythm, S1 normal heart sound, S2 normal heart sound and no murmurs GI normal to inspection, nondistended, normoactive bowel sounds, soft to palpation, non-tender and non-distended Extremity Extremity Narrative: Right knee without any obvious effusion. Patient winces when I palpated his knee initially, but after I palpated to realize he is not having any significant pain does not seem to be extremis. Neuro Sensorium / Orientation: awake and alert Results Lab / Micro Data 02/03/24 12:55 02/03/24 12:55 Labs: Laboratory Results - last 24 hr 02/03/24 12:55: WBC 9.1, RBC 4.58 L, Hgb 13.9, Hct 43.6, MCV 95.2 H, MCH 30.3, MCHC 31.9 L, RDW Std Deviation 47.3 H, RDW Coeff of Beata 13.7, Plt Count 214, MPV 10.4, Immature Gran % (Auto) 0.600, Neut % (Auto) 75.3 H, Lymph % (Auto) 15.5 L, Rains % (Auto) 7.5, Eos % (Auto) 0.4, Baso % (Auto) 0.7, Absolute Neuts (auto) 6.8, Absolute Lymphs (auto) 1.41, Nucleated RBC % 0, Sodium 141, Potassium 3.6, Chloride 109 H, Carbon Dioxide 26.0, Anion Gap 6, BUN 14, Creatinine 0.80, Estim Creat Clear Calc 75.43, Est GFR (MDRD) Af Amer 118, Est GFR (MDRD) Non-Af 98, BUN/Creatinine Ratio 17.5, Glucose 93, Calcium 10.1, C-React Prot Ext Range < 2.90 Micro: Microbiology 02/03/24 15:15 Fluid - Synovial (joint) Gram Stain - Final Imaging Radiology Impression Lower Extremity CT 02/03/24 13:45 IMPRESSION: Moderate-sized joint effusion. 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 Findings suggestive of a small intra-articular loose body. Electronically Signed: Kulwant Bennett MD at 14:03 EDT , Knee X-Ray 02/03/24 13:50 IMPRESSION: Degenerative arthrosis. Joint effusion. Electronically Signed: Kulwant Bennett MD at 14:10 EDT , Assessment & Plan Assessment/Plan (1) Hemarthrosis: (2) Inability to ambulate due to right knee: PLAN: Plan Debility * 2/2 joint effusion. * PT OT evaluate and treat. * Moderate right upper the point of patient going to a half-way facility with his , she did not seem interested and was present the patient was not going home today. With his confusion and his inability to walk adequately, I did talk to her about him staying overnight to make sure that he is doing well before going home. She was agreeable to that. Right knee effusion * Secondary to hemarthrosis. According to there was no obvious trauma though that cannot be completely validated trigger for the patient did not tell him his . * The meantime, we will could hold off with the patient's aspirin and clopidogrel. Patient takes those medications for heart disease. 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 Will request records from Dr. Marin. * Seems less likely that this is a septic joint. Cultures pending. Crystals are pending. Though with the unremarkable ESR and CRP this seems less likely to be an acute gout flare particularly hemarthrosis. * Patient had a nerve block done by Dr. Barnhart about 3 weeks ago. I do not feel that is any direct correlation to this current hemarthrosis as he did not have any hemarthrosis at that time. Patient was to have a knee replacement in November but was not cleared by cardiology for the procedure. CAT scan notes small intra-articular loose body. * Given the patient's comorbidities and the fact has not been surgically cleared to proceed with surgery, I do not see the need for orthopedic involvement at this time. Patient be weightbearing as tolerated. Patient may follow-up with outpatient * Pain control. Scheduled acetaminophen. Lidoderm patch. Patient will have oxycodone available as needed for pain. No additional morphine. Encephalopathy, toxic * Patient did receive morphine which the states that he gets confused when he takes morphine in the past. Will hold off any additional morphine at this time. It is since been added to his allergy list. Chronic conditions * CAD: He is n.p.o. patient sees cardiology. Unclear what he has. Hold aspirin and clopidogrel given the hemarthrosis. Request records from [facility]. * Hypothyroidism: Continue with levothyroxine * BPH: Continue tamsulosin. Hitchcock catheter placed in the emergency room. Consider discontinuing in the morning with a postvoid residual. VTE prophylaxis with SCDs. CODE STATUS: Addressed with the patient's . Patient is a full code. Charges/Coding Visit Charges Inpatient E&M: 19893 Init Hosp L3
[2024-02-03 15:57] LABS: Erythrocyte Sedimentation Rate 22 mm/hr (0-20)
[2024-02-03 16:04] LABS: AUTO B FLUID DILUENT BKGD CT WBC <0.1 RBC <0.01 (W<.1,R<.01); Appearance /Synovial Fluid Turbid (CLEAR); Color / Synovial Fluid Red (Pale Yellow)
[2024-02-03 16:05] LABS: RBC /Synovial Fluid 2.488 10^6/uL (0)
[2024-02-03 16:06] LABS: Synovial Fld Mononuclear WBC # 1.695 10^3/ul; Synovial Fld Mononuclear WBC % 6.9 %; Synovial Fld Polynuclear WBC # 22.877 10^3/uL; Synovial Fld Polynuclear WBC % 93.1 %
[2024-02-03 16:52] LABS: Lymph 2 %; Monocyte /Synovial Fluid 3 %; Neutrophil 95 % (0-25)
[2024-02-03 16:53] LABS: CRYSTALS, BODY FLUID NO CRYSTALS SEEN; Pathologist Review Will follow; Source / Synovial Fluid RIGHT KNEE; Source- Body Fluid SYNOVIAL
[2024-02-03] MEDS: Acetaminophen 500 MG Tablet 1000 MG PO (20:04)
[2024-02-03] MEDS: oxyCODONE 5 MG Tablet PO (20:04)
[2024-02-03] MEDS: Lidocaine 5% Patch 1 PATCH TOPICAL (21:15)
[2024-02-03] MEDS: Donepezil HCl 10 MG Tablet PO (22:52)
[2024-02-04] MEDS: oxyCODONE 5 MG Tablet PO ×4 (05:52→19:45)
[2024-02-04] MEDS: Levothyroxine 100 MCG Tablet PO (05:52)
[2024-02-04] MEDS: Acetaminophen 500 MG Tablet 1000 MG PO (05:52)
[2024-02-04 06:02] VITALS: BP 135/62; PULSE 55; RESP 16; TEMP 37.3; O2SAT 97
[2024-02-04 08:33] LABS: Hematocrit 40.2 % (40-54); Hemoglobin 13.2 g/dL (13.0-16.5); Mean Corp Hgb Conc 32.8 g/dL (32-36); Mean Corpuscular Hgb 31.1 pg (27.0-32.0); Mean Corpuscular Volume 94.6 fL (80-94); Mean Platelet Vol. 10.2 fl (6.2-12.0); Platelet Count 204 K/mm3 (150-450); RBC Distribution Width CV 14.1 % (11.6-14.6); RBC Distribution Width SD 48.5 fl (35.1-43.9); Red Blood Count 4.25 M/mm3 (4.6-6.2)
[2024-02-04 08:44] LABS: Anion Gap 10 (5-15); BUN 15 mg/dL (7-18); BUN/Creat Ratio 17.3 RATIO (10-20); Calcium,Total 9.1 mg/dL (8.5-10.1); Chloride 106 mmol/L (98-107); Creatinine, Serum 0.87 mg/dL (0.70-1.30); EST Glomerular Filtration Rate 89 mL/min (>60); Est Glom Filt Rate - Afr Amer 108 mL/min (>60); Estimated Creatinine Clearance 65.26 ml/min; Glucose 130 mg/dL (74-106); Potassium 3.5 mmol/L (3.5-5.1); Sodium Level 141 mmol/L (136-145)
[2024-02-04] MEDS: Pantoprazole Sodium 40 MG Tablet PO (09:10)
[2024-02-04 10:38] VITALS: BP 127/63; PULSE 55; RESP 16; TEMP 37.4; O2SAT 93
[2024-02-04] MEDS: Colchicine 0.6 MG TABLET 1.2 MG PO (10:54)
--- NOTE | 2024-02-04 11:43 | PCM.PN.HOSP ---
Reason for Visit Reason for Visit: Diagnoses Hemarthrosis, unspecified joint (02/03/24) Difficulty in walking, not elsewhere classified (02/03/24) Subjective Subjective Patient admitted yesterday afternoon for severe right knee pain. Patient with known history of right knee osteoarthritis being treated conservatively, had steroid injection done about 2 months prior to this admission. Lives at home with his , daughter also involved heavily in his care. They noticed that his right knee was becoming more swollen over the past 1 to 2 weeks. He initially had some relief of pain with his home tramadol but then over the past week this did not seem to be helpful. Pain became so severe yesterday that he was not able to put weight on his leg, so family brought him in for further evaluation. In the ED, was noted on x-ray and CT of the right knee to have a moderate-sized joint effusion. Had arthrocentesis done in the ED, 35 mL of bloody fluid was aspirated. Patient was then admitted for further workup of his right knee joint fusion with pain and for debility. Patient seen at bedside this morning, and daughter present. Patient was laying back fairly comfortably in bed, in no acute distress. Patient has no history of dementia, was making appropriate eye contact with me but not answering all questions appropriately. and daughter noted that he continued to have fairly significant right knee pain this morning with any touching of the knee and putting any weight on the knee. On my exam, patient had fairly significant right knee swelling compared to his left knee and had moderate to severe tenderness to palpation particularly in the anterior knee. He denied any subjective fevers or chills. Denied any other pain or discomfort. No other acute concerns this time. Objective Data Objective Data Vital Signs: Vital Signs Temp Pulse Resp BP Pulse Ox O2 Del Method 99.4 F H 55 L 16 127/63 H 93 Room Air 02/04/24 10:38 02/04/24 10:38 02/04/24 10:38 02/04/24 10:38 02/04/24 10:38 02/04/24 10:38 Oxygen Delivery Method Room Air Weight: 83.552 kg Body Mass Index (BMI) 26.4 Intake & Output: Intake and Output for Last 24 Hours 02/02/24 02/03/24 02/04/24 23:59 23:59 23:59 Output Total 900 / 900 500 / 500 Balance -900 / -900 -500 / -500 Lab / Micro Data 02/04/24 08:20 02/04/24 08:20 Labs: Laboratory Results - last 24 hr 02/03/24 12:55: WBC 9.1, RBC 4.58 L, Hgb 13.9, Hct 43.6, MCV 95.2 H, MCH 30.3, MCHC 31.9 L, RDW Std Deviation 47.3 H, RDW Coeff of Beata 13.7, Plt Count 214, MPV 10.4, Immature Gran % (Auto) 0.600, Neut % (Auto) 75.3 H, Lymph % (Auto) 15.5 L, Page % (Auto) 7.5, Eos % (Auto) 0.4, Baso % (Auto) 0.7, Absolute Neuts (auto) 6.8, Absolute Lymphs (auto) 1.41, Nucleated RBC % 0, ESR 22 H, Sodium 141, Potassium 3.6, Chloride 109 H, Carbon Dioxide 26.0, Anion Gap 6, BUN 14, Creatinine 0.80, Estim Creat Clear Calc 75.43, Est GFR (MDRD) Af Amer 118, Est GFR (MDRD) Non-Af 98, BUN/Creatinine Ratio 17.5, Glucose 93, Calcium 10.1, C-React Prot Ext Range < 2.90 02/03/24 15:15: Fluid Crystals NO CRYSTALS SEEN, Fluid Crystal Source SYNOVIAL, Fl Crystal Path Review Will follow, Synovial Source Cancelled 02/03/24 15:15: Synovial Source RIGHT KNEE, Synovial Color Cancelled 02/03/24 15:15: Synovial Color Red, Synovial Appearance Cancelled 02/03/24 15:15: Synovial Appearance Turbid, Synovial Volume Cancelled, Synovial Viscosity Cancelled, Synovial WBC Cancelled 02/03/24 15:15: Synovial WBC 25.6000 H, Synovial RBC Cancelled 02/03/24 15:15: Synovial RBC 2.488 H, Synovial Tot Cell Ct Cancelled 02/03/24 15:15: Synovial Tot Cell Ct 25.6050 H, Synov Polynuclear WBCs Cancelled 02/03/24 15:15: Synov Polynuclear WBCs 22.877, Synov Mononuclear WBCs Cancelled 02/03/24 15:15: Synov Mononuclear WBCs 1.695, Synovial Neutrophils Cancelled 02/03/24 15:15: Synovial Neutrophils 95 H, Synovial Lymphocytes Cancelled 02/03/24 15:15: Synovial Lymphocytes 2, Synovial Monocytes Cancelled 02/03/24 15:15: Synovial Monocytes 3, Synovial Plasma Cells Cancelled, Synovial Other Cells Cancelled, Synovial Polynuclear % Cancelled 02/03/24 15:15: Synovial Polynuclear % 93.1, Synovial Mononuclear % Cancelled 02/03/24 15:15: Synovial Mononuclear % 6.9, Synovial Path Comment Cancelled 02/03/24 15:15: Synovial Path Comment May follow 02/04/24 08:20: WBC 8.0, RBC 4.25 L, Hgb 13.2, Hct 40.2, MCV 94.6 H, MCH 31.1, MCHC 32.8, RDW Std Deviation 48.5 H, RDW Coeff of Beata 14.1, Plt Count 204, MPV 10.2, Sodium 141, Potassium 3.5, Chloride 106, Carbon Dioxide 25.0, Anion Gap 10, BUN 15, Creatinine 0.87, Estim Creat Clear Calc 65.26, Est GFR (MDRD) Af Amer 108, Est GFR (MDRD) Non-Af 89, BUN/Creatinine Ratio 17.3, Glucose 130 H, Calcium 9.1 Micro: Microbiology 02/03/24 15:15 Fluid - Synovial (joint) Gram Stain - Final Radiography Diagnostic Testing: Radiology Impression Lower Extremity CT 02/03/24 13:45 IMPRESSION: Moderate-sized joint effusion. 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 Findings suggestive of a small intra-articular loose body. Electronically Signed: Kulwant Bennett MD at 14:03 EDT , Knee X-Ray 02/03/24 13:50 IMPRESSION: Degenerative arthrosis. Joint effusion. Electronically Signed: Kulwant Bennett MD at 14:10 EDT , Physical Exam Const alert, no apparent distress and average body habitus Constitutional Narrative: Elderly male, sitting up comfortably in bed, making appropriate eye contact but not answering all questions appropriately due to dementia, otherwise in no acute distress. General Appearance: cooperative and comfortable HEENT normocephalic, head/scalp atraumatic, hearing grossly normal bilaterally, nasal mucous membranes and turbinates normal and moist oral mucous membranes Eyes PERRL, EOMs intact bilaterally and conjunctivae normal Neck full ROM Chest inspection of chest normal Resp normal respiratory effort, normal air movement, no use of accessory muscles and clear to auscultation bilaterally Cardio regular rate, regular rhythm, no murmurs and peripheral pulses 2+ throughout GI normal to inspection, nondistended, normoactive bowel sounds, soft to palpation, non-tender and non-distended Back/Spine normal ROM Extremity Extremity Narrative: Right knee noticeably swollen compared to left knee, no erythema noted. Moderate to severe tenderness to palpation throughout right knee, worst in anterior knee. Did not attempt any movement at the knee. Skin no rashes or lesions noted Neuro moves all extremities and no focal motor deficits Speech: speech normal Psych mental status grossly normal Assessment & Plan Assessment/Plan (1) Hemarthrosis: (2) Inability to ambulate due to right knee: (3) Effusion of right knee joint: (4) Dementia: PLAN: Plan Patient is an 83-year-old male who presented to [facility] ED on 02/03/2024 with worsening right knee pain. 1. Suspected right knee acute CPPD episode with concern for possible septic joint, history of severe right knee OA Presented with severe right knee pain in setting of known history of OA. Imaging on admission showed moderate sized joint effusion; also notably showed evidence of chondrocalcinosis. Arthrocentesis done in the ED, 35 mL bloody fluid removed. Fluid studies showed 25,000 WBCs with 95% neutrophils, high number of red blood cells, no crystals seen on preliminary read, full read to follow. Gram stain of fluid showed 2+ WBCs but no organisms noted. Patient with low-grade fever, otherwise hemodynamically stable and no other systemic signs of infection. WBC count normal. ? Highest concern is for his first acute CPPD episode given fluid study results, chondrocalcinosis noted on imaging and clinical presentation. Lower concern for septic joint given negative Gram stain and only low-grade fevers with no other systemic signs of infection but cannot rule out but this time. Infectious disease consulted. Will start p.o. colchicine for treatment for now. If ID notes no concern for septic joint, will plan to treat with NSAIDs and/or steroids. Continue Tylenol as needed and oxycodone as needed for pain control. 2. Debility ? PT/OT/case management following. Patient lives at home with , daughter also involved in patient's care. Generally has fairly decent functional status which is now significantly limited by his right knee pain. Monitor. Likely home with home health care versus SNF on discharge. 3. Toxic encephalopathy, improved; history of dementia ? Patient noted to be confused on admission, suspected secondary to morphine that was given in the ED for his pain. Improved back to his baseline mental status per family on 02/03. Continue home donepezil. Will need to monitor closely for signs of hospital delirium. 4. BPH with obstructive symptoms, previous episodes of acute urinary retention ? Hitchcock catheter placed in the ED due to concern for acute urinary retention with encephalopathy as noted above. Will plan for voiding trial prior to discharge. Continue home tamsulosin. Chronic medical conditions: ? CAD with remote stent placement: Previously follows [facility]ology [facility]. Requesting records, had stent placed several years ago, was on Plavix for 1 year and has now been on aspirin monotherapy. Okay to restart aspirin on 02/03. ? Hypothyroidism: Continue home Synthroid. DVT prophylaxis: SCDs CODE STATUS: Full code, verified Expect disposition: Home with home health versus SNF, 2 to 3 days ? Patient notably was admitted under observation status. Due to ongoing right knee pain and concern for either acute CPPD episode versus septic joint, patient was changed to inpatient status on 02/03. Total clinical time spent by myself addressing the patient's medical issues, reviewing all the data, and collaborating with patient's care team: 35 minutes. Charges/Coding Visit Charges Inpatient E&M: 45640 Subs Hosp L2
[2024-02-04 13:45] VITALS: BP 150/68; PULSE 71; RESP 16; TEMP 38; O2SAT 97
[2024-02-04] MEDS: Ensure Plus High Protein 120 ML LIQUID PO ×2 (13:54→20:06)
[2024-02-04 13:57] LABS: Pathologist Comment Reviewed
[2024-02-04 13:58] LABS: Body Fluid QC Type(s) BF3Q,BF4Q
[2024-02-04] MEDS: Acetaminophen 325 MG Tablet 650 MG PO ×2 (14:23→19:46)
--- NOTE | 2024-02-04 15:21 | PCM.CONS.GEN ---
Assessment & Plan Assessment/Plan (1) Septic arthritis of knee, right: PLAN: Fevers here, fluid with 25k wbc, 95% poly. Crystal studies pending. Will check bcx. Recommend ortho eval. Will start vanc/ceftriaxone. Had recent uti. Will follow, thank you, d/w primary team HPI Consult Data Date of Consult: 02/04/24 HPI Narrative Reason for Consultation: septic arthritis HPI Narrative: DHIRAJ MURPHY, is a 83 M with h/o dementia, recent uti, admitted 02/02 after waking up with R knee pain, swelling, warmth. No known inciting event. Some fever. Some increased confusion. Taken to ED, aspiration done, not showing improvement per family. No h/o gout. Pt unable to provide ROS due to mental status. [facility] Medical History Acute cystitis Anxiety Carotid stenosis, right Chronic kidney disease (CKD) Community acquired pneumonia Hyperlipidemia Hypothyroidism Kidney stones Non-smoker Stroke-like symptoms Weakness Home Medications B-complex with vitamin C 1 ea PO DAILY Supplement 04/11/18 [History Last Taken 11/11/18 09:00] aspirin 81 mg tablet,delayed release 81 mg PO DAILY Heart 04/11/18 [History Last Taken 11/11/18 09:00] cholecalciferol (vitamin D3) 25 mcg (1,000 unit) capsule 1,000 unit PO DAILY Supplement 04/11/18 [History Last Taken 11/11/18 09:00] fenofibrate nanocrystallized 145 mg tablet 145 mg PO DAILY Cholesterol 04/11/18 [History Last Taken Unknown] levothyroxine 75 mcg tablet 100 mcg PO DAILY Thyroid 04/11/18 [History Last Taken 11/11/18 07:00] nitroglycerin 0.4 mg sublingual tablet 0.4 mg SL PRN PRN Cardiac/Chest Pain 04/11/18 [History Last Taken Unknown] pantoprazole 40 mg tablet,delayed release 40 mg PO DAILY GERD 04/11/18 [History Last Taken 11/11/18 09:00] tamsulosin 0.4 mg capsule 0.4 mg PO DAILY Prostate 04/11/18 [History Last Taken 11/11/18 22:00] albuterol sulfate 90 mcg/actuation aerosol inhaler 1 - 2 puff inhalation Q4H PRN PRN Shortness Of Breath ##1 01/04/19 [Rx Last Taken Unknown] amlodipine 5 mg tablet 5 mg PO DAILY 02/03/24 [History Last Taken Unknown] donepezil 10 mg tablet 10 mg PO QHS 02/03/24 [History Last Taken Unknown] pravastatin 20 mg tablet 20 mg PO DAILY 02/03/24 [History Last Taken Unknown] tramadol 50 mg tablet 25 mg PO BID PRN PRN pain 02/03/24 [History Last Taken 02/03/24 09:00] Allergy/AdvReac Type Severity Reaction Status Date / Time enoxaparin [From Lovenox] Allergy Rash Verified 02/03/24 17:04 morphine AdvReac Intermediate Other Verified 02/03/24 15:50 atorvastatin [From Lipitor] AdvReac muscle pain Verified 02/03/24 21:07 Family History Mother High cholesterol CVA (cerebral vascular accident) Surgical History (Updated 02/03/24 @ 16:42 by Adelaida Stoll) History of cholecystectomy History of coronary artery stent placement History of hernia repair History of laparoscopic cholecystectomy Social History Smoking Status: Never smoker alcohol intake: current alcohol intake frequency: a few times a month substance use type: does not use Physical Exam Const no apparent distress Constitutional Narrative: awake, able to answer some questions General Appearance: lethargic HEENT normocephalic and head/scalp atraumatic Eyes PERRL and EOMs intact bilaterally Neck supple and No nodes Resp normal air movement and clear to auscultation bilaterally Cardio regular rate and regular rhythm GI soft to palpation, non-tender and non-distended Extremity General Extremity: Negative for edema Skin Skin Narrative: R knee swelling, warmth, tenderness Neuro CN's II-XII intact bilaterally Medical Records Data Medical Nutrition Assessment Dietitian: Malnutrition Criteria Met Start: 02/04/24 12:53 Freq: Status: Active Protocol: Document 02/04/24 13:20 RMA (Rec: 02/04/24 13:20 RMA [id number]) Nutrition Malnutrition Evidence of Malnutrition Exists Yes Malnutrition (moderate): Chronic Evidenced By Suboptimal Energy Intake ( Moderate),Weight Loss ( Moderate) Clinical Problem Chronic Disease or Condition Related Malnutrition Etiology 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 Will add 120mL ensure plus high protein 4 times per day w / medpass. Adjust ONS as needed to prevent further weight loss. Lab / Micro Data Attestation: I reviewed the patient's lab results. 02/04/24 08:20 02/04/24 08:20 Labs: Laboratory Results - last 24 hr 02/03/24 12:55: ESR 22 H, C-React Prot Ext Range < 2.90 02/03/24 15:15: Fluid Crystals NO CRYSTALS SEEN, Fluid Crystal Source SYNOVIAL, Fl Crystal Path Review Will follow, Synovial Source Cancelled 02/03/24 15:15: Synovial Source RIGHT KNEE, Synovial Color Cancelled 02/03/24 15:15: Synovial Color Red, Synovial Appearance Cancelled 02/03/24 15:15: Synovial Appearance Turbid, Synovial Volume Cancelled, Synovial Viscosity Cancelled, Synovial WBC Cancelled 02/03/24 15:15: Synovial WBC 25.6000 H, Synovial RBC Cancelled 02/03/24 15:15: Synovial RBC 2.488 H, Synovial Tot Cell Ct Cancelled 02/03/24 15:15: Synovial Tot Cell Ct 25.6050 H, Synov Polynuclear WBCs Cancelled 02/03/24 15:15: Synov Polynuclear WBCs 22.877, Synov Mononuclear WBCs Cancelled 02/03/24 15:15: Synov Mononuclear WBCs 1.695, Synovial Neutrophils Cancelled 02/03/24 15:15: Synovial Neutrophils 95 H, Synovial Lymphocytes Cancelled 02/03/24 15:15: Synovial Lymphocytes 2, Synovial Monocytes Cancelled 02/03/24 15:15: Synovial Monocytes 3, Synovial Plasma Cells Cancelled, Synovial Other Cells Cancelled, Synovial Polynuclear % Cancelled 02/03/24 15:15: Synovial Polynuclear % 93.1, Synovial Mononuclear % Cancelled 02/03/24 15:15: Synovial Mononuclear % 6.9, Synovial Path Comment Cancelled 02/03/24 15:15: Synovial Path Comment Reviewed 02/04/24 08:20: WBC 8.0, RBC 4.25 L, Hgb 13.2, Hct 40.2, MCV 94.6 H, MCH 31.1, MCHC 32.8, RDW Std Deviation 48.5 H, RDW Coeff of Beata 14.1, Plt Count 204, MPV 10.2, Sodium 141, Potassium 3.5, Chloride 106, Carbon Dioxide 25.0, Anion Gap 10, BUN 15, Creatinine 0.87, Estim Creat Clear Calc 65.26, Est GFR (MDRD) Af Amer 108, Est GFR (MDRD) Non-Af 89, BUN/Creatinine Ratio 17.3, Glucose 130 H, Calcium 9.1 Micro: Microbiology 02/03/24 15:15 Fluid - Synovial (joint) Gram Stain - Final
[2024-02-04] MEDS: Vancomycin HCl 2,000 MG in 0.9% Normal Saline (500mL Bag) 500 ML 250 MG IV (15:45)
--- NOTE | 2024-02-04 16:07 | CHAPLAIN ---
Type of Pastoral Visit ___ Initial Visit ___ Follow-up Visit ___ On-call Visit ___ General Patient Visit ___ Spiritual Assessment ___ Family Conference ___ Bereavement ___ Rapid Response ___ Code Blue ___ Other (describe below) Pastoral Care Referral From ___ Patient ___ Family ___ Nurse ___ Physician ___ [employer] ___ Procurement Services Manager ___ Other (describe below) Sacrament/Intervention ___ Active listening ___ Anointing ___ Anabaptist ___ Bereavement ___ Communion ___ Paz exploration ___ ___ Life review ___ Prayer ___ Reconciliation ___ Sacrament of Sick ___ Supportive presence ___ Wedding ___ Other (describe below) Pastoral Comments two attempts made to visit this patient but both times he is unavailable
--- NOTE | 2024-02-04 16:25 | PCM.RX.CS ---
Consult Antibiotic Management Pharmacy has been consulted to manage selected antibiotic: Vancomycin Type of Intervention Type of Consult: New start Suspected Infection Suspected Infection: Other (SEPTIC ARTHRITIS) Prior Doses of Antibiotics Prior Doses of Antibiotics Received/Current Regimen: Vancomycin 2000 mg IV given 02/03 @ 7779, patient is also on ceftriaxone 2 grams daily Labs Labs: Sodium 141 mmol/L (136-145) 02/04/24 08:20 Potassium 3.5 mmol/L (3.5-5.1) 02/04/24 08:20 Chloride 106 mmol/L (98-107) 02/04/24 08:20 Carbon Dioxide 25.0 mmol/L (21.0-32.0) 02/04/24 08:20 Anion Gap 10 (5-15) 02/04/24 08:20 BUN 15 mg/dL (7-18) 02/04/24 08:20 Creatinine 0.87 mg/dL (0.70-1.30) 02/04/24 08:20 Est GFR (MDRD) Af Amer 108 mL/min (>60) 02/04/24 08:20 Est GFR (MDRD) Non-Af 89 mL/min (>60) 02/04/24 08:20 BUN/Creatinine Ratio 17.3 RATIO (10-20) 02/04/24 08:20 Glucose 130 mg/dL (74-106) H 02/04/24 08:20 Microbiology Microbiology: Microbiology 02/03/24 15:15 Fluid - Synovial (joint) Gram Stain - Final Dosing Weight Weight used for dosin.5 kg Estimated Creatinine Clearance Estimated Creatinine Clearance: ~65 Goal Trough Goal Trough: 15-20 mcg/mL Pharmacy Plan for Drug Dosing Pharmacy Plan for Drug Dosing: Vancomycin 2000 mg IV x 1 followed by 1000 mg Q12H Pharmacy Service will continue to monitor and adjust dosing as required. Follow-Up Labs Follow-Up Labs: Trough: Vancomycin Date/Time Labs Ordered Labs to be done on [date and time ordered]: 02/06/24 @ 0685
[2024-02-04] MEDS: Tamsulosin HCl 0.4 MG Capsule PO (18:06)
[2024-02-04] MEDS: Ceftriaxone 2 GM in 0.9% Normal Saline (50mL MB+) 50 ML IV (18:10)
[2024-02-04] MEDS: 0.9% Saline Lock 10 ML Syringe IV (19:55)
[2024-02-04] MEDS: Atorvastatin Calcium 20 MG Tablet PO (19:57)
[2024-02-04] MEDS: Colchicine 0.6 MG TABLET PO (19:57)
[2024-02-04] MEDS: Donepezil HCl 10 MG Tablet PO (19:57)
[2024-02-04 20:00] VITALS: BP 149/68; PULSE 67; RESP 18; TEMP 38.3; O2SAT 95
[2024-02-04] MEDS: RisperiDONE 0.5 MG Tablet PO (20:03)
[2024-02-05 01:39] VITALS: BP 147/74; PULSE 57; RESP 18; TEMP 36.9; O2SAT 92
[2024-02-05] MEDS: Vancomycin IV 1,000 MG/200 ML BAG 200 MG IV ×2 (04:33→16:14)
[2024-02-05] MEDS: Levothyroxine 100 MCG Tablet PO (04:42)
[2024-02-05 04:50] VITALS: BP 145/61; PULSE 54; RESP 18; TEMP 37.2; O2SAT 94
[2024-02-05 08:00] VITALS: PULSE 60
--- NOTE | 2024-02-05 08:38 | NURSING ---
Dr Michael estrella called RE:knee fluid culture (no growth in 12 hours)-msg left on Dr Estrella voice mail
[2024-02-05] MEDS: Ceftriaxone 2 GM in 0.9% Normal Saline (50mL MB+) 50 ML IV (09:57)
[2024-02-05] MEDS: oxyCODONE 5 MG Tablet PO (09:57)
[2024-02-05] MEDS: Lidocaine 5% Patch 1 PATCH TOPICAL (09:57)
[2024-02-05] MEDS: Pantoprazole Sodium 40 MG Tablet PO (09:59)
[2024-02-05] MEDS: Ensure Plus High Protein 120 ML LIQUID PO ×2 (09:59→13:53)
[2024-02-05] MEDS: Colchicine 0.6 MG TABLET PO ×2 (09:59→23:22)
--- NOTE | 2024-02-05 10:35 | CASEMGMT ---
SIRI RAZO Assessment: Face to Face with pt for initial transition planning/care coordination assessment. SIRI RAZO introduced self and role at [facility], pt voices understanding and consents to assessment. Pt agreeable to answering assessment questions. Care providers, pharmacy, and demographics verified/updated. Admitting Dx: R knee effusion PCP:Stephanie Specialists:Christi, cardio; Mark, uro; Little, neuro Preferred Pharmacy: [facility] Insurance: MCR, [employer], [employer] Prescription Benefit: yes LNOK: Candy Deyanira, Living Arrangements: Pt lives with in a single story home with 3 steps to enter with a rail. Pt reports that prior to this hospitalization pt was able to bathe and dress self. Pt prepared meals, did laundry and got groceries. Transportation: Pt transports pt to medical appts. DME:shower chair, cane, FWW, rollator HHC/SNF: Denies hx of Pt prefers pt go home with assistance at home. She states if he is able to ambulate with assist of 1, she would like to go home with HHC. She states if he needs assist of 2, then we can consider other options. Pt prefers pt to go home as she cannot always be present in a facility. She states she also does not want to burden her working family members. Discussed HHC and this option. Pt states no further concerns/needs. CM to follow. Advised pt to ask CM if any further question/concerns/needs arise, voices understanding. Pt Goal: Home with HHC Plan: Home with HHC vs SNF pending progress with therapy Evelyn HORNER CM
--- NOTE | 2024-02-05 10:48 | CASEMGMT ---
SIRI RAZO NOTE: A list of [facility] providers including quality and resource use data and consistent with the patient?s preferred geographic region, medical needs, and insurance network from the [facility] Guide given to SIRI Samuels CM. Ivan CHANDLER RN CM
--- NOTE | 2024-02-05 11:25 | PCM.PN.HOSP ---
Reason for Visit Reason for Visit: Diagnoses Unspecified dementia, unspecified severity, without behavioral disturbance, psychotic disturbance, mood disturbance, and anxiety (02/04/24) Pyogenic arthritis, unspecified (02/04/24) Hemarthrosis, unspecified joint (02/04/24) Effusion, right knee (02/04/24) Difficulty in walking, not elsewhere classified (02/04/24) Subjective Subjective No acute events overnight. Patient seen at bedside this morning, present. Patient was sitting up in bedside chair eating yogurt for breakfast when I arrived to the room. He was making appropriate eye contact but not answering questions appropriately for me. Did not appear delirious, suspect this is close to his baseline with his dementia. states that he looks significant better this morning and he did yesterday. Therapy worked with him and was able to move him from the bed to the bedside chair and his right knee pain was mild to moderately improved from yesterday. He has been bearing weight on the right leg without significant issue. Otherwise no acute concerns morning. Objective Data Objective Data Vital Signs: Vital Signs Temp Pulse Resp BP Pulse Ox O2 Del Method 98.9 F 60 18 145/61 H 94 Room Air 02/05/24 04:50 02/05/24 08:00 02/05/24 04:50 02/05/24 04:50 02/05/24 04:50 02/05/24 08:00 Oxygen Delivery Method Room Air Weight: 83.552 kg Body Mass Index (BMI) 26.4 Intake & Output: Intake and Output for Last 24 Hours 02/03/24 02/04/24 02/05/24 23:59 23:59 23:59 Intake Total 590 / 710 320 / 320 Output Total 900 / 900 900 / 1100 500 / 500 Balance -900 / -900 -310 / -390 -180 / -180 Medical Nutrition Assessment Dietitian: Malnutrition Criteria Met Start: 02/04/24 12:53 Freq: Status: Active Protocol: Document 02/04/24 13:20 RMA (Rec: 02/04/24 13:20 RMA [id number]) Nutrition Malnutrition Evidence of Malnutrition Exists Yes Malnutrition (moderate): Chronic Evidenced By Suboptimal Energy Intake ( Moderate),Weight Loss ( Moderate) Clinical Problem Chronic Disease or Condition Related Malnutrition Etiology 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 Will add 120mL ensure plus high protein 4 times per day w / medpass. Adjust ONS as needed to prevent further weight loss. Lab / Micro Data 02/04/24 08:20 02/04/24 08:20 Labs: Laboratory Results - last 24 hr 02/03/24 15:15: Synovial Path Comment Reviewed Micro: Microbiology 02/03/24 15:15 Fluid - Synovial (joint) Gram Stain - Final 02/03/24 15:15 Fluid - Synovial (joint) Gram Stain - Final Physical Exam Const alert, no apparent distress and average body habitus Constitutional Narrative: Elderly male, sitting up comfortably in bedside chair, making appropriate eye contact but not answering all questions appropriately due to dementia, otherwise in no acute distress. General Appearance: cooperative and comfortable HEENT normocephalic, head/scalp atraumatic, hearing grossly normal bilaterally, nasal mucous membranes and turbinates normal and moist oral mucous membranes Eyes PERRL, EOMs intact bilaterally and conjunctivae normal Neck full ROM Chest inspection of chest normal Resp normal respiratory effort, normal air movement, no use of accessory muscles and clear to auscultation bilaterally Cardio regular rate, regular rhythm, no murmurs and peripheral pulses 2+ throughout GI normal to inspection, nondistended, normoactive bowel sounds, soft to palpation, non-tender and non-distended Back/Spine normal ROM Extremity Extremity Narrative: Right knee swollen compared to left knee, no erythema noted. Mild to moderate tenderness to palpation, improved from admission. Skin no rashes or lesions noted Neuro moves all extremities and no focal motor deficits Speech: speech normal Psych mental status grossly normal Assessment & Plan Assessment/Plan (1) Hemarthrosis: (2) Inability to ambulate due to right knee: (3) Effusion of right knee joint: (4) Dementia: PLAN: Plan Patient is an 83-year-old male who presented to [facility] ED on 02/03/2024 with worsening right knee pain. 1. Suspected right knee acute CPPD episode with concern for possible septic joint, history of severe right knee OA Presented with severe right knee pain in setting of known history of OA. Imaging on admission showed moderate sized joint effusion; also notably showed evidence of chondrocalcinosis. Arthrocentesis done in the ED, 35 mL bloody fluid removed. Fluid studies showed 25,000 WBCs with 95% neutrophils, high number of red blood cells, no crystals seen on preliminary read, full read to follow. Gram stain of fluid showed 2+ WBCs but no organisms noted. Patient with low-grade fever, otherwise hemodynamically stable and no other systemic signs of infection. WBC count normal. ? Infectious disease following. Patient initiated on IV vancomycin and ceftriaxone on 02/03 with concern for septic joint. Orthopedics evaluated on 02/04, do not feel patient has a septic knee at this time. They recommended continued medical treatment, ice, therapy and pain medications as needed. Noted that if the fluid culture had growth or if blood cultures came back positive with no other source identified, they could consider arthroscopic irrigation/debridement of the right knee. Continue IV antibiotics as above, appreciate further ID recs. Will continue p.o. colchicine scheduled, with Tylenol and oxycodone as needed for pain control. 2. Debility ? PT/OT/case management following. Patient lives at home with , daughter also involved in patient's care. Patient noted by therapy to have fairly significant debility at this time. Will continue to monitor over the next 2 days but will either require SNF placement on discharge or home with home health care. 3. Toxic encephalopathy, improved; history of dementia ? Patient noted to be confused on admission, suspected secondary to morphine that was given in the ED for his pain. Improved back to his baseline mental status per family on 02/03. Continue home donepezil. Will need to monitor closely for signs of hospital delirium. 4. BPH with obstructive symptoms, previous episodes of acute urinary retention ? Hitchcock catheter placed in the ED due to concern for acute urinary retention with encephalopathy as noted above. Has had good urine output this point. Will plan for Hitchcock removal tomorrow for void trial. Continue home Flomax. Chronic medical conditions: ? CAD with remote stent placement: Previously follows with cardiology at [facility]. Requesting records, had stent placed several years ago, was on Plavix for 1 year and has now been on aspirin monotherapy. Aspirin restarted on 3/26. ? Hypothyroidism: Continue home Synthroid. DVT prophylaxis: SCDs CODE STATUS: Full code, verified Expect disposition: Home with home health versus SNF, 2 to 3 days Total clinical time spent by myself addressing the patient's medical issues, reviewing all the data, and collaborating with patient's care team: 35 minutes. Charges/Coding Visit Charges Inpatient E&M: 07030 Subs Hosp L2
[2024-02-05 11:29] VITALS: BP 144/64; PULSE 60; RESP 18; TEMP 37.3; O2SAT 93
--- NOTE | 2024-02-05 12:45 | CONS.ORTHO ---
HPI Consult Data Date of Consult: 02/05/24 HPI Narrative HPI Narrative: DHIRAJ MURPHY, is a 83 M who presents to [facility] on February 03, 2024. He has had right knee pain for years. Had been seen and treated by Dr. George, as well as being seen by [facility]. Patient reportedly had a cortisone shot in November. Reportedly that did not give much relief. He was referred to Dr. Barnhart after patient did not get medical clearance for knee replacement surgery. Reportedly Dr. Barnhart did nerve blocks about the knee 3 weeks ago. He also was started on tramadol. Seemingly he has had progressive problems. On Saturday he was not able to put weight on the knee. He was brought to the hospital. He did have knee pain as well as some pain and possible swelling about the ankle. It does seem to be getting better now with treatment. They deny any known source of infection otherwise. Patient takes aspirin. [facility] Medical History Acute cystitis Anxiety Carotid stenosis, right Chronic kidney disease (CKD) Community acquired pneumonia Hyperlipidemia Hypothyroidism Kidney stones Non-smoker Stroke-like symptoms Weakness Home Medications B-complex with vitamin C 1 ea PO DAILY Supplement 04/11/18 [History Last Taken 11/11/18 09:00] aspirin 81 mg tablet,delayed release 81 mg PO DAILY Heart 04/11/18 [History Last Taken 11/11/18 09:00] cholecalciferol (vitamin D3) 25 mcg (1,000 unit) capsule 1,000 unit PO DAILY Supplement 04/11/18 [History Last Taken 11/11/18 09:00] fenofibrate nanocrystallized 145 mg tablet 145 mg PO DAILY Cholesterol 04/11/18 [History Last Taken Unknown] levothyroxine 75 mcg tablet 100 mcg PO DAILY Thyroid 04/11/18 [History Last Taken 11/11/18 07:00] nitroglycerin 0.4 mg sublingual tablet 0.4 mg SL PRN PRN Cardiac/Chest Pain 04/11/18 [History Last Taken Unknown] pantoprazole 40 mg tablet,delayed release 40 mg PO DAILY GERD 04/11/18 [History Last Taken 11/11/18 09:00] tamsulosin 0.4 mg capsule 0.4 mg PO DAILY Prostate 04/11/18 [History Last Taken 11/11/18 22:00] albuterol sulfate 90 mcg/actuation aerosol inhaler 1 - 2 puff inhalation Q4H PRN PRN Shortness Of Breath ##1 11/14/18 [Rx Last Taken Unknown] amlodipine 5 mg tablet 5 mg PO DAILY 02/03/24 [History Last Taken Unknown] donepezil 10 mg tablet 10 mg PO QHS 02/03/24 [History Last Taken Unknown] pravastatin 20 mg tablet 20 mg PO DAILY 02/03/24 [History Last Taken Unknown] tramadol 50 mg tablet 25 mg PO BID PRN PRN pain 02/03/24 [History Last Taken 02/03/24 09:00] Allergy/AdvReac Type Severity Reaction Status Date / Time enoxaparin [From Lovenox] Allergy Rash Verified 02/03/24 17:04 morphine AdvReac Intermediate Other Verified 02/03/24 15:50 atorvastatin [From Lipitor] AdvReac muscle pain Verified 02/03/24 21:07 Family History Mother High cholesterol CVA (cerebral vascular accident) Surgical History History of cholecystectomy History of coronary artery stent placement History of hernia repair History of laparoscopic cholecystectomy Social History Smoking Status: Never smoker alcohol intake: current alcohol intake frequency: a few times a month substance use type: does not use ROS ROS Narrative Patient has dementia. According the patient's he has no recent changes with his eyes ears nose or throat heart or lungs bowel or bladder. Here for right knee pain as above. Vital Signs Vital Signs Vital Signs: 02/04/24 13:45 02/04/24 20:14 02/04/24 20:00 Temperature 100.4 F H 100.9 F H Temperature Source Temporal Temporal Pulse Rate 71 67 Pulse Strength Normal (2+) Respiratory Rate 16 18 Respiratory Effort Respiratory Depth Respiratory Pattern Blood Pressure 150/68 H 149/68 H Blood Pressure Mean 95 95 Blood Pressure Source Monitor Monitor Blood Pressure Position Semi-Fowlers Semi-Fowlers Blood Pressure Location Left Arm Right Arm Pulse Ox 97 95 Oxygen Delivery Method Room Air Room Air 02/04/24 20:04 02/04/24 20:18 02/05/24 01:39 Temperature 98.4 F Temperature Source Temporal Pulse Rate 57 L Pulse Strength Respiratory Rate 18 Respiratory Effort Normal Non-Labored Normal Non-Labored Respiratory Depth Normal Normal Respiratory Pattern Normal Normal Blood Pressure 147/74 H Blood Pressure Mean 98 Blood Pressure Source Monitor Blood Pressure Position Semi-Fowlers Blood Pressure Location Right Arm Pulse Ox 92 Oxygen Delivery Method Room Air Room Air Room Air 02/05/24 04:50 02/05/24 08:00 02/05/24 08:45 Temperature 98.9 F Temperature Source Temporal Pulse Rate 54 L 60 Pulse Strength Normal (2+) Respiratory Rate 18 Respiratory Effort Respiratory Depth Respiratory Pattern Blood Pressure 145/61 H Blood Pressure Mean 89 Blood Pressure Source Monitor Blood Pressure Position Semi-Fowlers Blood Pressure Location Right Arm Pulse Ox 94 Oxygen Delivery Method Room Air Room Air 02/05/24 11:29 Temperature 99.1 F Temperature Source Temporal Pulse Rate 60 Pulse Strength Respiratory Rate 18 Respiratory Effort Respiratory Depth Respiratory Pattern Blood Pressure 144/64 H Blood Pressure Mean 90 Blood Pressure Source Monitor Blood Pressure Position Semi-Fowlers Blood Pressure Location Right Arm Pulse Ox 93 Oxygen Delivery Method Room Air Weight Weight: 83.552 kg Body Mass Index (BMI) 26.4 Physical Exam Narrative Patient is sitting in a chair comfortably. His is present at the bedside. He does have a pain patch over the front of his right knee. Right knee has grade 2+ effusion. Right knee has no warmth or redness noted. He has no calf pain. Negative Homans' sign. He is able to actively plantarflex and dorsiflex toes and ankle nicely on the right. Right knee motion is 0-90 degrees with mild pain at extreme. Knee was not overly stressed. Patient does have dementia. He was not following all of my commands. No hip pain with gentle motion. Negative straight leg raise. Previous x-rays of the right knee reviewed showing arthritis. MRI scan of the right knee reviewed showing knee effusion, arthritis. 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 Will add 120mL ensure plus high protein 4 times per day w / medpass. Adjust ONS as needed to prevent further weight loss. Lab / Micro Data 02/04/24 08:20 02/04/24 08:20 Labs: Laboratory Results - last 24 hr 02/03/24 15:15: Synovial Path Comment Reviewed Micro: Microbiology 02/03/24 15:15 Fluid - Synovial (joint) Gram Stain - Final Assessment & Plan Assessment/Plan (1) Effusion of right knee joint: (2) Hemarthrosis: (3) Arthritis of knee, right: PLAN: Plan Right knee hemarthrosis, painful. Based on current laboratory work, Gram stain, culture results as well as his history and physical I do not feel he has a septic right knee. Case has been discussed and reviewed by Dr. George. He also agreed there is no definitive signs of knee joint infection at this point. Recommend continuing on medical treatment, ice, therapy, pain medications as needed. If knee fluid culture has growth we would consider arthroscopic irrigation and debridement of the knee. If blood cultures come back positive and no other source could be identified, could consider arthroscopic irrigation debridement of right knee. Otherwise feel his pain and swelling is related to his severe arthritis with hemarthrosis. He can follow-up as an outpatient with Dr. George. Case has been discussed with Dr. George, Dr. [facility] will sign off. We will keep an eye on his culture results and nurses as well as Dr. Chiu know to contact me if cultures become positive or his clinical situation worsens
[2024-02-05 14:00] VITALS: BP 152/79; PULSE 73; RESP 18; TEMP 37.3; O2SAT 95
--- NOTE | 2024-02-05 14:23 | CHAPLAIN ---
Type of Pastoral Visit _x__ Initial Visit ___ Follow-up Visit ___ On-call Visit ___ General Patient Visit ___ Spiritual Assessment ___ Family Conference ___ Bereavement ___ Rapid Response ___ Code Blue ___ Other (describe below) Pastoral Care Referral From ___ Patient _x__ Family ___ Nurse ___ Physician ___ Organisation And Methods Analyst ___ Life Skills Consultant ___ Other (describe below) Sacrament/Intervention _x__ Active listening ___ Anointing ___ Congregation ___ Bereavement ___ Communion ___ Paz exploration ___ ___ Life review _x__ Prayer ___ Reconciliation ___ Sacrament of Sick _x__ Supportive presence ___ Wedding ___ Other (describe below) Pastoral Comments patient is sitting up in chair but resting; pt does awaken to his name but has difficulty hearing and focusing on the conversation; pt was recently given meds and so is drowsy; spouse is sitting with him and explains his situation and what is more normal for pt; spouse welcomes the support and prayers; pt and spouse are active in a local latter day and welcome spiritual care; cause of illness is unclear and part of goal of care is to discover cause and how best to treat; offer of ongoing support given;
[2024-02-05] MEDS: Tamsulosin HCl 0.4 MG Capsule PO (16:15)
--- NOTE | 2024-02-05 16:22 | PCM.PN.ID ---
Physical Exam Narrative Feeling better, knee sore, no fever today Const alert and no apparent distress Resp normal air movement and clear to auscultation bilaterally Cardio regular rate and regular rhythm GI soft to palpation, non-tender and non-distended Skin Skin Narrative: knee sore, no redness ID ID: Route of nutrition/ use of supplements: [] Nutritional Intake: [] IV Site: [] Hitchcock Catheter: [] Assessment & Plan Assessment/Plan (1) Septic arthritis of knee, right: PLAN: Suspected infection. Fevers here, fluid with 25k wbc, 95% poly. Crystal studies pending. Pending bcx. Seen by ortho. Cont vanc/ceftriaxone. Had recent uti. Hemarthrosis could cause some low grade temps. Will follow
[2024-02-05 23:00] VITALS: BP 144/61; PULSE 63; RESP 20; TEMP 36.8; O2SAT 95
[2024-02-05] MEDS: RisperiDONE 0.5 MG Tablet PO (23:19)
[2024-02-05] MEDS: Atorvastatin Calcium 20 MG Tablet PO (23:19)
[2024-02-05] MEDS: Donepezil HCl 10 MG Tablet PO (23:19)
[2024-02-05] MEDS: Acetaminophen 325 MG Tablet 650 MG PO (23:21)
[2024-02-06] VITALS (10 sets, daily range): BP systolic 121–150; BP diastolic 57–72; PULSE 55–68; RESP 18; TEMP 37.1–37.2; O2SAT 78–98
[2024-02-06 03:50] LABS: Hemoglobin 12.2 g/dL (13.0-16.5); Mean Corpuscular Hgb 31.2 pg (27.0-32.0); Mean Corpuscular Volume 94.6 fL (80-94); Mean Platelet Vol. 10.5 fl (6.2-12.0); Platelet Count 210 K/mm3 (150-450); RBC Distribution Width CV 14.1 % (11.6-14.6); RBC Distribution Width SD 49.2 fl (35.1-43.9); Red Blood Count 3.91 M/mm3 (4.6-6.2); White Blood Count 6.8 K/mm3 (4.4-11.0)
[2024-02-06 04:07] LABS: Anion Gap 6 (5-15); BUN 14 mg/dL (7-18); BUN/Creat Ratio 17.9 RATIO (10-20); Calcium,Total 8.8 mg/dL (8.5-10.1); Chloride 108 mmol/L (98-107); Creatinine, Serum 0.78 mg/dL (0.70-1.30); EST Glomerular Filtration Rate 101 mL/min (>60); Est Glom Filt Rate - Afr Amer 122 mL/min (>60); Estimated Creatinine Clearance 70.97 ml/min; Glucose 118 mg/dL (74-106); Potassium 3.3 mmol/L (3.5-5.1); Sodium Level 140 mmol/L (136-145)
--- NOTE | 2024-02-06 04:36 | PCM.RX.CS ---
Consult Antibiotic Management Pharmacy has been consulted to manage selected antibiotic: Vancomycin Type of Intervention Type of Consult: Follow-up Labs Labs: Sodium 140 mmol/L (136-145) 02/06/24 03:30 Potassium 3.3 mmol/L (3.5-5.1) L 02/06/24 03:30 Chloride 108 mmol/L (98-107) H 02/06/24 03:30 Carbon Dioxide 26.0 mmol/L (21.0-32.0) 02/06/24 03:30 Anion Gap 6 (5-15) 02/06/24 03:30 BUN 14 mg/dL (7-18) 02/06/24 03:30 Creatinine 0.78 mg/dL (0.70-1.30) 02/06/24 03:30 Est GFR (MDRD) Af Amer 122 mL/min (>60) 02/06/24 03:30 Est GFR (MDRD) Non-Af 101 mL/min (>60) 02/06/24 03:30 BUN/Creatinine Ratio 17.9 RATIO (10-20) 02/06/24 03:30 Glucose 118 mg/dL (74-106) H 02/06/24 03:30 Vancomycin Trough 10.0 ug/mL (5.0-15.0) 02/06/24 03:30 Microbiology Microbiology: Microbiology 02/03/24 15:15 Fluid - Synovial (joint) Gram Stain - Final 02/03/24 15:15 Fluid - Synovial (joint) Gram Stain - Final Dosing Weight Weight used for dosin.6 kg Estimated Creatinine Clearance Estimated Creatinine Clearance: 71 Goal Trough Goal Trough: 15-20 mcg/mL Pharmacy Plan for Drug Dosing Pharmacy Plan for Drug Dosing: Vancomycin trough level of 10.0, drawn 11.25hrs post-dose, was below the target range of 15-20. Will increase dose to 1750mg q12h, and will draw another trough prior to fourth dose of the new regimen. Pharmacy Service will continue to monitor and adjust dosing as required. Follow-Up Labs Follow-Up Labs: Trough: Vancomycin Date/Time Labs Ordered Labs to be done on [date and time ordered]: 02/07/24 @1600
[2024-02-06] MEDS: Vancomycin HCl 1,750 MG in 0.9% Normal Saline (500mL Bag) 500 ML 250 MG IV ×2 (04:51→15:56)
[2024-02-06] MEDS: Levothyroxine 100 MCG Tablet PO (04:52)
--- NOTE | 2024-02-06 08:52 | CASEMGMT ---
Discharge Planning A list of?SNF providers including quality and resource use data and consistent with the patient's preferred geographic region, medical needs, and insurance network was created in [employer].? This list was provided to the SW. Daksha Beck Discharge Planning Asst.
[2024-02-06] MEDS: Ceftriaxone 2 GM in 0.9% Normal Saline (50mL MB+) 50 ML IV (09:56)
[2024-02-06] MEDS: Pantoprazole Sodium 40 MG Tablet PO (09:57)
[2024-02-06] MEDS: Lidocaine 5% Patch 1 PATCH TOPICAL (09:58)
[2024-02-06] MEDS: Colchicine 0.6 MG TABLET PO ×2 (09:58→20:00)
[2024-02-06] MEDS: Ensure Plus High Protein 120 ML LIQUID PO ×2 (09:58→20:01)
[2024-02-06] MEDS: Potassium Chloride Oral Soln 20 MEQ/15 ML UDC 40 MEQ PO (10:03)
--- NOTE | 2024-02-06 10:28 | CT_ITS ---
INDICATION: altered mental status EXAMINATION: CT BRAIN - CT Head or Brain W/O Contrast Injection TECHNIQUE: Multiple axial images were obtained of the head without intravenous contrast. A radiation dose optimization technique was used for this scan. IV Contrast dosage and agent: None. RADIATION DOSAGE (If Supplied By Facility): CTDIvol = ( 44.99 ) mGy, DLP = ( 812.98 ) mGycm COMPARISON: No relevant prior comparison study available FINDINGS: BRAIN PARENCHYMA: No intra- or extra-axial hemorrhage. There are patchy foci of low attenuation within the white matter of the cerebral hemispheres, a nonspecific finding most commonly reflecting small vessel ischemia. No evidence of acute infarct. No intracranial mass or mass effect. There is preservation of the bar[place]ona/white matter interface. Posterior fossa structures are unremarkable. CSF SPACES: Appropriate for age. No hydrocephalus. Basal cisterns are patent. CALVARIUM, SKULL BASE, PARANASAL SINUSES AND MASTOID AIR CELLS: Clear. No discrete lytic or blastic abnormalities. ORBITS: Both globes, extraocular muscles, optic nerves and retrobulbar fat appear unremarkable. ASPECTS Score for Acute Strokes: 10 CT/Brain/Head without Contrast IMPRESSION: Small vessel ischemia. Electronically Signed: Char Copeland MD at 11:08 EDT ,
[2024-02-06 10:42] LABS: Allen Test Positive; Base Excess 2 mmol/L (-2 to +2); Bicarbonate 25.8 mmol/L (22-26); Blood Gas Specimen Type ART; Mode Not entered; O2 Delivery Device Room Air; PO2 72 mmHG (75-100); SITE L Radial; SO2 95 % (95-99); Total Carbon Dioxide 27 mmol/L; pCO2 36.7 mmHg (35-45); pH 7.46 (7.35-7.45)
--- NOTE | 2024-02-06 11:08 | NURSING ---
had just left pt room-pt had been lethargic-vss, informed family to not feed pt until he is more awake-pt would open eyes when stimulated but immediately return to sleep when not stimulated-called back to pt room -physician said pt will not open eyes to sternal rub-resp are 18, pox is 98 on room air, pulse 58, b/p is 123/62-pt taken to CT scan after placed on site monitor-returned to room via bed-see vss-upon entering room, pt recognized and called daughter by name, was able to tell us his name, no facial droop noted-pt is flushed, no fever
--- NOTE | 2024-02-06 11:11 | PCM.PN.ID ---
Physical Exam Narrative No fever overnight. Unresponsive this AM. Family reports he was communicating around 6am, sleeping since then. Const Constitutional Narrative: unresponsive to sternal rub Resp normal air movement and clear to auscultation bilaterally Cardio regular rate and regular rhythm GI soft to palpation, non-tender and non-distended Skin no rashes or lesions noted ID ID: Route of nutrition/ use of supplements: [] Nutritional Intake: [] IV Site: [] Hitchcock Catheter: [] Assessment & Plan Assessment/Plan (1) Septic arthritis of knee, right: PLAN: Suspected infection. Fevers here, fluid with 25k wbc, 95% poly. Crystal studies neg. Bcx ngtd. Seen by ortho. Cont vanc/ceftriaxone. Had recent uti. Hemarthrosis could cause some low grade temps. Afebrile overnight but unresponsive to sternal rub. D/w nursing and primary team. Will follow
--- NOTE | 2024-02-06 13:21 | PCM.PN.HOSP ---
Reason for Visit Reason for Visit: Diagnoses Unspecified dementia, unspecified severity, without behavioral disturbance, psychotic disturbance, mood disturbance, and anxiety (02/04/24) Pyogenic arthritis, unspecified (02/04/24) Unilateral primary osteoarthritis, right knee (02/04/24) Hemarthrosis, unspecified joint (02/04/24) Effusion, right knee (02/04/24) Difficulty in walking, not elsewhere classified (02/04/24) Subjective Subjective No acute events overnight. Patient seen at bedside this morning, daughter present. Patient was more somnolent appearing this morning than previous days. However, for me he was awakening both voice and light touch. He was mainly having difficulty staying awake. He reported mild knee pain this morning, improved from previous days. No other acute concerns. Objective Data Objective Data Vital Signs: Vital Signs Temp Pulse Resp BP Pulse Ox O2 Del Method 98.9 F 64 18 150/72 H 96 Room Air 02/06/24 11:10 02/06/24 11:10 02/06/24 11:10 02/06/24 11:10 02/06/24 11:10 02/06/24 11:10 Oxygen Delivery Method Room Air Weight: 83.552 kg Body Mass Index (BMI) 26.4 Intake & Output: Intake and Output for Last 24 Hours 02/04/24 02/05/24 02/06/24 23:59 23:59 23:59 Intake Total 590 / 710 1620 / 1620 535 / 535 Output Total 900 / 1100 1275 / 1550 500 / 500 Balance -310 / -390 345 / 70 35 / 35 Medical Nutrition Assessment Dietitian: Malnutrition Criteria Met Start: 02/04/24 12:53 Freq: Status: Active Protocol: Document 02/04/24 13:20 RMA (Rec: 02/04/24 13:20 RMA [id number]) Nutrition Malnutrition Evidence of Malnutrition Exists Yes Malnutrition (moderate): Chronic Evidenced By Suboptimal Energy Intake ( Moderate),Weight Loss ( Moderate) Clinical Problem Chronic Disease or Condition Related Malnutrition Etiology 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 Will add 120mL ensure plus high protein 4 times per day w / medpass. Adjust ONS as needed to prevent further weight loss. Lab / Micro Data 02/06/24 03:30 02/06/24 03:30 Labs: Laboratory Results - last 24 hr 02/06/24 03:30: WBC 6.8, RBC 3.91 L, Hgb 12.2 L, Hct 37.0 L, MCV 94.6 H, MCH 31.2, MCHC 33.0, RDW Std Deviation 49.2 H, RDW Coeff of Beata 14.1, Plt Count 210, MPV 10.5, Sodium 140, Potassium 3.3 L, Chloride 108 H, Carbon Dioxide 26.0, Anion Gap 6, BUN 14, Creatinine 0.78, Estim Creat Clear Calc 70.97, Est GFR (MDRD) Af Amer 122, Est GFR (MDRD) Non-Af 101, BUN/Creatinine Ratio 17.9, Glucose 118 H, Calcium 8.8, Vancomycin Trough 10.0 Micro: Microbiology 02/04/24 15:15 Blood Culture (Wb) - Anticubital Right Blood Culture - Preliminary No growth in 48 hours. 02/04/24 15:08 Blood Culture (Wb) - Arm Left Blood Culture - Preliminary No growth in 48 hours. 02/03/24 15:15 Fluid - Synovial (joint) Gram Stain - Final 02/03/24 15:15 Fluid - Synovial (joint) Gram Stain - Final ABG Data ABG results: ABG 02/06/24 10:37 Specimen Type ART Sample Site L Radial pH 7.46 H Bicarbonate Actual 25.8 Total CO2 27 Base Excess 2 O2 Saturation 95 O2 % 21.0 ABG pCO2 36.7 ABG pO2 72 L Karel Test Positive O2 Delivery Device Room Air Vent Mode Not entered Radiography Diagnostic Testing: Radiology Impression Brain CT 02/06/24 10:28 IMPRESSION: Small vessel ischemia. Electronically Signed: Char Copeland MD at 11:08 EDT , Physical Exam Const alert, no apparent distress and average body habitus Constitutional Narrative: Elderly male, laying comfortably in bed, more somnolent today than previous days but awakening to voice and light touch, answer questions with short responses, no acute distress. General Appearance: cooperative and comfortable HEENT normocephalic, head/scalp atraumatic, hearing grossly normal bilaterally, nasal mucous membranes and turbinates normal and moist oral mucous membranes Eyes PERRL, EOMs intact bilaterally and conjunctivae normal Neck full ROM Chest inspection of chest normal Resp normal respiratory effort, normal air movement, no use of accessory muscles and clear to auscultation bilaterally Cardio regular rate, regular rhythm, no murmurs and peripheral pulses 2+ throughout GI normal to inspection, nondistended, normoactive bowel sounds, soft to palpation, non-tender and non-distended Back/Spine normal ROM Extremity Extremity Narrative: Right knee swelling improved from admission. Continues to have mild tenderness to palpation also improved from admission. No erythema noted. Skin no rashes or lesions noted Neuro moves all extremities and no focal motor deficits Speech: speech normal Psych mental status grossly normal Assessment & Plan Assessment/Plan (1) Hemarthrosis: (2) Inability to ambulate due to right knee: (3) Effusion of right knee joint: (4) Dementia: PLAN: Plan Patient is an 83-year-old male who presented to [facility] ED on 02/03/2024 with worsening right knee pain. 1. Suspected right knee acute CPPD episode with concern for possible septic joint, history of severe right knee OA ? Presented with severe right knee pain in setting of known history of OA. Imaging on admission showed moderate sized joint effusion; also notably showed evidence of chondrocalcinosis. Arthrocentesis done in the ED, 35 mL bloody fluid removed. Fluid studies showed 25,000 WBCs with 95% neutrophils, high number of red blood cells, no crystals seen on preliminary read, full read to follow. Gram stain of fluid showed 2+ WBCs but no organisms noted. Patient with low-grade fever, otherwise hemodynamically stable and no other systemic signs of infection. WBC count normal. ? Infectious disease following. Patient initiated on IV vancomycin and ceftriaxone on 02/03 with concern for septic joint. ? Orthopedics evaluated on 02/04, did not feel patient has a septic knee at this time. They recommended continued medical treatment, ice, therapy and pain medications as needed. Noted that if the fluid culture had growth or if blood cultures came back positive with no other source identified, they could consider arthroscopic irrigation/debridement of the right knee. ? Will continue IV antibiotics for now, appreciate further ID recs. Continue p.o. colchicine scheduled, with Tylenol and oxycodone as needed for pain control. Follow-up final fluid studies and cultures. 2. Debility ? PT/OT/case management following. Patient lives at home with , daughter also involved in patient's care. Patient noted by therapy to have significant debility at this time. SNF placement for patient on discharge would likely be best but family is preferring home with home health care at this time. Continue to monitor. 3. Toxic encephalopathy on admission, improved; intermittent episodes of altered mentation; history of dementia ? Patient noted to be confused on admission, suspected secondary to morphine that was given in the ED for his pain. Improved back to his baseline mental status per family on morning of 02/03. ? Patient noted by family to be very confused on afternoon of 02/03 and was also agitated at that time. Per nursing staff, he was not very redirectable. He was given pain medication for his knee and this allowed him to calm down and sleep. ? Initiated patient on p.o. risperidone 0.5 mg at night on 02/03, slept well on nights of 02/03 and 02/04. Also ordered IV Haldol 1 mg every 6 hours as needed for suspected hospital delirium on 02/03 but patient has not required any doses to this point. ? Patient noted to be more somnolent on morning of 02/05 compared to previous days. ABG was normal. CT head without contrast nonacute. Patient noted to be back to his baseline on early afternoon of 02/05. ? Continue home donepezil. Continue risperidone at night scheduled. Continue to monitor closely for signs of hospital delirium. 4. BPH with obstructive symptoms, previous episodes of acute urinary retention ? Hitchcock catheter placed in the ED due to concern for acute urinary retention with encephalopathy as noted above. ? Hitchcock catheter removed on 02/05 for void trial, monitor closely. Continue home Flomax. Chronic medical conditions: ? CAD with remote stent placement: Previously follows with cardiology at [facility]. Requesting records, had stent placed several years ago, was on Plavix for 1 year and has now been on aspirin monotherapy. Aspirin restarted on 02/03. ? Hypothyroidism: Continue home Synthroid. DVT prophylaxis: Heparin subcu (allergy to Lovenox) CODE STATUS: Full code, verified Expect disposition: Home with home health versus SNF, 2 to 3 days Total clinical time spent by myself addressing the patient's medical issues, reviewing all the data, and collaborating with patient's care team: 35 minutes. Charges/Coding Visit Charges Inpatient E&M: 99180 Subs Hosp L2
--- NOTE | 2024-02-06 13:48 | CASEMGMT ---
Social Work SW met with pt's and dgt Ashley to discuss discharge plan. SW spoke with family regarding pt's functional ability with therapy and need for Max A x2 for ambulation and transfers. Discharge options discussed including home health, private duty aids and SNF. A list of SNF providers including quality and resource use data and consistent with the patient?s preferred geographic region, medical needs, and insurance network were provided from the [facility]. initially refusing to discuss discharge plans until pt has been cleared by physician and all wifes questions have been answered. After additional conversation, pt stating she cannot take pt home if he required this much help and she would want [facility]. However, she believes if pt's knee is fixed during hospitalization pt will be able to move better and return home. Referral sent to TCU. [facility]FIN will continue to follow. RICKEY Mann
[2024-02-06] MEDS: Acetaminophen 650 MG/20 ML UDC PO ×2 (14:22→20:06)
[2024-02-06] MEDS: Tamsulosin HCl 0.4 MG Capsule PO (16:02)
[2024-02-06] MEDS: Atorvastatin Calcium 20 MG Tablet PO (19:59)
[2024-02-06] MEDS: Heparin Injection (Vial) 5,000 UNIT/ML VIAL 5000 UNIT SC (20:06)
[2024-02-06] MEDS: Donepezil HCl 5 MG Tablet PO (20:06)
--- NOTE | 2024-02-06 22:50 | NURSING ---
2155 Patient's SpO2 dropping into 50s-60s when sleeping. Patient refusing to wear O2 nasal cannula. Multiple attempts using different tactics. Patient swatting nasal cannula away and putting blanket over his head. Patient is A & O x1. Daughter, Ashley, is at bedside. General discussion with daughter that the family should discuss his code status. At this time he is a full code. Ashley said it will have to be a hard discussion with her mother.
[2024-02-07 02:18] VITALS: BP 138/63; PULSE 55; RESP 20; TEMP 37.1; O2SAT 96
[2024-02-07] MEDS: Vancomycin HCl 1,750 MG in 0.9% Normal Saline (500mL Bag) 500 ML 250 MG IV ×2 (03:50→16:47)
[2024-02-07 05:41] VITALS: PULSE 52; RESP 18; O2SAT 97
[2024-02-07] MEDS: Levothyroxine 100 MCG Tablet PO (06:45)
[2024-02-07] MEDS: Acetaminophen 650 MG/20 ML UDC PO (06:51)
[2024-02-07 07:22] LABS: Hematocrit 37.1 % (40-54); Hemoglobin 11.7 g/dL (13.0-16.5); Mean Corp Hgb Conc 31.5 g/dL (32-36); Mean Corpuscular Hgb 30.5 pg (27.0-32.0); Mean Corpuscular Volume 96.6 fL (80-94); Mean Platelet Vol. 10.3 fl (6.2-12.0); Platelet Count 264 K/mm3 (150-450); Red Blood Count 3.84 M/mm3 (4.6-6.2); White Blood Count 6.6 K/mm3 (4.4-11.0)
[2024-02-07 07:43] LABS: Anion Gap 6 (5-15); BUN 14 mg/dL (7-18); BUN/Creat Ratio 17.1 RATIO (10-20); Chloride 114 mmol/L (98-107); Creatinine, Serum 0.82 mg/dL (0.70-1.30); EST Glomerular Filtration Rate 95 mL/min (>60); Est Glom Filt Rate - Afr Amer 115 mL/min (>60); Estimated Creatinine Clearance 69.24 ml/min; Glucose 102 mg/dL (74-106); Potassium 3.5 mmol/L (3.5-5.1); Sodium Level 143 mmol/L (136-145)
[2024-02-07 09:55] VITALS: BP 135/62; PULSE 60; RESP 18; TEMP 37; O2SAT 97
[2024-02-07] MEDS: Colchicine 0.6 MG TABLET PO ×2 (10:02→20:58)
[2024-02-07] MEDS: Pantoprazole Sodium 40 MG Tablet PO (10:02)
[2024-02-07] MEDS: Lidocaine 5% Patch 1 PATCH TOPICAL (10:02)
[2024-02-07] MEDS: Heparin Injection (Vial) 5,000 UNIT/ML VIAL 5000 UNIT SC ×2 (10:03→21:01)
[2024-02-07] MEDS: Ceftriaxone 2 GM in 0.9% Normal Saline (50mL MB+) 50 ML IV (10:08)
[2024-02-07] MEDS: Ensure Plus High Protein 120 ML LIQUID PO ×2 (14:15→20:59)
--- NOTE | 2024-02-07 15:10 | PCM.PN.ID ---
Physical Exam Narrative Feeling better, knee still sore, no fever. More awake. Const alert and no apparent distress General Appearance: cooperative Resp normal air movement and clear to auscultation bilaterally Cardio regular rate and regular rhythm GI soft to palpation, non-tender and non-distended Skin Skin Narrative: R swelling swelling, tenderness ID ID: Route of nutrition/ use of supplements: [] Nutritional Intake: [] IV Site: [] Hitchcock Catheter: [] Assessment & Plan Assessment/Plan (1) Septic arthritis of knee, right: PLAN: Suspected infection. Fevers here, fluid with 25k wbc, 95% poly. Crystal studies neg. Bcx ngtd. Seen by ortho. Cont vanc/ceftriaxone. Had recent uti. Hemarthrosis could cause some low grade temps. Fever now resolved. Bcx and fluid cx remain neg. Plan on discharge on 10 more days po doxy 100mg bid and omnicef 300mg bid. Will follow
[2024-02-07 15:11] VITALS: BP 148/61; PULSE 71; RESP 18; TEMP 36.6; O2SAT 98
[2024-02-07 16:35] LABS: Vancomycin, Trough Level 17.6 ug/mL (5.0-15.0)
--- NOTE | 2024-02-07 16:43 | PCM.RX.CS ---
Consult Antibiotic Management Pharmacy has been consulted to manage selected antibiotic: Vancomycin Type of Intervention Type of Consult: Follow-up Suspected Infection Suspected Infection: Other (SEPTIC ARTHRITIS) Prior Doses of Antibiotics Prior Doses of Antibiotics Received/Current Regimen: Vancomycin 1750 mg Q12H given 02/05 @ 0451, 02/05 @ 1556, 02/06 @ 0350 Labs Labs: Sodium 143 mmol/L (136-145) 02/07/24 07:05 Potassium 3.5 mmol/L (3.5-5.1) 02/07/24 07:05 Chloride 114 mmol/L (98-107) H 02/07/24 07:05 Carbon Dioxide 23.0 mmol/L (21.0-32.0) 02/07/24 07:05 Anion Gap 6 (5-15) 02/07/24 07:05 BUN 14 mg/dL (7-18) 02/07/24 07:05 Creatinine 0.82 mg/dL (0.70-1.30) 02/07/24 07:05 Est GFR (MDRD) Af Amer 115 mL/min (>60) 02/07/24 07:05 Est GFR (MDRD) Non-Af 95 mL/min (>60) 02/07/24 07:05 BUN/Creatinine Ratio 17.1 RATIO (10-20) 02/07/24 07:05 Glucose 102 mg/dL (74-106) 02/07/24 07:05 Vancomycin Trough 17.6 ug/mL (5.0-15.0) H 02/07/24 15:50 Microbiology Microbiology: Microbiology 02/03/24 15:15 Fluid - Synovial (joint) Gram Stain - Final 02/03/24 15:15 Fluid - Synovial (joint) Body Fluid Culture - Preliminary No growth-Final to follow 02/03/24 15:15 Fluid - Synovial (joint) Anaerobic Culture - Preliminary No growth in 48 hours. 02/04/24 15:15 Blood Culture (Wb) - Anticubital Right Blood Culture - Preliminary No growth in 48 hours. 02/04/24 15:08 Blood Culture (Wb) - Arm Left Blood Culture - Preliminary No growth in 48 hours. 02/03/24 15:15 Fluid - Synovial (joint) Gram Stain - Final Dosing Weight Weight used for dosin.5 kg Estimated Creatinine Clearance Estimated Creatinine Clearance: ~ 69 Goal Trough Goal Trough: 15-20 mcg/mL Pharmacy Plan for Drug Dosing Pharmacy Plan for Drug Dosing: Vancomycin trough = 17.6, will continue 1750 mg Q12H dosing with a trough in 2 days. Pharmacy Service will continue to monitor and adjust dosing as required. Follow-Up Labs Follow-Up Labs: Trough: Vancomycin Date/Time Labs Ordered Labs to be done on [date and time ordered]: 02/09/24 @ 1600
[2024-02-07] MEDS: Tamsulosin HCl 0.4 MG Capsule PO (16:51)
--- NOTE | 2024-02-07 17:00 | CASEMGMT ---
Social Work Spoke with Carley in [facility] and patient care needs currently too great for TCU LOC, but can review again on Saturday. Met with patient and in room. Introducing to self and SW role. acknowledges speaking with Carolina LANG about discharge planning the previous day. Discussed with the that will need to have an alternate choice of SNF, as at this time uncertain if patient will be able to be accepted at TCU. reports has talked this through with doctor, of need for alternate choices. Additional choices would be [facility] and [facility]. does report first choice continues to be home, but also understand limits in caring for patient, and may need to look at short term SNF. Let know SW would be following up again on 02.10.24. Plan: Anticiipate short term SNF. Pending referral at [facility]; will also look at [facility] and [facility]. DANELLE Bello
--- NOTE | 2024-02-07 19:14 | PCM.PN.HOSP ---
Reason for Visit Reason for Visit: Diagnoses Unspecified dementia, unspecified severity, without behavioral disturbance, psychotic disturbance, mood disturbance, and anxiety (02/04/24) Pyogenic arthritis, unspecified (02/04/24) Unilateral primary osteoarthritis, right knee (02/04/24) Hemarthrosis, unspecified joint (02/04/24) Effusion, right knee (02/04/24) Difficulty in walking, not elsewhere classified (02/04/24) Subjective Subjective Patient was seen and examined at this time, I talked with his extensively today, she would like to try to take the patient home if possible when he is ready to be discharged, patient was a to assist however today and I think it is unlikely in the scheme of things that he will be able to go home-I think it is likely he will need a short-term stay in a correction facility. Patient has problems with dementia and was given Haldol 2 nights ago and was lethargic yesterday. Patient is alert today but exhibits confusion, he can be directed however. Objective Data Objective Data Vital Signs: Vital Signs Temp Pulse Resp BP Pulse Ox O2 Del Method O2 Flow Rate 98 F 71 18 148/61 H 98 Room Air 2 02/07/24 15:11 02/07/24 15:11 02/07/24 15:11 02/07/24 15:11 02/07/24 15:11 02/07/24 15:11 02/07/24 05:41 Oxygen Flow Rate (L/min) 2 Oxygen Delivery Method Room Air Weight: 83.552 kg Body Mass Index (BMI) 26.4 Intake & Output: Intake and Output for Last 24 Hours 02/05/24 02/06/24 02/07/24 23:59 23:59 23:59 Intake Total 1620 / 1620 1520 / 1720 1320 / 1320 Output Total 1275 / 1550 1000 / 1100 350 / 350 Balance 345 / 70 520 / 620 970 / 970 Medical Nutrition Assessment Dietitian: Malnutrition Criteria Met Start: 02/04/24 12:53 Freq: Status: Active Protocol: Document 02/04/24 13:20 RMA (Rec: 02/04/24 13:20 RMA [id number]) Nutrition Malnutrition Evidence of Malnutrition Exists Yes Malnutrition (moderate): Chronic Evidenced By Suboptimal Energy Intake ( Moderate),Weight Loss ( Moderate) Clinical Problem Chronic Disease or Condition Related Malnutrition Etiology 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 Will add 120mL ensure plus high protein 4 times per day w / medpass. Adjust ONS as needed to prevent further weight loss. Lab / Micro Data 02/07/24 07:05 02/07/24 07:05 Labs: Laboratory Results - last 24 hr 02/07/24 07:05: WBC 6.6, RBC 3.84 L, Hgb 11.7 L, Hct 37.1 L, MCV 96.6 H, MCH 30.5, MCHC 31.5 L, RDW Std Deviation 50.0 H, RDW Coeff of Beata 14.0, Plt Count 264, MPV 10.3, Sodium 143, Potassium 3.5, Chloride 114 H, Carbon Dioxide 23.0, Anion Gap 6, BUN 14, Creatinine 0.82, Estim Creat Clear Calc 69.24, Est GFR (MDRD) Af Amer 115, Est GFR (MDRD) Non-Af 95, BUN/Creatinine Ratio 17.1, Glucose 102, Calcium 9.0 02/07/24 15:50: Vancomycin Trough 17.6 H Micro: Microbiology 02/03/24 15:15 Fluid - Synovial (joint) Gram Stain - Final 02/03/24 15:15 Fluid - Synovial (joint) Body Fluid Culture - Preliminary No growth-Final to follow 02/03/24 15:15 Fluid - Synovial (joint) Anaerobic Culture - Preliminary No growth in 48 hours. 02/04/24 15:15 Blood Culture (Wb) - Anticubital Right Blood Culture - Preliminary No growth in 48 hours. 02/04/24 15:08 Blood Culture (Wb) - Arm Left Blood Culture - Preliminary No growth in 48 hours. 02/03/24 15:15 Fluid - Synovial (joint) Gram Stain - Final Physical Exam Const alert, no apparent distress and average body habitus General Appearance: cooperative, well kempt and well developed Orientation / Consciousness: awake and oriented to person HEENT normocephalic, head/scalp atraumatic and moist oral mucous membranes Eyes PERRL, EOMs intact bilaterally and conjunctivae normal Neck supple, no JVD, thyroid normal and no carotid bruits General: trachea midline Resp normal respiratory effort, no retractions, no use of accessory muscles and clear to auscultation bilaterally Auscultation: Negative for rales, rhonchi or wheezes Cardio regular rate, regular rhythm, S1 normal heart sound, S2 normal heart sound, no murmurs, no rub and no gallops GI normal to inspection, nondistended, normoactive bowel sounds, soft to palpation, non-tender and non-distended Extremity Extremity Narrative: Patient's right knee is wrapped with Stiven wrap Skin no rashes or lesions noted General Skin Exam: no breakdown Neuro CN's II-XII intact bilaterally, no focal motor deficits and no sensory deficits noted Neuro Narrative: confused Sensorium / Orientation: awake and alert Psych Psych Narrative: confused Assessment & Plan Assessment/Plan (1) Arthritis of knee, right: PLAN: Plan 1. Septic arthritis of the right knee-I talked briefly with infectious diseases, they feel it is appropriate to give the patient 10 more days of p.o. doxycycline and Omnicef, patient remains on IV antibiotics at this time, tomorrow I will change him over to oral antibiotics, patient continues PT and OT. #2 acute debility secondary to septic arthritis of the right knee-patient is being seen by PT and OT, again the would like the patient to go home if possible at the time of discharge from the hospital rather than go to a senior living, patient will be monitored this weekend #3 dementia-complicates care, management, recovery, and prognosis Total clinical time spent by myself addressing the patient's medical issues, reviewing all of his data, and collaborating with patient's care team: 35 minutes Charges/Coding Visit Charges Inpatient E&M: 25399 Subs Hosp L2
[2024-02-07 20:34] VITALS: BP 152/76; PULSE 66; RESP 18; TEMP 37.1; O2SAT 96
[2024-02-07] MEDS: Atorvastatin Calcium 20 MG Tablet PO (20:58)
[2024-02-07] MEDS: RisperiDONE 0.5 MG Tablet PO (20:58)
[2024-02-07] MEDS: Menthol/Lanolin/Calamine/Znox 113 GM Tube 1 APPLIC TOPICAL (20:59)
[2024-02-07] MEDS: Donepezil HCl 10 MG Tablet PO (21:01)
[2024-02-07 23:24] VITALS: BP 150/69; PULSE 91; RESP 18; TEMP 36.6; O2SAT 96
[2024-02-08 04:30] VITALS: PULSE 42
[2024-02-08] MEDS: Vancomycin HCl 1,750 MG in 0.9% Normal Saline (500mL Bag) 500 ML 250 MG IV ×2 (04:40→16:59)
[2024-02-08 08:55] VITALS: BP 154/66; PULSE 53; RESP 16; TEMP 36.8; O2SAT 94
[2024-02-08] MEDS: Pantoprazole Sodium 40 MG Tablet PO (09:33)
[2024-02-08] MEDS: Ceftriaxone 2 GM in 0.9% Normal Saline (50mL MB+) 50 ML IV (09:33)
[2024-02-08] MEDS: Levothyroxine 100 MCG Tablet PO (09:33)
[2024-02-08] MEDS: Lidocaine 5% Patch 1 PATCH TOPICAL (09:33)
[2024-02-08] MEDS: Colchicine 0.6 MG TABLET PO ×2 (09:33→21:37)
[2024-02-08] MEDS: Heparin Injection (Vial) 5,000 UNIT/ML VIAL 5000 UNIT SC ×2 (09:34→21:39)
[2024-02-08] MEDS: Menthol/Lanolin/Calamine/Znox 113 GM Tube 1 APPLIC TOPICAL ×2 (09:35→21:38)
--- NOTE | 2024-02-08 11:25 | PN.HOSP_ITS ---
Reason for Visit Reason for Visit: Diagnoses Unspecified dementia, unspecified severity, without behavioral disturbance, psy chotic disturbance, mood disturbance, and anxiety (02/04/24) Pyogenic arthritis, unspecified (02/04/24) Unilateral primary osteoarthritis, right knee (02/04/24) Hemarthrosis, unspecified joint (02/04/24) Effusion, right knee (02/04/24) Difficulty in walking, not elsewhere classified (02/04/24) Subjective Subjective Patient was seen and examined today, his daughter is in the room at the time my examination, she states that the patient's realizes that he should go to a skilled facility for short-term rehab services. This will likely not happen till the first of next week. Objective Data Objective Data Vital Signs: Vital Signs Temp Pulse Resp BP Pulse Ox O2 Del Method O2 Flow Rate 98.3 F 53 L 16 154/66 H 94 Room Air 2 02/08/24 08:55 02/08/24 08:55 02/08/24 08:55 02/08/24 08:55 02/08/24 08:55 02/08/24 08:55 02/07/24 05:41 Oxygen Flow Rate (L/min) 2 Oxygen Delivery Method Room Air Weight: 83.552 kg Body Mass Index (BMI) 26.4 Intake & Output: Intake and Output for Last 24 Hours 02/06/24 02/07/24 02/08/24 23:59 23:59 23:59 Intake Total 1520 / 1720 1620 / 1620 735 / 735 Output Total 1000 / 1100 350 / 350 Balance 520 / 620 1270 / 1270 735 / 735 Medical Nutrition Assessment Dietitian: Malnutrition Criteria Met Start: 02/04/24 12:53 Freq: Status: Active Protocol: Document 02/04/24 13:20 RMA (Rec: 02/04/24 13:20 RMA [id number]) Nutrition Malnutrition Evidence of Malnutrition Exists Yes Malnutrition (moderate): Chronic Evidenced By Suboptimal Energy Intake ( Moderate),Weight Loss ( Moderate) Clinical Problem Chronic Disease or Condition Related Malnutrition Etiology 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 Will add 120mL ensure plus high protein 4 times per day w / medpass. Adjust ONS as needed to prevent further weight loss. Lab / Micro Data 02/07/24 07:05 02/07/24 07:05 Labs: Laboratory Results - last 24 hr 02/07/24 15:50: Vancomycin Trough 17.6 H Micro: Microbiology 02/03/24 15:15 Fluid - Synovial (joint) Gram Stain - Final 02/03/24 15:15 Fluid - Synovial (joint) Body Fluid Culture - Preliminary No growth-Final to follow 02/03/24 15:15 Fluid - Synovial (joint) Anaerobic Culture - Preliminary No growth in 48 hours. 02/04/24 15:15 Blood Culture (Wb) - Anticubital Right Blood Culture - Preliminary No growth in 48 hours. 02/04/24 15:08 Blood Culture (Wb) - Arm Left Blood Culture - Preliminary No growth in 48 hours. 02/03/24 15:15 Fluid - Synovial (joint) Gram Stain - Final Physical Exam Narrative alert, no apparent distress and average body habitus General Appearance: cooperative, well kempt and well developed Orientation / Consciousness: awake and oriented to person HEENT normocephalic, head/scalp atraumatic and moist oral mucous membranes Eyes PERRL, EOMs intact bilaterally and conjunctivae normal Neck supple, no JVD, thyroid normal and no carotid bruits General: trachea midline Resp normal respiratory effort, no retractions, no use of accessory muscles and clear to auscultation bilaterally Auscultation: Negative for rales, rhonchi or wheezes Cardio regular rate, regular rhythm, S1 normal heart sound, S2 normal heart sound, no murmurs, no rub and no gallops GI normal to inspection, nondistended, normoactive bowel sounds, soft to palpation, non-tender and non-distended Extremity Extremity Narrative: Patient's right knee is wrapped with Stiven wrap, the right knee appears to be swollen Skin no rashes or lesions noted General Skin Exam: no breakdown Neuro CN's II-XII intact bilaterally, no focal motor deficits and no sensory deficits noted Neuro Narrative: confused Sensorium / Orientation: awake and alert Psych Psych Narrative: confused Assessment & Plan Assessment/Plan (1) Arthritis of knee, right: PLAN: Plan 1. Septic arthritis of the right knee-I talked briefly with infectious diseases, they feel it is appropriate to give the patient 10 more days of p.o. doxycycline and Omnicef, patient remains on IV antibiotics at this time, tomorrow I will change him over to oral antibiotics, patient continues PT and OT. #2 acute debility secondary to septic arthritis of the right knee-patient is being seen by PT and OT, again the would like the patient to go home if possible at the time of discharge from the hospital rather than go to a residential, patient will be monitored this weekend #3 dementia-complicates care, management, recovery, and prognosis #4 chronic moderate protein and caloric malnutrition in the context of chronic disease and debility related to inadequate oral intake as evidenced by approximately 13% unintentional weight loss over 8 to 9 months and p.o. meeting less than 75% of estimated nutritional needs for 9 to 12 months-patient's diet was liberalized to regular, 240 cc of Ensure plus high-protein with breakfast, 120 cc of Ensure Plus high-protein will be given 4 times a day with Kaleidoscope, nutritional services is following Total clinical time spent by myself addressing the patient's medical issues, reviewing all of his data, and collaborating with patient's care team: 35 minutes Charges/Coding Visit Charges Inpatient E&M: 69989 Subs Hosp L2
[2024-02-08 14:11] VITALS: BP 138/61; PULSE 53; RESP 16; TEMP 36.8; O2SAT 97
[2024-02-08] MEDS: Ensure Plus High Protein 120 ML LIQUID PO ×3 (14:23→21:39)
[2024-02-08] MEDS: Tamsulosin HCl 0.4 MG Capsule PO (16:59)
[2024-02-08 19:53] VITALS: BP 152/51; PULSE 55; RESP 16; TEMP 37; O2SAT 94
[2024-02-08] MEDS: Atorvastatin Calcium 20 MG Tablet PO (21:37)
[2024-02-08] MEDS: Donepezil HCl 10 MG Tablet PO (21:38)
[2024-02-09 02:19] VITALS: BP 147/84; PULSE 57; RESP 18; TEMP 37.1; O2SAT 96
[2024-02-09] MEDS: Acetaminophen 650 MG/20 ML UDC PO (02:31)
[2024-02-09] MEDS: Vancomycin HCl 1,750 MG in 0.9% Normal Saline (500mL Bag) 500 ML 250 MG IV (05:23)
[2024-02-09] MEDS: Levothyroxine 100 MCG Tablet PO (05:23)
[2024-02-09 09:25] VITALS: BP 145/60; PULSE 60; RESP 16; TEMP 37.3; O2SAT 95
[2024-02-09] MEDS: Colchicine 0.6 MG TABLET PO ×2 (09:44→21:34)
[2024-02-09] MEDS: Lidocaine 5% Patch 1 PATCH TOPICAL (09:44)
[2024-02-09] MEDS: Heparin Injection (Vial) 5,000 UNIT/ML VIAL 5000 UNIT SC ×2 (09:44→21:33)
[2024-02-09] MEDS: Pantoprazole Sodium 40 MG Tablet PO (09:44)
[2024-02-09] MEDS: Menthol/Lanolin/Calamine/Znox 113 GM Tube 1 APPLIC TOPICAL ×2 (09:45→21:41)
[2024-02-09] MEDS: Ceftriaxone 2 GM in 0.9% Normal Saline (50mL MB+) 50 ML IV (09:50)
[2024-02-09] MEDS: Ensure Plus High Protein 120 ML LIQUID PO ×4 (09:51→21:38)
--- NOTE | 2024-02-09 10:00 | CASEMGMT ---
Social Work Referrals sent to [facility] and [facility] via [facility]. First choice remains TCU at [facility]. Plan: SNF versus home with HHC; Referrals have been made to NFs in anticipating need for SNF. -DANELLE Bello
--- NOTE | 2024-02-09 10:02 | PN.HOSP_ITS ---
Reason for Visit Reason for Visit: Diagnoses Unspecified dementia, unspecified severity, without behavioral disturbance, psy chotic disturbance, mood disturbance, and anxiety (02/04/24) Pyogenic arthritis, unspecified (02/04/24) Unilateral primary osteoarthritis, right knee (02/04/24) Hemarthrosis, unspecified joint (02/04/24) Effusion, right knee (02/04/24) Difficulty in walking, not elsewhere classified (02/04/24) Subjective Subjective Patient was seen and examined today, his is in the room at the time my examination, he appears calm but he remains confused. verifies that she would like him to go to a short-term skilled facility if possible-she has doubts that she and her daughter would be able to take care of him at home at the present time. Objective Data Objective Data Vital Signs: Vital Signs Temp Pulse Resp BP Pulse Ox O2 Del Method O2 Flow Rate 99.1 F 60 16 145/60 H 95 Room Air 2 02/09/24 09:25 02/09/24 09:25 02/09/24 09:25 02/09/24 09:25 02/09/24 09:25 02/09/24 09:25 02/09/24 02:19 Oxygen Flow Rate (L/min) 2 Oxygen Delivery Method Room Air Weight: 83.552 kg Body Mass Index (BMI) 26.4 Intake & Output: Intake and Output for Last 24 Hours 02/07/24 02/08/24 02/09/24 23:59 23:59 23:59 Intake Total 1620 / 1620 1320 / 1320 885 / 885 Output Total 350 / 350 200 / 200 Balance 1270 / 1270 1120 / 1120 885 / 885 Medical Nutrition Assessment Dietitian: Malnutrition Criteria Met Start: 02/04/24 12:53 Freq: Status: Active Protocol: Document 02/04/24 13:20 RMA (Rec: 02/04/24 13:20 RMA [id number]) Nutrition Malnutrition Evidence of Malnutrition Exists Yes Malnutrition (moderate): Chronic Evidenced By Suboptimal Energy Intake ( Moderate),Weight Loss ( Moderate) Clinical Problem Chronic Disease or Condition Related Malnutrition Etiology 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 Will add 120mL ensure plus high protein 4 times per day w / medpass. Adjust ONS as needed to prevent further weight loss. Lab / Micro Data 02/07/24 07:05 02/07/24 07:05 Micro: Microbiology 02/03/24 15:15 Fluid - Synovial (joint) Gram Stain - Final 02/03/24 15:15 Fluid - Synovial (joint) Body Fluid Culture - Preliminary No growth-Final to follow 02/03/24 15:15 Fluid - Synovial (joint) Anaerobic Culture - Preliminary No growth in 48 hours. 02/04/24 15:15 Blood Culture (Wb) - Anticubital Right Blood Culture - Preliminary No growth in 48 hours. 02/04/24 15:08 Blood Culture (Wb) - Arm Left Blood Culture - Preliminary No growth in 48 hours. 02/03/24 15:15 Fluid - Synovial (joint) Gram Stain - Final Physical Exam Narrative alert, no apparent distress and average body habitus General Appearance: cooperative, well kempt and well developed Orientation / Consciousness: awake and oriented to person HEENT normocephalic, head/scalp atraumatic and moist oral mucous membranes Eyes PERRL, EOMs intact bilaterally and conjunctivae normal Neck supple, no JVD, thyroid normal and no carotid bruits General: trachea midline Resp normal respiratory effort, no retractions, no use of accessory muscles and clear to auscultation bilaterally Auscultation: Negative for rales, rhonchi or wheezes Cardio regular rate, regular rhythm, S1 normal heart sound, S2 normal heart sound, no murmurs, no rub and no gallops GI normal to inspection, nondistended, normoactive bowel sounds, soft to palpation, non-tender and non-distended Extremity Extremity Narrative: Patient's right knee is wrapped with Stiven wrap, the right knee appears to be swollen Skin no rashes or lesions noted General Skin Exam: no breakdown Neuro CN's II-XII intact bilaterally, no focal motor deficits and no sensory deficits noted Neuro Narrative: confused Sensorium / Orientation: awake and alert Psych Psych Narrative: confused Assessment & Plan Assessment/Plan (1) Arthritis of knee, right: PLAN: Plan 1. Septic arthritis of the right knee-I talked briefly with infectious diseases, they feel it is appropriate to give the patient 10 more days of p.o. doxycycline and Omnicef, patient remains on IV antibiotics at this time, tomorrow I will change him over to oral antibiotics, patient continues PT and OT. Patient's ceftriaxone and vancomycin will be stopped today. Patient's fluid cultures are negative at 48 hours. #2 acute debility secondary to septic arthritis of the right knee-patient is being seen by PT and OT, again the would like the patient to go home if possible at the time of discharge from the hospital rather than go to a jail, patient will be monitored this weekend #3 dementia-complicates care, management, recovery, and prognosis #4 chronic moderate protein and caloric malnutrition in the context of chronic disease and debility related to inadequate oral intake as evidenced by approximately 13% unintentional weight loss over 8 to 9 months and p.o. meeting less than 75% of estimated nutritional needs for 9 to 12 months-patient's diet was liberalized to regular, 240 cc of Ensure plus high-protein with breakfast, 120 cc of Ensure Plus high-protein will be given 4 times a day with [employer]Big, nutritional services is following Total clinical time spent by myself addressing the patient's medical issues, reviewing all of his data, and collaborating with patient's care team: 35 minutes Charges/Coding Visit Charges Inpatient E&M: 23304 Subs Hosp L2
[2024-02-09 13:50] VITALS: BP 148/63; PULSE 53; RESP 16; TEMP 36.8; O2SAT 97
[2024-02-09] MEDS: Tamsulosin HCl 0.4 MG Capsule PO (16:47)
[2024-02-09] MEDS: Atorvastatin Calcium 20 MG Tablet PO (21:34)
[2024-02-09] MEDS: Donepezil HCl 10 MG Tablet PO (21:34)
[2024-02-09] MEDS: Doxycycline 100 MG CAPSULE PO (21:37)
[2024-02-09] MEDS: Cefdinir 300 MG Capsule PO (21:37)
[2024-02-09 21:43] VITALS: BP 137/97; PULSE 59; RESP 18; TEMP 36.7; O2SAT 92
[2024-02-09] MEDS: hydrOXYzine 50 MG/ML Vial 100 MG IM (23:23)
[2024-02-10 04:40] VITALS: BP 161/65; PULSE 56; RESP 18; TEMP 36.7; O2SAT 94
[2024-02-10] MEDS: Levothyroxine 100 MCG Tablet PO (06:57)
[2024-02-10] MEDS: 0.9% Saline Lock 10 ML Syringe IV (06:57)
--- NOTE | 2024-02-10 07:26 | CPS ---
Attempted to do SMI with but however,pt was sleeping. SMI held at this time
[2024-02-10 09:00] VITALS: RESP 18
[2024-02-10 09:24] LABS: Hematocrit 37.2 % (40-54); Hemoglobin 11.7 g/dL (13.0-16.5); Mean Corp Hgb Conc 31.5 g/dL (32-36); Mean Corpuscular Hgb 30.2 pg (27.0-32.0); Mean Corpuscular Volume 96.1 fL (80-94); Mean Platelet Vol. 9.7 fl (6.2-12.0); Platelet Count 328 K/mm3 (150-450); RBC Distribution Width CV 13.4 % (11.6-14.6); RBC Distribution Width SD 47.7 fl (35.1-43.9); Red Blood Count 3.87 M/mm3 (4.6-6.2); White Blood Count 4.9 K/mm3 (4.4-11.0)
[2024-02-10 09:30] VITALS: BP 162/71; PULSE 58; RESP 18; TEMP 37.1; O2SAT 98
[2024-02-10] MEDS: Menthol/Lanolin/Calamine/Znox 113 GM Tube 1 APPLIC TOPICAL ×2 (09:53→23:02)
[2024-02-10] MEDS: Cefdinir 300 MG Capsule PO ×2 (09:53→23:04)
[2024-02-10] MEDS: Colchicine 0.6 MG TABLET PO ×2 (09:54→23:02)
[2024-02-10] MEDS: Lidocaine 5% Patch 1 PATCH TOPICAL (09:54)
[2024-02-10] MEDS: Doxycycline 100 MG CAPSULE PO ×2 (09:54→23:02)
[2024-02-10] MEDS: Ensure Plus High Protein 120 ML LIQUID PO ×3 (09:54→23:07)
[2024-02-10] MEDS: Pantoprazole Sodium 40 MG Tablet PO (09:55)
[2024-02-10] MEDS: Heparin Injection (Vial) 5,000 UNIT/ML VIAL 5000 UNIT SC ×2 (09:55→23:03)
[2024-02-10 10:25] LABS: Anion Gap 6 (5-15); BUN 9 mg/dL (7-18); BUN/Creat Ratio 13.2 RATIO (10-20); Chloride 109 mmol/L (98-107); Creatinine, Serum 0.68 mg/dL (0.70-1.30); EST Glomerular Filtration Rate 118 mL/min (>60); Est Glom Filt Rate - Afr Amer 143 mL/min (>60); Estimated Creatinine Clearance 70.97 ml/min; Glucose 99 mg/dL (74-106); Potassium 3.4 mmol/L (3.5-5.1); Sodium Level 142 mmol/L (136-145)
--- NOTE | 2024-02-10 12:35 | PN.HOSP_ITS ---
Reason for Visit Reason for Visit: Diagnoses Unspecified dementia, unspecified severity, without behavioral disturbance, psy chotic disturbance, mood disturbance, and anxiety (02/04/24) Pyogenic arthritis, unspecified (02/04/24) Unilateral primary osteoarthritis, right knee (02/04/24) Hemarthrosis, unspecified joint (02/04/24) Effusion, right knee (02/04/24) Difficulty in walking, not elsewhere classified (02/04/24) Subjective Subjective No acute events overnight. Patient seen at bedside this morning, present. Patient was sitting up comfortably in bed, appeared fatigued, made appropriate eye contact with questions but gave only short responses. This is similar to the last several days. noted that she was somewhat frustrated by him seemingly only having some therapy done on a daily basis here and was hoping that if discharged to SNF he could have more therapy done each day going forward. She and patient states that otherwise he has been tolerating weightbearing on the knee better every day. No other acute concerns. Objective Data Objective Data Vital Signs: Vital Signs Temp Pulse Resp BP Pulse Ox O2 Del Method O2 Flow Rate 98.7 F 58 L 18 162/71 H 98 Room Air 2 02/10/24 09:30 02/10/24 09:30 02/10/24 09:30 02/10/24 09:30 02/10/24 09:30 02/10/24 09:30 02/10/24 07:12 Oxygen Flow Rate (L/min) 2 Oxygen Delivery Method Room Air Weight: 83.552 kg Body Mass Index (BMI) 26.4 Intake & Output: Intake and Output for Last 24 Hours 02/08/24 02/09/24 02/10/24 23:59 23:59 23:59 Intake Total 1320 / 1320 1295 / 1295 Output Total 200 / 200 300 / 300 300 / 300 Balance 1120 / 1120 995 / 995 -300 / -300 Medical Nutrition Assessment Dietitian: Malnutrition Criteria Met Start: 02/04/24 12:53 Freq: Status: Active Protocol: Document 02/04/24 13:20 RMA (Rec: 02/04/24 13:20 RMA [id number]) Nutrition Malnutrition Evidence of Malnutrition Exists Yes Malnutrition (moderate): Chronic Evidenced By Suboptimal Energy Intake ( Moderate),Weight Loss ( Moderate) Clinical Problem Chronic Disease or Condition Related Malnutrition Etiology 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 Will add 120mL ensure plus high protein 4 times per day w / medpass. Adjust ONS as needed to prevent further weight loss. Lab / Micro Data 02/10/24 09:06 02/10/24 09:06 Labs: Laboratory Results - last 24 hr 02/10/24 09:06: WBC 4.9, RBC 3.87 L, Hgb 11.7 L, Hct 37.2 L, MCV 96.1 H, MCH 30.2, MCHC 31.5 L, RDW Std Deviation 47.7 H, RDW Coeff of Beata 13.4, Plt Count 328, MPV 9.7, Sodium 142, Potassium 3.4 L, Chloride 109 H, Carbon Dioxide 27.0, Anion Gap 6, BUN 9, Creatinine 0.68 L, Estim Creat Clear Calc 70.97, Est GFR (MDRD) Af Amer 143, Est GFR (MDRD) Non-Af 118, BUN/Creatinine Ratio 13.2, Glucose 99, Calcium 9.0 Micro: Microbiology 02/03/24 15:15 Fluid - Synovial (joint) Gram Stain - Final 02/03/24 15:15 Fluid - Synovial (joint) Body Fluid Culture - Final No growth aerobically. 02/03/24 15:15 Fluid - Synovial (joint) Anaerobic Culture - Final No growth in 5 days. 02/04/24 15:15 Blood Culture (Wb) - Anticubital Right Blood Culture - Final No growth in 5 days. 02/04/24 15:08 Blood Culture (Wb) - Arm Left Blood Culture - Final No growth in 5 days. 02/03/24 15:15 Fluid - Synovial (joint) Gram Stain - Final Physical Exam Const alert, no apparent distress and average body habitus Constitutional Narrative: Elderly male, sitting up comfortably in bed, mild to moderately fatigued appearing, making appropriate eye contact with questions and answering with very short responses, no acute distress. General Appearance: cooperative and comfortable HEENT normocephalic, head/scalp atraumatic, hearing grossly normal bilaterally, nasal mucous membranes and turbinates normal and moist oral mucous membranes Eyes PERRL, EOMs intact bilaterally and conjunctivae normal Neck full ROM Chest inspection of chest normal Resp normal respiratory effort, normal air movement, no use of accessory muscles and clear to auscultation bilaterally Cardio regular rate, regular rhythm, no murmurs and peripheral pulses 2+ throughout GI normal to inspection, nondistended, normoactive bowel sounds, soft to palpation, non-tender and non-distended Back/Spine normal ROM Extremity Extremity Narrative: Right knee swelling much improved from admission. Continues to have mild tenderness to palpation also improved from admission. No erythema noted. Skin no rashes or lesions noted Neuro moves all extremities and no focal motor deficits Speech: speech normal Psych mental status grossly normal Assessment & Plan Assessment/Plan (1) Hemarthrosis: (2) Inability to ambulate due to right knee: (3) Effusion of right knee joint: (4) Dementia: PLAN: Plan Patient is an 83-year-old male who presented to [facility] ED on 02/03/2024 with worsening right knee pain. 1. Suspected right knee acute CPPD episode with concern for possible septic joint, history of severe right knee OA ? Presented with severe right knee pain in setting of known history of OA. Imaging on admission showed moderate sized joint effusion; also notably showed evidence of chondrocalcinosis. Arthrocentesis done in the ED, 35 mL bloody fluid removed. Fluid studies showed 25,000 WBCs with 95% neutrophils, high number of red blood cells, no crystals seen on preliminary read, full read to follow. Gram stain of fluid showed 2+ WBCs but no organisms noted. Patient with low-grade fever, otherwise hemodynamically stable and no other systemic signs of infection. WBC count normal. ? Orthopedics evaluated on 02/04, did not feel patient has a septic knee at this time. They recommended continued medical treatment, ice, therapy and pain medications as needed. Noted that if the fluid culture had growth or if blood cultures came back positive with no other source identified, they could consider arthroscopic irrigation/debridement of the right knee. ? Infectious disease following. Treated with IV vancomycin and ceftriaxone starting on 02/03. Fluid cultures negative at 48 hours. De-escalated to p.o. doxycycline and p.o. cefdinir on 02/08 with plan for 10 more days of p.o. antibiotics. Continue p.o. colchicine, will be okay to stop treatment once prasad ent has completed antibiotic course. Continue Tylenol and oxycodone as needed for pain control. 2. Debility ? PT/OT/case management following. Patient lives at home with , daughter also involved in patient's care. Planning for SNF on discharge, likely to [facility] TCU if patient is accepted. Medically ready for discharge on 02/09, awaiting placement. 3. Toxic encephalopathy on admission, improved; intermittent episodes of altered mentation; history of dementia ? Patient noted to be confused on admission, suspected secondary to morphine that was given in the ED for his pain. Improved back to his baseline mental status per family on morning of 02/03. ? Patient noted by family to be very confused on afternoon of 02/03 and was also agitated at that time. Per nursing staff, he was not very redirectable. He was given pain medication for his knee and this allowed him to calm down and sleep. ? Initiated patient on p.o. risperidone 0.5 mg at night on 02/03, slept well on nights of 02/03 and 02/04. Also ordered IV Haldol 1 mg every 6 hours as needed for suspected hospital delirium on 02/03 but patient has not required any doses to this point. ? Patient noted to be more somnolent on morning of 02/05 compared to previous days. ABG was normal. CT head without contrast nonacute. Patient noted to be back to his baseline on early afternoon of 02/05. ? Continue home donepezil. Continue risperidone at night scheduled. Continue to monitor closely for signs of hospital delirium. 4. BPH with obstructive symptoms ? Hitchcock catheter placed in the ED due to concern for acute urinary retention with encephalopathy as noted above. ? Hitchcock catheter removed on 02/05, passed voiding trial. Continue home Flomax. 5. Malnutrition ? Nutrition following. Met criteria for chronic moderate protein and caloric malnutrition. Continue Ensure plus high-protein 4 times daily. Chronic medical conditions: ? CAD with remote stent placement: Previously follows with cardiology at [facility]. Requesting records, had stent placed several years ago, was on Plavix for 1 year and has now been on aspirin monotherapy. Aspirin restarted on 02/03. ? Hypothyroidism: Continue home Synthroid. DVT prophylaxis: Heparin subcu (allergy to Lovenox) CODE STATUS: Full code, verified Expect disposition: SNF, medically ready for discharge on 02/09, awaiting placement Total clinical time spent by myself addressing the patient's medical issues, reviewing all the data, and collaborating with patient's care team: 35 minutes. Charges/Coding Visit Charges Inpatient E&M: 34607 Subs Hosp L2
--- NOTE | 2024-02-10 14:34 | CASEMGMT ---
Discharge Planning [facility] accepted and [facility] declined (no male beds). SW updated. Daksha Beck, Discharge Planning Asst.
--- NOTE | 2024-02-10 14:42 | CHAPLAIN ---
Type of Pastoral Visit ___ Initial Visit _x__ Follow-up Visit ___ On-call Visit ___ General Patient Visit ___ Spiritual Assessment ___ Family Conference ___ Bereavement ___ Rapid Response ___ Code Blue ___ Other (describe below) Pastoral Care Referral From ___ Patient _x__ Family ___ Nurse ___ Physician ___ Composition Worker ___ Associate Professor Of Education ___ Other (describe below) Sacrament/Intervention _x__ Active listening ___ Anointing ___ Jehovah'S Witness ___ Bereavement ___ Communion ___ Paz exploration ___ ___ Life review ___ Prayer ___ Reconciliation ___ Sacrament of Sick ___ Supportive presence ___ Wedding ___ Other (describe below) Pastoral Comments patient is in the hallway assisted for walking by therapy; spouse is standing outside of the room and is approached for support and conversation by this nuisance wildlife control operator; spouse gives more on updates and adds her thoughts and feelings about situation; pt may not be able to go home due to his condition which will be a big change for him; offer of listening ear, source of encouragement, and giving of presence to spouse as patient continues therapy session
[2024-02-10] MEDS: Acetaminophen 650 MG/20 ML UDC PO ×2 (15:08→23:07)
[2024-02-10 15:17] VITALS: BP 138/78; PULSE 83; RESP 18; TEMP 37.1; O2SAT 98
--- NOTE | 2024-02-10 15:21 | CASEMGMT ---
Social Work MESFIN spoke with [facility] in TCU regarding admitting pt. Pt case reviewed and pt is denied for TCU. [facility] is able to accept pt and [facility] has no beds available. MESFIN met with pt, pts and daughter and explained discharge options. is agreeable for pt to go to [facility] for short term rehab prior to returning home. Physician updated and pt will likely be ready for discharge tomorrow. Pt's and [facility] updated. Plan: [facility], when medically ready RICKEY Mann
[2024-02-10 17:00] VITALS: RESP 18
[2024-02-10] MEDS: Tamsulosin HCl 0.4 MG Capsule PO (17:33)
[2024-02-10 22:56] VITALS: BP 136/67; PULSE 60; RESP 18; TEMP 36.9; O2SAT 95
[2024-02-10] MEDS: Donepezil HCl 10 MG Tablet PO (23:02)
[2024-02-10] MEDS: Atorvastatin Calcium 20 MG Tablet PO (23:03)
[2024-02-11 06:00] VITALS: BP 139/54; PULSE 54; RESP 18; TEMP 36.8; O2SAT 94
[2024-02-11] MEDS: Levothyroxine 100 MCG Tablet PO (06:07)
[2024-02-11 09:24] VITALS: BP 142/73; PULSE 57; RESP 18; TEMP 37.2; O2SAT 94
[2024-02-11] MEDS: Lidocaine 5% Patch 1 PATCH TOPICAL (09:34)
[2024-02-11] MEDS: Naproxen 250 MG Tablet 500 MG PO (09:35)
[2024-02-11] MEDS: Acetaminophen 650 MG/20 ML UDC PO (09:35)
[2024-02-11] MEDS: Menthol/Lanolin/Calamine/Znox 113 GM Tube 1 APPLIC TOPICAL (09:35)
[2024-02-11] MEDS: Pantoprazole Sodium 40 MG Tablet PO (09:35)
[2024-02-11] MEDS: Heparin Injection (Vial) 5,000 UNIT/ML VIAL 5000 UNIT SC (09:35)
--- NOTE | 2024-02-11 12:10 | DS.PCM_ITS ---
Providers Date of Admission: 02/04/24 Date of Discharge: 02/11/24 Primary Care Physician: Dr. Bill Brown MD Consultations 02/04/24 09:45 Consult: Infectious Disease Routine Consulting Provider: Thomas Chiu Reason for Consult: concern for septic R knee joint vs pseudogout EMERGENT Consult: No Notified: Yes Date Notified: 02/04/24 Time Notified: 10:55 Method of Notification: Text 02/04/24 15:11 Consult: Orthopedics Routine Consulting Provider: Mike Estrella Reason for Consult: concern for right knee septic joint EMERGENT Consult: No Notified: Yes Date Notified: 02/04/24 Time Notified: 18:40 Method of Notification: Verbal Reason For Visit: RIGHT KNEE EFFUSION Diagnosis Discharge Diagnosis (1) Hemarthrosis: Status: Acute Code(s): M25.00 - Hemarthrosis, unspecified joint (2) Inability to ambulate due to right knee: Status: Acute Code(s): R26.2 - Difficulty in walking, not elsewhere classified (3) Effusion of right knee joint: Status: Acute Code(s): M25.461 - Effusion, right knee (4) Dementia: Status: Acute Code(s): F03.90 - Unspecified dementia, unspecified severity, without behavioral disturbance, psychotic disturbance, mood disturbance, and anxiety Medications at Discharge Home Medications B-complex with vitamin C 1 ea PO DAILY Supplement 04/11/18 aspirin 81 mg tablet,delayed release 81 mg PO DAILY Heart 04/11/18 cholecalciferol (vitamin D3) 25 mcg (1,000 unit) capsule 1,000 unit PO DAILY Supplement 04/11/18 fenofibrate nanocrystallized 145 mg tablet 145 mg PO DAILY Cholesterol 04/11/18 levothyroxine 75 mcg tablet 100 mcg PO DAILY Thyroid 04/11/18 nitroglycerin 0.4 mg sublingual tablet 0.4 mg SL PRN PRN Cardiac/Chest Pain 11/28 tamsulosin 0.4 mg capsule 0.4 mg PO DAILY Prostate 04/11/18 albuterol sulfate 90 mcg/actuation aerosol inhaler 1 - 2 puff inhalation Q4H PRN PRN Shortness Of Breath ##1 11/14/18 amlodipine 5 mg tablet 5 mg PO DAILY 02/03/24 donepezil 10 mg tablet 10 mg PO QHS 02/03/24 pravastatin 20 mg tablet 20 mg PO DAILY 02/03/24 tramadol 50 mg tablet 25 mg PO BID PRN PRN pain 02/03/24 food supplemt, lactose-reduced 0.08 gram-1.5 kcal/mL oral liquid (Ensure Plus High Protein) 120 ml PO 4X/DAY #0 mL 02/11/24 lidocaine 5 % topical patch 1 patch topical DAILY #0 ea 02/11/24 melatonin 5 mg capsule 5 mg PO QHS 7 days #7 caps 02/11/24 naproxen 250 mg tablet 500 mg (2 x 250 mg) PO BIDCM 14 days #56 tabs 02/11/24 pantoprazole 40 mg tablet,delayed release 40 mg PO DAILY GERD 14 days #0 tabs 02/11/24 trazodone 50 mg tablet 50 mg PO QHS PRN insomnia 7 days #7 tabs 02/11/24 Hospital Course Operations None Procedures - (CT brain without contrast, knee x-ray, CT lower extremity) Summary of Care Provided Minutes Spent on Discharge: 35 Hospital Course: Patient is an 83-year-old male who presented to [facility] ED on 02/03/2024 with worsening right knee pain. Hospital course as noted below. Patient discharged to SNF in stable condition on 02/10. . Suspected right knee acute CPPD episode with concern for possible septic joint, history of severe right knee OA Presented with severe right knee pain in setting of known history of OA. Imaging on admission showed moderate sized joint effusion; also notably showed evidence of chondrocalcinosis. Arthrocentesis done in the ED, 35 mL bloody fluid removed. Fluid studies showed 25,000 WBCs with 95% neutrophils, high number of red blood cells, no crystals seen on preliminary read, full read to follow. Gram stain of fluid showed 2+ WBCs but no organisms noted. Patient with low-grade fever, otherwise hemodynamically stable and no other systemic signs of infection. WBC count normal. ? Orthopedics evaluated on 02/04, did not feel patient has a septic knee, recommended medical management. Infectious disease followed. Patient treated with IV vancomycin and ceftriaxone for several days while inpatient. Knee fluid cultures and blood cultures with no growth after several days. Per ID, no need for further antibiotics on discharge. Patient treated with colchicine for knee pain while inpatient given concern for septic joint. Will start patient on napr oxen twice daily on discharge and plan for 14-day course total. Will increase home PPI to twice daily while on naproxen. Okay for Tylenol as needed and lidocaine patches as needed on discharge for further pain control. 2. Debility Patient lives at home with prior to admission, daughter also very involved in patient's care. ? PT/OT/case management followed. Patient requiring significant assistance from therapy while inpatient. Discharged to SNF at [facility] in stable condition on 02/10. 3. Toxic encephalopathy on admission, improved; intermittent episodes of altered mentation; history of dementia Patient initially noted to be confused on admission, was suspected this was secondary to morphine given in the ED for his pain. Improved back to baseline on morning of hospital day 2. However, patient had 2 episodes during hospitalization that appeared consistent with acute hyperactive delirium. Suspect these were secondary to pain and unfamiliar setting with underlying dementia playing a large role as well. Notably had normal CT head without contrast, normal ABG and otherwise normal labs and was hemodynamically stable with these episodes. ? Continued home donepezil. Use low-dose risperidone at night scheduled for a few nights but family was concerned that this caused too deep of sleep for the patient. Will prescribe melatonin 5 mg scheduled at night with trazodone as ne eded on discharge. 4. BPH with obstructive symptoms ? Had Hitchcock catheter placed in the ED due to concern for acute urinary tension in setting of encephalopathy. Hitchcock catheter removed on 02/05, patient passed voiding trial without issue and had no further issues with urination during admission. Continue home Flomax. 5. Malnutrition ? Nutrition followed. Met criteria for chronic moderate protein and caloric malnutrition. Continue Ensure plus high-protein 4 times daily with meals. 6. Recent history of microscopic hematuria with small bilateral kidney stones Follows with Dr. Flores with Urology, last saw in office on 01/01/2024. Had CT urogram done shortly before that office visit that showed 5 mm stone in lower pole of right kidney and 2 stones in left upper pole that were 3 mm each. UA at appointment on 01/01 showed positive nitrites. Cystoscopy scheduled for that day was canceled and patient was treated with Bactrim. Appears the patient has not seen urology in the office since then. ? Initially had Hitchcock catheter placed on admission due to concern for urinary tension with encephalopathy, but had Hitchcock removed and completed voiding trial without issue. No pain or discomfort with urination noted. Did not collect UA during admission but patient notably was treated with several days of Zosyn during hospitalization. Recommend close outpatient follow-up with urologist a fter discharge from SNF. Chronic medical conditions: ? CAD with remote stent placement: Previously follows with cardiology at [facility]. Requesting records, had stent placed several years ago, was on Plavix for 1 year and has now been on aspirin monotherapy. Continue home aspirin. ? Hypothyroidism: Continue home Synthroid. Total clinical time spent by myself addressing the patient's medical issues, reviewing all the data, and collaborating with patient's care team: 35 minutes. Physical Exam Const alert, no apparent distress and average body habitus Constitutional Narrative: Elderly male, sitting up comfortably in bed, mild fatigued appearing, making appropriate eye contact with questions and answering with short responses, no acute distress. General Appearance: cooperative and comfortable HEENT normocephalic, head/scalp atraumatic, hearing grossly normal bilaterally, nasal mucous membranes and turbinates normal and moist oral mucous membranes Eyes PERRL, EOMs intact bilaterally and conjunctivae normal Neck full ROM Chest inspection of chest normal Resp normal respiratory effort, normal air movement, no use of accessory muscles and clear to auscultation bilaterally Cardio regular rate, regular rhythm, no murmurs and peripheral pulses 2+ throughout GI normal to inspection, nondistended, normoactive bowel sounds, soft to palpation, non-tender and non-distended Back/Spine normal ROM Extremity Extremity Narrative: Right knee swelling much improved from admission. Continues to have mild tenderness to palpation also improved from admission. No erythema noted. Skin no rashes or lesions noted Neuro moves all extremities and no focal motor deficits Speech: speech normal Psych mental status grossly normal Medical Records Data Medical Nutrition Assessment Dietitian: Malnutrition Criteria Met Start: 02/04/24 12:53 Freq: Status: Active Protocol: Document 02/04/24 13:20 RMA (Rec: 02/04/24 13:20 RMA [id number]) Nutrition Malnutrition Evidence of Malnutrition Exists Yes Malnutrition (moderate): Chronic Evidenced By Suboptimal Energy Intake ( Moderate),Weight Loss ( Moderate) Clinical Problem Chronic Disease or Condition Related Malnutrition Etiology 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 Will add 120mL ensure plus high protein 4 times per day w / medpass. Adjust ONS as needed to prevent further weight loss. Weight / BMI Weight Weight: 83.552 kg Body Mass Index (BMI) 26.4 ABG / Lab / Microbiology Data 02/10/24 09:06 02/10/24 09:06 Microbiology: Microbiology 02/03/24 15:15 Fluid - Synovial (joint) Gram Stain - Final 02/03/24 15:15 Fluid - Synovial (joint) Body Fluid Culture - Final No growth aerobically. 02/03/24 15:15 Fluid - Synovial (joint) Anaerobic Culture - Final No growth in 5 days. 02/04/24 15:15 Blood Culture (Wb) - Anticubital Right Blood Culture - Final No growth in 5 days. 02/04/24 15:08 Blood Culture (Wb) - Arm Left Blood Culture - Final No growth in 5 days. 02/03/24 15:15 Fluid - Synovial (joint) Gram Stain - Final Meaningful Use Info Meaningful Use Diagnoses (Choose all that apply): None applicable Discharge Plan Admission Admit Date/Time: 02/04/24 12:20 Primary Reason for Your Visit: Right knee pain and difficulty with ambulation Attending Provider: Oliver Galloway Primary Care Provider: Bill Brown Consulting Providers: Matt Guardado; Thomas Chiu; Mike Estrella; Oliver Galloway; Frederick Roger Discharge Orders/Prescriptions Prescriptions: New naproxen 250 mg Tablet 500 mg PO BIDCM 14 Days Qty: 56 0RF lidocaine 5 % Adhesive Patch,Medicated 1 patch topical DAILY Qty: 0 0RF Protocol: *Topical Application Instructions APPLICATION INSTRUCTIONS: right knee. Ensure Plus High Protein 0.08 gram-1.5 kcal/mL Liquid 120 ml PO 4X/DAY Qty: 0 0RF melatonin 5 mg capsule 5 mg PO QHS 7 Days Qty: 7 0RF trazodone 50 mg tablet 50 mg PO QHS PRN (Reason: insomnia) 7 Days Qty: 7 0RF Continued aspirin 81 MG tablet,delayed release (DR/EC) 81 mg PO DAILY levothyroxine 75 MCG tablet 100 mcg PO DAILY tamsulosin 0.4 MG capsule 0.4 mg PO DAILY nitroglycerin 0.4 MG tablet, sublingual 0.4 mg SL PRN MDD 3 total doses. PRN (Reason: Cardiac/Chest Pain) cholecalciferol (vitamin D3) 1,000 UNIT capsule 1,000 unit PO DAILY B-complex with vitamin C 1 EACH tablet 1 ea PO DAILY fenofibrate nanocrystallized 145 MG tablet 145 mg PO DAILY albuterol sulfate 1 INHALER inhaler 1 - 2 puff Inhalation Q4H PRN PRN (Reason: Shortness Of Breath) Qty: 1 0RF donepezil 10 mg tablet 10 mg PO QHS tramadol 50 mg tablet 25 mg PO BID PRN PRN (Reason: pain) pravastatin 20 mg tablet 20 mg PO DAILY amlodipine 5 mg tablet 5 mg PO DAILY pantoprazole 40 MG tablet 40 mg PO DAILY 14 Days Qty: 0 0RF Referrals / Follow Up: Bill Brown MD [Primary Care Provider] - Disposition Disposition (needs filled in before D/C Order can be placed): Alf Facility Charges/Coding Visit Charges Inpatient E&M: 69566 Disch Hosp >30min
--- NOTE | 2024-02-11 13:41 | CASEMGMT ---
Social Work Per physician, pt is ready for discharge today to [facility]. 7000 exemption form completed in [facility]. DC assistant therapy aide to complete discharge. Disposition: [facility], skilled level of care under convalescent stay RICKEY Singleton
[2024-02-11 13:50] VITALS: BP 148/70; PULSE 60; RESP 18; TEMP 36.7; O2SAT 98
--- NOTE | 2024-02-11 14:21 | CASEMGMT ---
Discharge Planning Discharge orders, signed med list, covid results, and transport time sent to [facility] via [facility]. Physicians will transport patient by cot at 3:30p. Nursing, SW, patient, and his updated. Daksha Beck, Discharge Planning Asst.
== END 2024-02-11 16:50 | disposition skilled nursing facility (03) | DRG 548 ==
LOC: ED 15:24 → MS3 16:07
PROVIDERS: Internal Medicine; Internal Medicine Infectious Disease; Emergency Provider Emergency Medicine; PCP Family Medicine; Visit Provider Hospitalist
DX: M00.9 Pyogenic arthritis, unspecified (principal); G92.9 Unspecified toxic encephalopathy; E44.0 Moderate protein-calorie malnutrition; F03.911 Unspecified dementia, unspecified severity, with agitation; M25.061 Hemarthrosis, right knee; N13.8 Other obstructive and reflux uropathy; N18.9 Chronic kidney disease, unspecified; E03.9 Hypothyroidism, unspecified; M11.261 Other chondrocalcinosis, right knee; E78.5 Hyperlipidemia, unspecified; I25.10 Atherosclerotic heart disease of native coronary artery without angina pectoris; R26.2 Difficulty in walking, not elsewhere classified; M17.11 Unilateral primary osteoarthritis, right knee; T40.2X5A Adverse effect of other opioids, initial encounter; Y92.239 Unspecified place in hospital as the place of occurrence of the external cause; R53.81 Other malaise; N40.1 Benign prostatic hyperplasia with lower urinary tract symptoms; R33.8 Other retention of urine; G89.29 Other chronic pain; Z68.26 Body mass index [BMI] 26.0-26.9, adult; Z79.82 Long term (current) use of aspirin; Z79.890 Hormone replacement therapy; Z79.899 Other long term (current) drug therapy; Z95.5 Presence of coronary angioplasty implant and graft
CPT/HCPCS: 36415; 36600; 70450; 73560; 73701; 80048; 80202; 82803; 85025; 85027; 85652; 86140; 87040; 87070; 87075; 87205; 87426; 89050; 89051; 89060; 94668; 97110; 97116; 97162; 97166; 97530; 97535; 97802; 99283; J7040; Q9967; A4216

== ENCOUNTER 2024-03-23 20:01 | Emergency (ER) | payer MEDICARE, OTHER, SELFPAY ==
[2024-03-23 20:02] VITALS: BP 117/61; PULSE 75; RESP 16; TEMP 36.1; O2SAT 96
--- NOTE | 2024-03-23 23:09 | CT_ITS ---
INDICATION: trauma COMPARISON: 02/06/[address] Findings: Serial CT axial images through the brain without contrast. BRAIN PARENCHYMA: Diffuse likely chronic periventricular white matter ischemic changes. Significant diffuse volume loss, however, the ventricles appear to be dilated out of portion to remaining CSF spaces, without definite obstructing lesion identified. No evidence of intraparenchymal hemorrhage or extra-axial fluid collection. Crowding of the sulci at the vertex. VASCULAR STRUCTURES: Atherosclerotic vascular calcifications. SCALP/REMAINING SOFT TISSUES: Left frontal scalp hematoma with subcutaneous gas consistent with laceration. BONES: Paranasal sinuses are clear. CT/Brain/Head without Contrast IMPRESSION: Ventricles are dilated out of portion to remaining CSF spaces, without definite obstructing lesion identified. This is unchanged from comparison examination. Although this may represent central volume loss, cannot exclude stable hydrocephalus. In addition, chronic normal pressure hydrocephalus can have a similar appearance, in the appropriate clinical setting, especially given crowding of the sulci at the vertex. Scalp injury. Otherwise, only age-related changes as above, without evidence of acute intracranial hemorrhage in this noncontrast head CT. Electronically Signed: Jason Hawthorne MD at 23:48 EDT ,
--- NOTE | 2024-03-23 23:09 | RAD_ITS ---
INDICATION: fall, pain EXAMINATION/TECHNIQUE: X-RAY - XR Ribs Unilateral W/ PA Chest Min 3 Views COMPARISON: None. Findings: Single frontal view of the chest. LUNG PARENCHYMA: No acute focal airspace disease or mass lesion. PLEURA: No pleural effusion. No pneumothorax. HEART/GREAT VESSELS: Cardiomediastinal silhouette is unremarkable. BONES: Osseous structures are unremarkable for age. RAD/Ribs Uni Min 3V w/PA Chest IMPRESSION: Chest with no acute disease. Electronically Signed: Jason Hawthorne MD at 0:12 EDT ,
--- NOTE | 2024-03-23 23:10 | EDS_ITS ---
HPI HPI - Fall History of Present Illness Chief Complaint: Fall Informant: patient and spouse/S.O. Narrative Narrative: Patient with dementia lives with his went out to the refrigerator and garage to get something and had a fall that the significant other heard but did not witness. He came right back into the house and was bleeding from laceration on his face. No other apparent injuries. No loss of consciousness. He has had no vomiting. He takes baby aspirin but no anticoagulants or other antiplatelet medications. Has not been ill recently but did just get home from [facility] recently. She states he is at his baseline mental status of confusion right now. [facility] Medical History Acute cystitis Anxiety Carotid stenosis, right Chronic kidney disease (CKD) Community acquired pneumonia Hyperlipidemia Hypothyroidism Kidney stones Non-smoker Stroke-like symptoms Weakness Home Medications B-complex with vitamin C 1 ea PO DAILY Supplement 04/11/18 [History Last Taken 11/11/18 09:00] aspirin 81 mg tablet,delayed release 81 mg PO DAILY Heart 04/11/18 [History Last Taken 11/11/18 09:00] cholecalciferol (vitamin D3) 25 mcg (1,000 unit) capsule 1,000 unit PO DAILY Supplement 04/11/18 [History Last Taken 11/11/18 09:00] fenofibrate nanocrystallized 145 mg tablet 145 mg PO DAILY Cholesterol 04/11/18 [History Last Taken Unknown] levothyroxine 75 mcg tablet 100 mcg PO DAILY Thyroid 04/11/18 [History Last Taken 11/11/18 07:00] nitroglycerin 0.4 mg sublingual tablet 0.4 mg SL PRN PRN Cardiac/Chest Pain 04/11/18 [History Last Taken Unknown] tamsulosin 0.4 mg capsule 0.4 mg PO DAILY Prostate 04/11/18 [History Last Taken 11/11/18 22:00] albuterol sulfate 90 mcg/actuation aerosol inhaler 1 - 2 puff inhalation Q4H PRN PRN Shortness Of Breath ##1 11/14/18 [Rx Last Taken Unknown] amlodipine 5 mg tablet 5 mg PO DAILY 02/03/24 [History Last Taken Unknown] donepezil 10 mg tablet 10 mg PO QHS 02/03/24 [History Last Taken Unknown] pravastatin 20 mg tablet 20 mg PO DAILY 02/03/24 [History Last Taken Unknown] tramadol 50 mg tablet 25 mg PO BID PRN PRN pain 02/03/24 [History Last Taken 02/03/24 09:00] food supplemt, lactose-reduced 0.08 gram-1.5 kcal/mL oral liquid (Ensure Plus High Protein) 120 ml PO 4X/DAY #0 mL 02/11/24 [Rx Last Taken Unknown] lidocaine 5 % topical patch 1 patch topical DAILY #0 ea 02/11/24 [Rx Last Taken Unknown] melatonin 5 mg capsule 5 mg PO QHS 7 days #7 caps 02/11/24 [Rx Last Taken Unkn own] naproxen 250 mg tablet 500 mg (2 x 250 mg) PO BIDCM 14 days #56 tabs 02/11/24 [Rx Last Taken Unknown] pantoprazole 40 mg tablet,delayed release 40 mg PO DAILY GERD 14 days #0 tabs 02/11/24 [Rx Last Taken 11/11/18 09:00] trazodone 50 mg tablet 50 mg PO QHS PRN insomnia 7 days #7 tabs 02/11/24 [Rx Last Taken Unknown] Allergy/AdvReac Type Severity Reaction Status Date / Time enoxaparin [From Lovenox] Allergy Rash Verified 03/23/24 20:02 morphine AdvReac Intermediate Other Verified 03/23/24 20:02 atorvastatin [From Lipitor] AdvReac muscle pain Verified 03/23/24 20:02 Family History Mother High cholesterol CVA (cerebral vascular accident) Surgical History History of cholecystectomy History of coronary artery stent placement History of hernia repair History of laparoscopic cholecystectomy Social History Smoking Status: Never smoker alcohol intake: current alcohol intake frequency: a few times a month substance use type: does not use ROS ROS ED Review of Systems ROS Unobtainable: due to mental status EXAM Physical Exam Const Vital Signs: 03/23/24 20:02 03/23/24 23:00 03/24/24 00:02 Temperature 97 F L Temperature Source Temporal Pulse Rate 75 75 Respiratory Rate 16 15 Respiratory Effort Normal Non-Labored Respiratory Depth Normal Respiratory Pattern Normal Blood Pressure 117/61 115/60 Blood Pressure Mean 79 78 Pulse Ox 96 96 Oxygen Delivery Method Room Air Positive well nourished and well developed General Appearance ED: well developed and NAD HEENT Reports nasal mucous membranes and turbinates normal HEENT Narrative: Stellate laceration above the left eyebrow with associated hematoma and tenderness, no crepitance or depression. Does not appear to be tender at the orbital brim. Face and Sinus: facial tenderness Eyes PERRL and EOMs intact bilaterally Visual Acuity: other Other Details: no entrapment or pain with extraocular movements Neck full ROM and supple General: Negative for tenderness Chest Wall inspection of chest normal and palpation of chest normal Chest: symmetrical chest wall rise; Negative for crepitus or tenderness Resp normal respiratory effort and clear to auscultation bilaterally Percussion: other equal BS bilat Cardio no murmurs Rate: regular rate Rhythm: regular rhythm GI normal to inspection, nondistended, normoactive bowel sounds, soft to palpation and non-tender Back/Spine normal ROM Cervical Spine: Negative for cervical spine tenderness Thoracic Spine / Upper Back: Negative for thoracic spinal tenderness Lumbar Spine / Lower Back: Negative for lumbar spinal tenderness Extremity normal to inspection and full ROM General Extremety ED: Negative for tenderness Neuro CN's II-XII intact bilaterally, moves all extremities, no focal motor deficits and no sensory deficits noted Jorge Alberto Coma Scale: document GCS findings Spontaneous Obeys Commands Confused 14 Sensorium / Orientation: awake, alert, orientation impaired and confused Skin Skin Narrative: 4.5 cm stellate laceration above the left eyebrow full-thickness clean appearing no tissue loss. Lesions: no lesions Rashes: no rashes [facility] [place] Narrative Medical decision making narrative: Perform CT of the head to rule out fracture or intracranial hemorrhage, I reviewed the images and the report which I agree with, it is negative for anything acute. Also obtain a rib series on the left with the PA chest, 5 views negative for acute fracture or pneumothorax on my interpretation, radiology is in agreement. His laceration was repaired prior to CT see the procedure note. Dressing cleansed by nursing given appropriate discharge instructions for wound reevaluation and suture removal. Radiography Diagnostic Testing: Clinical Impression(s) from Imaging Studies Brain CT 03/23/24 23:09 IMPRESSION: Ventricles are dilated out of portion to remaining CSF spaces, without definite obstructing lesion identified. This is unchanged from comparison examination. Although this may represent central volume loss, cannot exclude stable hydrocephalus. In addition, chronic normal pressure hydrocephalus can have a similar appearance, in the appropriate clinical setting, especially given crowding of the sulci at the vertex. Scalp injury. Otherwise, only age-related changes as above, without evidence of acute intracranial hemorrhage in this noncontrast head CT. Electronically Signed: Jason Hawthorne MD at 23:48 EDT , Ribs w/Chest X-Ray 03/23/24 23:09 IMPRESSION: Chest with no acute disease. Electronically Signed: Jason Hawthorne MD at 0:12 EDT , Procedures Lacerations Left forehead: Length: 4.5 cm Depth: Sub Q Shape: Stellate Prep: Sterile Conditions and Chlorhexadine Laceration repair: Irrigated, Lidocaine with epi (2cc, 1%), Local and Skin sutures Irrigated (ml): 120 Number of Sutures/[place]: 8 Suture Information: Ethilon, Simple and 6-0 Discharge Plan Triage Chief Complaint: Fall ED Provider: Chang Longoria Dx/Rx/DC Orders Clinical Impression: Contusion of rib on left side, Facial laceration, Closed head injury without loss of consciousness Instructions: ED FACIAL LACERATION Suture Tape Prescriptions: No Action aspirin 81 MG tablet,delayed release (DR/EC) 81 mg PO DAILY levothyroxine 75 MCG tablet 100 mcg PO DAILY tamsulosin 0.4 MG capsule 0.4 mg PO DAILY nitroglycerin 0.4 MG tablet, sublingual 0.4 mg SL PRN MDD 3 total doses. PRN (Reason: Cardiac/Chest Pain) cholecalciferol (vitamin D3) 1,000 UNIT capsule 1,000 unit PO DAILY B-complex with vitamin C 1 EACH tablet 1 ea PO DAILY fenofibrate nanocrystallized 145 MG tablet 145 mg PO DAILY albuterol sulfate 1 INHALER inhaler 1 - 2 puff Inhalation Q4H PRN PRN (Reason: Shortness Of Breath) Qty: 1 0RF donepezil 10 mg tablet 10 mg PO QHS tramadol 50 mg tablet 25 mg PO BID PRN PRN (Reason: pain) pravastatin 20 mg tablet 20 mg PO DAILY amlodipine 5 mg tablet 5 mg PO DAILY naproxen 250 mg Tablet 500 mg PO BIDCM 14 Days Qty: 56 0RF lidocaine 5 % Adhesive Patch,Medicated 1 patch topical DAILY Qty: 0 0RF Protocol: *Topical Application Instructions APPLICATION INSTRUCTIONS: right knee. Ensure Plus High Protein 0.08 gram-1.5 kcal/mL Liquid 120 ml PO 4X/DAY Qty: 0 0RF melatonin 5 mg capsule 5 mg PO QHS 7 Days Qty: 7 0RF trazodone 50 mg tablet 50 mg PO QHS PRN (Reason: insomnia) 7 Days Qty: 7 0RF pantoprazole 40 MG tablet 40 mg PO DAILY 14 Days Qty: 0 0RF Primary Care Provider: Bill Brown Referrals: Bill Brown MD [Primary Care Provider] - 7 Days for suture removal Disposition Disposition: Home, Self Care
[2024-03-24 00:02] VITALS: BP 115/60; PULSE 75; RESP 15; O2SAT 96
[2024-03-24 00:49] VITALS: BP 131/70; PULSE 55; RESP 16; TEMP 36.6; O2SAT 99
== END 2024-03-24 00:50 | disposition home or self-care (01) ==
PROVIDERS: Emergency Provider Emergency Medicine; PCP Family Medicine; Visit Provider Emergency Medicine
DX: S01.81XA Laceration without foreign body of other part of head, initial encounter (principal); F03.90 Unspecified dementia, unspecified severity, without behavioral disturbance, psychotic disturbance, mood disturbance, and anxiety; S20.212A Contusion of left front wall of thorax, initial encounter; Z79.82 Long term (current) use of aspirin; N18.9 Chronic kidney disease, unspecified; E78.5 Hyperlipidemia, unspecified; W19.XXXA Unspecified fall, initial encounter
CPT/HCPCS: 12002; 70450; 71101; 99282

== ENCOUNTER → 2024-05-19 | Outpatient (CLI) | payer MEDICARE, OTHER, SELFPAY | END | disposition home or self-care (01) | LOC: SL 19:53 | PROVIDERS: PCP Family Medicine; Referring Provider Family Medicine; Visit Provider Family Medicine | DX: G47.33 Obstructive sleep apnea (adult) (pediatric) (principal) | CPT/HCPCS: 95811 ==

== ENCOUNTER → 2024-10-27 | Outpatient (CLI) | payer MEDICARE, OTHER, SELFPAY ==
[2024-10-27 12:34] LABS: Hematocrit 44.8 % (40-54); Hemoglobin 14.3 g/dL (13.0-16.5); Mean Corp Hgb Conc 31.9 g/dL (32-36); Mean Corpuscular Hgb 30.4 pg (27.0-32.0); Mean Corpuscular Volume 95.1 fL (80-94); Mean Platelet Vol. 10.8 fl (6.2-12.0); Platelet Count 270 K/mm3 (150-450); RBC Distribution Width CV 12.3 % (11.6-14.6); RBC Distribution Width SD 43.2 fl (35.1-43.9); Red Blood Count 4.71 M/mm3 (4.6-6.2); White Blood Count 5.9 K/mm3 (4.4-11.0)
[2024-10-27 14:23] LABS: ALB/GLOB Ratio 1.1 RATIO (0.9-2.4); AST(SGOT) 20 U/L (15-37); Alanine Aminotransfer ALT/SGPT 27 U/L (16-61); Albumin, Serum 3.8 g/dL (3.2-5.0); Alkaline Phosphatase 102 U/L (45-117); Anion Gap 8 (5-15); BUN 18 mg/dL (7-18); BUN/Creat Ratio 20.4 RATIO (10-20); Chloride 108 mmol/L (98-107); Creatinine, Serum 0.88 mg/dL (0.70-1.30); EST Glomerular Filtration Rate 87 mL/min (>60); Est Glom Filt Rate - Afr Amer 105 mL/min (>60); Globulin 3.5 g/dL (2.2-4.2); Glucose 85 mg/dL (74-106); Potassium 3.7 mmol/L (3.5-5.1); Protein, Total 7.3 g/dL (6.4-8.2); Sodium Level 140 mmol/L (136-145); T4 Free Direct 1.35 ng/dL (0.76-1.46)
[2024-10-29 08:37] LABS: Vitamin B12 450 pg/mL (211-911)
[2024-10-30 18:07] LABS: Vitamin B1, Thiamine 166.4 nmol/L (66.5-200.0)
== END | disposition home or self-care (01) ==
LOC: MTLAB 10:25
PROVIDERS: PCP Family Medicine; Referring Provider Psychiatry & Neurology Neurology; Visit Provider Psychiatry & Neurology Neurology
DX: F03.90 Unspecified dementia, unspecified severity, without behavioral disturbance, psychotic disturbance, mood disturbance, and anxiety (principal)
CPT/HCPCS: 36415; 80053; 82607; 82746; 84425; 84439; 84443; 85027

== ENCOUNTER 2025-06-28 09:37 | Day surgery (SDC) | payer MEDICARE, OTHER, SELFPAY ==
--- NOTE | 2025-06-22 17:06 | PAT.ANE_ITS ---
Pre-Assessment Diagnosis/Proposed Procedure Planned Operative Procedure(s): CAUDAL BLOCK Anesthesia History Anesthesia History - [employer]: Anesthesia History - [employer] Hx Hospitalization No 06/22/25 11:17 Any Problems With Anesthesia No 06/22/25 11:17 Cholinesterase deficiency No 06/22/25 11:17 You/Your Family Experience No 06/22/25 11:17 fever (hyperthermia) with Relationship Recent Exposure to Contagious Disease Does patient have nerve No 06/22/25 11:17 stimulator Patient instructed to have device shut off --Does patient have Pacemaker or ICD? When Was Last Pacemaker Check QUESTION #4 FULL TEXT: You/Your Family Experience fever (hyperthermia) with Anesthesia Last Oral Intake Last Oral intake: Last Oral Intake NPO since Meds taken in AM with sips of water? Meds patient instructed to take am of surgery PONV PONV - [employer]: PONV - [employer] Female No 06/22/25 11:17 HX of Motion Sickness No 06/22/25 11:17 HX of N/V After Surgery No 06/22/25 11:17 Non-Smoker Yes 06/22/25 11:17 Duration of Surgery greater No 06/22/25 11:17 than 60 minutes Number of Risk Factors 1 06/22/25 11:17 PONV Score Low Risk 06/22/25 11:17 Height & Weight Height & Weight: Anesthesia: Height & Weight Height 5 ft 9 in 05/04/25 10:54 Respiratory Assessment Respiratory Assessment - [employer]: Respiratory Tract Infection Hx - [employer] Hx Respiratory Tract Infection No 06/22/25 11:17 STOP Sleep Apnea STOP Sleep Apnea - [employer]: STOP Sleep Apnea - [employer] Hx Hypertension Yes: CONTROLLED WITH MEDS 06/22/25 11:17 Hx Sleep Apnea Yes 06/22/25 11:17 CPAP Yes: DEMENTIA- DOES NOT WEAR 06/22/25 11:17 BIPAP No 06/22/25 11:17 Do you snore loudly (louder than talking or can be heard Do you often feel tired/ fatigued/ sleepy during daytime? Has anyone observed you stop breathing during sleep? STOP Results Positive 06/22/25 11:17 QUESTION #5 FULL TEXT : Do you snore loudly (louder than talking or can be heard through closed doors)? 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 Specify any problems Hx of Preganancy in last 3 N/A 06/22/25 11:17 Months Nurse Filling Out Transfusion [email or web address] 06/22/25 11:17 & Questions: Date: 06/22/25 06/22/25 11:17 Time: 11:21 06/22/25 11:17 Patient unable to answer at this time (ie. confused, unrespo /Reproduction History /Reproductive History - [employer]worker [employer]: /Reproductive Hx- [employer]worker [employer] Hx Now Gestational Age (in weeks): EDC: Hx
--- NOTE | 2025-06-22 17:06 | PAT.ANESEVAL ---
Pre-Assessment Diagnosis/Proposed Procedure Planned Operative Procedure(s): CAUDAL BLOCK Anesthesia History Anesthesia History - automatic clipper: Anesthesia History - automatic clipper Hx Hospitalization No 06/22/25 11:17 Any Problems With Anesthesia No 06/22/25 11:17 Cholinesterase deficiency No 06/22/25 11:17 You/Your Family Experience No 06/22/25 11:17 fever (hyperthermia) with Relationship Recent Exposure to Contagious Disease Does patient have nerve No 06/22/25 11:17 stimulator Patient instructed to have device shut off --Does patient have Pacemaker or ICD? When Was Last Pacemaker Check QUESTION #4 FULL TEXT: You/Your Family Experience fever (hyperthermia) with Anesthesia Last Oral Intake Last Oral intake: Last Oral Intake NPO since Meds taken in AM with sips of water? Meds patient instructed to take am of surgery PONV PONV - automatic clipper: PONV - automatic clipper Female No 06/22/25 11:17 HX of Motion Sickness No 06/22/25 11:17 HX of N/V After Surgery No 06/22/25 11:17 Non-Smoker Yes 06/22/25 11:17 Duration of Surgery greater No 06/22/25 11:17 than 60 minutes Number of Risk Factors 1 06/22/25 11:17 PONV Score Low Risk 06/22/25 11:17 Height & Weight Height & Weight: Anesthesia: Height & Weight Height 5 ft 9 in 05/04/25 10:54 Respiratory Assessment Respiratory Assessment - automatic clipper: Respiratory Tract Infection Hx - automatic clipper Hx Respiratory Tract Infection No 06/22/25 11:17 STOP Sleep Apnea STOP Sleep Apnea - automatic clipper: STOP Sleep Apnea - automatic clipper Hx Hypertension Yes: CONTROLLED WITH MEDS 06/22/25 11:17 Hx Sleep Apnea Yes 06/22/25 11:17 CPAP Yes: DEMENTIA- DOES NOT WEAR 06/22/25 11:17 BIPAP No 06/22/25 11:17 Do you snore loudly (louder than talking or can be heard Do you often feel tired/ fatigued/ sleepy during daytime? Has anyone observed you stop breathing during sleep? STOP Results Positive 06/22/25 11:17 QUESTION #5 FULL TEXT : Do you snore loudly (louder than talking or can be heard through closed doors)? 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 Specify any problems Hx of Preganancy in last 3 N/A 06/22/25 11:17 Months Nurse Filling Out Transfusion [email or web address] 06/22/25 11:17 & Questions: Date: 06/22/25 06/22/25 11:17 Time: 11:21 06/22/25 11:17 Patient unable to answer at this time (ie. confused, unrespo /Reproduction History /Reproductive History - automatic clipper: /Reproductive Hx- automatic clipper Hx Now Gestational Age (in weeks): EDC: Hx Hx Para Hx Section SAB PFSH Medical History (Updated 06/22/25 @ 11:51 by Ten Barbosa) History of Holter monitoring Wears partial dentures History of steroid therapy Thyroid disease History of edema Cardiology follow-up encounter Arthritis of knee, right Anxiety Kidney stones Non-smoker Dementia Carotid stenosis, right Weakness Stroke-like symptoms Community acquired pneumonia Acute cystitis Chronic kidney disease (CKD) Hyperlipidemia Hypothyroidism Home Medications ?Medication ?Instructions ?Recorded ?Last Taken ?Type aspirin 81 mg tablet,delayed 81 mg PO DAILY Heart 04/11/18 11/11/18 09:00 History release cholecalciferol (vitamin D3) 25 1,000 unit PO DAILY Supplement 04/11/18 11/11/18 09:00 History mcg (1,000 unit) capsule nitroglycerin 0.4 mg sublingual 0.4 mg sublingual PRN PRN 04/11/18 Unknown History tablet Cardiac/Chest Pain tamsulosin 0.4 mg capsule 0.4 mg PO DAILY Prostate 04/11/18 11/11/18 22:00 History albuterol sulfate 90 mcg/actuation 1 - 2 puff inhalation Q4H PRN PRN 01/04/19 Unknown Rx aerosol inhaler Shortness Of Breath ##1 amlodipine 5 mg tablet 5 mg PO DAILY 02/03/24 Unknown History pravastatin 20 mg tablet 20 mg PO QHS 02/03/24 Unknown History food supplemt, lactose-reduced 120 ml PO 4X/DAY #0 mL 02/11/24 Unknown Rx 0.08 gram-1.5 kcal/mL oral liquid (Ensure Plus High Protein) pantoprazole 40 mg tablet,delayed 40 mg PO DAILY GERD 14 days #0 tabs 02/11/24 11/11/18 09:00 Rx release vibegron 75 mg tablet (Gemtesa) 75 mg PO QDAY 10/27/24 Unknown History divalproex 250 mg tablet,delayed 250 mg PO BID #180 tabs 05/04/25 Unknown Rx release donepezil 5 mg tablet 5 mg PO QAM #90 tabs 05/04/25 Unknown Rx levothyroxine 100 mcg tablet 100 mcg PO DAILY 06/22/25 Unknown History melatonin 5 mg capsule 5 mg PO QHS PRN sleep 06/22/25 Unknown History mtmxazrvrkhx-gsuualjx-uufcat 1 tab PO DAILY 06/22/25 Unknown History tablet (Milltrium Senior tablet) Allergy/AdvReac Type Severity Reaction Status Date / Time enoxaparin (From Lovenox) Allergy Rash Verified 06/22/25 11:12 morphine AdvReac Intermediate Other Verified 06/22/25 11:12 atorvastatin (From Lipitor) AdvReac muscle pain Verified 06/22/25 11:12 Family History Mother High cholesterol CVA (cerebral vascular accident) Surgical History (Updated 06/22/25 @ 11:51 by Ten Barbosa) History of cholecystectomy History of coronary artery stent placement History of hernia repair History of laparoscopic cholecystectomy Social History Smoking Status: Never smoker alcohol intake: current alcohol intake frequency: a few times a month substance use type: does not use Audit: Pertinent Findings Pertinent Findings EKG Perinent findings: October 26, 2024. Sinus bradycardia at 55 bpm. Nonspecific QRS widening. Stress test pertinent findings: November 20, 2024. EF of 59%. No evidence of ischemia. Normal stress echocardiogram. Ascending aorta diameter is 3.8 cm. Low risk of adverse cardiac events. Consult pertinent findings: January 26, 2025. Emmett [facility]. Cardiology. 1. Coronary artery disease-status post remote stenting of the LAD and RCA in 2018. Stenting of the diagonal in 2019. Patient denies any complaints of chest discomfort or shortness of breath. 2. Bradycardia resolved with discontinuation of Aricept. 3. Dementia-difficult to get accurate history from the patient. Recommendation Anesthesia Recommendation Anesthesia recommendation: OPTIMIZED for anesthesia
[2025-06-28 09:55] VITALS: BP 147/96; BP 152/65; O2SAT 98
[2025-06-28 10:04] VITALS: BP 153/62; PULSE 48; RESP 14; TEMP 36.8; O2SAT 98; BMI 27.5
--- NOTE | 2025-06-28 10:20 | RAD_ITS ---
PROCEDURE: FLUOR GUIDANCE FOR SPINE INJ 06/28/2025 REASON FOR EXAM: BLOCK, CAUDAL TECHNIQUE: FLUOR GUIDANCE FOR SPINE INJ. Radiation dose: 8.4 seconds of fluoroscopy. 6.05 mGy. 2 images were submitted. COMPARISON: None FINDINGS: Intraoperative imaging provided for caudal block. RAD/Fluor Guidance for Spine Inj IMPRESSION: Intraoperative imaging provided for caudal block. Reading Location: [facility]
[2025-06-28] MEDS: Lidocaine 1% (5 ml sdv) 5 ML Vial (10:25)
[2025-06-28] MEDS: 0.9% Normal Saline (Pres. free 10 ML Vial (10:25)
--- NOTE | 2025-06-28 10:32 | OP.PCM_ITS ---
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 COMPLICATIONS: None. DESCRIPTION OF PROCEDURE: History and physical of today was reviewed. Risks and benefits of the procedure were explained. The patient understood and agreed to proceed. Informed consent was obtained. IV inserted per routine protocol. The patient was taken to the operating room and placed in the prone position with a pillow positioned underneath the abdomen. The lower back and tailbone area was prepped and draped in a sterile fashion using iodine x3. Under fluoroscopy guidance on a lateral view, the caudal space was identified. The skin and subcutaneous tissue was anesthetized with approximately 3 mL of 1% lidocaine using a 25-gauge regular needle. Under direct visualization with fluoroscopy, using a 22-gauge 3-1/2-inch spinal needle, the needle was advanced via the skin through the sacral hiatus. The tip of the needle was passed through the sacrococcygeal ligament and advanced to approximately S4 area. After negative aspiration of blood or CSF, a total of 3 mL of contrast was injected to confirm correct placement of the needle as well as cephalad spread. The spread was followed to approximately L5 area. After confirmation on AP as well as lateral view and repeated negative aspiration, a total of 15 mL of preservative-free 0.125% Marcaine with 80 mg of Depo-Medrol was injected easily. The needle was then removed intact. The patient experienced no sign or symptoms of intrathecal or intravascular injection. The patient experienced no paresthesia. The procedure was completed without any apparent difficulty or any complications. The patient appeared to tolerate it well. ASSESSMENT AND PLAN: This is an 84-year-old male with lumbosacral radiculopathy, lumbosacral degenerative disc disease, lumbosacral spinal stenosis, status post diagnostic/therapeutic caudal epidural steroid injection under fluoroscopic guidance, patient will continue his current medications, patient will follow-up in approximately 2 weeks for reevaluation. Surgical Findings: 0 Complications Complications: No Admit VTE Documentation VTE Present on Admission: No VTE Mechan Device Prophylaxis: None VTE Pharm Prophylaxis ordered?: No
[2025-06-28 10:48] VITALS: BP 137/65; BP 153/62; PULSE 45; RESP 12; TEMP 37.2; O2SAT 100
== END 2025-06-28 10:55 | disposition home or self-care (01) ==
LOC: SDC 09:39 → AC 09:40
PROVIDERS: PCP Family Medicine; Referring Provider Anesthesiology Pain Medicine; Visit Provider Anesthesiology Pain Medicine
PROC: 3E0S3BZ Introduction of Anesthetic Agent into Epidural Space, Percutaneous Approach (ICD-10-PCS; CPT 62282; principal; 2025-06-28 10:45)
DX: M51.16 Intervertebral disc disorders with radiculopathy, lumbar region (principal); M06.9 Rheumatoid arthritis, unspecified; F03.94 Unspecified dementia, unspecified severity, with anxiety; M48.061 Spinal stenosis, lumbar region without neurogenic claudication; K21.9 Gastro-esophageal reflux disease without esophagitis; I12.9 Hypertensive chronic kidney disease with stage 1 through stage 4 chronic kidney disease, or unspecified chronic kidney disease; N18.9 Chronic kidney disease, unspecified; E03.9 Hypothyroidism, unspecified; E78.00 Pure hypercholesterolemia, unspecified; M17.11 Unilateral primary osteoarthritis, right knee; M81.0 Age-related osteoporosis without current pathological fracture; I25.10 Atherosclerotic heart disease of native coronary artery without angina pectoris; G47.33 Obstructive sleep apnea (adult) (pediatric); Z95.5 Presence of coronary angioplasty implant and graft; Z90.49 Acquired absence of other specified parts of digestive tract; Z79.82 Long term (current) use of aspirin; Z96.651 Presence of right artificial knee joint; Z79.899 Other long term (current) drug therapy; Z79.890 Hormone replacement therapy
CPT/HCPCS: 62323; 64483; 77003; A4216

== ENCOUNTER → 2025-10-28 | Outpatient (CLI) | payer MEDICARE, OTHER, SELFPAY ==
--- NOTE | 2025-10-28 08:25 | CT_ITS ---
PROCEDURE: BRAIN/HEAD WITHOUT CONTRAST 10/28/2025 REASON FOR EXAM: Clinical history of dementia, hydrocephalus TECHNIQUE: Procedure Code: CTBR Modality: CT Procedure: BRAIN/HEAD WITHOUT CONTRAST Coronal and Sagittal reconstruction series were provided. One or more dose reduction techniques were used (e.g., Automated exposure control, adjustment of the mA and/or kV according to patient size, use of iterative reconstruction technique. RADIATION DOSE SUMMARY: DLP: 1659.71 mGycm COMPARISON: CT head 03/23/2024 FINDINGS: No acute hemorrhage. No acute infarct. Patchy periventricular and subcortical white matter hypodensities compatible with chronic microvascular changes. No significant mass effect or brain herniation. Global cerebral volume loss. Stable supratentorial ventriculomegaly out of proportion to parenchymal loss. Redemonstrated parenchymal crowding at the vertex. No extra-axial fluid collection. The basal cisterns are patent. The mastoid air cells are clear. The paranasal sinuses are predominantly clear. Bilateral ocular lens replacements. The calvarium appears intact. Atherosclerotic calcification of the carotid siphons. CT/Brain/Head without Contrast IMPRESSION: 1. No acute intracranial pathology. 2. Compared to CT of the head 03/23/2024, stable supratentorial ventriculomegal y. Reading Location: [facility]
== END | disposition home or self-care (01) ==
LOC: CT 08:18
PROVIDERS: PCP Family Medicine; Referring Provider Psychiatry & Neurology Neurology; Visit Provider Psychiatry & Neurology Neurology
DX: F03.90 Unspecified dementia, unspecified severity, without behavioral disturbance, psychotic disturbance, mood disturbance, and anxiety (principal)
CPT/HCPCS: 70450